=== PATIENT | male | born 1945 | race Caucasian/White ===

== ENCOUNTER 2020-04-22 21:26 | Emergency (ER) | payer MEDICARE, OTHER, SELFPAY ==
[2020-04-22 21:27] VITALS: BP 132/94; PULSE 102; RESP 16; TEMP 36.1; O2SAT 98; BMI 17.2
--- NOTE | 2020-04-22 21:50 | ED.DCSUM_ITS ---
History of Present Illness Chief Complaint: Complaint Detail of Chief Complaint: Difficulty urinating Informant: Patient Onset: Days Narrative: Patient presents with difficulty urinating. He states he has felt this coming on for quite some time with decreasing urine output. For the past couple of days he reports only being able to get a small trickle of urine out. He states he will go to the bathroom frequently because he feels like he has to go, but only able to get a small amount out. He states he has had some back pain and bilateral thigh pain when he wakes in the mornings. He does not have fever or chills. - Past Medical History (1) Benign essential HTN Status: Chronic (2) COLD (chronic obstructive lung disease) Status: Chronic Past Medical History - Allergies and Home Meds Allergies/Adverse Reactions: Allergies No Known Allergies Allergy (Verified 04/22/20 21:30) Primary Care Physician: Abilio Doctor,Out of [NON-STAFF] - Prior records reviewed: Yes Surgical History: appendectomy Smoking Status: Former smoker Review of Systems General: Denies: Chills, Fever Eyes: Denies: Visual changes - bilaterally ENT: Denies: Bilateral ear pain Cardiovascular: Denies: Chest pain Respiratory: Denies: Dyspnea, Cough Gastrointestinal: Denies: Abdominal pain, Vomiting Musculoskeletal: Reports: Back pain Skin: Denies: Rash Neurological: Denies: Headache Hematologic: Denies: Easy bruising, Easy bleeding Allergy: Denies: Uticaria Physical Exam Vital Signs/Narrative: Vital Signs Temp Pulse Resp BP Pulse Ox 04/22/20 21:27 96.9 F L 102 H 16 132/94 H 98 Inital Vital Signs reviewed: Yes General: Well nourished, Well developed Head: Normocephalic ENT: Moist mucous membranes Neck: Supple Cardiovascular: Regular rate, Regular rhythm Respiratory: No distress, Diminished Abdomen: Soft, Nontender Back: Negative for: CVA tenderness Extremities: Nontender Skin: Normal color Neurological: Alert, Oriented x3 Psychological: Normal affect Diagnostic/Tx/Re-eval Laboratory Results 04/22/20 22:05 Urine Color Yellow Urine Clarity Clear Urine pH 7.0 Ur Specific [place] 1.015 Urine Protein Negative Urine Glucose (UA) Normal Urine Ketones Negative Urine Occult Blood Negative Urine Nitrite Negative Urine Bilirubin Negative Urine Urobilinogen Normal Ur Leukocyte Esterase Negative Urine RBC 0 SEEN Urine WBC 0 SEEN Ur Squamous Epith Cells 0 SEEN Urine Bacteria 0 SEEN Urine Mucus 0 SEEN - Medical Decision Making Patient had a Jauregui catheter placed on arrival. He has had 1 L of urine drained. Urinalysis shows no infection. Patient be given a leg bag and he will wear his catheter at home. It is recommended that he follow-up with urology in approximately 3 days. [facility]. I will give him Dr. Musa's number for backup if he is unable to see one of the [facility] doctors. ED Disposition - Plan for ED Patient: Disposition: Home or Assisted Living Diagnosis: Urinary retention Instructions: ED Urinary Retention Male, ED Jauregui Catheter Care Referrals: Elio Musa MD [STAFF PHYSICIAN] - 3-5 Days
[2020-04-22 22:21] LABS: Bacteria 0 SEEN /hpf (None Seen); Mucous, Urine 0 SEEN /hpf (<or=2+); Red Blood Cells-Urine 0 SEEN /hpf (0-5); Squamous Epithelial Cells - UA 0 SEEN /hpf (0-5); White Blood Cells 0 SEEN /hpf (0-5)
[2020-04-22 22:42] LABS: Color, Urine Yellow (Yellow); Glucose, Dipstick Normal (Normal); Ketone-Dipstick Negative (Negative); Leukocyte Esterase-Dipstick Negative /ul (Negative); Nitrite-Dipstick Negative (Negative); Occult Blood-Urine Negative /ul (Negative); Protein-Dipstick Negative (Negative); Specific Gravity, Urine 1.015 (1.002-1.030); Urine Bilirubin Dipstick Negative (Negative); Urine Clarity Clear (Clear); Urine Urobilinogen Normal (Normal)
--- NOTE | 2020-04-22 23:21 | ED.RN ---
at 2317 updated on pt's discharge.
--- NOTE | 2020-04-23 13:40 | CASEMGMT ---
RN CM Note: contacted requesting that [facility] to [facility]. Clinical information for ER visit [facility] to [facility] transfer [facility] and call to notify that patient was in ER and discharged to home. -call to to update that [facility] was notified [facility] visit, and clinical was faxed to them. appreciated the notification and will f[facility]u with [facility] re: billing. Rylee TALBERT RN ACM
== END 2020-04-22 23:16 | disposition home or self-care (01) ==
PROVIDERS: Emergency Provider Emergency Medicine
DX: R33.9 Retention of urine, unspecified (principal); Z87.891 Personal history of nicotine dependence
CPT/HCPCS: 81001; 99282

== ENCOUNTER 2020-04-24 21:17 | Emergency (ER) | payer OTHER, MEDICARE, SELFPAY ==
[2020-04-24 21:20] VITALS: BP 148/90; PULSE 113; RESP 30; TEMP 37; O2SAT 88; BMI 16.8
[2020-04-24 21:39] VITALS: BP 150/100; PULSE 114; RESP 24; O2SAT 78
[2020-04-24 22:28] VITALS: BP 142/97; RESP 16; O2SAT 98
[2020-04-24 23:13] LABS: Mucous, Urine 0 SEEN /hpf (<or=2+); Squamous Epithelial Cells - UA 0 SEEN /hpf (0-5)
[2020-04-24 23:26] LABS: Color, Urine Yellow (Yellow); Glucose, Dipstick Normal (Normal); Ketone-Dipstick 50 mg/dl (Negative); Leukocyte Esterase-Dipstick 500 /ul (Negative); Nitrite-Dipstick Positive (Negative); Occult Blood-Urine 250 /ul (Negative); Protein-Dipstick 100 mg/dl (Negative); Urine Bilirubin Dipstick Negative (Negative); Urine Clarity Cloudy (Clear); Urine Urobilinogen Normal (Normal); Urine pH 6.5 (5.0 - 8.0)
[2020-04-24 23:33] LABS: Bacteria 3+ /hpf (None Seen); Red Blood Cells-Urine 5-10 SEEN /hpf (0-5); White Blood Cells 5-10 SEEN /hpf (0-5)
--- NOTE | 2020-04-24 23:41 | ED.DEP ---
ED Disposition - Plan for ED Patient: Instructions: ED CYSTITIS Male Adult Prescriptions: Cephalexin [Keflex] 500 mg PO Q12 #14 cap Prescription Printed [facility] [[facility] Provider] -
--- NOTE | 2020-04-24 23:46 | ED.VISSUMM ---
- ER Visit Summary Date of Service: 04/24/20 Chief Complaint: Jauregui catheter problems History of Present Illness: The patient is a 74 M presenting concerned that his Jauregui catheter may not be draining appropriately. He states that he had cloudy urine at home. Denies blood clots. Denies fever. He is scheduled to have this catheter removed next week at the [place]. Denies other complaints. Physical Examination: Vitals are stable. Patient is afebrile. Alert no acute distress. HEENT exam is unremarkable. Neck is supple. Lungs are clear and equal bilaterally. Heart is regular rate and rhythm. Abdomen is soft nontender nondistended. No guarding or rebound Extremities are unremarkable. Skin is warm and dry. Remainder of exam is unremarkable. Emergency Department Course and Treatment: Catheter appears to be draining appropriately. It was irrigated and continues to drain well. Urinalysis shows 5-10 white blood cells, 3+ bacteria. Urine culture was sent. He was given Keflex and a prescription for Keflex. Advised to follow-up with urology. Advised return to ED for worsening complaints. Disposition: Discharge home Impression: UTI This note was generated with [employer] dictation software. It may contain incorrect words, spelling, and punctuation that were not noted in review of the chart prior to signing ED Disposition - Plan for ED Patient: Instructions: ED CYSTITIS Male Adult Prescriptions: Cephalexin [Keflex] 500 mg PO Q12 #14 cap Prescription Printed Referrals: [facility] [Primary Care Provider] -
[2020-04-24] MEDS: Cephalexin 250 MG Capsule 500 MG PO (23:48)
== END 2020-04-24 23:51 | disposition home or self-care (01) ==
LOC: ED 22:49
PROVIDERS: Emergency Provider Emergency Medicine
DX: N39.0 Urinary tract infection, site not specified (principal)
CPT/HCPCS: 81001; 87077; 87086; 87088; 87186; 99282

== ENCOUNTER 2020-05-10 07:44 | Emergency (ER) | payer OTHER, MEDICARE, SELFPAY ==
[2020-05-10 07:45] VITALS: BP 138/88; PULSE 87; RESP 16; TEMP 36.3; O2SAT 99; BMI 16.7
--- NOTE | 2020-05-10 07:50 | ED.RN ---
pt confused at times. had difficulty communicating dc instructions and catheter care to family. created challenges at home. son with pt this visit.
--- NOTE | 2020-05-10 07:57 | CT_ITS ---
STUDY: CT ABDOMEN AND PELVIS WITH CONTRAST REASON FOR EXAM: Male, 74 years old. Constipation, rectal pain, elevated WBC, trouble urinating. Hx hypertension, COPD, appendectomy. RADIATION DOSAGE (If Supplied By Facility): CTDIvol = ( 5.28 ) mGy, DLP = ( 211.42 ) mGycm TECHNIQUE: Transaxial images were obtained from the dome of the diaphragm to the symphysis pubis without oral contrast. IV 75ML ISOVUE 300 was administered. Sagittal and coronal images were reconstructed. Individualized dose optimization techniques were used for this CT. COMPARISON: None. FINDINGS: Findings in keeping with emphysematous changes and mild scarring at the lung bases. Moderate-sized pericardial effusion. 8 mm cyst in the left lobe of the liver. 8 mm cyst seen in the midportion of the right lobe of the liver. Normal gallbladder and extrahepatic biliary system. Normal spleen. Normal pancreas. Normal bilateral adrenal glands. Normal right kidney. Normal left kidney. Normal visualized stomach. Normal small intestine. Gas and fecal material are seen within the colon. There is dilatation of the transverse colon. Gas and fecal material is also seen in the rectum. The patient is status post appendectomy. Normal abdominal aorta. Normal inferior vena cava. Normal retroperitoneum. A NORTON catheter is seen within the urinary bladder. Diffuse bladder wall thickening. There is enlargement of the prostate gland. This causes indentation on the bladder base. The prostate measures 4.5 cm x 6 sinus. Central calcifications are seen. There is evidence of a enlargement of the vas deferens bilaterally. Normal abdominal wall. There are diffuse degenerative changes of the visualized lumbar spine. Mild levoscoliosis. Gaseous distention of the colon down to the rectosigmoid colon. CT/Abdomen/Pelvis W IV Cont ONLY IMPRESSION: A NORTON catheter is seen within the urinary bladder. Diffuse bladder wall thickening with irregularity. There is enlargement of the prostate with indentation at the bladder base worse on the left side. Electronically Signed: Kian Guevara, at 9:50 EST , Service support ,
--- NOTE | 2020-05-10 08:00 | ED.DCSUM_ITS ---
History of Present Illness Chief Complaint: Abd Pain Informant: Patient Onset: Days Context: Gradual Onset Timing: Continuous Current Severity: Moderate Maximum Severity: Moderate Narrative: The patient is a 74-year-old male with multiple comorbidities who presents to the emergency department constipation. Patient states that he was seen here a week ago. At that point, he had inability to urinate. He had a Norton catheter placed. He ended up being admitted to the [facility] for about a week. He states that he has been having some difficulty moving his bowels since his hospitalization. He states that today, his whole rectal area felt very swollen. He was concerned that he may have had a rectal prolapse. He denies any fevers or chills. He does admit to some abdominal distention. He did try an enema at home with little improvement. He is also been taking laxatives. He denies any nausea or vomiting. He denies any fevers or chills. Prior similar symptoms: Yes Recent Illness/Hospitalization: No Past Medical History - Allergies and Home Meds Allergies/Adverse Reactions: Allergies Tetanus Vaccines and Toxoid Allergy (Verified 05/10/20 08:35) Swelling Primary Care Physician: [facility] [Primary Care Provider] - Prior records reviewed: Yes Past Medical History: - - COPD Surgical History: appendectomy Smoking Status: Former smoker Review of Systems General: Denies: Chills, Fever, Sweats Eyes: Denies: Visual changes - bilaterally, Diplopia ENT: Denies: Rhinorrhea, Sore throat Cardiovascular: Denies: Chest pain, Palpitations Respiratory: Denies: Dyspnea, Cough, Dyspnea on exertion Gastrointestinal: Reports: Constipation. Denies: Abdominal pain, Nausea, Vomiting, Diarrhea, Melena, Hematochezia Genitourinary: Denies: Dysuria, Hematuria, Frequency Musculoskeletal: Denies: Back pain, Extremity Pain Skin: Denies: Rash, Wounds Neurological: Denies: Headache, Weakness, Numbness Physical Exam Vital Signs/Narrative: Vital Signs Temp Pulse Resp BP Pulse Ox 05/10/20 07:45 97.4 F L 87 16 138/88 H 99 Inital Vital Signs reviewed: Yes General: Well nourished, Well developed, No Acute Distress Head: Normocephalic, Atraumatic Eyes: Perrl, EOMI ENT: Moist mucous membranes, No rhinorrhea Neck: Supple, Nontender Cardiovascular: Regular rate, Regular rhythm, No murmurs Respiratory: No distress, CTA bilaterally, Chest nontender Abdomen: Soft, Nontender, Nondistended, Normal bowel sounds Rectal: - - Patient does have a small hemorrhoid at the 12 o'clock position. There is no evidence of thrombosis. There is no rectal prolapse. Back: Nontender, Normal Inspection Extremities: Nontender, No edema Skin: Normal color, No rash Neurological: Alert, Oriented x3, Cranial nerves II-XII grossly intact, Normal Strength, Normal Sensation Psychological: Normal affect, Normal Mood Diagnostic/Tx/Re-eval Clinical Impression(s) from Imaging Studies Abdomen/Pelvis CT 05/10/20 07:57 IMPRESSION: A NORTON catheter is seen within the urinary bladder. Diffuse bladder wall thickening with irregularity. There is enlargement of the prostate with indentation at the bladder base worse on the left side. Electronically Signed: Kian Ismael, at 9:50 EST , Service support , Abnormal Lab Results 05/10/20 05/10/20 05/10/20 08:05 08:05 08:05 WBC 26.3 H RBC 5.10 Hgb 15.7 Hct 48.0 MCV 94.1 H MCH 30.8 MCHC 32.7 RDW Std Deviation 45.2 H RDW Coeff of Christy 13.1 Plt Count 272 MPV 9.0 Immature Gran % (Auto) 0.500 Neut % (Auto) 92.0 H Lymph % (Auto) 1.8 L [place] % (Auto) 5.3 Eos % (Auto) 0.2 Baso % (Auto) 0.2 Absolute Neuts (auto) 24.2 H Absolute Lymphs (auto) 0.47 L Nucleated RBC % 0 Differential Comment SCANNED Sodium 139 Potassium 3.0 L Chloride 95 L Carbon Dioxide 43.0 H Anion Gap 1 L BUN 10 Creatinine 0.89 Estim Creat Clear Calc 51.50 Est GFR (MDRD) Af Amer 108 Est GFR (MDRD) Non-Af 89 BUN/Creatinine Ratio 11.2 Glucose 149 H Calcium 9.0 Urine Color Yellow Urine Clarity Sl. Cloudy Urine pH 8.0 Ur Specific [place] 1.010 Urine Protein 15 H Urine Glucose (UA) Normal Urine Ketones Negative Urine Occult Blood 25 H Urine Nitrite Positive H Urine Bilirubin Negative Urine Urobilinogen Normal Ur Leukocyte Esterase 500 H - Medical Decision Making Patient presents with constipation and concerned that he has a rectal prolapse. Rectal exam was done. He does have a small hemorrhoid, but no evidence of prolapse. There is no stool within the vault and he has normal tone. Screening labs are obtained. The patient does have leukocytosis, but he is still on a prednisone burst and taper from his hospitalization. Rest of his labs are unremarkable. With his age and complaints, I did obtain CT. There was some air-fluid levels throughout the abdomen into the colon, but no evidence of acute obstruction. Patient does have a chronic indwelling Norton and is on oral antibiotics. His urine does show some nitrite positive, but otherwise was relatively unremarkable. Patient was given an enema. He did have significant results and is feeling improved. At this point, I do feel that he safe for outpatient therapy. He is comfortable with this plan of care. Impression 1. Constipation 2. History of urinary retention with indwelling Norton ED Disposition - Plan for ED Patient: Instructions: ED Constipation (Adult) Referrals: [place] [Primary Care Provider] -
[2020-05-10] MEDS: 0.9% Normal Saline 1,000 ML 150 ML IV (08:08)
[2020-05-10 08:14] LABS: Absolute Lymphocyte Count 0.47 X10^3/uL (0.83-4.51); Absolute Neutrophil Count 24.2 X10^3/uL (2.0-7.7); Basophil# 0.06 X10^3/uL; Basophil% 0.2 % (0-1); Eosinophil# 0.04 X10^3/uL; Eosinophils% 0.2 % (0-5); Hemoglobin 15.7 g/dL (13.0-16.5); Lymphocyte # 0.47 X10^3/ul (4.0); Lymphocyte % 1.8 % (19-41); Mean Corp Hgb Conc 32.7 g/dL (32-36); Mean Corpuscular Hgb 30.8 pg (27.0-32.0); Mean Corpuscular Volume 94.1 fL (80-94); Monocyte# 1.39 X10^3/uL; Monocyte% 5.3 % (0-10); NRBC Flagged by Analyzer 0 % (0-5); POSITIVE DIFFERENTIAL YES; Platelet Count 272 K/mm3 (150-450); RBC Distribution Width CV 13.1 % (11.6-14.6); RBC Distribution Width SD 45.2 fl (35.1-43.9); White Blood Count 26.3 K/mm3 (4.4-11.0)
[2020-05-10 08:17] LABS: Differential Indicated SCAN CRITERIA MET
[2020-05-10 08:26] LABS: Anion Gap 1 (5-15); BUN 10 mg/dL (7-18); BUN/Creat Ratio 11.2 RATIO (10-20); Chloride 95 mmol/L (98-107); Creatinine, Serum 0.89 mg/dL (0.70-1.30); EST Glomerular Filtration Rate 89 mL/min (>60); Est Glom Filt Rate - Afr Amer 108 mL/min (>60); Glucose 149 mg/dL (74-106); Sodium Level 139 mmol/L (136-145)
[2020-05-10 08:33] LABS: Differential Comment SCANNED
[2020-05-10 08:39] VITALS: BP 134/95; PULSE 103; RESP 18; O2SAT 98
[2020-05-10 12:14] LABS: Mucous, Urine 0 SEEN /hpf (<or=2+)
--- NOTE | 2020-05-10 12:23 | ED.RN ---
enema preformed, 550ml of soap suds enema was retained. pt held for approximately [address] minutes [address] then was place on bedside commode. brown liquid with only a small amount of stool came out. pt reports feeling better after the enema. dr cali made aware.
[2020-05-10 12:26] LABS: Color, Urine Yellow (Yellow); Glucose, Dipstick Normal (Normal); Ketone-Dipstick Negative (Negative); Leukocyte Esterase-Dipstick 500 /ul (Negative); Nitrite-Dipstick Positive (Negative); Occult Blood-Urine 25 /ul (Negative); Protein-Dipstick 15 mg/dl (Negative); Urine Bilirubin Dipstick Negative (Negative); Urine Clarity Sl. Cloudy (Clear); Urine Urobilinogen Normal (Normal)
[2020-05-10 12:32] LABS: Bacteria 2+ /hpf (None Seen); Red Blood Cells-Urine 0-5 SEEN /hpf (0-5); Squamous Epithelial Cells - UA 0-5 SEEN /hpf (0-5); White Blood Cells 25-50 SEEN /hpf (0-5)
[2020-05-10 12:37] VITALS: BP 120/77; PULSE 81; O2SAT 99
== END 2020-05-10 12:38 | disposition home or self-care (01) ==
LOC: ED 08:35
PROVIDERS: Emergency Provider Emergency Medicine
DX: K59.00 Constipation, unspecified (principal); J44.9 Chronic obstructive pulmonary disease, unspecified; Z96.0 Presence of urogenital implants; Z87.891 Personal history of nicotine dependence
CPT/HCPCS: 74177; 80048; 81001; 85025; 96360; 96361; 99285; J7030; Q9967; A4216

== ENCOUNTER 2020-05-15 12:38 | Inpatient (IN) | payer MEDICARE, OTHER, SELFPAY ==
[2020-05-15] VITALS (23 sets, daily range): BP systolic 77–113; BP diastolic 58–84; PULSE 70–120; RESP 12–22; TEMP 36.3–38.4; O2SAT 80–100; BMI 15.4; BMI 15.7
[2020-05-15 12:56] LABS: Base Excess 10 mmol/L (-2 to +2); Bicarbonate 37.2 mmol/L (22-26); Blood Gas Specimen Type ART; O2 Delivery Device NRB; PO2 169 mmHG (75-100); SITE R Radial; SO2 99 % (95-99); Total Carbon Dioxide 40 mmol/L; pCO2 82.3 mmHg (35-45); pH 7.26 (7.35-7.45)
--- NOTE | 2020-05-15 12:57 | EKG12_ITS ---
Test Reason : Blood Pressure : / mmHG Vent. Rate : 116 BPM Atrial Rate : 116 BPM P-R Int : 114 ms QRS Dur : 118 ms QT Int : 288 ms P-R-T Axes : 092 086 039 degrees QTc Int : 400 ms Sinus Tachycardia with PAC's Low voltage QRS ST & T wave abnormality, consider anterior ischemia Abnormal ECG Confirmed by KEHINDE GIBBS, MARCELLO ([id number]), editorial director ALYSSA CORTEZ ([id number]) on 05/22/2020 10:25:09 AM Referred By: PAULETTE Confirmed By:CAREN BUSBY MD
--- NOTE | 2020-05-15 13:09 | CPS ---
Critical values called to .
[2020-05-15] MEDS: 0.9% Normal Saline 1,000 ML 999 ML IV (13:11)
[2020-05-15] MEDS: MethylPREDNISolone 125 MG/2 ML Vial IV (13:12)
[2020-05-15] MEDS: Ipratropium/Albuterol Sulfate 3 ML AMPUL.NEB INHALATION (13:15)
[2020-05-15] MEDS: Albuterol 2.5 MG/3 ML VIAL.NEB. INHALATION (13:25)
[2020-05-15 13:26] LABS: Absolute Lymphocyte Count 0.49 X10^3/uL (0.83-4.51); Absolute Neutrophil Count 10.6 X10^3/uL (2.0-7.7); Basophil# 0.05 X10^3/uL; Basophil% 0.4 % (0-1); Eosinophil# 0.01 X10^3/uL; Eosinophils% 0.1 % (0-5); Hematocrit 46.4 % (40-54); Hemoglobin 14.6 g/dL (13.0-16.5); Lymphocyte # 0.49 X10^3/ul (4.0); Lymphocyte % 3.9 % (19-41); Mean Corp Hgb Conc 31.5 g/dL (32-36); Mean Corpuscular Volume 95.3 fL (80-94); Mean Platelet Vol. 9.8 fl (6.2-12.0); Monocyte# 1.22 X10^3/uL; Monocyte% 9.8 % (0-10); NRBC Flagged by Analyzer 0 % (0-5); Neutrophil # 10.62 X10^3/uL (2.7-7.7); Neutrophil % 85.4 % (47-70); POSITIVE DIFFERENTIAL YES; Platelet Count 229 K/mm3 (150-450); RBC Distribution Width SD 45.7 fl (35.1-43.9); Red Blood Count 4.87 M/mm3 (4.6-6.2); White Blood Count 12.4 K/mm3 (4.4-11.0)
[2020-05-15 13:28] LABS: Mucous, Urine 0 SEEN /hpf (<or=2+)
[2020-05-15 13:28] LABS: Differential Indicated SCAN CRITERIA MET
--- NOTE | 2020-05-15 13:36 | RAD_ITS ---
STUDY: X-RAY CHEST REASON FOR EXAM: Male, 74 years old. SOB, DIFFICULTY URINATING. UNRESPONSIVE FOR SQUAD INITALLY THEN PERKED UP UPON ARRIVAL TO ER. TECHNIQUE: Single AP portable view of the chest. COMPARISON: None. FINDINGS: EKG electrodes are seen. Hyperinflation. Decreased bronchovascular markings in the upper lobes suggestive of emphysematous change. Findings suggest lobar linear scarring at the lung bases. Normal size heart. Normal mediastinum and chip. Normal visualized pulmonary arteries. There is atherosclerotic calcification of the aortic arch with tortuosity. There is demineralization of the osseous structures. Normal visualized ribs, clavicles, and shoulders. There is no demonstrated abnormality of the visualized soft tissue structures of the upper abdomen. RAD/Chest 1 View (Portable) IMPRESSION: Hyperinflation. Decreased bronchovascular markings in the upper lobes suggestive of the emphysematous changes. Findings suggestive of linear scarring at the lung bases. Electronically Signed: Kian Guevara, at 13:57 EST , Service support ,
[2020-05-15 13:39] LABS: ALB/GLOB Ratio 0.8 RATIO (0.9-2.4); AST(SGOT) 15 U/L (15-37); Alanine Aminotransfer ALT/SGPT 19 U/L (16-61); Alkaline Phosphatase 75 U/L (45-117); Anion Gap 6 (5-15); BUN 18 mg/dL (7-18); BUN/Creat Ratio 13.5 RATIO (10-20); Calcium,Total 8.8 mg/dL (8.5-10.1); Chloride 94 mmol/L (98-107); Creatinine, Serum 1.33 mg/dL (0.70-1.30); EST Glomerular Filtration Rate 56 mL/min (>60); Est Glom Filt Rate - Afr Amer 68 mL/min (>60); Estimated Creatinine Clearance 31.74 ml/min; Glucose 134 mg/dL (74-106); Magnesium 2.3 mg/dL (1.6-2.6); Potassium 3.8 mmol/L (3.5-5.1); Sodium Level 138 mmol/L (136-145)
[2020-05-15 13:46] LABS: Lactic Acid 3.6 mmol/L (0.4-1.9)
[2020-05-15 13:47] LABS: Color, Urine Yellow (Yellow); Glucose, Dipstick Normal (Normal); Ketone-Dipstick 15 mg/dl (Negative); Leukocyte Esterase-Dipstick 500 /ul (Negative); Nitrite-Dipstick Positive (Negative); Occult Blood-Urine 250 /ul (Negative); Protein-Dipstick 100 mg/dl (Negative); Specific Gravity, Urine 1.025 (1.002-1.030); Urine Clarity Sl. Cloudy (Clear); Urine Urobilinogen 4 mg/dl (Normal)
[2020-05-15 13:48] LABS: Urine Bilirubin Dipstick 3 mg/dL (Negative)
[2020-05-15 13:49] LABS: International Normalized Ratio 1.2; Prothrombin Time (Protime)PT. 14.4 SECONDS (11.7-14.9)
[2020-05-15 13:49] LABS: Bacteria 2+ /hpf (None Seen); Red Blood Cells-Urine 25-50 SEEN /hpf (0-5); Squamous Epithelial Cells - UA 0-5 SEEN /hpf (0-5); White Blood Cells 50-100 SEEN /hpf (0-5)
[2020-05-15 13:50] LABS: Partial Thromboplast Time 22.1 Seconds (24.1-36.2)
--- NOTE | 2020-05-15 14:07 | ED.VIS.GEN ---
History of Present Illness Chief Complaint: Shortness of Breath Informant: Family, Senior Application Security Consultant Narrative: 74-year-old male with history of COPD on chronic home oxygen was found unresponsive on the toilet this morning. EMS was called. They found him to be significantly hypoxemic. They state that he did not regain any consciousness until taken out into the cold here at the hospital. states that they are recently at the hospital and they are on their way to urology and pulmonology appointments in [place] at the [place]. No reported fevers. states that he self caths but has not been getting any urine out. She also states that he has not been eating or drinking well. - Past Medical History (1) Benign essential HTN Status: Chronic (2) COLD (chronic obstructive lung disease) Status: Chronic Past Medical History - Allergies and Home Meds Allergies/Adverse Reactions: Allergies Tetanus Vaccines and Toxoid Allergy (Verified 05/15/20 13:00) Swelling Primary Care Physician: [place] [Primary [facility]] - Prior records reviewed: Yes Surgical History: appendectomy Lives: Spouse/ Significant Other Smoking Status: Former smoker Drugs: None Review of Systems ROS: Unable to Obtain Physical Exam Vital Signs/Narrative: Vital Signs Temp Pulse Resp BP Pulse Ox 05/15/20 13:55 101.2 F H 104 H 15 86/58 L 96 05/15/20 13:34 100.9 F H 05/15/20 13:00 98 05/15/20 12:47 97.8 F 114 H 20 H 113/81 H 80 05/15/20 12:39 100.8 F H 114 H 20 H 113/81 H 99 Inital Vital Signs reviewed: Yes General: Well developed, Cachectic Head: Normocephalic, Atraumatic Eyes: Perrl, EOMI ENT: Moist mucous membranes, No rhinorrhea Neck: Supple, Nontender Cardiovascular: Regular rate, No murmurs, Tachycardia Respiratory: Chest nontender, Wheezing, Diminished, - - Patient is tachypneic with accessory muscle use. Abdomen: Soft, Nontender, Nondistended, Normal bowel sounds Back: Nontender, Normal Inspection Extremities: Nontender, No edema Skin: Normal color, No rash Neurological: Cranial nerves II-XII grossly intact, Lethargic, - - Moves all extremities x4. Can hold his arms up against the bed. While lethargic he can follow some basic commands at times. Diagnostic/Tx/Re-eval Clinical Impression(s) from Imaging Studies Chest X-Ray 05/15/20 13:36 IMPRESSION: Hyperinflation. Decreased bronchovascular markings in the upper lobes suggestive of the emphysematous changes. Findings suggestive of linear scarring at the lung bases. Electronically Signed: Kian Guevara, at 13:57 EST , Service support , Laboratory Last Values WBC 12.4 K/mm3 (4.4-11.0) H 05/15/20 13:03 RBC 4.87 M/mm3 (4.6-6.2) 05/15/20 13:03 Hgb 14.6 g/dL (13.0-16.5) 05/15/20 13:03 Hct 46.4 % (40-54) 05/15/20 13:03 MCV 95.3 fL (80-94) H 05/15/20 13:03 MCH 30.0 pg (27.0-32.0) 05/15/20 13:03 MCHC 31.5 g/dL (32-36) L 05/15/20 13:03 RDW Std Deviation 45.7 fl (35.1-43.9) H 05/15/20 13:03 RDW Coeff of Christy 13.0 % (11.6-14.6) 05/15/20 13:03 Plt Count 229 K/mm3 (150-450) 05/15/20 13:03 MPV 9.8 fl (6.2-12.0) 05/15/20 13:03 Immature Gran % (Auto) 0.400 % (0.0-0.9) 05/15/20 13:03 Neut % (Auto) 85.4 % (47-70) H 05/15/20 13:03 Lymph % (Auto) 3.9 % (19-41) L 05/15/20 13:03 [place] % (Auto) 9.8 % (0-10) 05/15/20 13:03 Eos % (Auto) 0.1 % (0-5) 05/15/20 13:03 Baso % (Auto) 0.4 % (0-1) 05/15/20 13:03 Absolute Neuts (auto) 10.6 X10^3/uL (2.0-7.7) H 05/15/20 13:03 Absolute Lymphs (auto) 0.49 X10^3/uL (0.83-4.51) L 05/15/20 13:03 Nucleated RBC % 0 % (0-5) 05/15/20 13:03 Differential Comment 05/15/20 13:03 PT 14.4 SECONDS (11.7-14.9) 05/15/20 13:03 INR 1.2 05/15/20 13:03 APTT 22.1 Seconds (24.1-36.2) L 05/15/20 13:03 Specimen Type ART 05/15/20 15:04 Sample Site R Radial 05/15/20 15:04 pH 7.32 (7.35-7.45) L 05/15/20 15:04 Bicarbonate Actual 34.3 mmol/L (22-26) H 05/15/20 15:04 Total CO2 36 mmol/L 05/15/20 15:04 Base Excess 8 mmol/L (-2 to +2) H 05/15/20 15:04 O2 Saturation 86 % (95-99) L 05/15/20 15:04 O2 % 30 05/15/20 15:04 ABG pCO2 67.4 mmHg (35-45) H* 05/15/20 15:04 ABG pO2 58 mmHG (75-100) L 05/15/20 15:04 Marcel Test Positive 05/15/20 15:04 O2 Delivery Device BiPAP 05/15/20 15:04 Sodium 138 mmol/L (136-145) 05/15/20 13:03 Potassium 3.8 mmol/L (3.5-5.1) 05/15/20 13:03 Chloride 94 mmol/L (98-107) L 05/15/20 13:03 Carbon Dioxide 38.0 mmol/L (21.0-32.0) H 05/15/20 13:03 Anion Gap 6 (5-15) 05/15/20 13:03 BUN 18 mg/dL (7-18) 05/15/20 13:03 Creatinine 1.33 mg/dL (0.70-1.30) H 05/15/20 13:03 Estim Creat Clear Calc 31.74 ml/min 05/15/20 13:03 Est GFR (MDRD) Af Amer 68 mL/min (>60) 05/15/20 13:03 Est GFR (MDRD) Non-Af 56 mL/min (>60) L 05/15/20 13:03 BUN/Creatinine Ratio 13.5 RATIO (10-20) 05/15/20 13:03 Glucose 134 mg/dL (74-106) H 05/15/20 13:03 Lactic Acid 3.6 mmol/L (0.4-1.9) H* 05/15/20 13:03 Calcium 8.8 mg/dL (8.5-10.1) 05/15/20 13:03 Magnesium 2.3 mg/dL (1.6-2.6) 05/15/20 13:03 Total Bilirubin 0.70 mg/dL (0.20-1.00) 05/15/20 13:03 AST 15 U/L (15-37) 05/15/20 13:03 ALT 19 U/L (16-61) 05/15/20 13:03 Alkaline Phosphatase 75 U/L (45-117) 05/15/20 13:03 Troponin I 0.169 ng/mL (<0.045) H 05/15/20 13:03 B-Natriuretic Peptide 114.0 pg/mL (0-100) H 05/15/20 13:03 Total Protein 7.0 g/dL (6.4-8.2) 05/15/20 13:03 Albumin 3.0 g/dL (3.2-5.0) L 05/15/20 13:03 Globulin 4.0 g/dL (2.2-4.2) 05/15/20 13:03 Albumin/Globulin Ratio 0.8 RATIO (0.9-2.4) L 05/15/20 13:03 Urine Color Yellow (Yellow) 05/15/20 13:22 Urine Clarity Sl. Cloudy (Clear) 05/15/20 13:22 Urine pH 5.0 (5.0 - 8.0) 05/15/20 13:22 Ur Specific [place] 1.025 (1.002-1.030) 05/15/20 13:22 Urine Protein 100 mg/dl (Negative) H 05/15/20 13:22 Urine Glucose (UA) Normal mg/dl (Normal) 05/15/20 13:22 Urine Ketones 15 mg/dl (Negative) H 05/15/20 13:22 Urine Occult Blood 250 /ul (Negative) H 05/15/20 13:22 Urine Nitrite Positive (Negative) H 05/15/20 13:22 Urine Bilirubin 3 mg/dL (Negative) H 05/15/20 13:22 Urine Urobilinogen 4 mg/dl (Normal) H 05/15/20 13:22 Ur Leukocyte Esterase 500 /ul (Negative) H 05/15/20 13:22 Urine RBC 25-50 SEEN /hpf (0-5) 05/15/20 13:22 Urine WBC 50-100 SEEN /hpf (0-5) 05/15/20 13:22 Ur Squamous Epith Cells 0-5 SEEN /hpf (0-5) 05/15/20 13:22 Urine Bacteria 2+ /hpf (None Seen) 05/15/20 13:22 Urine Mucus 0 SEEN /hpf (<or=2+) 05/15/20 13:22 - EKG Initial EKG Interpretation: Sinus Tachycardia - EKG demonstrates a sinus tachycardia at a rate of 116. Intraventricular conduction delay noted. - Medical Decision Making Patient was started on BiPAP therapy. His ABG shows a acute respiratory acidosis. He received IV fluids. He developed a fever. White count is elevated as his lactic acid. Urinalysis which was obtained from a Jauregui which we placed demonstrates UTI. He received a dose of Rocephin after blood and urine cultures were obtained. Patient appears to be acutely septic from urinary tract infection. He appears to have acute respiratory failure due to COPD exacerbation and possibly from syncopal episode while on the toilet. Patient will require ICU care. His blood pressure has been 90 over 70s with mean pressures around 69-70. He is extremely cachectic which may correspond to the lower than normal blood pressure readings. His lactic acid is probably some combination of dehydration as well as profound hypoxemia. His elevated troponin is most likely type II. - Critical Care Time Critical care time (excluding procedures): 30-74 minutes - 35 min, Discussing w/Patient &/or Family/Studio Operations Manager, Discussing w/Consultants, Arranging Admission or Transfer, Performing Direct Patient Care at Bedside ED Disposition - Plan for ED Patient: Disposition: Acute Care Hospital [facility] Diagnosis: Acute respiratory failure, COPD exacerbation, UTI (urinary tract infection), Severe sepsis [facility] [Primary Care Provider] -
[2020-05-15] MEDS: 0.9% Normal Saline 1,000 ML 250 ML IV (14:29)
[2020-05-15] MEDS: Ceftriaxone 1 GM/50 ML BAG IV (14:29)
[2020-05-15] MEDS: Acetaminophen 650 MG Suppository RECTAL (14:31)
[2020-05-15 15:10] LABS: Allen Test Positive; Base Excess 8 mmol/L (-2 to +2); Bicarbonate 34.3 mmol/L (22-26); Blood Gas Specimen Type ART; FI02 30; O2 Delivery Device BiPAP; PO2 58 mmHG (75-100); SITE R Radial; SO2 86 % (95-99); Total Carbon Dioxide 36 mmol/L; pCO2 67.4 mmHg (35-45); pH 7.32 (7.35-7.45)
--- NOTE | 2020-05-15 15:19 | CPS ---
Critical ABG results given to Dr. Mishra at 1519.
--- NOTE | 2020-05-15 15:21 | CPS ---
FiO2 increased to 35% pr dr request. Sats on monitor at 94%, however, blood gas sat shows 85.8%.
--- NOTE | 2020-05-15 15:50 | NURSING ---
ICU RESP FAILURE, COPD EXAC, COOMPLICATED UTI, SEPSIS, INDET TROP WHITE
--- NOTE | 2020-05-15 16:01 | NURSING ---
ICU 5
--- NOTE | 2020-05-15 16:44 | ECHOD_ITS ---
Version 2 Reason For Study: ARRHYTHMIA Procedure This was a 2D Doppler, Color Flow transthoracic echocardiogram. The study was technically difficult. Exam performed portable in ICU/CCU. Left Ventricle Normal LV size. The estimated ejection fraction is 65 %. No evidence for diastolic dysfunction. No regional wall motion abnormalities noted. Right Ventricle Mildly dilated right ventricle. Normal systolic function. Atria Normal left atrium. Normal right atrium. No doppler evidence for ASD. Mitral Valve There is no mitral valve stenosis. No mitral valve insufficiency. Tricuspid Valve There is no tricuspid stenosis. Trivial tricuspid valve insufficiency. Unable to estimate RV systolic pressure due to insufficient tricuspid regurgitant envelope. Aortic Valve Trisinus/trileaflet aortic valve. There is no aortic stenosis. No aortic valve insufficiency. Pulmonic Valve There is no pulmonic valvular stenosis. No pulmonic valve insufficiency. Great Vessels Normal aortic root. Pericardium/Pleural No pericardial effusion. MMode/2D Measurements & Calculations LVIDd: 4.9 cm IVSd: 1.0 cm LAV(MOD-bp): 41.9 ml LVIDs: 2.6 cm LVPWd: 0.94 cm LAV(MOD-bp) Indexed: 27.8 ml/m2 RVDd: 3.3 cm FS: 47.5 % LAV(MOD-sp2): 46.2 ml LAV(MOD-sp4): 38.1 ml LA A4 area: 15.3 cm2 RA A4 area: 13.0 cm2 Time Measurements MV dec time: 0.18 sec Doppler Measurements & Calculations MV E max damion: 80.1 cm/sec Lat Peak E' Damion: 10.1 cm/sec Med Peak E' Damion: 9.0 cm/sec MV A max damion: 90.3 cm/sec E/E' lat: 7.9 E/E' med: 8.9 MV E/A: 0.89 Ao V2 max: 161.2 cm/sec LV V1 max: 124.7 cm/sec PA V2 max: 95.7 cm/sec Ao max P.4 mmHg LV V1 max P.2 mmHg Interpretation Summary The study was technically difficult. The estimated ejection fraction is 65 %. No evidence for diastolic dysfunction. Mildly dilated right ventricle. The study was technically difficult. Ordering Physician: Nubia Masters Referring Physician: [facility] Performed By: Aishwarya Isbell, THEODORE, RVT
--- NOTE | 2020-05-15 16:44 | PCM.HP.STD ---
Problem List (1) COPD exacerbation Status: Acute (2) Severe sepsis Status: Acute (3) UTI (urinary tract infection) Status: Acute Qualifiers: Urinary tract infection type: site unspecified (4) Acute respiratory failure Status: Acute Qualifiers: Respiratory failure complication: hypoxia and hypercapnia Qualified Code(s): J96.01 - Acute respiratory failure with hypoxia; J96.02 - Acute respiratory failure with hypercapnia (5) HLD (hyperlipidemia) Status: Chronic Qualifiers: Hyperlipidemia type: unspecified Qualified Code(s): E78.5 - Hyperlipidemia, unspecified (6) GERD (gastroesophageal reflux disease) Status: Chronic Qualifiers: Esophagitis bleeding: unspecified whether hemorrhage (7) Former tobacco use Status: Chronic (8) Anxiety and depression Status: Chronic (9) BPH (benign prostatic hyperplasia) Status: Chronic Qualifiers: Lower urinary tract symptom presence: unspecified whether lower urinary tract symptoms present Qualified Code(s): N40.0 - Benign prostatic hyperplasia without lower urinary tract symptoms (10) Severe protein-calorie malnutrition Status: Chronic (11) Chronic respiratory failure Status: Chronic Qualifiers: Respiratory failure complication: hypoxia and hypercapnia Qualified Code(s): J96.11 - Chronic respiratory failure with hypoxia; J96.12 - Chronic respiratory failure with hypercapnia (12) COLD (chronic obstructive lung disease) Status: Chronic Qualifiers: COPD type: unspecified COPD Qualified Code(s): J44.9 - Chronic obstructive pulmonary disease, unspecified (13) Benign essential HTN Status: Chronic History of Present Illness Date of Admission: 05/15/20 Chief Complaint: Dyspnea, lethargy, unresponsive episode The patient is a 74 y/o M w/ PMHx: Severe Protein Calorie Malnutrition, Chronic COPD/Emphysema with Chronic Hypoxic Respiratory Failure, HTN, HLD, Anxiety and Depression, GERD who presents to the [facility] ED on 05/15/20 with history of being found unresponsive at his home AM on day of ED presentation on the toilet, lethargic, decreased responsive with hypoxia on his normal oxygen level. Patient was supposed to follow-up with Urology and Pulmonary on his day of presentation. [facility] per report. Per spouse he had no recent fevers or significant complaints prior to this presentation/onset. He has however not been eating or drinking well. He has been self catheterizing but had minimal output per her report. Work-up in the ED included initially T 96.9, heart rate 102, BP 132/94, respiratory rate 30, 88% on 4 L nasal cannula initially requiring BiPAP placement with fever up to 101.2, CBC with WC 12.4, hemoglobin 14.6, platelet 229 with left shift and lymphopenia, coags with PT 14.4, INR 1.2, PTT 22.1, ABG initially with pH 7.26, PO2 169, PCO2 82.3-->repeat pH 7.32, O2 saturation 86, CO2 36, PCO2 67.4, PO2 58 on BiPAP, CMP with chloride 94, carbon oxide 38, BUN/creatinine 18/1.33, glucose 134, lactic acid 3.6, troponin 0 0.169, BNP 114, analysis significantly concerning for acute UTI and dehydration, blood culture x2 pending per ED, urine culture pending per ED, SARS Covid rapid negative, chest x-ray with hyperinflation with decreased bronchovascular markings in the upper lobes suggestive of emphysematous changes, linear scarring at the lung bases, EKG with sinus tachycardia with no acute evidence of ischemia. The ED patient was ministered normal saline, Tylenol, DuoNeb therapies, Solu-Medrol, Rocephin and as noted had been placed on BiPAP. Past Medical History Past Medical History (Chronic Problems): Chronic Problems HLD (hyperlipidemia) (Chronic) GERD (gastroesophageal reflux disease) (Chronic) Former tobacco use (Chronic) Anxiety and depression (Chronic) BPH (benign prostatic hyperplasia) (Chronic) Severe protein-calorie malnutrition (Chronic) Chronic respiratory failure (Chronic) COLD (chronic obstructive lung disease) (Chronic) Benign essential HTN (Chronic) Allergies Tetanus Vaccines and Toxoid Allergy (Verified 05/15/20 13:00) Swelling Home Medications: Ambulatory Orders Medication Instructions Recorded ALPRAZolam [Xanax] 0.5 mg PO TID PRN PRN 05/15/20 Albuterol Aerosols [Ventolin 2.5 mg INHALATION Q6H PRN PRN 05/15/20 Aerosols] Albuterol Inhaler [Ventolin Hfa 2 puff INHALATION Q6H PRN PRN 05/15/20 (SP)] Budesonide/Formoterol 160/4.5 2 puff INHALATION BID 05/15/20 [Symbicort 160/4.5 Mcg Inhaler (SP)] Ensure Clear 120 ml PO TID 05/15/20 Ergocalciferol (Vitamin D2) 50,000 unit PO Q30D 05/15/20 [Vitamin D2] Fluticasone Propionate [Flonase 2 spray NASAL DAILY 05/15/20 Allergy Relief] Guaifenesin 800 mg PO TID 05/15/20 Hydrocortisone/Pramoxine [Epifoam 1 applic TP BID 05/15/20 Foam] Lisinopril [Zestril] 30 mg PO DAILY 05/15/20 Loratadine 10 mg PO DAILY PRN PRN 05/15/20 Mirtazapine [Remeron] 15 mg PO QHS PRN PRN 05/15/20 Omeprazole 40 mg PO BID 05/15/20 Pravastatin [Pravachol] 20 mg PO QHS 05/15/20 Ropinirole HCl 1 mg PO QHS PRN PRN 05/15/20 Tamsulosin HCl [Flomax] 0.8 mg PO QHS 05/15/20 Theophylline [Mina-Dur] 300 mg PO BID 05/15/20 Tiotropium Virgil [Spiriva] 18 mcg IH DAILY 05/15/20 Trazodone HCl 150 mg PO QHS PRN PRN 05/15/20 Surgical History: appendectomy Psychiatric History: Anxiety, Depression Lives: Spouse/ Significant Other Smoking Status: Former smoker - Quit tobacco use cigarette 2008, 1-2 ppd 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 Tobacco Use: Non-smoker Alcohol: None Drugs: None - *Family History Maternal History Items: Heart Disease Paternal History Items: Heart Disease Review of Systems Constitutional: Reports: Anorexia, Malaise, Weakness, Fatigue. Denies: Chills, Fever, Weight Change HEENT: Denies: Head Aches, Sinus Congestion, Sinus Drainage Cardiovascular: Denies: Chest Pain, Palpitations Respiratory: Reports: Cough, Shortness of Breath, Shortness of breath at rest, Shortness of breath upon exertion, Wheezing. Denies: Sputum production Gastrointestinal: Reports: Constipation. Denies: Abdominal Pain, Nausea, Vomiting Genitourinary: Reports: Dysuria, Frequency, Retention, - - Noted testicular pain to recently. Musculoskeletal: Reports: Back Pain, Joint Pain. Denies: Joint Tenderness Skin: Denies: Rash, Wounds Neurological: Denies: Numbness, Tingling, Focal weakness Psychiatric: Reports: Anxiety, Depression. Denies: Homicidal Ideations, Suicidal Ideations Hematologic/ Lymphatic: Reports: Easy Bruising, Easy Bleeding Unable to obtain accurate/complete ROS d/t: ROS per . VTE Information - Inpt Only VTE Present on Admission: No VTE Mechan Device Prophylaxis: SCD's VTE Pharm Prophylaxis ordered?: Yes Patient Problems: Active and Suspected Problems Acute respiratory failure (Acute) COPD exacerbation (Acute) UTI (urinary tract infection) (Acute) Severe sepsis (Acute) Subjective: Patient seated upright in the ED bed, BiPAP in place, fatigued, lethargic, arousable but falls asleep quickly. Objective: Physical Examination: General: Patient awakens to some stimuli, not very alert, not able to answer orientation questions, ongoing encephalopathy, BiPAP in place, not able to follow commands, seated upright in ED bed, BiPAP in place. Skin: normal color, turgor, no icterus, cyanosis except noted occasional staged ecchymoses. HEENT: AT/NC, EOM unable to be assessed given lethargic status, PERRLA, dry MM, BiPAP in place, no carotid bruits or JVD noted. Lungs: Significantly diminished breath sounds, greater bases, poor effort, increased respiratory rate and accessory muscle usage, BiPAP in place, evident distress, wheezing noted. Heart: Tachycardic with regular rhythm; no gallop, rub audible. Abdomen: soft, cachectic habitus, NTTP, ND, normal BS, no HSM. Extremities: no cyanosis, clubbing, or edema. Neurological: Patient awakens to some stimuli, not very alert, not able to answer orientation questions, ongoing encephalopathy, BiPAP in place, not able to follow commands, seated upright in ED bed, BiPAP in place; cognitive function not baseline intact; pupils equally reactive to light and accomodation; cranial nerves skull discussed given encephalopathy, moving all 4 extremities to some stimuli, strength severely global decrease secondary to acute presentation and underlying comorbidities. Psychiatric: affect appears ill-appearing, lethargic, respiratory distress evident, no acute evidence of depressive or anxiety feelings. - Physical Exam Vitals/I&O's: Vital Signs Temp Pulse Resp BP Pulse Ox 100.4 F H 84 16 77/62 L 100 05/15/20 16:00 05/15/20 16:00 05/15/20 16:00 05/15/20 16:00 05/15/20 16:00 Oxygen Flow Rate (L/min) 15 Oxygen Delivery Method Bi-pap Weight: 98 lb 8.746 oz Body Mass Index (BMI) 15.4 Intake and Output for Last 24 Hours 05/13/20 05/14/20 05/15/20 23:59 23:59 23:59 Intake Total 1050 / 1050 Balance 1050 / 1050 Microbiology Past 72 Hours 05/15/20 13:39 Mucosa - Nose SARS-CoV-2 Antigen (Rapid) - Final Laboratory Results 05/15/20 12:48: Specimen Type ART, Sample Site R Radial, pH 7.26 L, Bicarbonate Actual 37.2 H, Total CO2 40, Base Excess 10 H, O2 Saturation 99, ABG pCO2 82.3 H*, ABG pO2 169 H, O2 Delivery Device NRB 05/15/20 13:03: WBC 12.4 H, RBC 4.87, Hgb 14.6, Hct 46.4, MCV 95.3 H, MCH 30.0, MCHC 31.5 L, RDW Std Deviation 45.7 H, RDW Coeff of Christy 13.0, Plt Count 229, MPV 9.8, Immature Gran % (Auto) 0.400, Neut % (Auto) 85.4 H, Lymph % (Auto) 3.9 L, [place] % (Auto) 9.8, Eos % (Auto) 0.1, Baso % (Auto) 0.4, Absolute Neuts (auto) 10.6 H, Absolute Lymphs (auto) 0.49 L, Nucleated RBC % 0, Differential Comment 05/15/20 13:03: PT 14.4, INR 1.2, APTT 22.1 L 05/15/20 13:03: Sodium 138, Potassium 3.8, Chloride 94 L, Carbon Dioxide 38.0 H, Anion Gap 6, BUN 18, Creatinine 1.33 H, Estim Creat Clear Calc 31.74, Est GFR (MDRD) Af Amer 68, Est GFR (MDRD) Non-Af 56 L, BUN/Creatinine Ratio 13.5, Glucose 134 H, Calcium 8.8, Magnesium 2.3, Total Bilirubin 0.70, AST 15, ALT 19, Alkaline Phosphatase 75, Troponin I 0.169 H, Total Protein 7.0, Albumin 3.0 L, Globulin 4.0, Albumin/Globulin Ratio 0.8 L 05/15/20 13:03: Lactic Acid 3.6 H* 05/15/20 13:03: B-Natriuretic Peptide 114.0 H 05/15/20 13:22: Urine Color Yellow, Urine Clarity Sl. Cloudy, Urine pH 5.0, Ur Specific [place] 1.025, Urine Protein 100 H, Urine Glucose (UA) Normal, Urine Ketones 15 H, Urine Occult Blood 250 H, Urine Nitrite Positive H, Urine Bilirubin 3 H, Urine Urobilinogen 4 H, Ur Leukocyte Esterase 500 H, Urine RBC 25-50 SEEN, Urine WBC 50-100 SEEN, Ur Squamous Epith Cells 0-5 SEEN, Urine Bacteria 2+, Urine Mucus 0 SEEN 05/15/20 15:04: Specimen Type ART, Sample Site R Radial, pH 7.32 L, Bicarbonate Actual 34.3 H, Total CO2 36, Base Excess 8 H, O2 Saturation 86 L, O2 % 30, ABG pCO2 67.4 H*, ABG pO2 58 L, Marcel Test Positive, O2 Delivery Device BiPAP Current Medications Sodium Chloride () 1,000 mls @ 250 mls/hr IV .Q4H PONCE Last Admin: 05/15/20 14:29 Dose: 250 mls/hr Documented by: Assessment/Plan All Active Problems Acute respiratory failure (Acute) COPD exacerbation (Acute) UTI (urinary tract infection) (Acute) Severe sepsis (Acute) The patient is a 74 y/o M w/ PMHx: Severe Protein Calorie Malnutrition, Chronic COPD/Emphysema with Chronic Hypoxic Respiratory Failure, HTN, HLD, Anxiety and Depression, GERD who presents to the [facility] ED on 05/15/20 with history of being found unresponsive at his home AM on day of ED presentation on the toilet, lethargic, decreased responsive with hypoxia on his normal oxygen level. Patient was supposed to follow-up with Urology and Pulmonary on his day of presentation. 1. Unresponsive Event secondary to Acute Severe Sepsis secondary to Acute Encephalopathy secondary to Acute on Chronic Hypoxic and Hypercarbic Respiratory Failure secondary to Acute on chronic COPD exacerbation and Acute Complicated Urinary Tract Infection #2 with Hypotensive: Will admit to the ICU, continue BIPAP with changes as needed, continued ABG trending as needed, continue ICU consultation, continue ATC duonebs, PRN albuterol, IV methylprednisolone, IV rocephin, continue greene, HOB, IS parameters, pending sputum cultures, respiratory viral panel, rapid covid testing negative in the ED. holding patient theophylline given encephalopathic presentation, unsafe oral intake, add back once appropriate with as noted pending ICU/pulmonary evaluation. 2. Acute Complicated Urinary Tract Infection: UA upon ED evaluation remarkable, greene placed in the ED, associated with #1 presentation as noted, pending UCx, continue IVFs, monitor I/Os, continue IV Rocephin with last noted UCx recently E. Coli pansensitive w/ transition as able pending sensitivities and speciation. Bld cx x 2 obtained in the ED. 3. CKD stage III with Renal Insufficiency secondary to #1, #2: Admission BUN/Cr 18/1.33, prior Cr noted 0.89 05/10/20, continue treatment as noted above, trend renal function. 4. Hypertension: We will hold all hypertensive medications as patient is hypertensive but map remains above 65, will attempt to defer any usage of pressor therapy if able but given presentation may necessitate further intervention. 5. Hyperlipidemia: We will hold patient statin therapy given encephalopathic status, add once appropriate. 6. Anxiety and depression: We will hold patient Xanax, Remeron, trazodone therapy until clinically improved and able to take oral agents. 7. Severe protein calorie malnutrition: Evidenced per habitus, significant reduced BMI, obvious muscle fat loss, nutrition consulted. 8. BPH: Likely contributing to #2, holding Flomax given unsafe oral intake status. 9. GERD: IV PPI while NPO encephalopathy status. 10. DVT Prophylaxis: SCDs, lovenox. 11. CODE status: Patient WAQAR is his and living will is not in place she notes. Discussed CODE status at length including difference between FULL code, DNR-CCA and DNR-CC status. Following discussions about the differences in these status, requested DNR-CCA, no intubation status given habitus, decline and likely poor outcome with aggressive interventions. She noted intention to talk to her children and would notify the ICU if she would like to alter this status. She also noted interest in [facility] Advanced Care Planning Face to Face Time: 16 minutes. Inpatient E&M: 35933 Init Hosp L3 Procedures: 95776 Advncd Care Plan 30 Min
[2020-05-15 17:15] LABS: Reflex Lactate? Y
[2020-05-15] MEDS: 0.9% Normal Saline 1,000 ML 150 ML IV (17:52)
[2020-05-15 18:46] LABS: Lactic Acid 0.7 mmol/L (0.4-1.9)
[2020-05-15 19:55] LABS: M R Staph aureus DNA By PCR Negative (Negative); Probe Check PASS; Specimen Processing Control PASS
--- NOTE | 2020-05-15 20:35 | CPS ---
Patient refused ABG
[2020-05-15] MEDS: Tamsulosin HCl 0.4 MG Capsule 0.8 MG PO (22:16)
[2020-05-15] MEDS: Pravastatin 20 MG Tablet PO (22:16)
[2020-05-15] MEDS: guaiFENesin 600 MG Tablet PO (22:16)
[2020-05-15] MEDS: Pantoprazole Sodium 40 MG Tablet PO (22:16)
[2020-05-16] VITALS (46 sets, daily range): BP systolic 70–136; BP diastolic 44–92; PULSE 67–147; RESP 10–25; TEMP 36.4–36.9; O2SAT 2–99; BMI 17.1
[2020-05-16] MEDS: 0.9% Normal Saline 1,000 ML 150 ML IV ×2 (00:57→09:56)
--- NOTE | 2020-05-16 01:56 | PCM.PN.BLA ---
Progress Note Nurse reports and serial blood pressure with systolic less than 90. Also nurse reports that wound culture came back gram-negative rods and blood culture also with gram-negative rods. Patient has received more than equivalent of 30 ML/ kilogram normal saline. Order to change Ceftriaxone to Zosyn. Levophed ordered to keep MAP above 65. Patient was then examined at bedside. Patient did not look toxic. He was asking for his routine breathing treatment. Blood pressure in patient room showed systolic of 97. Patient is a thin frame. And at baseline his blood pressure may not be that excessive. STROKE Vital Signs/Narrative: Vital Signs Temp Pulse Resp BP BP Pulse Ox 05/16/20 01:00 67 20 H 70/45 L 99 05/16/20 00:00 97.6 F L 69 19 H 93/74 74/49 L 96 05/15/20 22:09 70 18 95/70 100
[2020-05-16] MEDS: Ipratropium/Albuterol Sulfate 3 ML AMPUL.NEB INHALATION ×5 (02:10→19:07)
--- NOTE | 2020-05-16 03:53 | EKG12_ITS ---
Test Reason : Blood Pressure : / mmHG Vent. Rate : 082 BPM Atrial Rate : 082 BPM P-R Int : 130 ms QRS Dur : 126 ms QT Int : 356 ms P-R-T Axes : 083 080 068 degrees QTc Int : 415 ms Normal sinus rhythm Right bundle branch block Abnormal ECG Confirmed by DOT GIBBS, AMELIA ([id number]), metropolitan editor MACIEL RAMAN ([id number]) on 05/23/2020 8:47:37 AM Referred By: ZACHERY Confirmed By:AMELIA CHRIS MD
[2020-05-16] MEDS: 0.9% Normal Saline 1,000 ML 999 ML IV (04:10)
[2020-05-16 04:32] LABS: Absolute Lymphocyte Count 0.22 X10^3/uL (0.83-4.51); Absolute Neutrophil Count 8.3 X10^3/uL (2.0-7.7); Hematocrit 34.3 % (40-54); Hemoglobin 10.8 g/dL (13.0-16.5); Lymphocyte # 0.22 X10^3/ul (4.0); Lymphocyte % 2.5 % (19-41); Mean Corp Hgb Conc 31.5 g/dL (32-36); Mean Corpuscular Hgb 29.6 pg (27.0-32.0); Mean Platelet Vol. 9.7 fl (6.2-12.0); Monocyte# 0.24 X10^3/uL; Monocyte% 2.7 % (0-10); NRBC Flagged by Analyzer 0 % (0-5); Neutrophil % 94.5 % (47-70); POSITIVE DIFFERENTIAL YES; Platelet Count 170 K/mm3 (150-450); RBC Distribution Width CV 13.1 % (11.6-14.6); RBC Distribution Width SD 44.9 fl (35.1-43.9); Red Blood Count 3.65 M/mm3 (4.6-6.2); White Blood Count 8.8 K/mm3 (4.4-11.0)
[2020-05-16 04:39] LABS: Differential Indicated SCAN CRITERIA MET
[2020-05-16 05:06] LABS: ALB/GLOB Ratio 0.7 RATIO (0.9-2.4); AST(SGOT) 21 U/L (15-37); Alanine Aminotransfer ALT/SGPT 16 U/L (16-61); Alkaline Phosphatase 48 U/L (45-117); Anion Gap 3 (5-15); BUN 21 mg/dL (7-18); BUN/Creat Ratio 33.4 RATIO (10-20); Calcium,Total 7.4 mg/dL (8.5-10.1); Chloride 103 mmol/L (98-107); Cholesterol 116 mg/dL (200); Creatinine, Serum 0.63 mg/dL (0.70-1.30); EST Glomerular Filtration Rate 133 mL/min (>60); Est Glom Filt Rate - Afr Amer 161 mL/min (>60); Estimated Creatinine Clearance 42.97 ml/min; Globulin 2.8 g/dL (2.2-4.2); Glucose 191 mg/dL (74-106); High Density Lipoprotein 33 mg/dL; Potassium 3.3 mmol/L (3.5-5.1); Protein, Total 4.8 g/dL (6.4-8.2); Sodium Level 140 mmol/L (136-145); Triglycerides 81 mg/dL; Very Low Density Lipoprotein 16 mg/dL (5-40)
--- NOTE | 2020-05-16 05:55 | RAD_ITS ---
STUDY: X-RAY CHEST REASON FOR EXAM: Male, 74 years old. Dyspnea and cough TECHNIQUE: Single AP portable view of the chest. COMPARISON: Comparison is made with prior study dated 05/15/2020. FINDINGS: EKG electrodes are seen. Hyperinflation. Once again, there is decreased bronchovascular markings in the upper lobes suggestive of a emphysematous change. Stable mild increased markings at the lung bases suggestive of a basilar scarring. Blunting of both costophrenic angles. Normal size heart. Normal mediastinum and chip. Normal visualized pulmonary arteries. Normal visualized aortic arch and descending thoracic aorta. There is demineralization of the osseous structures. Normal visualized ribs, clavicles, and shoulders. There is no demonstrated abnormality of the visualized soft tissue structures of the upper abdomen. RAD/Chest 1 View (Portable) IMPRESSION: Stable examination. Findings suggestive of emphysematous changes of both lungs with mild bibasilar scarring. Electronically Signed: Kian Guevara, at 10:02 EST , Service support ,
[2020-05-16] MEDS: 0.9% Saline Lock 10 ML Syringe IV (06:13)
--- NOTE | 2020-05-16 06:53 | CON.PCM_ITS ---
Reason for Consult Date of Consultation: 05/16/20 Reason for Consultation: Septic shock History of Present Illness: The patient is a 74-year-old male, with a history as outlined below, who presented to the emergency department on May 15 after being found down unresponsive by family members. The patient does have an apparent history of COPD of unknown severity along with chronic hypoxemic respiratory failure with a baseline oxygen requirement somewhere around 2 L/min. The patient routinely follows with the [facility]. He does report that he recently developed urinary retention and was having to straight cath himself at home. On presentation to the emergency department, the patient was noted to have a low-grade fever and was tachycardic and tachypneic. Laboratory evaluation revealed a white blood cell count of 12,000. INR was noted to be 1.2. Chemistry profile was notable for a chloride of 94, bicarbonate of 38 and creatinine of 1.3. Lactate was elevated at 3.6. Troponin was increased to 0.169. UA was positive for nitrites, leukocyte esterase and 2+ urine bacteria. MRSA screen was negative. Chest x-ray revealed hyperinflated lung [place] with bilateral emphysematous changes. The patient received supplemental IV fluid hydration and was started on antimicrobials. Initial arterial blood gas obtained on a nonrebreather revealed a pH of 7.26 with a corresponding PCO2 of 82 and PO2 of 169. The patient was subsequently placed on BiPAP with improvement in his acid-base status. The patient was transferred to the medical intensive care unit for further management. The patient did eventually have to be placed on Levophed to maintain hemodynamic stability. Past Medical History Past Medical History (Chronic Problems): Chronic Problems HLD (hyperlipidemia) (Chronic) GERD (gastroesophageal reflux disease) (Chronic) Former tobacco use (Chronic) Anxiety and depression (Chronic) BPH (benign prostatic hyperplasia) (Chronic) Severe protein-calorie malnutrition (Chronic) Chronic respiratory failure (Chronic) COLD (chronic obstructive lung disease) (Chronic) Benign essential HTN (Chronic) Allergies Tetanus Vaccines and Toxoid Allergy (Verified 05/15/20 13:00) Swelling Home Medications: Ambulatory Orders Medication Instructions Recorded ALPRAZolam [Xanax] 0.5 mg PO TID PRN PRN 05/15/20 Albuterol Aerosols [Ventolin 2.5 mg INHALATION Q6H PRN PRN 05/15/20 Aerosols] Albuterol Inhaler [Ventolin Hfa 2 puff INHALATION Q6H PRN PRN 05/15/20 (SP)] Budesonide/Formoterol 160/4.5 2 puff INHALATION BID 05/15/20 [Symbicort 160/4.5 Mcg Inhaler (SP)] Ensure Clear 120 ml PO TID 05/15/20 Ergocalciferol (Vitamin D2) 50,000 unit PO Q30D 05/15/20 [Vitamin D2] Fluticasone Propionate [Flonase 2 spray NASAL DAILY 05/15/20 Allergy Relief] Guaifenesin 800 mg PO TID 05/15/20 Hydrocortisone/Pramoxine [Epifoam 1 applic TP BID 05/15/20 Foam] Lisinopril [Zestril] 30 mg PO DAILY 05/15/20 Loratadine 10 mg PO DAILY PRN PRN 05/15/20 Mirtazapine [Remeron] 15 mg PO QHS PRN PRN 05/15/20 Omeprazole 40 mg PO BID 05/15/20 Pravastatin [Pravachol] 20 mg PO QHS 05/15/20 Ropinirole HCl 1 mg PO QHS PRN PRN 05/15/20 Tamsulosin HCl [Flomax] 0.8 mg PO QHS 05/15/20 Theophylline [Mina-Dur] 300 mg PO BID 05/15/20 Tiotropium [place] [Spiriva] 18 mcg IH DAILY 05/15/20 Trazodone HCl 150 mg PO QHS PRN PRN 05/15/20 Surgical History: appendectomy Psychiatric History: Anxiety, Depression Lives: Spouse/ Significant Other Smoking Status: Former smoker - Quit tobacco use cigarette 2008, 1-2 ppd 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 Tobacco Use: Non-smoker Alcohol: None Drugs: None - *Family History Maternal History Items: Heart Disease Paternal History Items: Heart Disease Review of Systems Constitutional: Reports: Anorexia, Chills, Fever, Fatigue Eyes: Denies: Blurred vision, Double vision HEENT: Denies: Head Aches, Sinus Congestion, Sinus Drainage Cardiovascular: Denies: Chest Pain, Palpitations Respiratory: Reports: Cough, Shortness of Breath Gastrointestinal: Denies: Abdominal Pain, Nausea, Vomiting Genitourinary: Reports: Dysuria, Frequency, Retention Musculoskeletal: Reports: Back Pain Skin: Denies: Rash, Wounds Neurological: Denies: Numbness, Tingling, Focal weakness Psychiatric: Reports: Anxiety, Depression Hematologic/ Lymphatic: Denies: Easy Bruising, Easy Bleeding Patient Problems: Active and Suspected Problems Acute respiratory failure (Acute) COPD exacerbation (Acute) UTI (urinary tract infection) (Acute) Severe sepsis (Acute) Objective: The patient's most recent lab work, culture data and imaging studies have all been personally reviewed. Preliminary blood cultures dated May 15 were positive for gram-negative rods. Respiratory viral panel was negative. Strep and urine Legionella antigens were negative. Rapid coronavirus antigen testing was negative. Urine culture is pending. - Physical Exam Vitals/I&O's: Vital Signs Temp Pulse Resp BP Pulse Ox 97.6 F L 74 20 H 120/77 98 05/16/20 05:00 05/16/20 06:30 05/16/20 06:30 05/16/20 06:30 05/16/20 06:30 Oxygen Flow Rate (L/min) 2 Oxygen Delivery Method Nasal Cannula Weight: 109 lb 2.061 oz Body Mass Index (BMI) 15.7 Intake and Output for Last 24 Hours 05/14/20 05/15/20 05/16/20 23:59 23:59 23:59 Intake Total 1745.83 / 1745.83 2589.71 / 2589.71 Output Total 500 / 850 455 / 455 Balance 1245.83 / 895.83 2134.71 / 2134.71 General: Alert, Oriented x3, Cooperative, No apparent distress HEENT: Atraumatic, PERRLA, Normocephalic Oral: No Gingival or Mucosal Lesions/ Ulcerations Neck: Supple, No Nodes, Trachea Midline Lungs: No rhonchi, No wheeze, No rales, Diminished Cardiovascular: Regular rate, Regular Rhythm Abdomen: Bowel Sounds Present, Soft, Non Tender Extremities: No clubbing, No cyanosis, No edema Skin: No breakdown Musculoskeletal: No Tenderness to Palpation of Joints or Extremities Lymphatic: No Cervical, Supraclavicular, or Inguinal Adenopathy Neurological: Cranial nerves II-XII grossly intact, Neuro grossly intact Psych/Mental Status: Normal Affect, Appropriate Labs (Last 48 Hours) 05/15/20 05/15/20 05/15/20 12:48 13:03 13:03 WBC 12.4 H RBC 4.87 Hgb 14.6 Hct 46.4 MCV 95.3 H MCH 30.0 MCHC 31.5 L RDW Std Deviation 45.7 H RDW Coeff of Christy 13.0 Plt Count 229 MPV 9.8 Immature Gran % (Auto) 0.400 Neut % (Auto) 85.4 H Lymph % (Auto) 3.9 L [place] % (Auto) 9.8 Eos % (Auto) 0.1 Baso % (Auto) 0.4 Absolute Neuts (auto) 10.6 H Absolute Lymphs (auto) 0.49 L Nucleated RBC % 0 Differential Comment PT 14.4 INR 1.2 APTT 22.1 L Specimen Type ART Sample Site R Radial pH 7.26 L Bicarbonate Actual 37.2 H Total CO2 40 Base Excess 10 H O2 Saturation 99 O2 % ABG pCO2 82.3 H* ABG pO2 169 H Marcel Test O2 Delivery Device NRB Sodium Potassium Chloride Carbon Dioxide Anion Gap BUN Creatinine Estim Creat Clear Calc Est GFR (MDRD) Af Amer Est GFR (MDRD) Non-Af BUN/Creatinine Ratio Glucose Lactic Acid Calcium Magnesium Total Bilirubin AST ALT Alkaline Phosphatase Troponin I B-Natriuretic Peptide Total Protein Albumin Globulin Albumin/Globulin Ratio Triglycerides Cholesterol LDL Cholesterol VLDL Cholesterol HDL Cholesterol Urine Color Urine Clarity Urine pH Ur Specific [place] Urine Protein Urine Glucose (UA) Urine Ketones Urine Occult Blood Urine Nitrite Urine Bilirubin Urine Urobilinogen Ur Leukocyte Esterase Urine RBC Urine WBC Ur Squamous Epith Cells Urine Bacteria Urine Mucus MRSA (PCR) 05/15/20 05/15/20 05/15/20 13:03 13:03 13:03 WBC RBC Hgb Hct MCV MCH MCHC RDW Std Deviation RDW Coeff of Christy Plt Count MPV Immature Gran % (Auto) Neut % (Auto) Lymph % (Auto) [place] % (Auto) Eos % (Auto) Baso % (Auto) Absolute Neuts (auto) Absolute Lymphs (auto) Nucleated RBC % Differential Comment PT INR APTT Specimen Type Sample Site pH Bicarbonate Actual Total CO2 Base Excess O2 Saturation O2 % ABG pCO2 ABG pO2 Marcel Test O2 Delivery Device Sodium 138 Potassium 3.8 Chloride 94 L Carbon Dioxide 38.0 H Anion Gap 6 BUN 18 Creatinine 1.33 H Estim Creat Clear Calc 31.74 Est GFR (MDRD) Af Amer 68 Est GFR (MDRD) Non-Af 56 L BUN/Creatinine Ratio 13.5 Glucose 134 H Lactic Acid 3.6 H* Calcium 8.8 Magnesium 2.3 Total Bilirubin 0.70 AST 15 ALT 19 Alkaline Phosphatase 75 Troponin I 0.169 H B-Natriuretic Peptide 114.0 H Total Protein 7.0 Albumin 3.0 L Globulin 4.0 Albumin/Globulin Ratio 0.8 L Triglycerides Cholesterol LDL Cholesterol VLDL Cholesterol HDL Cholesterol Urine Color Urine Clarity Urine pH Ur Specific [place] Urine Protein Urine Glucose (UA) Urine Ketones Urine Occult Blood Urine Nitrite Urine Bilirubin Urine Urobilinogen Ur Leukocyte Esterase Urine RBC Urine WBC Ur Squamous Epith Cells Urine Bacteria Urine Mucus MRSA (PCR) 05/15/20 05/15/20 05/15/20 13:22 15:04 17:20 WBC RBC Hgb Hct MCV MCH MCHC RDW Std Deviation RDW Coeff of Christy Plt Count MPV Immature Gran % (Auto) Neut % (Auto) Lymph % (Auto) [place] % (Auto) Eos % (Auto) Baso % (Auto) Absolute Neuts (auto) Absolute Lymphs (auto) Nucleated RBC % Differential Comment PT INR APTT Specimen Type ART Sample Site R Radial pH 7.32 L Bicarbonate Actual 34.3 H Total CO2 36 Base Excess 8 H O2 Saturation 86 L O2 % 30 ABG pCO2 67.4 H* ABG pO2 58 L Marcel Test Positive O2 Delivery Device BiPAP Sodium Potassium Chloride Carbon Dioxide Anion Gap BUN Creatinine Estim Creat Clear Calc Est GFR (MDRD) Af Amer Est GFR (MDRD) Non-Af BUN/Creatinine Ratio Glucose Lactic Acid Calcium Magnesium Total Bilirubin AST ALT Alkaline Phosphatase Troponin I B-Natriuretic Peptide Total Protein Albumin Globulin Albumin/Globulin Ratio Triglycerides Cholesterol LDL Cholesterol VLDL Cholesterol HDL Cholesterol Urine Color Yellow Urine Clarity Sl. Cloudy Urine pH 5.0 Ur Specific [place] 1.025 Urine Protein 100 H Urine Glucose (UA) Normal Urine Ketones 15 H Urine Occult Blood 250 H Urine Nitrite Positive H Urine Bilirubin 3 H Urine Urobilinogen 4 H Ur Leukocyte Esterase 500 H Urine RBC 25-50 SEEN Urine WBC 50-100 SEEN Ur Squamous Epith Cells 0-5 SEEN Urine Bacteria 2+ Urine Mucus 0 SEEN MRSA (PCR) Negative 05/15/20 05/15/20 05/16/20 17:30 18:20 00:30 WBC RBC Hgb Hct MCV MCH MCHC RDW Std Deviation RDW Coeff of Christy Plt Count MPV Immature Gran % (Auto) Neut % (Auto) Lymph % (Auto) [place] % (Auto) Eos % (Auto) Baso % (Auto) Absolute Neuts (auto) Absolute Lymphs (auto) Nucleated RBC % Differential Comment PT INR APTT Specimen Type Sample Site pH Bicarbonate Actual Total CO2 Base Excess O2 Saturation O2 % ABG pCO2 ABG pO2 Marcel Test O2 Delivery Device Sodium Potassium Chloride Carbon Dioxide Anion Gap BUN Creatinine Estim Creat Clear Calc Est GFR (MDRD) Af Amer Est GFR (MDRD) Non-Af BUN/Creatinine Ratio Glucose Lactic Acid 0.7 Calcium Magnesium Total Bilirubin AST ALT Alkaline Phosphatase Troponin I 0.201 H 0.135 H B-Natriuretic Peptide Total Protein Albumin Globulin Albumin/Globulin Ratio Triglycerides Cholesterol LDL Cholesterol VLDL Cholesterol HDL Cholesterol Urine Color Urine Clarity Urine pH Ur Specific [place] Urine Protein Urine Glucose (UA) Urine Ketones Urine Occult Blood Urine Nitrite Urine Bilirubin Urine Urobilinogen Ur Leukocyte Esterase Urine RBC Urine WBC Ur Squamous Epith Cells Urine Bacteria Urine Mucus MRSA (PCR) 05/16/20 05/16/20 04:15 04:15 WBC 8.8 RBC 3.65 L Hgb 10.8 L Hct 34.3 L MCV 94.0 MCH 29.6 MCHC 31.5 L RDW Std Deviation 44.9 H RDW Coeff of Christy 13.1 Plt Count 170 MPV 9.7 Immature Gran % (Auto) 0.300 Neut % (Auto) 94.5 H Lymph % (Auto) 2.5 L [place] % (Auto) 2.7 Eos % (Auto) 0.0 Baso % (Auto) 0.0 Absolute Neuts (auto) 8.3 H Absolute Lymphs (auto) 0.22 L Nucleated RBC % 0 Differential Comment PT INR APTT Specimen Type Sample Site pH Bicarbonate Actual Total CO2 Base Excess O2 Saturation O2 % ABG pCO2 ABG pO2 Marcel Test O2 Delivery Device Sodium 140 Potassium 3.3 L Chloride 103 Carbon Dioxide 34.0 H Anion Gap 3 L BUN 21 H Creatinine 0.63 L Estim Creat Clear Calc 42.97 Est GFR (MDRD) Af Amer 161 Est GFR (MDRD) Non-Af 133 BUN/Creatinine Ratio 33.4 H Glucose 191 H Lactic Acid Calcium 7.4 L Magnesium Total Bilirubin 0.30 AST 21 ALT 16 Alkaline Phosphatase 48 Troponin I B-Natriuretic Peptide Total Protein 4.8 L Albumin 2.0 L Globulin 2.8 Albumin/Globulin Ratio 0.7 L Triglycerides 81 Cholesterol 116 LDL Cholesterol 67 VLDL Cholesterol 16 HDL Cholesterol 33 L Urine Color Urine Clarity Urine pH Ur Specific [place] Urine Protein Urine Glucose (UA) Urine Ketones Urine Occult Blood Urine Nitrite Urine Bilirubin Urine Urobilinogen Ur Leukocyte Esterase Urine RBC Urine WBC Ur Squamous Epith Cells Urine Bacteria Urine Mucus MRSA (PCR) Microbiology 05/15/20 13:30 Blood Culture (Wb) - Left Foot Blood Culture - Preliminary 05/15/20 13:03 Blood Culture (Wb) - Anticubital Left Blood Culture - Preliminary 05/15/20 19:48 Mucosa - Nasopharyngeal Respiratory Panel (PCR) - Final 05/15/20 17:20 Urine Catheter - Jauregui Legionella Antigen - Final 05/15/20 17:20 Urine Catheter - Ja[place]gui Streptococcus pneumoniae Antigen (M - Final 05/15/20 13:39 Mucosa - Nose SARS-CoV-2 Antigen (Rapid) - Final Clinical Impression(s) from Imaging Studies Chest X-Ray 05/15/20 13:36 IMPRESSION: Hyperinflation. Decreased bronchovascular markings in the upper lobes suggestive of the emphysematous changes. Findings suggestive of linear scarring at the lung bases. Electronically Signed: Kian Guevara, at 13:57 EST , Service support , Chest X-Ray 05/16/20 05:55 IMPRESSION: Stable examination. Findings suggestive of emphysematous changes of both lungs with mild bibasilar scarring. Electronically Signed: Kian Guevara, at 10:02 EST , Service support , Current Medications Acetaminophen (Acetaminophen 325 Mg Tablet) 650 mg PO Q6H PRN PRN PRN Reason: Pain Score 1-10/Temp > 100.7 F Al Hydroxide/Mg Hydroxide (Mag Hydrox/Al Hydrox/Simeth 30 Ml Udc) 30 ml PO Q6H PRN PRN PRN Reason: Gastric Burning Albuterol Sulfate (Albuterol 2.5 Mg/3 Ml Vial.Neb.) 2.5 mg INHALATION Q2H PRN PRN PRN Reason: Dyspnea, wheezing Albuterol/Ipratropium (Ipratropium/Albuterol Sulfate 3 Ml Ampul.Neb) 3 ml INHALATION Q4HWA.RT [facility] Last Admin: 05/16/20 02:10 Dose: 3 ml Documented by: Alprazolam (Alprazolam 0.5 Mg Tablet) 0.5 mg PO TID PRN PRN PRN Reason: ANXIETY Aspirin (Aspirin 81 Mg Tab.Chew) 81 mg PO DAILY@0800 [facility] Enoxaparin Sodium (Enoxaparin 40 Mg/0.4 Ml Syringe) 40 mg SC DAILY [facility] Fluticasone Propionate (Fluticasone 0.05% 1 [place] Nasal.Sry) 2 spray NASAL DAILY [facility] Guaifenesin (Guaifenesin 10 Ml Udc (200mg/10ml)) 10 ml PO Q4H PRN PRN PRN Reason: COUGH Guaifenesin (Guaifenesin 600 Mg Tablet) 600 mg PO BID [facility] Last Admin: 05/15/20 22:16 Dose: 600 mg Documented by: Sodium Chloride () 1,000 mls @ 150 mls/hr IV .[id number] [facility] Last Admin: 05/16/20 00:57 Dose: 150 mls/hr Documented by: Norepinephrine Bitartrate 8 mg (/ Sodium Chloride) 250 mls @ 9.375 mls/hr CONT INF .[id number] [facility]; Protocol Last Titration: 05/16/20 06:30 Dose: 5 mcg/min, 9.4 mls/hr Documented by: Piperacillin Sod/Tazobactam (Sod 3.375 gm/ Sodium Chloride) 50 mls @ 12.5 mls/hr IV Q8 [facility] Loratadine (Loratadine 10 Mg Tablet) 10 mg PO DAILY PRN PRN PRN Reason: ALLERGIES Magnesium Hydroxide (Magnesium Hydroxide 30 Ml Udc) 30 ml PO DAILY PRN PRN PRN Reason: Constipation Melatonin (Melatonin 3 Mg Tablet) 3 mg PO QHS PRN PRN PRN Reason: INSOMNIA Methylprednisolone (Methylprednisolone 40 Mg/Ml Vial) 40 mg IV Q8 [facility] Last Admin: 05/16/20 06:13 Dose: 40 mg Documented by: Mirtazapine (Mirtazapine 15 Mg Tablet) 15 mg PO QHS PRN PRN PRN Reason: SLEEP Morphine Sulfate (Morphine 2 Mg/Ml Syringe) 2 mg IV Q3H PRN PRN PRN Reason: Pain Score 6-10 Nitroglycerin (Nitroglycerin (Inpatient Use) 0.4 Mg Tab.Subl) 0.4 mg SUBLINGUAL Q5M PRN PRN Reason: CARDIAC/CHEST PAIN Nutritional Formula (Lactose Free) (Ensure Clear 120 Ml Liquid) 120 ml PO TID [facility] Last Admin: 05/16/20 05:54 Dose: Not Given Documented by: Ondansetron HCl (Ondansetron 4 Mg/2 Ml Vial) 4 mg IV Q8H PRN PRN PRN Reason: NAUSEA/VOMITING Oxycodone HCl (Oxycodone 5 Mg Tablet) 5 mg PO Q4H PRN PRN PRN Reason: Pain Score 4-5 Pantoprazole Sodium (Pantoprazole Sodium 40 Mg Tablet) 40 mg PO BID [facility] Last Admin: 05/15/20 22:16 Dose: 40 mg Documented by: Pramipexole Dihydrochloride (Pramipexole Di-Hcl 0.5 Mg Tablet) 0.5 mg PO QHS PRN PRN Reason: RESTLESS LEG SYNDROME Pravastatin Sodium (Pravastatin 20 Mg Tablet) 20 mg PO QHS [facility] Last Admin: 05/15/20 22:16 Dose: 20 mg Documented by: Prochlorperazine Edisylate (Prochlorperazine 10 Mg/2 Ml Vial) 5 mg IV Q4H PRN PRN PRN Reason: Breakthrough Nausea/Vomiting Psyllium Hydrophilic Mucilloid (Psyllium 1 Packet) 1 packet PO DAILY PRN PRN PRN Reason: Constipation Senna/Docusate Sodium (Senna/Docusate Sodium 1 Tablet) 2 tablet PO BID PRN PRN Reason: Constipation Sodium Chloride (0.9% Saline Lock 10 Ml Syringe) 10 - 40 ml IV UD PRN PRN Reason: SALINE FLUSH Last Admin: 05/16/20 06:13 Dose: 10 ml Documented by: Theophylline (Theophylline 300 Mg Tablet) 300 mg PO BID [facility] Last Admin: 05/15/20 22:16 Dose: 300 mg Documented by: Throat Lozenges (Benzocaine/Menthol 1 Lozenge) 1 lozenge MUCOUS MEM Q2H PRN PRN PRN Reason: SORE THROAT Assessment/Plan Active and Suspected Problems Acute respiratory failure (Acute) COPD exacerbation (Acute) UTI (urinary tract infection) (Acute) Severe sepsis (Acute) RECOMMENDATIONS: 1. Wean supplemental oxygen to maintain saturations 88-92%. 2. Continue scheduled bronchodilators and IV steroids. 3. Wean Levophed to maintain a mean arterial pressure at or above 65 mmHg. 4. Continue PPI therapy. 5. Continue empiric antimicrobials, pending finalized infectious work-up. 6. Consider urological evaluation if urinary retention persists following Jauregui catheter removal. IMPRESSIONS: 1. Gram-negative septic shock Appears to be secondary to urinary tract source of infection with secondary hematogenous spread. The patient has been adequately volume resuscitated and will be continued on Levophed to maintain a mean arterial pressure at or above 65 mmHg. Continue antimicrobials as ordered, pending further infectious work- up. The patient may require evaluation by urology following removal of Jauregui catheter if unable to void. 2. Acute on chronic combined respiratory failure Likely due to the patient's inability to keep up with the metabolic demands in the setting of gram-negative septic shock. The patient did respond to noninvasive positive pressure ventilatory support and is currently maintaining appropriate oxygen saturations on his baseline supplemental O2. Given his history of COPD, he will be continued on scheduled bronchodilators and IV steroids. 3. Acute kidney injury Likely prerenal in etiology with a component of ischemic ATN in the setting #1. Anticipate improvement with volume expansion and stabilization of hemodynamics. Continue to monitor urine output. No current indication for renal replacement therapy. 4. Hypokalemia Electrolyte repletion as ordered. Recheck levels in the morning. 5. Hypertension/hyperlipidemia/anxiety/depression/BPH/GERD Complicates care, management, recovery and prognosis. Continue to hold home antihypertensives, given tenuous hemodynamics. TIME: 35 minutes of critical care time, independent of procedures, was spent addressing the patient's gram-negative septic shock, acute on chronic combined respiratory failure, acute kidney injury, hypokalemia, review of all data and collaboration with the care team. [id number]) [id number] Critical care first hour
--- NOTE | 2020-05-16 07:34 | PN_ITS ---
Patient Problems: Active and Suspected Problems Acute respiratory failure (Acute) COPD exacerbation (Acute) UTI (urinary tract infection) (Acute) Severe sepsis (Acute) Reason for Visit: Septic shock Acute cystitis Subjective: Patient is a 74-year-old M with multiple comorbidities admitted with increasing lethargy mental septic shock secondary to acute cystitis made admitted to the intensive care unit for further management Objective: GENERAL: cooperative HEENT: Atraumatic; EYES; Anicteric, Normal Conjunctiva NECK; supple, normal thyroid, RESPIRATORY: Diminished to auscultation CARDIOVASCULAR: Regular S1 S2, GI: soft, normoactive bowel sounds, : No Renal angle tenderness; EXTREMITIES: No edema, no clubbing, MUSCULOSKELETAL: no muscle waisting NEURO: Awake; no lateralizing signs. SKIN: No Rash PSYCH; Flat affect Vitals/I&O's: Vital Signs Temp Pulse Resp BP Pulse Ox 97.6 F L 80 16 116/70 95 05/16/20 05:00 05/16/20 06:45 05/16/20 06:45 05/16/20 06:45 05/16/20 06:45 Oxygen Flow Rate (L/min) 2 Oxygen Delivery Method Nasal Cannula Weight: 49.5 kg Body Mass Index (BMI) 15.7 Intake and Output for Last 24 Hours 05/14/20 05/15/20 05/16/20 23:59 23:59 23:59 Intake Total 1745.83 / 1745.83 2592.06 / 2592.06 Output Total 500 / 850 455 / 455 Balance 1245.83 / 895.83 2137.06 / 2137.06 Microbiology Past 72 Hours 05/15/20 13:30 Blood Culture (Wb) - Left Foot Blood Culture - Preliminary 05/15/20 13:03 Blood Culture (Wb) - Anticubital Left Blood Culture - Preliminary 05/15/20 19:48 Mucosa - Nasopharyngeal Respiratory Panel (PCR) - Final 05/15/20 17:20 Urine Catheter - Ja[place] Legionella Antigen - Final 05/15/20 17:20 Urine Catheter - Jauregui Streptococcus pneumoniae Antigen (M - Final 05/15/20 13:39 Mucosa - Nose SARS-CoV-2 Antigen (Rapid) - Final Laboratory Results 05/15/20 12:48: Specimen Type ART, Sample Site R Radial, pH 7.26 L, Bicarbonate Actual 37.2 H, Total CO2 40, Base Excess 10 H, O2 Saturation 99, ABG pCO2 82.3 H*, ABG pO2 169 H, O2 Delivery Device NRB 05/15/20 13:03: WBC 12.4 H, RBC 4.87, Hgb 14.6, Hct 46.4, MCV 95.3 H, MCH 30.0, MCHC 31.5 L, RDW Std Deviation 45.7 H, RDW Coeff of Christy 13.0, Plt Count 229, MPV 9.8, Immature Gran % (Auto) 0.400, Neut % (Auto) 85.4 H, Lymph % (Auto) 3.9 L, Pitkin % (Auto) 9.8, Eos % (Auto) 0.1, Baso % (Auto) 0.4, Absolute Neuts (auto) 10.6 H, Absolute Lymphs (auto) 0.49 L, Nucleated RBC % 0, Differential Comment 05/15/20 13:03: PT 14.4, INR 1.2, APTT 22.1 L 05/15/20 13:03: Sodium 138, Potassium 3.8, Chloride 94 L, Carbon Dioxide 38.0 H, Anion Gap 6, BUN 18, Creatinine 1.33 H, Estim Creat Clear Calc 31.74, Est GFR (MDRD) Af Amer 68, Est GFR (MDRD) Non-Af 56 L, BUN/Creatinine Ratio 13.5, Glucose 134 H, Calcium 8.8, Magnesium 2.3, Total Bilirubin 0.70, AST 15, ALT 19, Alkaline Phosphatase 75, Troponin I 0.169 H, Total Protein 7.0, Albumin 3.0 L, Globulin 4.0, Albumin/Globulin Ratio 0.8 L 05/15/20 13:03: Lactic Acid 3.6 H* 05/15/20 13:03: B-Natriuretic Peptide 114.0 H 05/15/20 13:22: Urine Color Yellow, Urine Clarity Sl. Cloudy, Urine pH 5.0, Ur Specific [place] 1.025, Urine Protein 100 H, Urine Glucose (UA) Normal, Urine Ketones 15 H, Urine Occult Blood 250 H, Urine Nitrite Positive H, Urine Bilirubin 3 H, Urine Urobilinogen 4 H, Ur Leukocyte Esterase 500 H, Urine RBC 25-50 SEEN, Urine WBC 50-100 SEEN, Ur Squamous Epith Cells 0-5 SEEN, Urine Bacteria 2+, Urine Mucus 0 SEEN 05/15/20 15:04: Specimen Type ART, Sample Site R Radial, pH 7.32 L, Bicarbonate Actual 34.3 H, Total CO2 36, Base Excess 8 H, O2 Saturation 86 L, O2 % 30, ABG pCO2 67.4 H*, ABG pO2 58 L, Marcel Test Positive, O2 Delivery Device BiPAP 05/15/20 17:20: MRSA (PCR) Negative 05/15/20 17:30: Lactic Acid 0.7 05/15/20 18:20: Troponin I 0.201 H 05/16/20 00:30: Troponin I 0.135 H 05/16/20 04:15: WBC 8.8, RBC 3.65 L, Hgb 10.8 L, Hct 34.3 L, MCV 94.0, MCH 29.6, MCHC 31.5 L, RDW Std Deviation 44.9 H, RDW Coeff of Christy 13.1, Plt Count 170, MPV 9.7, Immature Gran % (Auto) 0.300, Neut % (Auto) 94.5 H, Lymph % (Auto) 2.5 L, Pitkin % (Auto) 2.7, Eos % (Auto) 0.0, Baso % (Auto) 0.0, Absolute Neuts (auto) 8.3 H, Absolute Lymphs (auto) 0.22 L, Nucleated RBC % 0 05/16/20 04:15: Sodium 140, Potassium 3.3 L, Chloride 103, Carbon Dioxide 34.0 H , Anion Gap 3 L, BUN 21 H, Creatinine 0.63 L, Estim Creat Clear Calc 42.97, Est GFR (MDRD) Af Amer 161, Est GFR (MDRD) Non-Af 133, BUN/Creatinine Ratio 33.4 H, Glucose 191 H, Calcium 7.4 L, Total Bilirubin 0.30, AST 21, ALT 16, Alkaline Phosphatase 48, Total Protein 4.8 L, Albumin 2.0 L, Globulin 2.8, Albumin/Globulin Ratio 0.7 L, Triglycerides 81, Cholesterol 116, LDL Cholesterol 67, VLDL Cholesterol 16, HDL Cholesterol 33 L Current Medications Acetaminophen (Acetaminophen 325 Mg Tablet) 650 mg PO Q6H PRN PRN PRN Reason: Pain Score 1-10/Temp > 100.7 F Al Hydroxide/Mg Hydroxide (Mag Hydrox/Al Hydrox/Simeth 30 Ml Udc) 30 ml PO Q6H PRN PRN PRN Reason: Gastric Burning Albuterol Sulfate (Albuterol 2.5 Mg/3 Ml Vial.Neb.) 2.5 mg INHALATION Q2H PRN PRN PRN Reason: Dyspnea, wheezing Albuterol/Ipratropium (Ipratropium/Albuterol Sulfate 3 Ml Ampul.Neb) 3 ml INHALATION Q4HWA.RT [facility] Last Admin: 05/16/20 07:00 Dose: 3 ml Documented by: Alprazolam (Alprazolam 0.5 Mg Tablet) 0.5 mg PO TID PRN PRN PRN Reason: ANXIETY Aspirin (Aspirin 81 Mg Tab.Chew) 81 mg PO DAILY@0800 [facility] Enoxaparin Sodium (Enoxaparin 40 Mg/0.4 Ml Syringe) 40 mg SC DAILY [facility] Fluticasone Propionate (Fluticasone 0.05% 1 [place] Nasal.Sry) 2 spray NASAL DAILY [facility] Guaifenesin (Guaifenesin 10 Ml Udc (200mg/10ml)) 10 ml PO Q4H PRN PRN PRN Reason: COUGH Guaifenesin (Guaifenesin 600 Mg Tablet) 600 mg PO BID [facility] Last Admin: 05/15/20 22:16 Dose: 600 mg Documented by: Sodium Chloride () 1,000 mls @ 150 mls/hr IV .Q6H40M [facility] Last Admin: 05/16/20 00:57 Dose: 150 mls/hr Documented by: Norepinephrine Bitartrate 8 mg (/ Sodium Chloride) 250 mls @ 9.375 mls/hr CONT INF .[id number] [facility]; Protocol Last Titration: 05/16/20 06:45 Dose: 5 mcg/min, 9.4 mls/hr Documented by: Piperacillin Sod/Tazobactam (Sod 3.375 gm/ Sodium Chloride) 50 mls @ 12.5 mls/hr IV Q8 [facility] Loratadine (Loratadine 10 Mg Tablet) 10 mg PO DAILY PRN PRN PRN Reason: ALLERGIES Magnesium Hydroxide (Magnesium Hydroxide 30 Ml Udc) 30 ml PO DAILY PRN PRN PRN Reason: Constipation Melatonin (Melatonin 3 Mg Tablet) 3 mg PO QHS PRN PRN PRN Reason: INSOMNIA Methylprednisolone (Methylprednisolone 40 Mg/Ml Vial) 40 mg IV Q8 [facility] Last Admin: 05/16/20 06:13 Dose: 40 mg Documented by: Mirtazapine (Mirtazapine 15 Mg Tablet) 15 mg PO QHS PRN PRN PRN Reason: SLEEP Morphine Sulfate (Morphine 2 Mg/Ml Syringe) 2 mg IV Q3H PRN PRN PRN Reason: Pain Score 6-10 Nitroglycerin (Nitroglycerin (Inpatient Use) 0.4 Mg Tab.Subl) 0.4 mg SUBLINGUAL Q5M PRN PRN Reason: CARDIAC/CHEST PAIN Nutritional Formula (Lactose Free) (Ensure Clear 120 Ml Liquid) 120 ml PO TID [facility] Last Admin: 05/16/20 05:54 Dose: Not Given Documented by: Ondansetron HCl (Ondansetron 4 Mg/2 Ml Vial) 4 mg IV Q8H PRN PRN PRN Reason: NAUSEA/VOMITING Oxycodone HCl (Oxycodone 5 Mg Tablet) 5 mg PO Q4H PRN PRN PRN Reason: Pain Score 4-5 Pantoprazole Sodium (Pantoprazole Sodium 40 Mg Tablet) 40 mg PO BID [facility] Last Admin: 05/15/20 22:16 Dose: 40 mg Documented by: Pramipexole Dihydrochloride (Pramipexole Di-Hcl 0.5 Mg Tablet) 0.5 mg PO QHS PRN PRN Reason: RESTLESS LEG SYNDROME Pravastatin Sodium (Pravastatin 20 Mg Tablet) 20 mg PO QHS [facility] Last Admin: 05/15/20 22:16 Dose: 20 mg Documented by: Prochlorperazine Edisylate (Prochlorperazine 10 Mg/2 Ml Vial) 5 mg IV Q4H PRN PRN PRN Reason: Breakthrough Nausea/Vomiting Psyllium Hydrophilic Mucilloid (Psyllium 1 Packet) 1 packet PO DAILY PRN PRN PRN Reason: Constipation Senna/Docusate Sodium (Senna/Docusate Sodium 1 Tablet) 2 tablet PO BID PRN PRN Reason: Constipation Sodium Chloride (0.9% Saline Lock 10 Ml Syringe) 10 - 40 ml IV UD PRN PRN Reason: SALINE FLUSH Last Admin: 05/16/20 06:13 Dose: 10 ml Documented by: Theophylline (Theophylline 300 Mg Tablet) 300 mg PO BID [facility] Last Admin: 05/15/20 22:16 Dose: 300 mg Documented by: Throat Lozenges (Benzocaine/Menthol 1 Lozenge) 1 lozenge MUCOUS MEM Q2H PRN PRN PRN Reason: SORE THROAT STROKE Vital Signs/Narrative: Vital Signs Temp Pulse Resp BP BP Pulse Ox 05/16/20 06:45 80 16 116/70 95 05/16/20 06:30 74 20 H 120/77 98 05/16/20 06:15 75 17 121/85 H 97 05/16/20 06:00 71 21 H 117/78 95 05/16/20 05:45 68 20 H 104/77 96 05/16/20 05:28 67 21 H 75/49 L 97 05/16/20 05:00 97.6 F L 70 22 H 84/49 L 98 05/16/20 04:50 73 05/16/20 04:00 82 22 H 80/55 L 94 05/16/20 03:45 77/44 L Medical Necessity - Tobacco Use Smoking Status: Former smoker - Quit tobacco use cigarette 2008, 1-2 ppd 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 Tobacco Use: Non-smoker Assessment/Plan All Active Problems Acute respiratory failure (Acute) COPD exacerbation (Acute) UTI (urinary tract infection) (Acute) Severe sepsis (Acute) Patient is a 74-year-old M with multiple comorbidities admitted with increasing lethargy mental septic shock secondary to acute cystitis made admitted to the intensive care unit for further management 1. Septic shock secondary to acute cystitis ?Blood cultures so far positive for gram-negative organisms. Patient is on IV fluid resuscitation, pressor support with Levophed as well as broad-spectrum antibiotic therapy with Zosyn 2. Emphysema ?Aerosol treatments as needed 3. Hypokalemia ?Corrected per protocol 4. Essential hypertension ?Patient antihypertensives on hold in view of patient low blood pressure 5. GERD ?Patient is on PPI 6. Dyslipidemia -Patient is on statin therapy, continued at home dose 7. BPH patient is on tamsulosin did continue 8. DVT prophylaxis ?Enoxaparin Inpatient E&M: [id number] L3
[2020-05-16] MEDS: Enoxaparin 40 MG/0.4 ML Syringe SC (10:41)
[2020-05-16] MEDS: Pantoprazole Sodium 40 MG Tablet PO ×2 (10:44→21:50)
[2020-05-16] MEDS: Aspirin 81 MG TAB.CHEW PO (10:44)
[2020-05-16] MEDS: Fluticasone 0.05% 1 SPRAY NASAL.SRY 2 SPRAY NASAL (10:45)
[2020-05-16] MEDS: guaiFENesin 600 MG Tablet PO (10:45)
--- NOTE | 2020-05-16 11:38 | PCM.NTREPORT ---
Nutrition Therapy Report - History Nutrition Services has been consulted to:: Manage nutrient details of diet order Current diet / nutrition support order:: regular-general, ensure clear 120mL TID - Anthropometric Measurements Height:: 5 ft 7 in Weight:: 49.5 kg Body Mass Index (BMI):: 17.1 - Relevant Labs Relevant Labs:: WBC 12.4 K/mm3 (4.4-11.0) H 05/15/20 13:03 RBC 3.65 M/mm3 (4.6-6.2) L 05/16/20 04:15 Hgb 10.8 g/dL (13.0-16.5) L 05/16/20 04:15 Hct 34.3 % (40-54) L 05/16/20 04:15 MCV 95.3 fL (80-94) H 05/15/20 13:03 MCHC 31.5 g/dL (32-36) L 05/16/20 04:15 RDW Std Deviation 44.9 fl (35.1-43.9) H 05/16/20 04:15 Neut % (Auto) 94.5 % (47-70) H 05/16/20 04:15 Lymph % (Auto) 2.5 % (19-41) L 05/16/20 04:15 Absolute Neuts (auto) 8.3 X10^3/uL (2.0-7.7) H 05/16/20 04:15 Absolute Lymphs (auto) 0.22 X10^3/uL (0.83-4.51) L 05/16/20 04:15 APTT 22.1 Seconds (24.1-36.2) L 05/15/20 13:03 Potassium 3.3 mmol/L (3.5-5.1) L 05/16/20 04:15 Chloride 94 mmol/L (98-107) L 05/15/20 13:03 Carbon Dioxide 34.0 mmol/L (21.0-32.0) H 05/16/20 04:15 Anion Gap 3 (5-15) L 05/16/20 04:15 BUN 21 mg/dL (7-18) H 05/16/20 04:15 Creatinine 0.63 mg/dL (0.70-1.30) L 05/16/20 04:15 Est GFR (MDRD) Non-Af 56 mL/min (>60) L 05/15/20 13:03 BUN/Creatinine Ratio 33.4 RATIO (10-20) H 05/16/20 04:15 Glucose 191 mg/dL (74-106) H 05/16/20 04:15 Lactic Acid 3.6 mmol/L (0.4-1.9) H* 05/15/20 13:03 Calcium 7.4 mg/dL (8.5-10.1) L 05/16/20 04:15 Troponin I 0.135 ng/mL (<0.045) H 05/16/20 00:30 B-Natriuretic Peptide 114.0 pg/mL (0-100) H 05/15/20 13:03 Total Protein 4.8 g/dL (6.4-8.2) L 05/16/20 04:15 Albumin 2.0 g/dL (3.2-5.0) L 05/16/20 04:15 Albumin/Globulin Ratio 0.7 RATIO (0.9-2.4) L 05/16/20 04:15 HDL Cholesterol 33 mg/dL (40-) L 05/16/20 04:15 - Assessment Food / Nutrition-Related History:: Pt describes good PO intake this AM, but states appetite/intake has been chronically poor over past 1 year d/t respiratory status and lack of appetite. Pt states food doesn't taste good. States he is supposed to drink Ensure/Boost at home but doesn't because he feels it makes his mucous thick. Believes wt 1 year ago was 119# and admission wt was 100.3#- 18.7#/15.7% unintentional wt loss. Nutrition focus physical exam suggests severe muscle wasting, fat loss in clavicles, acromion, and temporal regions. - Nutrition Diagnosis Problem / Etiology / Signs & Symptoms (PES):: Pt w/ severe, chronic malnutrition related to inadequate protein-calorie intake w/ severe resp. failure as evidenced by reported PO intake meeting less than 50% of pts estimated nutritional needs for 1 year and observed severe muscle wasting, fat loss in clavicles, acromion, and temporal regions. Evidence of Malnutrition Exists:: Yes Severe PCM:: Chronic Illness - Nutrition Intervention Nutrition Prescription:: [id number] calories, 60-75 g protein per day - Food / Nutrient Delivery Interventions Summary of nutrition intervention:: Discussed ONS w/ pt. Has been refusing Ensure Clear. Explained to pt Ensure Clear is juiced based. Pt verbalized understanding, agreeable to trying. Will increase to 4x/day. Assisted pt w/ lunch order. Encouraged small portions of nutrient dense foods and frequent meals to achieve adequate protein/calorie intake. Will try magic cup w/ lunch for additional calories/protein if consumed. Will fortify foods when possible. Nutrition support ordered as / adjusted to:: regular diet, fortified foods, magic cup w/ lunch, 120mL ensure clear 4x/day w/ medpass. May benefit from appetite stimulant. Nutrition education provided?: Yes - MNT Monitoring Further MNT monitoring and evaluation required?: Yes MNT Follow-up in:: 3-5 days
--- NOTE | 2020-05-16 11:50 | CASEMGMT ---
Addendum entered by Thang Motley 05/16/20 12:04: [facility] reviewed with patient via phone. Patient understands if he does not transfer, then [facility] will be billed for this stay. Patient is agreeable to this and this was conversation was witnessed. Form signed as telephone review and witnessed. Clinical and Declination for faxed to [facility]. Original Note: RN CM Assessment Note Introduced role of CM to patient via phone to room. Patient is awake, alert and able to participate in assessment. Demographics, PCP verified. Patient states he lives independently with his in home. States he completes own ADL's, but also stated he does not wish anyone to help him. Feels he is managing now. States he is using walker at home recently as he has been feeling increased weakness. Wishes to return home on discharge. Diagnosis: septic shock due to acute cystitis PCP: SUSHMA Ramírez Insurance: [facility]/ [facility] Preferred Pharmacy: [facility] Chandan KHAN Prescription Benefit: yes LNOK: , Sonia Saenz Living Arrangements: Lives with in one story home. 2 steps into home. States he is independent with ADL's currently but also mentioned he does not want help from his family with self care. Tranportation: drives DME: walker, wheelchair, oxygen [facility] with concentrator, portability. States he uses 1L [place]. HHC: none SNF: none Patient DC Goals: Home on discharge DC Plan: anticipate home on discharge. PT/OT evaluations are pending. CM available for discharge planning coordination. Contact CM for any concerns/needs that may arise. Rylee TALBERT RN ACM
[2020-05-16] MEDS: ALPRAZolam 0.5 MG Tablet PO ×3 (12:37→21:50)
[2020-05-16] MEDS: Albuterol 2.5 MG/3 ML VIAL.NEB. INHALATION (12:54)
--- NOTE | 2020-05-16 15:45 | EKG12_ITS ---
Test Reason : TACHYCARDIA Blood Pressure : / mmHG Vent. Rate : 149 BPM Atrial Rate : 120 BPM P-R Int : 000 ms QRS Dur : 116 ms QT Int : 356 ms P-R-T Axes : 000 097 269 degrees QTc Int : 560 ms Supraventricular tachycardia Right bundle branch block Abnormal ECG Confirmed by DOT GIBBS, AMELIA ([id number]), editor index MACIEL RAMAN ([id number]) on 05/23/2020 8:54:32 AM Referred By: ZACHERY Confirmed By:AMELIA CHRIS MD
[2020-05-16 16:52] LABS: Thyroid Stim Hormone (TSH) 0.34 uIU/mL (0.358-3.74)
[2020-05-16] MEDS: Tamsulosin HCl 0.4 MG Capsule PO (18:03)
[2020-05-16] MEDS: Pramipexole Di-HCl 0.5 MG Tablet PO (21:50)
[2020-05-16] MEDS: Mirtazapine 15 MG Tablet PO (21:50)
[2020-05-16] MEDS: guaiFENesin 1,200 MG Tablet 1200 MG PO (21:50)
[2020-05-16] MEDS: Pravastatin 20 MG Tablet PO (21:50)
[2020-05-17] VITALS (26 sets, daily range): BP systolic 99–147; BP diastolic 65–101; PULSE 68–151; RESP 16–29; TEMP 36.4–37.6; O2SAT 92–100
[2020-05-17 00:02] LABS: Magnesium 1.9 mg/dL (1.6-2.6)
[2020-05-17] MEDS: Adenosine 6 MG/2 ML Syringe IV (00:04)
--- NOTE | 2020-05-17 00:10 | PCM.PN.BLA ---
Progress Note Patient with SVT previously abated with vagal maneuvers. However patient went into SVT again which cannot be abated with vagal maneuvers. Given adenosine 6 mg with conversion to sinus rhythm. We will replace potassium. Check magnesium. Consider cardiology consult. Magnesium 1.9. Will give 2 g of magnesium. STROKE Vital Signs/Narrative: Vital Signs Temp Pulse Resp BP Pulse Ox 05/16/20 22:54 86 05/16/20 22:45 141 H 118/90 H 05/16/20 22:00 87 25 H 118/87 H 96 05/16/20 21:00 98 F 85 21 H 119/80 97
[2020-05-17] MEDS: Potassium Chloride 10mEq/100mL 10 MEQ/100 ML IV.SOLN. 100 MEQ IV BOLUS ×4 (00:28→04:34)
--- NOTE | 2020-05-17 00:43 | NURSING ---
2345 notified Agyepong of HR up to 150-170's SVT, not sustaining, asymptomatic, orders received. 2357 cortext Agyepong EKG result of SVT sustaining, attempted vagal maneuvers, SOB 0003 Agyepong at bedside, ordered adenosine 0006 Adenosine 6 mg IV given, converted to NSR, post EKG obtained and Agyepong reviewed. *time is off on EKG approximately 4-5 minutes compared to when adenosine was given and post EKG obtained
[2020-05-17] MEDS: 0.9% Saline Lock 10 ML Syringe IV ×5 (01:44→22:51)
--- NOTE | 2020-05-17 03:00 | EKG12_ITS ---
Test Reason : ARRYTHMIA Blood Pressure : / mmHG Vent. Rate : 147 BPM Atrial Rate : 083 BPM P-R Int : 000 ms QRS Dur : 120 ms QT Int : 380 ms P-R-T Axes : 000 081 266 degrees QTc Int : 594 ms Atrial fibrillation /flutter Low voltage QRS (Limb Leads) Right bundle branch block Abnormal ECG Confirmed by DOT GIBBS, AMELIA ([id number]), editor book MACIEL RAMAN ([id number]) on 05/23/2020 8:55:53 AM Referred By: ISELA Confirmed By:AMELIA CHRIS MD
[2020-05-17] MEDS: ALPRAZolam 0.5 MG Tablet PO ×3 (05:11→22:51)
[2020-05-17 06:57] LABS: Absolute Lymphocyte Count 0.23 X10^3/uL (0.83-4.51); Absolute Neutrophil Count 15.5 X10^3/uL (2.0-7.7); Basophil# 0.02 X10^3/uL; Basophil% 0.1 % (0-1); Differential Indicated SCAN CRITERIA MET; Hematocrit 34.8 % (40-54); Hemoglobin 11.1 g/dL (13.0-16.5); Lymphocyte # 0.23 X10^3/ul (4.0); Lymphocyte % 1.4 % (19-41); Mean Corp Hgb Conc 31.9 g/dL (32-36); Mean Corpuscular Hgb 29.9 pg (27.0-32.0); Mean Corpuscular Volume 93.8 fL (80-94); Mean Platelet Vol. 9.5 fl (6.2-12.0); Monocyte# 0.35 X10^3/uL; Monocyte% 2.2 % (0-10); NRBC Flagged by Analyzer 0 % (0-5); Neutrophil # 15.45 X10^3/uL (2.7-7.7); Neutrophil % 95.6 % (47-70); POSITIVE DIFFERENTIAL YES; Platelet Count 227 K/mm3 (150-450); RBC Distribution Width CV 13.1 % (11.6-14.6); RBC Distribution Width SD 44.4 fl (35.1-43.9); Red Blood Count 3.71 M/mm3 (4.6-6.2); White Blood Count 16.2 K/mm3 (4.4-11.0)
[2020-05-17 07:10] LABS: Anion Gap -1 (5-15); BUN 14 mg/dL (7-18); BUN/Creat Ratio 22.6 RATIO (10-20); Chloride 109 mmol/L (98-107); Creatinine, Serum 0.62 mg/dL (0.70-1.30); EST Glomerular Filtration Rate 135 mL/min (>60); Est Glom Filt Rate - Afr Amer 164 mL/min (>60); Estimated Creatinine Clearance 45.81 ml/min; Glucose 127 mg/dL (74-106); Potassium 4.5 mmol/L (3.5-5.1); Sodium Level 146 mmol/L (136-145)
--- NOTE | 2020-05-17 07:37 | PN_ITS ---
Subjective: The patient was seen and examined at the bedside this morning. Events from the last 24 hours have been reviewed. The patient is currently afebrile, hemodynamically stable and maintaining appropriate oxygen saturations on 4 L/min via nasal cannula. The patient apparently overnight developed a supraventricular tachycardia, for which he received adenosine x1. The patient's Levophed was able to be weaned off completely yesterday. The patient remains on bronchodilators, IV steroids and antimicrobials. He is currently documented to be overall net +2 L for the hospital admission. Objective: The patient's most recent lab work, culture data and imaging studies have all been personally reviewed. Surface echocardiogram revealed normal LV size with an ejection fraction of 65%. The right ventricle was noted to be mildly dilated with normal systolic function. RVSP was unable to be estimated. Urine culture was positive for E. coli. Blood cultures were also positive for gram-negative rods. Respiratory viral panel was negative. Strep and urine Legionella antigens were negative. Sputum culture is currently pending. General: Alert, Cooperative HEENT: Atraumatic, Normocephalic Oral: Moist Mucosa, No Gingival or Mucosal Lesions/ Ulcerations Neck: Supple, No Nodes, Trachea Midline Lungs: Diminished Cardiovascular: Regular rate, Regular Rhythm Abdomen: Bowel Sounds Present, Soft, Non Tender Extremities: No clubbing, No cyanosis, No edema Skin: No breakdown Musculoskeletal: No Tenderness to Palpation of Joints or Extremities Lymphatic: No Cervical, Supraclavicular, or Inguinal Adenopathy Neurological: Cranial nerves II-XII grossly intact, Neuro grossly intact Psych/Mental Status: Normal Affect, Appropriate Vital Signs Temp Pulse Resp BP Pulse Ox 97.8 F 68 21 H 138/86 H 98 05/17/20 04:00 05/17/20 07:00 05/17/20 07:00 05/17/20 07:00 05/17/20 07:00 Oxygen Flow Rate (L/min) 4 Oxygen Delivery Method Nasal Cannula Weight: 106 lb 14.787 oz Body Mass Index (BMI) 17.1 Intake and Output for Last 24 Hours 05/15/20 05/16/20 05/17/20 23:59 23:59 23:59 Intake Total 1745.83 / 1745.83 4807.00 / 4927.00 794 / 794 Output Total 500 / 850 2104 / 3504 2800 / 2800 Balance 1245.83 / 895.83 2703.00 / 1423.00 -2005 / Labs (Last 48 Hours) 05/15/20 05/15/20 05/15/20 12:48 13:03 13:03 WBC 12.4 H Corrected WBC RBC 4.87 Hgb 14.6 Hct 46.4 MCV 95.3 H MCH 30.0 MCHC 31.5 L RDW Std Deviation 45.7 H RDW Coeff of Christy 13.0 Plt Count 229 MPV 9.8 Immature Gran % (Auto) 0.400 Neut % (Auto) 85.4 H Lymph % (Auto) 3.9 L [place] % (Auto) 9.8 Eos % (Auto) 0.1 Baso % (Auto) 0.4 Absolute Neuts (auto) 10.6 H Absolute Lymphs (auto) 0.49 L Total Counted Neutrophils % (Manual) Band Neutrophils % Lymphocytes % (Manual) Monocytes % (Manual) Eosinophils % (Manual) Basophils % (Manual) Metamyelocytes % Myelocytes % Promyelocytes % Blast Cells % Plasma Cell % (Manual) Other Cells % Nucleated RBC % 0 Nucleated RBCs/100 WBC Differential Comment Diff Path Review Hypersegmented Neuts Atypical Lymphocytes Reactive Lymphocytes Smudge Cells Toxic Granulation Toxic Vacuolation Dohle Bodies Lexi Rods Platelet Estimate Plt Morphology Comment RBC Morphology Polychromasia Hypochromasia Poikilocytosis Basophilic Stippling Anisocytosis Microcytosis Macrocytosis Spherocytes Sickle Cells Target Cells Tear Drop Cells Ovalocytes Stomatocytes [place] Bodies Jaya Cells Bite Cells Crenated Cell Acanthocytes (Spur) Rouleaux Schistocytes PT 14.4 INR 1.2 APTT 22.1 L Specimen Type ART Sample Site R Radial pH 7.26 L Bicarbonate Actual 37.2 H Total CO2 40 Base Excess 10 H O2 Saturation 99 O2 % ABG pCO2 82.3 H* ABG pO2 169 H Marcel Test O2 Delivery Device NRB Sodium Potassium Chloride Carbon Dioxide Anion Gap BUN Creatinine Estim Creat Clear Calc Est GFR (MDRD) Af Amer Est GFR (MDRD) Non-Af BUN/Creatinine Ratio Glucose Lactic Acid Calcium Magnesium Total Bilirubin AST ALT Alkaline Phosphatase Troponin I B-Natriuretic Peptide Total Protein Albumin Globulin Albumin/Globulin Ratio Triglycerides Cholesterol LDL Cholesterol VLDL Cholesterol HDL Cholesterol TSH Urine Color Urine Clarity Urine pH Ur Specific [place] Urine Protein Urine Glucose (UA) Urine Ketones Urine Occult Blood Urine Nitrite Urine Bilirubin Urine Urobilinogen Ur Leukocyte Esterase Urine RBC Urine WBC Ur Squamous Epith Cells Urine Bacteria Urine Mucus MRSA (PCR) 05/15/20 05/15/20 05/15/20 13:03 13:03 13:03 WBC Corrected WBC RBC Hgb Hct MCV MCH MCHC RDW Std Deviation RDW Coeff of Christy Plt Count MPV Immature Gran % (Auto) Neut % (Auto) Lymph % (Auto) [place] % (Auto) Eos % (Auto) Baso % (Auto) Absolute Neuts (auto) Absolute Lymphs (auto) Total Counted Neutrophils % (Manual) Band Neutrophils % Lymphocytes % (Manual) Monocytes % (Manual) Eosinophils % (Manual) Basophils % (Manual) Metamyelocytes % Myelocytes % Promyelocytes % Blast Cells % Plasma Cell % (Manual) Other Cells % Nucleated RBC % Nucleated RBCs/100 WBC Differential Comment Diff Path Review Hypersegmented Neuts Atypical Lymphocytes Reactive Lymphocytes Smudge Cells Toxic Granulation Toxic Vacuolation Dohle Bodies Lexi Rods Platelet Estimate Plt Morphology Comment RBC Morphology Polychromasia Hypochromasia Poikilocytosis Basophilic Stippling Anisocytosis Microcytosis Macrocytosis Spherocytes Sickle Cells Target Cells Tear Drop Cells Ovalocytes Stomatocytes [place] Bodies Jaya Cells Bite Cells Crenated Cell Acanthocytes (Spur) Rouleaux Schistocytes PT INR APTT Specimen Type Sample Site pH Bicarbonate Actual Total CO2 Base Excess O2 Saturation O2 % ABG pCO2 ABG pO2 Marcel Test O2 Delivery Device Sodium 138 Potassium 3.8 Chloride 94 L Carbon Dioxide 38.0 H Anion Gap 6 BUN 18 Creatinine 1.33 H Estim Creat Clear Calc 31.74 Est GFR (MDRD) Af Amer 68 Est GFR (MDRD) Non-Af 56 L BUN/Creatinine Ratio 13.5 Glucose 134 H Lactic Acid 3.6 H* Calcium 8.8 Magnesium 2.3 Total Bilirubin 0.70 AST 15 ALT 19 Alkaline Phosphatase 75 Troponin I 0.169 H B-Natriuretic Peptide 114.0 H Total Protein 7.0 Albumin 3.0 L Globulin 4.0 Albumin/Globulin Ratio 0.8 L Triglycerides Cholesterol LDL Cholesterol VLDL Cholesterol HDL Cholesterol TSH Urine Color Urine Clarity Urine pH Ur Specific [place] Urine Protein Urine Glucose (UA) Urine Ketones Urine Occult Blood Urine Nitrite Urine Bilirubin Urine Urobilinogen Ur Leukocyte Esterase Urine RBC Urine WBC Ur Squamous Epith Cells Urine Bacteria Urine Mucus MRSA (PCR) 05/15/20 05/15/20 05/15/20 13:22 15:04 17:20 WBC Corrected WBC RBC Hgb Hct MCV MCH MCHC RDW Std Deviation RDW Coeff of Christy Plt Count MPV Immature Gran % (Auto) Neut % (Auto) Lymph % (Auto) [place] % (Auto) Eos % (Auto) Baso % (Auto) Absolute Neuts (auto) Absolute Lymphs (auto) Total Counted Neutrophils % (Manual) Band Neutrophils % Lymphocytes % (Manual) Monocytes % (Manual) Eosinophils % (Manual) Basophils % (Manual) Metamyelocytes % Myelocytes % Promyelocytes % Blast Cells % Plasma Cell % (Manual) Other Cells % Nucleated RBC % Nucleated RBCs/100 WBC Differential Comment Diff Path Review Hypersegmented Neuts Atypical Lymphocytes Reactive Lymphocytes Smudge Cells Toxic Granulation Toxic Vacuolation Dohle Bodies Lexi Rods Platelet Estimate Plt Morphology Comment RBC Morphology Polychromasia Hypochromasia Poikilocytosis Basophilic Stippling Anisocytosis Microcytosis Macrocytosis Spherocytes Sickle Cells Target Cells Tear Drop Cells Ovalocytes Stomatocytes [place] Bodies Jaya Cells Bite Cells Crenated Cell Acanthocytes (Spur) Rouleaux Schistocytes PT INR APTT Specimen Type ART Sample Site R Radial pH 7.32 L Bicarbonate Actual 34.3 H Total CO2 36 Base Excess 8 H O2 Saturation 86 L O2 % 30 ABG pCO2 67.4 H* ABG pO2 58 L Marcel Test Positive O2 Delivery Device BiPAP Sodium Potassium Chloride Carbon Dioxide Anion Gap BUN Creatinine Estim Creat Clear Calc Est GFR (MDRD) Af Amer Est GFR (MDRD) Non-Af BUN/Creatinine Ratio Glucose Lactic Acid Calcium Magnesium Total Bilirubin AST ALT Alkaline Phosphatase Troponin I B-Natriuretic Peptide Total Protein Albumin Globulin Albumin/Globulin Ratio Triglycerides Cholesterol LDL Cholesterol VLDL Cholesterol HDL Cholesterol TSH Urine Color Yellow Urine Clarity Sl. Cloudy Urine pH 5.0 Ur Specific [place] 1.025 Urine Protein 100 H Urine Glucose (UA) Normal Urine Ketones 15 H Urine Occult Blood 250 H Urine Nitrite Positive H Urine Bilirubin 3 H Urine Urobilinogen 4 H Ur Leukocyte Esterase 500 H Urine RBC 25-50 SEEN Urine WBC 50-100 SEEN Ur Squamous Epith Cells 0-5 SEEN Urine Bacteria 2+ Urine Mucus 0 SEEN MRSA (PCR) Negative 05/15/20 05/15/20 05/16/20 17:30 18:20 00:30 WBC Corrected WBC RBC Hgb Hct MCV MCH MCHC RDW Std Deviation RDW Coeff of Christy Plt Count MPV Immature Gran % (Auto) Neut % (Auto) Lymph % (Auto) [place] % (Auto) Eos % (Auto) Baso % (Auto) Absolute Neuts (auto) Absolute Lymphs (auto) Total Counted Neutrophils % (Manual) Band Neutrophils % Lymphocytes % (Manual) Monocytes % (Manual) Eosinophils % (Manual) Basophils % (Manual) Metamyelocytes % Myelocytes % Promyelocytes % Blast Cells % Plasma Cell % (Manual) Other Cells % Nucleated RBC % Nucleated RBCs/100 WBC Differential Comment Diff Path Review Hypersegmented Neuts Atypical Lymphocytes Reactive Lymphocytes Smudge Cells Toxic Granulation Toxic Vacuolation Dohle Bodies Lexi Rods Platelet Estimate Plt Morphology Comment RBC Morphology Polychromasia Hypochromasia Poikilocytosis Basophilic Stippling Anisocytosis Microcytosis Macrocytosis Spherocytes Sickle Cells Target Cells Tear Drop Cells Ovalocytes Stomatocytes [place] Bodies Jaya Cells Bite Cells Crenated Cell Acanthocytes (Spur) Rouleaux Schistocytes PT INR APTT Specimen Type Sample Site pH Bicarbonate Actual Total CO2 Base Excess O2 Saturation O2 % ABG pCO2 ABG pO2 Marcel Test O2 Delivery Device Sodium Potassium Chloride Carbon Dioxide Anion Gap BUN Creatinine Estim Creat Clear Calc Est GFR (MDRD) Af Amer Est GFR (MDRD) Non-Af BUN/Creatinine Ratio Glucose Lactic Acid 0.7 Calcium Magnesium Total Bilirubin AST ALT Alkaline Phosphatase Troponin I 0.201 H 0.135 H B-Natriuretic Peptide Total Protein Albumin Globulin Albumin/Globulin Ratio Triglycerides Cholesterol LDL Cholesterol VLDL Cholesterol HDL Cholesterol TSH Urine Color Urine Clarity Urine pH Ur Specific [place] Urine Protein Urine Glucose (UA) Urine Ketones Urine Occult Blood Urine Nitrite Urine Bilirubin Urine Urobilinogen Ur Leukocyte Esterase Urine RBC Urine WBC Ur Squamous Epith Cells Urine Bacteria Urine Mucus MRSA (PCR) 05/16/20 05/16/20 05/16/20 00:30 04:15 04:15 WBC 8.8 Corrected WBC RBC 3.65 L Hgb 10.8 L Hct 34.3 L MCV 94.0 MCH 29.6 MCHC 31.5 L RDW Std Deviation 44.9 H RDW Coeff of Christy 13.1 Plt Count 170 MPV 9.7 Immature Gran % (Auto) 0.300 Neut % (Auto) 94.5 H Lymph % (Auto) 2.5 L [place] % (Auto) 2.7 Eos % (Auto) 0.0 Baso % (Auto) 0.0 Absolute Neuts (auto) 8.3 H Absolute Lymphs (auto) 0.22 L Total Counted Neutrophils % (Manual) Band Neutrophils % Lymphocytes % (Manual) Monocytes % (Manual) Eosinophils % (Manual) Basophils % (Manual) Metamyelocytes % Myelocytes % Promyelocytes % Blast Cells % Plasma Cell % (Manual) Other Cells % Nucleated RBC % 0 Nucleated RBCs/100 WBC Differential Comment Diff Path Review Hypersegmented Neuts Atypical Lymphocytes Reactive Lymphocytes Smudge Cells Toxic Granulation Toxic Vacuolation Dohle Bodies Lexi Rods Platelet Estimate Plt Morphology Comment RBC Morphology Polychromasia Hypochromasia Poikilocytosis Basophilic Stippling Anisocytosis Microcytosis Macrocytosis Spherocytes Sickle Cells Target Cells Tear Drop Cells Ovalocytes Stomatocytes [place] Bodies [place] Cells Bite Cells Crenated Cell Acanthocytes (Spur) Rouleaux Schistocytes PT INR APTT Specimen Type Sample Site pH Bicarbonate Actual Total CO2 Base Excess O2 Saturation O2 % ABG pCO2 ABG pO2 Marcel Test O2 Delivery Device Sodium 140 Potassium 3.3 L Chloride 103 Carbon Dioxide 34.0 H Anion Gap 3 L BUN 21 H Creatinine 0.63 L Estim Creat Clear Calc 42.97 Est GFR (MDRD) Af Amer 161 Est GFR (MDRD) Non-Af 133 BUN/Creatinine Ratio 33.4 H Glucose 191 H Lactic Acid Calcium 7.4 L Magnesium Total Bilirubin 0.30 AST 21 ALT 16 Alkaline Phosphatase 48 Troponin I B-Natriuretic Peptide Total Protein 4.8 L Albumin 2.0 L Globulin 2.8 Albumin/Globulin Ratio 0.7 L Triglycerides 81 Cholesterol 116 LDL Cholesterol 67 VLDL Cholesterol 16 HDL Cholesterol 33 L TSH 0.34 L Urine Color Urine Clarity Urine pH Ur Specific [place] Urine Protein Urine Glucose (UA) Urine Ketones Urine Occult Blood Urine Nitrite Urine Bilirubin Urine Urobilinogen Ur Leukocyte Esterase Urine RBC Urine WBC Ur Squamous Epith Cells Urine Bacteria Urine Mucus MRSA (PCR) 05/16/20 05/17/20 05/17/20 23:45 04:00 04:00 WBC Cancelled Corrected WBC Cancelled RBC Cancelled Hgb Cancelled Hct Cancelled MCV Cancelled MCH Cancelled MCHC Cancelled RDW Std Deviation Cancelled RDW Coeff of Christy Cancelled Plt Count Cancelled MPV Cancelled Immature Gran % (Auto) Cancelled Neut % (Auto) Cancelled Lymph % (Auto) Cancelled [place] % (Auto) Cancelled Eos % (Auto) Cancelled Baso % (Auto) Cancelled Absolute Neuts (auto) Cancelled Absolute Lymphs (auto) Cancelled Total Counted Cancelled Neutrophils % (Manual) Cancelled Band Neutrophils % Cancelled Lymphocytes % (Manual) Cancelled Monocytes % (Manual) Cancelled Eosinophils % (Manual) Cancelled Basophils % (Manual) Cancelled Metamyelocytes % Cancelled Myelocytes % Cancelled Promyelocytes % Cancelled Blast Cells % Cancelled Plasma Cell % (Manual) Cancelled Other Cells % Cancelled Nucleated RBC % Cancelled Nucleated RBCs/100 WBC Cancelled Differential Comment Cancelled Diff Path Review Cancelled Hypersegmented Neuts Cancelled Atypical Lymphocytes Cancelled Reactive Lymphocytes Cancelled Smudge Cells Cancelled Toxic Granulation Cancelled Toxic Vacuolation Cancelled Dohle Bodies Cancelled Lexi Rods Cancelled Platelet Estimate Cancelled Plt Morphology Comment Cancelled RBC Morphology Cancelled Polychromasia Cancelled Hypochromasia Cancelled Poikilocytosis Cancelled Basophilic Stippling Cancelled Anisocytosis Cancelled Microcytosis Cancelled Macrocytosis Cancelled Spherocytes Cancelled Sickle Cells Cancelled Target Cells Cancelled Tear Drop Cells Cancelled Ovalocytes Cancelled Stomatocytes Cancelled [place] Bodies Cancelled [place] Cells Cancelled Bite Cells Cancelled Crenated Cell Cancelled Acanthocytes (Spur) Cancelled Rouleaux Cancelled Schistocytes Cancelled PT INR APTT Specimen Type Sample Site pH Bicarbonate Actual Total CO2 Base Excess O2 Saturation O2 % ABG pCO2 ABG pO2 Marcel Test O2 Delivery Device Sodium Cancelled Potassium Cancelled Chloride Cancelled Carbon Dioxide Cancelled Anion Gap Cancelled BUN Cancelled Creatinine Cancelled Estim Creat Clear Calc Cancelled Est GFR (MDRD) Af Amer Cancelled Est GFR (MDRD) Non-Af Cancelled BUN/Creatinine Ratio Cancelled Glucose Cancelled Lactic Acid Calcium Cancelled Magnesium 1.9 Total Bilirubin AST ALT Alkaline Phosphatase Troponin I B-Natriuretic Peptide Total Protein Albumin Globulin Albumin/Globulin Ratio Triglycerides Cholesterol LDL Cholesterol VLDL Cholesterol HDL Cholesterol TSH Urine Color Urine Clarity Urine pH Ur Specific [place] Urine Protein Urine Glucose (UA) Urine Ketones Urine Occult Blood Urine Nitrite Urine Bilirubin Urine Urobilinogen Ur Leukocyte Esterase Urine RBC Urine WBC Ur Squamous Epith Cells Urine Bacteria Urine Mucus MRSA (PCR) 05/17/20 05/17/20 06:50 06:50 WBC 16.2 H Corrected WBC RBC 3.71 L Hgb 11.1 L Hct 34.8 L MCV 93.8 MCH 29.9 MCHC 31.9 L RDW Std Deviation 44.4 H RDW Coeff of Christy 13.1 Plt Count 227 MPV 9.5 Immature Gran % (Auto) 0.700 Neut % (Auto) 95.6 H Lymph % (Auto) 1.4 L [place] % (Auto) 2.2 Eos % (Auto) 0.0 Baso % (Auto) 0.1 Absolute Neuts (auto) 15.5 H Absolute Lymphs (auto) 0.23 L Total Counted Neutrophils % (Manual) Band Neutrophils % Lymphocytes % (Manual) Monocytes % (Manual) Eosinophils % (Manual) Basophils % (Manual) Metamyelocytes % Myelocytes % Promyelocytes % Blast Cells % Plasma Cell % (Manual) Other Cells % Nucleated RBC % 0 Nucleated RBCs/100 WBC Differential Comment Diff Path Review Hypersegmented Neuts Atypical Lymphocytes Reactive Lymphocytes Smudge Cells Toxic Granulation Toxic Vacuolation Dohle Bodies Lexi Rods Platelet Estimate Plt Morphology Comment RBC Morphology Polychromasia Hypochromasia Poikilocytosis Basophilic Stippling Anisocytosis Microcytosis Macrocytosis Spherocytes Sickle Cells Target Cells Tear Drop Cells Ovalocytes Stomatocytes [place] Bodies Jaya Cells Bite Cells Crenated Cell Acanthocytes (Spur) Rouleaux Schistocytes PT INR APTT Specimen Type Sample Site pH Bicarbonate Actual Total CO2 Base Excess O2 Saturation O2 % ABG pCO2 ABG pO2 Marcel Test O2 Delivery Device Sodium 146 H Potassium 4.5 Chloride 109 H Carbon Dioxide 38.0 H Anion Gap -1 L BUN 14 Creatinine 0.62 L Estim Creat Clear Calc 45.81 Est GFR (MDRD) Af Amer 164 Est GFR (MDRD) Non-Af 135 BUN/Creatinine Ratio 22.6 H Glucose 127 H Lactic Acid Calcium 8.0 L Magnesium Total Bilirubin AST ALT Alkaline Phosphatase Troponin I B-Natriuretic Peptide Total Protein Albumin Globulin Albumin/Globulin Ratio Triglycerides Cholesterol LDL Cholesterol VLDL Cholesterol HDL Cholesterol TSH Urine Color Urine Clarity Urine pH Ur Specific [place] Urine Protein Urine Glucose (UA) Urine Ketones Urine Occult Blood Urine Nitrite Urine Bilirubin Urine Urobilinogen Ur Leukocyte Esterase Urine RBC Urine WBC Ur Squamous Epith Cells Urine Bacteria Urine Mucus MRSA (PCR) Microbiology 05/15/20 13:22 Urine, Catheterized Urine Culture - Final Presumptive E. coli 05/15/20 13:30 Blood Culture (Wb) - Left Foot Blood Culture - Preliminary 05/15/20 13:03 Blood Culture (Wb) - Anticubital Left Blood Culture - Preliminary 05/15/20 19:48 Mucosa - Nasopharyngeal Respiratory Panel (PCR) - Final 05/15/20 17:20 Urine Catheter - Jauregui Legionella Antigen - Final 05/15/20 17:20 Urine Catheter - Jauregui Streptococcus pneumoniae Antigen (M - Final 05/15/20 13:39 Mucosa - Nose SARS-CoV-2 Antigen (Rapid) - Final Clinical Impression(s) from Imaging Studies Chest X-Ray 05/15/20 13:36 IMPRESSION: Hyperinflation. Decreased bronchovascular markings in the upper lobes suggestive of the emphysematous changes. Findings suggestive of linear scarring at the lung bases. Electronically Signed: Kian Guevara, at 13:57 EST , Service support , Chest X-Ray 05/16/20 05:55 IMPRESSION: Stable examination. Findings suggestive of emphysematous changes of both lungs with mild bibasilar scarring. Electronically Signed: Kian Guevara, at 10:02 EST , Service support , Medical Necessity - Tobacco Use Smoking Status: Former smoker - Quit tobacco use cigarette 2008, 1-2 ppd 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 Tobacco Use: Non-smoker Assessment/Plan All Active Problems Acute respiratory failure (Acute) COPD exacerbation (Acute) UTI (urinary tract infection) (Acute) Severe sepsis (Acute) RECOMMENDATIONS: 1. Wean supplemental oxygen to maintain saturations 88-92%. 2. Continue scheduled bronchodilators and IV steroids. 3. Continue PPI therapy. 4. Continue empiric antimicrobials, pending finalized infectious work-up. 5. Consider urological evaluation if urinary retention persists following Jauregui catheter removal. 6. The patient is medically stable for transfer out of the intensive care unit. IMPRESSIONS: 1. Gram-negative septic shock Appears to be secondary to urinary tract source of infection with secondary hematogenous spread. The patient has been adequately volume resuscitated and will be continued on Levophed to maintain a mean arterial pressure at or above 65 mmHg. Continue antimicrobials as ordered, pending further infectious work- up. The patient may require evaluation by urology following removal of Jauregui catheter if unable to void. 2. Acute on chronic combined respiratory failure Likely due to the patient's inability to keep up with the metabolic demands in the setting of gram-negative septic shock. The patient did respond to noninvasive positive pressure ventilatory support and is currently maintaining appropriate oxygen saturations on his baseline supplemental O2. Given his history of COPD, he will be continued on scheduled bronchodilators and IV steroids. 3. Acute kidney injury Improved. Likely prerenal in etiology with a component of ischemic ATN in the setting #1. Anticipate improvement with volume expansion and stabilization of hemodynamics. Continue to monitor urine output. No current indication for renal replacement therapy. 4. Hypertension/hyperlipidemia/anxiety/depression/BPH/GERD Complicates care, management, recovery and prognosis. Continue to hold home antihypertensives, given tenuous hemodynamics. This note was generated with [employer] dictation software. It may contain incorrect words, spelling, and punctuation that were not noted in checking the note before signing. Inpatient E&M: [id number] [facility] L[facility]
--- NOTE | 2020-05-17 08:05 | PCM.PN.HOSP ---
Patient Problems: Active and Suspected Problems Acute respiratory failure (Acute) COPD exacerbation (Acute) UTI (urinary tract infection) (Acute) Severe sepsis (Acute) Reason for Visit: Septic shock Acute cystitis Subjective: Patient urine cultures positive for E. coli sensitivities reviewed. Patient had episodes of supraventricular tachycardia (PSVT versus MAT). Patient did receive adenosine patient was on Levophed discontinued. Objective: GENERAL: cooperative HEENT: Atraumatic; EYES; Anicteric, Normal Conjunctiva NECK; supple, normal thyroid, RESPIRATORY: Diminished to auscultation CARDIOVASCULAR: Regular S1 S2, GI: soft, normoactive bowel sounds, : No Renal angle tenderness; EXTREMITIES: No edema, no clubbing, MUSCULOSKELETAL: no muscle waisting NEURO: Awake; no lateralizing signs. SKIN: No Rash PSYCH; Flat affect Vitals/I&O's: Vital Signs Temp Pulse Resp BP Pulse Ox 97.8 F 68 21 H 138/86 H 98 05/17/20 04:00 05/17/20 07:00 05/17/20 07:00 05/17/20 07:00 05/17/20 07:00 Oxygen Flow Rate (L/min) 4 Oxygen Delivery Method Nasal Cannula Weight: 48.5 kg Body Mass Index (BMI) 17.1 Intake and Output for Last 24 Hours 05/15/20 05/16/20 05/17/20 23:59 23:59 23:59 Intake Total 1745.83 / 1745.83 4807.00 / 4927.00 794 / 794 Output Total 500 / 850 2104 / 3504 2800 / 2800 Balance 1245.83 / 895.83 2703.00 / 1423.00 -2005 / -2005 Microbiology Past 72 Hours 05/15/20 13:22 Urine, Catheterized Urine Culture - Final Presumptive E. coli 05/15/20 13:30 Blood Culture (Wb) - Left Foot Blood Culture - Preliminary 05/15/20 13:03 Blood Culture (Wb) - Anticubital Left Blood Culture - Preliminary 05/15/20 19:48 Mucosa - Nasopharyngeal Respiratory Panel (PCR) - Final 05/15/20 17:20 Urine Catheter - [place] Legionella Antigen - Final 05/15/20 17:20 Urine Catheter - Jaurgeui Streptococcus pneumoniae Antigen (M - Final 05/15/20 13:39 Mucosa - Nose SARS-CoV-2 Antigen (Rapid) - Final Laboratory Results 05/16/20 00:30: TSH 0.34 L 05/16/20 23:45: Magnesium 1.9 05/17/20 04:00: WBC Cancelled, Corrected WBC Cancelled, RBC Cancelled, Hgb Cancelled, Hct Cancelled, MCV Cancelled, MCH Cancelled, MCHC Cancelled, RDW Std Deviation Cancelled, RDW Coeff of Christy Cancelled, Plt Count Cancelled, MPV Cancelled, Immature Gran % (Auto) Cancelled, Neut % (Auto) Cancelled, Lymph % (Auto) Cancelled, [place] % (Auto) Cancelled, Eos % (Auto) Cancelled, Baso % (Auto) Cancelled, Absolute Neuts (auto) Cancelled, Absolute Lymphs (auto) Cancelled, Total Counted Cancelled, Neutrophils % (Manual) Cancelled, Band Neutrophils % Cancelled, Lymphocytes % (Manual) Cancelled, Monocytes % (Manual) Cancelled, Eosinophils % (Manual) Cancelled, Basophils % (Manual) Cancelled, Metamyelocytes % Cancelled, Myelocytes % Cancelled, Promyelocytes % Cancelled, Blast Cells % Cancelled, Plasma Cell % (Manual) Cancelled, Other Cells % Cancelled, Nucleated RBC % Cancelled, Nucleated RBCs/100 WBC Cancelled, Differential Comment Cancelled, Diff Path Review Cancelled, Hypersegmented Neuts Cancelled, Atypical Lymphocytes Cancelled, Reactive Lymphocytes Cancelled, Smudge Cells Cancelled, Toxic Granulation Cancelled, Toxic Vacuolation Cancelled, Dohle Bodies Cancelled, Lexi Rods Cancelled, Platelet Estimate Cancelled, Plt Morphology Comment Cancelled, RBC Morphology Cancelled, Polychromasia Cancelled, Hypochromasia Cancelled, Poikilocytosis Cancelled, Basophilic Stippling Cancelled, Anisocytosis Cancelled, Microcytosis Cancelled, Macrocytosis Cancelled, Spherocytes Cancelled, Sickle Cells Cancelled, Target Cells Cancelled, Tear Drop Cells Cancelled, Ovalocytes Cancelled, Stomatocytes Cancelled, [place] Bodies Cancelled, Jaya Cells Cancelled, Bite Cells Cancelled, Crenated Cell Cancelled, Acanthocytes (Spur) Cancelled, Rouleaux Cancelled, Schistocytes Cancelled 05/17/20 04:00: Sodium Cancelled, Potassium Cancelled, Chloride Cancelled, Carbon Dioxide Cancelled, Anion Gap Cancelled, BUN Cancelled, Creatinine Cancelled, Estim Creat Clear Calc Cancelled, Est GFR (MDRD) Af Amer Cancelled, Est GFR (MDRD) Non-Af Cancelled, BUN/Creatinine Ratio Cancelled, Glucose Cancelled, Calcium Cancelled 05/17/20 06:50: Sodium 146 H, Potassium 4.5, Chloride 109 H, Carbon Dioxide 38.0 H, Anion Gap -1 L, BUN 14, Creatinine 0.62 L, Estim Creat Clear Calc 45.81, Est GFR (MDRD) Af Amer 164, Est GFR (MDRD) Non-Af 135, BUN/Creatinine Ratio 22.6 H, Glucose 127 H, Calcium 8.0 L 05/17/20 06:50: WBC 16.2 H, RBC 3.71 L, Hgb 11.1 L, Hct 34.8 L, MCV 93.8, MCH 29.9, MCHC 31.9 L, RDW Std Deviation 44.4 H, RDW Coeff of Christy 13.1, Plt Count 227, MPV 9.5, Immature Gran % (Auto) 0.700, Neut % (Auto) 95.6 H, Lymph % (Auto) 1.4 L, [place] % (Auto) 2.2, Eos % (Auto) 0.0, Baso % (Auto) 0.1, Absolute Neuts (auto) 15.5 H, Absolute Lymphs (auto) 0.23 L, Nucleated RBC % 0 Current Medications Acetaminophen (Acetaminophen 325 Mg Tablet) 650 mg PO Q6H PRN PRN PRN Reason: Pain Score 1-10/Temp > 100.7 F Al Hydroxide/Mg Hydroxide (Mag Hydrox/Al Hydrox/Simeth 30 Ml Udc) 30 ml PO Q6H PRN PRN PRN Reason: Gastric Burning Albuterol Sulfate (Albuterol 2.5 Mg/3 Ml Vial.Neb.) 2.5 mg INHALATION Q2H PRN PRN PRN Reason: Dyspnea, wheezing Last Admin: 05/16/20 12:54 Dose: 2.5 mg Documented by: Albuterol/Ipratropium (Ipratropium/Albuterol Sulfate 3 Ml Ampul.Neb) 3 ml INHALATION Q4HWA.RT PONCE Last Admin: 05/16/20 19:07 Dose: 3 ml Documented by: Alprazolam (Alprazolam 0.5 Mg Tablet) 0.5 mg PO TID [facility] Last Admin: 05/17/20 05:11 Dose: 0.5 mg Documented by: Aspirin (Aspirin 81 Mg Tab.Chew) 81 mg PO DAILY@0800 [facility] Last Admin: 05/16/20 10:44 Dose: 81 mg Documented by: Enoxaparin Sodium (Enoxaparin 40 Mg/0.4 Ml Syringe) 40 mg SC DAILY [facility] Last Admin: 05/16/20 10:41 Dose: 40 mg Documented by: Fluticasone Propionate (Fluticasone 0.05% 1 [place] Nasal.Sry) 2 spray NASAL DAILY [facility] Last Admin: 05/16/20 10:45 Dose: 2 spray Documented by: Guaifenesin (Guaifenesin 1,200 Mg Tablet) 1,200 mg PO BID [facility] Last Admin: 05/16/20 21:50 Dose: 1,200 mg Documented by: Piperacillin Sod/Tazobactam (Sod 3.375 gm/ Sodium Chloride) 50 mls @ 12.5 mls/hr IV Q8 [facility] Last Admin: 05/17/20 05:04 Dose: 12.5 mls/hr Documented by: Loratadine (Loratadine 10 Mg Tablet) 10 mg PO DAILY PRN PRN PRN Reason: ALLERGIES Magnesium Hydroxide (Magnesium Hydroxide 30 Ml Udc) 30 ml PO DAILY PRN PRN PRN Reason: Constipation Methylprednisolone (Methylprednisolone 40 Mg/Ml Vial) 40 mg IV Q8 [facility] Last Admin: 05/17/20 05:04 Dose: 40 mg Documented by: Mirtazapine (Mirtazapine 15 Mg Tablet) 15 mg PO QHS PRN PRN PRN Reason: SLEEP Last Admin: 05/16/20 21:50 Dose: 15 mg Documented by: Nitroglycerin (Nitroglycerin (Inpatient Use) 0.4 Mg Tab.Subl) 0.4 mg SUBLINGUAL Q5M PRN PRN Reason: CARDIAC/CHEST PAIN Nutritional Formula (Lactose Free) (Ensure Enlive 120 Ml Liquid) 120 ml PO 4X/DAY [facility] Last Admin: 05/16/20 21:59 Dose: 120 ml Documented by: Ondansetron HCl (Ondansetron 4 Mg/2 Ml Vial) 4 mg IV Q8H PRN PRN PRN Reason: NAUSEA/VOMITING Pantoprazole Sodium (Pantoprazole Sodium 40 Mg Tablet) 40 mg PO BID [facility] Last Admin: 05/16/20 21:50 Dose: 40 mg Documented by: Pramipexole Dihydrochloride (Pramipexole Di-Hcl 0.5 Mg Tablet) 0.5 mg PO QHS PRN PRN Reason: RESTLESS LEG SYNDROME Last Admin: 05/16/20 21:50 Dose: 0.5 mg Documented by: Pravastatin Sodium (Pravastatin 20 Mg Tablet) 20 mg PO QHS [facility] Last Admin: 05/16/20 21:50 Dose: 20 mg Documented by: Prochlorperazine Edisylate (Prochlorperazine 10 Mg/2 Ml Vial) 5 mg IV Q4H PRN PRN PRN Reason: Breakthrough Nausea/Vomiting Psyllium Hydrophilic Mucilloid (Psyllium 1 Packet) 1 packet PO DAILY PRN PRN PRN Reason: Constipation Senna/Docusate Sodium (Senna/Docusate Sodium 1 Tablet) 2 tablet PO BID PRN PRN Reason: Constipation Sodium Chloride (0.9% Saline Lock 10 Ml Syringe) 10 - 40 ml IV UD PRN PRN Reason: SALINE FLUSH Last Admin: 05/17/20 05:05 Dose: 40 ml Documented by: Tamsulosin HCl (Tamsulosin Hcl 0.4 Mg Capsule) 0.4 mg PO DAILY@1730 [facility] Last Admin: 05/16/20 18:03 Dose: 0.4 mg Documented by: Throat Lozenges (Benzocaine/Menthol 1 Lozenge) 1 lozenge MUCOUS MEM Q2H PRN PRN PRN Reason: SORE THROAT STROKE Vital Signs/Narrative: Vital Signs Pulse Resp BP Pulse Ox 05/17/20 07:00 68 21 H 138/86 H 98 05/17/20 06:00 68 25 H 99/65 100 05/17/20 05:00 88 20 H 127/75 H 95 Medical Necessity - Tobacco Use Smoking Status: Former smoker - Quit tobacco use cigarette 2008, 1-2 ppd 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 Tobacco Use: Non-smoker Assessment/Plan All Active Problems Acute respiratory failure (Acute) COPD exacerbation (Acute) UTI (urinary tract infection) (Acute) Severe sepsis (Acute) Patient is a 74-year-old M with multiple comorbidities admitted with increasing lethargy mental septic shock secondary to acute cystitis made admitted to the intensive care unit for further management 1. Septic shock secondary to acute cystitis ?Blood cultures so far positive for gram-negative organisms. Patient is on IV fluid resuscitation, pressor support with Levophed as well as broad-spectrum antibiotic therapy with Zosyn -Urine cultures positive for E. coli sensitivities reviewed on appropriate antibiotic therapy 2. Supraventricular tachycardia ?MAT versus SVT patient did receive adenosine was on Levophed discontinued 2. Emphysema ?Aerosol treatments as needed 3. Hypokalemia ?Corrected per protocol 4. Essential hypertension ?Patient antihypertensives on hold in view of patient low blood pressure 5. GERD ?Patient is on PPI 6. Dyslipidemia -Patient is on statin therapy, continued at home dose 7. BPH -patient is on tamsulosin did continue 8. DVT prophylaxis ?Enoxaparin Inpatient E&M: 22[address] [facility] L3
[2020-05-17] MEDS: Ipratropium/Albuterol Sulfate 3 ML AMPUL.NEB INHALATION ×4 (08:36→20:47)
[2020-05-17] MEDS: Fluticasone 0.05% 1 SPRAY NASAL.SRY 2 SPRAY NASAL (09:18)
[2020-05-17] MEDS: Pantoprazole Sodium 40 MG Tablet PO ×2 (09:19→22:49)
[2020-05-17] MEDS: Aspirin 81 MG TAB.CHEW PO (09:19)
[2020-05-17] MEDS: Enoxaparin 40 MG/0.4 ML Syringe SC (09:19)
[2020-05-17] MEDS: Furosemide 40 MG/4 ML Vial IV (09:26)
[2020-05-17] MEDS: guaiFENesin 1,200 MG Tablet 1200 MG PO ×2 (12:06→22:49)
--- NOTE | 2020-05-17 12:08 | NURSING ---
Pt very argumentative with staff regarding medications. Stating that he is not getting medications and 'do you even know what you are doing or how medications work'. Education offered to pt regarding medication orders and scheduled times. Pt stated 'yeah yeah whatever you say' and interrupts this RN when trying to educate.
[2020-05-17] MEDS: Tamsulosin HCl 0.4 MG Capsule PO (18:38)
[2020-05-17] MEDS: Pravastatin 20 MG Tablet PO (22:49)
[2020-05-18] VITALS (8 sets, daily range): BP systolic 126–151; BP diastolic 73–98; PULSE 68–140; RESP 18–20; TEMP 36.7–36.9; O2SAT 93–97
--- NOTE | 2020-05-18 04:51 | CPS ---
pt called out for shortness of breath, RN called for a prn aerosol but pt refused albuterol nebulizer. He want the inhaler DR was called. med was changed. RN to give, pt already aware of proper use of MDI
[2020-05-18] MEDS: ALPRAZolam 0.5 MG Tablet PO ×2 (05:07→13:30)
--- NOTE | 2020-05-18 07:17 | CPS ---
Pt refused Duoneb, will only take Breo (he takes it at home). I suggested he have someone bring his med then pharmacy can verify it and he can take it. he said why, so someone can keep it from me or throw it away? I explained the process and he justs wants to argue so R.T. left because he continues to argue no matter what this R.T. said.
[2020-05-18] MEDS: Enoxaparin 40 MG/0.4 ML Syringe SC (07:59)
[2020-05-18] MEDS: Fluticasone 0.05% 1 SPRAY NASAL.SRY 2 SPRAY NASAL (07:59)
[2020-05-18] MEDS: Aspirin 81 MG TAB.CHEW PO (07:59)
[2020-05-18] MEDS: Pantoprazole Sodium 40 MG Tablet PO (07:59)
[2020-05-18] MEDS: guaiFENesin 1,200 MG Tablet 1200 MG PO (07:59)
--- NOTE | 2020-05-18 08:33 | NURSING ---
Patient very frustrated this AM, complaining that he is not receiving the appropriate medications that they are different than what he takes at home and arguing with nursing staff. This RN explained to patient that what we are giving him is either an interchange for what he takes at home if we do not carry what he takes and that the medications may look different but they are the same thing. Patient complaining about breathing treatments that he is receiving and stating that he cannot have the breathing treatments with ipratropium and takes serevent at home. Discussed with patient that this RN will discuss medications with MD and pharmacy. VS, assessment, and medications completed early per request of patient to allow patient to rest/de-stress.
--- NOTE | 2020-05-18 09:47 | PCM.DC ---
- Discharge Diagnoses Current Active Problems: Current Active and Chronic Problems Acute respiratory failure (Acute) COPD exacerbation (Acute) UTI (urinary tract infection) (Acute) Severe sepsis (Acute) HLD (hyperlipidemia) (Chronic) GERD (gastroesophageal reflux disease) (Chronic) Former tobacco use (Chronic) Anxiety and depression (Chronic) BPH (benign prostatic hyperplasia) (Chronic) Severe protein-calorie malnutrition (Chronic) Chronic respiratory failure (Chronic) COLD (chronic obstructive lung disease) (Chronic) Benign essential HTN (Chronic) You will use the following diet at home:: No restrictions Discharge Activity: Return to Normal Activity Allergies/Adverse Reactions: Allergies Tetanus Vaccines and Toxoid Allergy (Verified 05/15/20 13:00) Swelling Medications to take at Discharge ALPRAZolam [Xanax] 0.5 mg PO TID PRN PRN 05/15/20 Albuterol Aerosols [Ventolin Aerosols] 2.5 mg INHALATION Q6H PRN PRN 05/15/20 Albuterol Inhaler [Ventolin Hfa] 2 puff INHALATION Q6H PRN PRN 05/15/20 Budesonide/Formoterol 160/4.5 [Symbicort 160/4.5 Mcg Inhaler (SP)] 2 puff INHALATION BID 05/15/20 Ensure Clear 120 ml PO TID 05/15/20 Ergocalciferol (Vitamin D2) [Vitamin D2] 50,000 unit PO Q30D 05/15/20 Fluticasone Propionate [Flonase Allergy Relief] 2 spray NASAL DAILY 05/15/20 Guaifenesin 800 mg PO TID 05/15/20 Hydrocortisone/Pramoxine [Epifoam Foam] 1 applic TP BID 05/15/20 Loratadine 10 mg PO DAILY PRN PRN 05/15/20 Mirtazapine [Remeron] 15 mg PO QHS PRN PRN 05/15/20 Omeprazole 40 mg PO BID 05/15/20 Pravastatin [Pravachol] 20 mg PO QHS 05/15/20 Ropinirole HCl 1 mg PO QHS PRN PRN 05/15/20 Tamsulosin HCl [Flomax] 0.8 mg PO QHS 05/15/20 Theophylline [Mina-Dur] 300 mg PO BID 05/15/20 Tiotropium [place] [Spiriva] 18 mcg IH DAILY 05/15/20 Trazodone HCl 150 mg PO QHS PRN PRN 05/15/20 Levofloxacin [Levaquin] 500 mg PO DAILY #7 tab 05/18/20 Prednisone 20 mg PO BID #10 tab 05/18/20 The following prescriptions were given: Levofloxacin [Levaquin] 500 mg PO DAILY #7 tab Transmission Status: Pending to [id number] Prednisone 20 mg PO BID #10 tab Transmission Status: Pending to [id number] Primary Care Physician: [facility] [Primary Care Provider] - Please follow up with your Primary Care Physician in: in 1 week Test Results: Test results from this visit will be discussed in further detail at your follow-up appointment, if applicable. Proposed Discharge Date: 05/18/20
--- NOTE | 2020-05-18 09:55 | DS.PCM_ITS ---
Discharge Date and Diagnosis - Problem List Patient Problems: Active and Suspected Problems Acute respiratory failure (Acute) COPD exacerbation (Acute) UTI (urinary tract infection) (Acute) Severe sepsis (Acute) Date of Admission: 05/15/20 Date of Discharge: 05/18/20 - Primary Discharge Diagnosis Acute Problems: Active Problems Acute respiratory failure (Acute) COPD exacerbation (Acute) UTI (urinary tract infection) (Acute) Severe sepsis (Acute) - Secondary Discharge Diagnosis Chronic Problems: Chronic Problems HLD (hyperlipidemia) (Chronic) GERD (gastroesophageal reflux disease) (Chronic) Former tobacco use (Chronic) Anxiety and depression (Chronic) BPH (benign prostatic hyperplasia) (Chronic) Severe protein-calorie malnutrition (Chronic) Chronic respiratory failure (Chronic) COLD (chronic obstructive lung disease) (Chronic) Benign essential HTN (Chronic) Hospital Course and Treatment Imaging Results: Clinical Impression(s) from Imaging Studies Chest X-Ray 05/15/20 13:36 IMPRESSION: Hyperinflation. Decreased bronchovascular markings in the upper lobes suggestive of the emphysematous changes. Findings suggestive of linear scarring at the lung bases. Electronically Signed: Kian Guevara, at 13:57 EST , Service support , Chest X-Ray 05/16/20 05:55 IMPRESSION: Stable examination. Findings suggestive of emphysematous changes of both lungs with mild bibasilar scarring. Electronically Signed: Kian Guevara, at 10:02 EST , Service support , GENERAL: cooperative HEENT: Atraumatic; EYES; Anicteric, Normal Conjunctiva NECK; supple, normal thyroid, RESPIRATORY: Diminished to auscultation CARDIOVASCULAR: Regular S1 S2, GI: soft, normoactive bowel sounds, : No Renal angle tenderness; EXTREMITIES: No edema, no clubbing, MUSCULOSKELETAL: no muscle waisting NEURO: Awake; no lateralizing signs. SKIN: No Rash PSYCH; Flat affect Summary of Care Provided: Patient is a 74-year-old M with multiple comorbidities admitted with increasing lethargy mental septic shock secondary to acute cystitis made admitted to the intensive care unit for further management 1. Septic shock secondary to acute cystitis E. coli ?Blood cultures so far positive for gram-negative organisms. Patient is on IV fluid resuscitation, pressor support with Levophed as well as broad-spectrum antibiotic therapy with Zosyn -Urine cultures positive for E. coli sensitivities reviewed on appropriate antibiotic therapy -Patient was discharged home with Levaquin for 7 more days 2. Supraventricular tachycardia ?MAT versus SVT patient did receive adenosine was on Levophed discontinued 2. Emphysema ?Aerosol treatments as needed 3. Hypokalemia ?Corrected per protocol 4. Essential hypertension ?Patient antihypertensives on hold in view of patient low blood pressure 5. GERD ?Patient is on PPI 6. Dyslipidemia -Patient is on statin therapy, continued at home dose 7. BPH -patient is on tamsulosin did continue 8. DVT prophylaxis ?Enoxaparin Patient Problems: Active and Suspected Problems Acute respiratory failure (Acute) COPD exacerbation (Acute) UTI (urinary tract infection) (Acute) Severe sepsis (Acute) Objective: GENERAL: cooperative HEENT: Atraumatic; EYES; Anicteric, Normal Conjunctiva NECK; supple, normal thyroid, RESPIRATORY: Diminished to auscultation CARDIOVASCULAR: Regular S1 S2, GI: soft, normoactive bowel sounds, : No Renal angle tenderness; EXTREMITIES: No edema, no clubbing, MUSCULOSKELETAL: no muscle waisting NEURO: Awake; no lateralizing signs. SKIN: No Rash PSYCH; Flat affect - Physical Exam Vitals/I&O's: Vital Signs Temp Pulse Resp BP Pulse Ox 98.3 F 75 20 H 126/73 H 94 05/18/20 08:15 05/18/20 08:15 05/18/20 08:15 05/18/20 08:15 05/18/20 08:15 Oxygen Flow Rate (L/min) 3 Oxygen Delivery Method Nasal Cannula Weight: 46.2 kg Body Mass Index (BMI) 17.1 Intake and Output for Last 24 Hours 05/16/20 05/17/20 05/18/20 23:59 23:59 23:59 Intake Total 4807.00 / 4927.00 1594 / 1594 250 / 250 Output Total 2104 / 3504 5300 / 5300 300 / 300 Balance 2703.00 / 1423.00 -3706 / -3706 -50 / -50 Microbiology Past 72 Hours 05/15/20 13:30 Blood Culture (Wb) - Left Foot Blood Culture - Final GNR lactose modeling agent 05/15/20 13:03 Blood Culture (Wb) - Anticubital Left Blood Culture - Final Escherichia coli 05/17/20 05:20 Sputum, Expectorated/Coughed Gram Stain - Final 05/15/20 13:22 Urine, Catheterized Urine Culture - Final Presumptive E. coli 05/15/20 19:48 Mucosa - Nasopharyngeal Respiratory Panel (PCR) - Final 05/15/20 17:20 Urine Catheter - [place] Legionella Antigen - Final 05/15/20 17:20 Urine Catheter - [place]gui Streptococcus pneumoniae Antigen (M - Final 05/15/20 13:39 Mucosa - Nose SARS-CoV-2 Antigen (Rapid) - Final Current Medications Acetaminophen (Acetaminophen 325 Mg Tablet) 650 mg PO Q6H PRN PRN PRN Reason: Pain Score 1-10/Temp > 100.7 F Al Hydroxide/Mg Hydroxide (Mag Hydrox/Al Hydrox/Simeth 30 Ml Udc) 30 ml PO Q6H PRN PRN PRN Reason: Gastric Burning Albuterol Sulfate (Albuterol Ih 8.5 Gm (Proair) Inhaler (200 Puffs)) 2 puff INHALATION Q4H PRN PRN PRN Reason: SOB &/OR WHEEZING Last Admin: 05/18/20 05:01 Dose: 2 puff Documented by: Albuterol/Ipratropium (Ipratropium/Albuterol Sulfate 3 Ml Ampul.Neb) 3 ml INHALATION Q4HWA.RT [facility] Last Admin: 05/17/20 20:47 Dose: 3 ml Documented by: Alprazolam (Alprazolam 0.5 Mg Tablet) 0.5 mg PO TID [facility] Last Admin: 05/18/20 05:07 Dose: 0.5 mg Documented by: Aspirin (Aspirin 81 Mg Tab.Chew) 81 mg PO DAILY@0800 [facility] Last Admin: 05/18/20 07:59 Dose: 81 mg Documented by: Enoxaparin Sodium (Enoxaparin 40 Mg/0.4 Ml Syringe) 40 mg SC DAILY [facility] Last Admin: 05/18/20 07:59 Dose: 40 mg Documented by: Fluticasone Propionate (Fluticasone 0.05% 1 [place] Nasal.Sry) 2 spray NASAL DAILY [facility] Last Admin: 05/18/20 07:59 Dose: 2 spray Documented by: Guaifenesin (Guaifenesin 1,200 Mg Tablet) 1,200 mg PO BID [facility] Last Admin: 05/18/20 07:59 Dose: 1,200 mg Documented by: Piperacillin Sod/Tazobactam (Sod 3.375 gm/ Sodium Chloride) 50 mls @ 12.5 mls/hr IV Q8 [facility] Last Admin: 05/18/20 05:01 Dose: 12.5 mls/hr Documented by: Loratadine (Loratadine 10 Mg Tablet) 10 mg PO DAILY PRN PRN PRN Reason: ALLERGIES Magnesium Hydroxide (Magnesium Hydroxide 30 Ml Udc) 30 ml PO DAILY PRN PRN PRN Reason: Constipation Methylprednisolone (Methylprednisolone 40 Mg/Ml Vial) 40 mg IV Q8 [facility] Last Admin: 05/18/20 05:01 Dose: 40 mg Documented by: Mirtazapine (Mirtazapine 15 Mg Tablet) 15 mg PO QHS PRN PRN PRN Reason: SLEEP Last Admin: 05/16/20 21:50 Dose: 15 mg Documented by: Nitroglycerin (Nitroglycerin (Inpatient Use) 0.4 Mg Tab.Subl) 0.4 mg SUBLINGUAL Q5M PRN PRN Reason: CARDIAC/CHEST PAIN Nutritional Formula (Lactose Free) (Ensure Enlive 120 Ml Liquid) 120 ml PO 4X/DAY [facility] Last Admin: 05/18/20 08:07 Dose: 120 ml Documented by: Ondansetron HCl (Ondansetron 4 Mg/2 Ml Vial) 4 mg IV Q8H PRN PRN PRN Reason: NAUSEA/VOMITING Pantoprazole Sodium (Pantoprazole Sodium 40 Mg Tablet) 40 mg PO BID [facility] Last Admin: 05/18/20 07:59 Dose: 40 mg Documented by: Pramipexole Dihydrochloride (Pramipexole Di-Hcl 0.5 Mg Tablet) 0.5 mg PO QHS PRN PRN Reason: RESTLESS LEG SYNDROME Last Admin: 05/16/20 21:50 Dose: 0.5 mg Documented by: Pravastatin Sodium (Pravastatin 20 Mg Tablet) 20 mg PO QHS [facility] Last Admin: 05/17/20 22:49 Dose: 20 mg Documented by: Prochlorperazine Edisylate (Prochlorperazine 10 Mg/2 Ml Vial) 5 mg IV Q4H PRN PRN PRN Reason: Breakthrough Nausea/Vomiting Psyllium Hydrophilic Mucilloid (Psyllium 1 Packet) 1 packet PO DAILY PRN PRN PRN Reason: Constipation Senna/Docusate Sodium (Senna/Docusate Sodium 1 Tablet) 2 tablet PO BID PRN PRN Reason: Constipation Sodium Chloride (0.9% Saline Lock 10 Ml Syringe) 10 - 40 ml IV UD PRN PRN Reason: SALINE FLUSH Last Admin: 05/17/20 22:51 Dose: 10 ml Documented by: Tamsulosin HCl (Tamsulosin Hcl 0.4 Mg Capsule) 0.4 mg PO DAILY@1730 PONCE Last Admin: 05/17/20 18:38 Dose: 0.4 mg Documented by: Throat Lozenges (Benzocaine/Menthol 1 Lozenge) 1 lozenge MUCOUS MEM Q2H PRN PRN PRN Reason: SORE THROAT Discharge Diet: No Restrictions Discharge Activity: Return to Normal Activity Home Medications: Medications to take at Discharge ALPRAZolam [Xanax] 0.5 mg PO TID PRN PRN 05/15/20 Albuterol Aerosols [Ventolin Aerosols] 2.5 mg INHALATION Q6H PRN PRN 05/15/20 Albuterol Inhaler [Ventolin Hfa] 2 puff INHALATION Q6H PRN PRN 05/15/20 Budesonide/Formoterol 160/4.5 [Symbicort 160/4.5 Mcg Inhaler (SP)] 2 puff INHALATION BID 05/15/20 Ensure Clear 120 ml PO TID 05/15/20 Ergocalciferol (Vitamin D2) [Vitamin D2] 50,000 unit PO Q30D 05/15/20 Fluticasone Propionate [Flonase Allergy Relief] 2 spray NASAL DAILY 05/15/20 Guaifenesin 800 mg PO TID 05/15/20 Hydrocortisone/Pramoxine [Epifoam Foam] 1 applic TP BID 05/15/20 Loratadine 10 mg PO DAILY PRN PRN 05/15/20 Mirtazapine [Remeron] 15 mg PO QHS PRN PRN 05/15/20 Omeprazole 40 mg PO BID 05/15/20 Pravastatin [Pravachol] 20 mg PO QHS 05/15/20 Ropinirole HCl 1 mg PO QHS PRN PRN 05/15/20 Tamsulosin HCl [Flomax] 0.8 mg PO QHS 05/15/20 Theophylline [Mina-Dur] 300 mg PO BID 05/15/20 Tiotropium [place] [Spiriva] 18 mcg IH DAILY 05/15/20 Trazodone HCl 150 mg PO QHS PRN PRN 05/15/20 Levofloxacin [Levaquin] 500 mg PO DAILY #7 tab 05/18/20 Prednisone 20 mg PO BID #10 tab 05/18/20 Following Prescriptions Were Given to Patient: Levofloxacin [Levaquin] 500 mg PO DAILY #7 tab Transmission Status: Pending to [id number] Prednisone 20 mg PO BID #10 tab Transmission Status: Pending to [id number] Primary Care Physician: [facility] [Primary Care Provider] - Please follow up with your Primary Care Physician in: in 1 week Minutes spent on discharge:: 45 Patient Condition:: Stable Medical Necessity - Tobacco Use Smoking Status: Former smoker - Quit tobacco use cigarette 2008, 1-2 ppd 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 Tobacco Use: Non-smoker Meaningful Use Info Meaningful Use Diagnoses (Choose all that apply): None applicable Inpatient E&M: 06335 Disch Hosp
--- NOTE | 2020-05-20 14:59 | CASEMGMT ---
ALONSO CM Discharge Follow-up Phone Call: FAVIO: 14 Strata: 4 Call Date: 05/20/2020 Discharge Date: 05/18/2020 Time of Call: 1500 Duration: 1 min Admitting Diagnosis: COPD exac, complicated UTI RN DOUG attempted to complete follow-up phone call after recent hospitalization. No answer, voice message left with return contact information.
== END 2020-05-18 13:33 | disposition home or self-care (01) | DRG 871 ==
LOC: ED 15:21 → ICU 16:07 → PCU 05-17 17:36
PROVIDERS: Emergency Medicine; Hospitalist; Admitting Provider Family Medicine; Emergency Provider Emergency Medicine; Visit Provider Internal Medicine
DX: A41.50 Gram-negative sepsis, unspecified (principal); R65.21 Severe sepsis with septic shock; J96.21 Acute and chronic respiratory failure with hypoxia; E43 Unspecified severe protein-calorie malnutrition; J96.22 Acute and chronic respiratory failure with hypercapnia; N17.0 Acute kidney failure with tubular necrosis; N30.00 Acute cystitis without hematuria; I47.1 Supraventricular tachycardia; Z68.1 Body mass index [BMI] 19.9 or less, adult; G93.40 Encephalopathy, unspecified; B96.20 Unspecified Escherichia coli [E. coli] as the cause of diseases classified elsewhere; J43.9 Emphysema, unspecified; E87.6 Hypokalemia; I12.9 Hypertensive chronic kidney disease with stage 1 through stage 4 chronic kidney disease, or unspecified chronic kidney disease; N18.30 Chronic kidney disease, stage 3 unspecified; K21.9 Gastro-esophageal reflux disease without esophagitis; E78.5 Hyperlipidemia, unspecified; N40.0 Benign prostatic hyperplasia without lower urinary tract symptoms; Z99.81 Dependence on supplemental oxygen; Z87.891 Personal history of nicotine dependence; F32.9 Major depressive disorder, single episode, unspecified; F41.9 Anxiety disorder, unspecified; Z66 Do not resuscitate
CPT/HCPCS: 36600; 51702; 71045; 80048; 80053; 80061; 81001; 82803; 83605; 83735; 83880; 84443; 84484; 85025; 85610; 85730; 87040; 87070; 87077; 87086; 87088; 87186; 87205; 87426; 87449; 87633; 87641; 93005; 93306; 94002; 94640; 94668; 97162; 97166; 97802; 97803; 99251; 99285; J7030; J7050; A4216; G0463; J0153; J1940

== ENCOUNTER 2020-07-05 05:18 | Inpatient (IN) | payer OTHER, MEDICARE, SELFPAY ==
[2020-07-04 09:19] VITALS: BMI 15.6
[2020-07-05] VITALS (27 sets, daily range): BP systolic 83–113; BP diastolic 57–79; PULSE 81–116; RESP 12–28; TEMP 36.7–37.2; O2SAT 88–952; BMI 15.0; BMI 15.4
--- NOTE | 2020-07-05 05:27 | RAD_ITS ---
c/o sob, squad said blue around mouth. Wears home 02 at 2lHX OF COPD EXAMINATION/TECHNIQUE: XR Chest 1 View: COMPARISON: May 16, 2020 FINDINGS: LINES/DEVICES: None. LUNGS: There is hyperaeration with emphysematous changes seen bilaterally. Scarring of the costophrenic angles. There is probable basilar scarring greatest on the right lung base and slightly increased when compared to prior study that may represent superimposed pneumonitis. No pneumothorax. MEDIASTINUM AND CARDIOVASCULAR STRUCTURES: Cardiac silhouette not enlarged. Central airways and mediastinal contour are unremarkable. BONES AND SOFT TISSUES: Osteopenia RAD/Chest 1 View (Portable) IMPRESSION: Emphysema similar to prior study. Scarring at the costophrenic angles. Increased density in the right lung base may represent developing infiltrate at 0620 Reported and signed by: Isis Ngo DO Electronically Signed: Isis Ngo DO at 6:17 EST Tel , Service support ,
--- NOTE | 2020-07-05 05:27 | EKG12_ITS ---
Test Reason : CP Blood Pressure : / mmHG Vent. Rate : 109 BPM Atrial Rate : 109 BPM P-R Int : 150 ms QRS Dur : 118 ms QT Int : 330 ms P-R-T Axes : 075 085 106 degrees QTc Int : 444 ms Sinus tachycardia with Premature atrial complexes Low Voltage QRS (Limb Leads) Incomplete right bundle branch block ST & T wave abnormality, consider anterior ischemia Abnormal ECG Confirmed by DOT GIBBS, AMELIA ([id number]), video tape editor MACIEL RAMAN ([id number]) on 07/05/2020 11:27:44 AM Referred By: DONTA Confirmed By:AMELIA CHRIS MD
--- NOTE | 2020-07-05 05:29 | ED.VIS.GEN ---
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 Reportedly the patient had a hard day yesterday. He took an alprazolam and was found to have some cyanosis this morning and to be lethargic. EMS notes hypotension. No fevers. Patient has a history of COPD, hypertension, hyper lipidemia. [facility]. He wears 2 L home O2 at rest and at night 3 to 4 L with exertion. Patient's information that he can provide is very limited by his dyspnea as he is speaking in only 1 word sentences. He denies any pain. He denies any recent trauma. Past Medical History - Allergies and Home Meds Allergies/Adverse Reactions: Allergies Tetanus Vaccines and Toxoid Allergy (Verified 07/05/20 05:19) Swelling Primary Care Physician: [facility] [Primary Care Provider] - Surgical History: appendectomy Lives: Spouse/ Significant Other Smoking Status: Former smoker Drugs: None - Family History Maternal Family History: Reports: Heart Disease Paternal Family History: Reports: Heart Disease Review of Systems ROS: Unable to Obtain Physical Exam Vital Signs/Narrative: Vital Signs Temp Pulse Resp BP Pulse Ox 07/05/20 05:19 99 F 107 H 27 H 95/66 925 Inital Vital Signs reviewed: Yes General: Well nourished, Well developed, Acute Distress - Patient in moderate respiratory distress Head: Normocephalic, Atraumatic Eyes: Perrl, EOMI ENT: Moist mucous membranes, No rhinorrhea Neck: Supple, Nontender Cardiovascular: No murmurs, Irregular, Tachycardia Respiratory: No distress, Chest nontender, Diminished, Decreased Air Movement Abdomen: Soft, Nontender, Nondistended, Normal bowel sounds Back: Nontender, Normal Inspection Extremities: Nontender, No edema Skin: Normal color, No rash, - - Delayed capillary refill Neurological: Alert, Cranial nerves II-XII grossly intact, Normal Strength, Normal Sensation, Lethargic Diagnostic/Tx/Re-eval Clinical Impression(s) from Imaging Studies Chest X-Ray 07/05/20 05:27 IMPRESSION: Emphysema similar to prior study. Scarring at the costophrenic angles. Increased density in the right lung base may represent developing infiltrate at 0620 Reported and signed by: Isis Ngo DO Electronically Signed: Isis Ngo DO at 6:17 EST Tel , Service support , Laboratory Last Values WBC 10.3 K/mm3 (4.4-11.0) 07/05/20 05:30 RBC 4.89 M/mm3 (4.6-6.2) 07/05/20 05:30 Hgb 14.0 g/dL (13.0-16.5) 07/05/20 05:30 Hct 47.0 % (40-54) 07/05/20 05:30 MCV 96.1 fL (80-94) H 07/05/20 05:30 MCH 28.6 pg (27.0-32.0) 07/05/20 05:30 MCHC 29.8 g/dL (32-36) L 07/05/20 05:30 RDW Std Deviation 49.2 fl (35.1-43.9) H 07/05/20 05:30 RDW Coeff of Christy 13.8 % (11.6-14.6) 07/05/20 05:30 Plt Count 219 K/mm3 (150-450) 07/05/20 05:30 MPV 9.4 fl (6.2-12.0) 07/05/20 05:30 Immature Gran % (Auto) 0.200 % (0.0-0.9) 07/05/20 05:30 Neut % (Auto) 86.0 % (47-70) H 07/05/20 05:30 Lymph % (Auto) 5.8 % (19-41) L 07/05/20 05:30 [place] % (Auto) 6.9 % (0-10) 07/05/20 05:30 Eos % (Auto) 0.5 % (0-5) 07/05/20 05:30 Baso % (Auto) 0.6 % (0-1) 07/05/20 05:30 Absolute Neuts (auto) 8.9 X10^3/uL (2.0-7.7) H 07/05/20 05:30 Absolute Lymphs (auto) 0.60 X10^3/uL (0.83-4.51) L 07/05/20 05:30 Nucleated RBC % 0 % (0-5) 07/05/20 05:30 Differential Comment SCANNED 07/05/20 05:30 PT 12.9 SECONDS (11.7-14.9) 07/05/20 05:30 INR 1.0 07/05/20 05:30 APTT 23.9 Seconds (24.1-36.2) L 07/05/20 05:30 Specimen Type ART 07/05/20 05:35 Sample Site R Radial 07/05/20 05:35 pH 7.25 (7.35-7.45) L 07/05/20 05:35 Bicarbonate Actual 46.5 mmol/L (22-26) H 07/05/20 05:35 Total CO2 50 mmol/L 07/05/20 05:35 Base Excess 19 mmol/L (-2 to +2) H 07/05/20 05:35 O2 Saturation 86 % (95-99) L 07/05/20 05:35 ABG pCO2 106.7 mmHg (35-45) H* 07/05/20 05:35 ABG pO2 66 mmHG (75-100) L 07/05/20 05:35 O2 Delivery Device Cannula 07/05/20 05:35 Liter Flow 2.0 /min 07/05/20 05:35 Sodium 143 mmol/L (136-145) 07/05/20 05:30 Potassium 2.7 mmol/L (3.5-5.1) L* 07/05/20 05:30 Chloride 97 mmol/L (98-107) L 07/05/20 05:30 Carbon Dioxide > 45.0 mmol/L (21.0-32.0) H* 07/05/20 05:30 Anion Gap TNP 07/05/20 05:30 BUN 9 mg/dL (7-18) 07/05/20 05:30 Creatinine 0.80 mg/dL (0.70-1.30) 07/05/20 05:30 Estim Creat Clear Calc 54.42 ml/min 07/05/20 05:30 Est GFR (MDRD) Af Amer 123 mL/min (>60) 07/05/20 05:30 Est GFR (MDRD) Non-Af 101 mL/min (>60) 07/05/20 05:30 BUN/Creatinine Ratio 11.3 RATIO (10-20) 07/05/20 05:30 Glucose 152 mg/dL (74-106) H 07/05/20 05:30 Lactic Acid 1.4 mmol/L (0.4-1.9) 07/05/20 05:30 Calcium 8.6 mg/dL (8.5-10.1) 07/05/20 05:30 Total Bilirubin 0.50 mg/dL (0.20-1.00) 07/05/20 05:30 AST 20 U/L (15-37) 07/05/20 05:30 ALT 19 U/L (16-61) 07/05/20 05:30 Alkaline Phosphatase 80 U/L (45-117) 07/05/20 05:30 Troponin I 0.079 ng/mL (<0.045) H 07/05/20 05:30 Total Protein 6.0 g/dL (6.4-8.2) L 07/05/20 05:30 Albumin 3.0 g/dL (3.2-5.0) L 07/05/20 05:30 Globulin 3.0 g/dL (2.2-4.2) 07/05/20 05:30 Albumin/Globulin Ratio 1.0 RATIO (0.9-2.4) 07/05/20 05:30 Urine Color Yellow (Yellow) 07/05/20 05:30 Urine Clarity Clear (Clear) 07/05/20 05:30 Urine pH 6.0 (5.0 - 8.0) 07/05/20 05:30 Ur Specific [place] 1.020 (1.002-1.030) 07/05/20 05:30 Urine Protein 30 mg/dl (Negative) H 07/05/20 05:30 Urine Glucose (UA) Normal mg/dl (Normal) 07/05/20 05:30 Urine Ketones Negative mg/dl (Negative) 07/05/20 05:30 Urine Occult Blood Negative /ul (Negative) 07/05/20 05:30 Urine Nitrite Negative (Negative) 07/05/20 05:30 Urine Bilirubin Negative mg/dL (Negative) 07/05/20 05:30 Urine Urobilinogen Normal mg/dl (Normal) 07/05/20 05:30 Ur Leukocyte Esterase 25 /ul (Negative) H 07/05/20 05:30 Urine RBC 0 SEEN /hpf (0-5) 07/05/20 05:30 Urine WBC 5-10 SEEN /hpf (0-5) 07/05/20 05:30 Ur Squamous Epith Cells 0-5 SEEN /hpf (0-5) 07/05/20 05:30 Urine Bacteria 0 SEEN /hpf (None Seen) 07/05/20 05:30 Hyaline Casts 5-10 SEEN /lpf (0-5) 07/05/20 05:30 Urine Mucus 0 SEEN /hpf (<or=2+) 07/05/20 05:30 Urine Opiates Screen NEGATIVE (< 300 ng/mL) 07/05/20 05:30 Urine Methadone Screen NEGATIVE (< 300 ng/mL) 07/05/20 05:30 Ur Barbiturates Screen NEGATIVE (< 200 ng/mL) 07/05/20 05:30 Ur Phencyclidine Scrn NEGATIVE (< 25 ng/mL) 07/05/20 05:30 Ur Amphetamines Screen NEGATIVE (<1000 ng/mL) 07/05/20 05:30 U Methamphetamin-MDMA NEGATIVE (< 500 ng/mL) 07/05/20 05:30 U Benzodiazepines Scrn POSITIVE (< 200 ng/mL) H 07/05/20 05:30 Urine Cocaine Screen NEGATIVE (< 300 ng/mL) 07/05/20 05:30 U Cannabinoids Screen NEGATIVE (< 50 ng/mL) 07/05/20 05:30 Ur Drug Screen Comment 07/05/20 05:30 Ethyl Alcohol < 3.0 mg/dL 07/05/20 05:30 - EKG Initial EKG Interpretation: Sinus Tachycardia - EKG demonstrates a sinus tachycardia with PACs at a rate of 109 with right bundle branch block - Medical Decision Making Arterial blood gas shows a pH of 7.247 with PCO2 of 106.7 PO2 65.6 bicarb 46.5. Patient was placed on BiPAP. Chest x-ray is concerning for a possible infiltrate on the right. This would probably be related to aspiration given his sedation with hypoxemia. Therefore he was given Zosyn after blood cultures. He also received a DuoNeb and some Solu-Medrol. Plan is admission - Critical Care Time Critical care time (excluding procedures): 30-74 minutes - 35 min, Discussing w/Patient &/or Family/Weaving Teacher, Discussing w/Consultants, Arranging Admission or Transfer, Performing Direct Patient Care at Bedside ED Disposition - Plan for ED Patient: Disposition: Acute Care Hospital [facility] Diagnosis: Acute respiratory acidosis, Acute hypoxemic respiratory failure, Aspiration pneumonia, Accidental drug overdose [facility] -
[2020-07-05] MEDS: 0.9% Normal Saline 1,000 ML 999 ML IV (05:32)
[2020-07-05] MEDS: 0.9% Normal Saline 1,000 ML 200 ML IV (05:37)
[2020-07-05 05:41] LABS: Base Excess 19 mmol/L (-2 to +2); Bicarbonate 46.5 mmol/L (22-26); Blood Gas Specimen Type ART; O2 Delivery Device Cannula; PO2 66 mmHG (75-100); SITE R Radial; SO2 86 % (95-99); Total Carbon Dioxide 50 mmol/L; pCO2 106.7 mmHg (35-45); pH 7.25 (7.35-7.45)
[2020-07-05 05:41] LABS: Absolute Neutrophil Count 8.9 X10^3/uL (2.0-7.7); Basophil# 0.06 X10^3/uL; Basophil% 0.6 % (0-1); Eosinophil# 0.05 X10^3/uL; Eosinophils% 0.5 % (0-5); Lymphocyte % 5.8 % (19-41); Mean Corp Hgb Conc 29.8 g/dL (32-36); Mean Corpuscular Hgb 28.6 pg (27.0-32.0); Mean Corpuscular Volume 96.1 fL (80-94); Mean Platelet Vol. 9.4 fl (6.2-12.0); Monocyte# 0.71 X10^3/uL; Monocyte% 6.9 % (0-10); NRBC Flagged by Analyzer 0 % (0-5); POSITIVE DIFFERENTIAL YES; Platelet Count 219 K/mm3 (150-450); RBC Distribution Width CV 13.8 % (11.6-14.6); RBC Distribution Width SD 49.2 fl (35.1-43.9); Red Blood Count 4.89 M/mm3 (4.6-6.2); White Blood Count 10.3 K/mm3 (4.4-11.0)
--- NOTE | 2020-07-05 05:41 | ED.RN ---
po 84% on 02 at 2lnc increased to 3 lnc 02 sats still remained 84-65%. 02 increased to 5lnc
[2020-07-05 05:43] LABS: Differential Indicated SCAN CRITERIA MET
[2020-07-05 05:52] LABS: Partial Thromboplast Time 23.9 Seconds (24.1-36.2); Prothrombin Time (Protime)PT. 12.9 SECONDS (11.7-14.9)
[2020-07-05 05:56] LABS: Bacteria 0 SEEN /hpf (None Seen); Color, Urine Yellow (Yellow); Glucose, Dipstick Normal (Normal); Ketone-Dipstick Negative (Negative); Leukocyte Esterase-Dipstick 25 /ul (Negative); Mucous, Urine 0 SEEN /hpf (<or=2+); Nitrite-Dipstick Negative (Negative); Occult Blood-Urine Negative /ul (Negative); Protein-Dipstick 30 mg/dl (Negative); Red Blood Cells-Urine 0 SEEN /hpf (0-5); Urine Bilirubin Dipstick Negative (Negative); Urine Clarity Clear (Clear); Urine Urobilinogen Normal (Normal)
--- NOTE | 2020-07-05 05:59 | ED.RN ---
called and updated on condition and status at this time
[2020-07-05 06:03] LABS: Alcohol, Blood (Medical)-Serum < 3.0 mg/dL
[2020-07-05] MEDS: Ipratropium/Albuterol Sulfate 3 ML AMPUL.NEB INHALATION (06:03)
--- NOTE | 2020-07-05 06:06 | ED.RN ---
[facility]ED [facility], REQUESTED BED CONTROL, AND/OR OIC. NO ANSWER AT EITHER LINE
--- NOTE | 2020-07-05 06:07 | CPS ---
critical abg value handed to dr urbano- pt placed on bipap
[2020-07-05 06:13] LABS: Hyaline Cast 5-10 SEEN /lpf (0-5); Squamous Epithelial Cells - UA 0-5 SEEN /hpf (0-5); White Blood Cells 5-10 SEEN /hpf (0-5)
[2020-07-05 06:14] LABS: Lactic Acid 1.4 mmol/L (0.4-1.9)
[2020-07-05 06:17] LABS: Amphetamine Urine VISTA NEGATIVE (<1000 ng/mL); Barbiturate Urine VISTA NEGATIVE (< 200 ng/mL); Benzodiazepine Urine VISTA POSITIVE (< 200 ng/mL); Cocaine Urine VISTA NEGATIVE (< 300 ng/mL); Ecstacy Urine VISTA NEGATIVE (< 500 ng/mL); Methadone Urine VISTA NEGATIVE (< 300 ng/mL); PCP Urine VISTA NEGATIVE (< 25 ng/mL); THC Urine VISTA NEGATIVE (< 50 ng/mL); Vista UDS pH Range 6
[2020-07-05 06:19] LABS: AST(SGOT) 20 U/L (15-37); Alanine Aminotransfer ALT/SGPT 19 U/L (16-61); Alkaline Phosphatase 80 U/L (45-117); BUN 9 mg/dL (7-18); BUN/Creat Ratio 11.3 RATIO (10-20); Calcium,Total 8.6 mg/dL (8.5-10.1); Carbon Dioxide > 45.0 mmol/L (21.0-32.0); Chloride 97 mmol/L (98-107); EST Glomerular Filtration Rate 101 mL/min (>60); Est Glom Filt Rate - Afr Amer 123 mL/min (>60); Estimated Creatinine Clearance 54.42 ml/min; Glucose 152 mg/dL (74-106); Potassium 2.7 mmol/L (3.5-5.1); Sodium Level 143 mmol/L (136-145)
[2020-07-05 06:24] LABS: Differential Comment SCANNED
--- NOTE | 2020-07-05 06:26 | ED.RN ---
Pt very poor historian. most information had to be recalled
[2020-07-05] MEDS: MethylPREDNISolone 125 MG/2 ML Vial IV (06:45)
[2020-07-05] MEDS: Potassium Chloride 10mEq/100mL 10 MEQ/100 ML IV.SOLN. 100 MEQ IV BOLUS ×2 (06:45→09:06)
--- NOTE | 2020-07-05 07:21 | ED.RN ---
made aware of patient admission status
--- NOTE | 2020-07-05 07:31 | HP.PCM_ITS ---
Problem List (1) Acute respiratory failure with hypoxia and hypercapnia Status: Acute (2) Acute respiratory failure Status: Acute Qualifiers: Respiratory failure complication: hypoxia and hypercapnia Qualified Code(s): J96.01 - Acute respiratory failure with hypoxia; J96.02 - Acute respiratory failure with hypercapnia (3) COPD exacerbation Status: Acute (4) UTI (urinary tract infection) Status: Acute Qualifiers: Urinary tract infection type: site unspecified (5) Severe sepsis Status: Acute (6) HLD (hyperlipidemia) Status: Chronic Qualifiers: Hyperlipidemia type: unspecified Qualified Code(s): E78.5 - Hyperlipidemia, unspecified (7) GERD (gastroesophageal reflux disease) Status: Chronic Qualifiers: Esophagitis bleeding: unspecified whether hemorrhage (8) Former tobacco use Status: Chronic (9) Anxiety and depression Status: Chronic (10) BPH (benign prostatic hyperplasia) Status: Chronic Qualifiers: Lower urinary tract symptom presence: unspecified whether lower urinary tract symptoms present Qualified Code(s): N40.0 - Benign prostatic hyperplasia without lower urinary tract symptoms (11) Severe protein-calorie malnutrition Status: Chronic (12) Decubitus ulcer of left buttock, stage 3 Status: Chronic (13) Malnutrition Status: Chronic Qualifiers: Malnutrition type: protein-calorie malnutrition (14) Acute respiratory acidosis Status: Acute (15) Acute hypoxemic respiratory failure Status: Acute (16) Aspiration pneumonia Status: Acute (17) Accidental drug overdose Status: Acute (18) Chronic respiratory failure Status: Chronic Qualifiers: (19) COLD (chronic obstructive lung disease) Status: Chronic Qualifiers: (20) Benign essential HTN Status: Chronic History of Present Illness Date of Admission: 07/05/20 Chief Complaint: unresponsive The patient is a 74 year old M who took 1/2 tablets of the alprazolam last night. This morning was noted to be blue. EMS was called and patient was brought to the emergency room. Patient had ABG that showed respiratory acidosis with pH of 7.25, PCO2 of 106.7 and a PO2 of 66. BMP showed potassium 3.7 carbon dioxide greater than 45. Patient was placed on BiPAP. Patient was noted to be speaking 1 word sentences initially but that has steadily improved. Patient is now very conversant but very difficult to understand given his BiPAP. Patient has been put on alprazolam for palliative care. Patient stated he took 1 1/2 tablets last night which was slightly more than what he has been normally taking. Patient being admitted to stepdown unit given his rapid improvement and DNR comfort care no intubation status. In the emergency room, patient received Pipracil/tazobactam, methylprednisolone, bronchodilators, IV fluids and potassium. [] Past Medical History Past Medical History (Chronic Problems): Chronic Problems HLD (hyperlipidemia) (Chronic) GERD (gastroesophageal reflux disease) (Chronic) Former tobacco use (Chronic) Anxiety and depression (Chronic) BPH (benign prostatic hyperplasia) (Chronic) Severe protein-calorie malnutrition (Chronic) Decubitus ulcer of left buttock, stage 3 (Chronic) Malnutrition (Chronic) Chronic respiratory failure (Chronic) COLD (chronic obstructive lung disease) (Chronic) Benign essential HTN (Chronic) Allergies Tetanus Vaccines and Toxoid Allergy (Verified 07/05/20 05:19) Swelling Home Medications: Ambulatory Orders Medication Instructions Recorded ALPRAZolam [Xanax] 0.5 mg PO TID PRN PRN 05/15/20 Albuterol Aerosols [Ventolin 2.5 mg INHALATION Q6H PRN PRN 05/15/20 Aerosols] Albuterol Inhaler [Ventolin Hfa] 2 puff INHALATION Q6H PRN PRN 05/15/20 Budesonide/Formoterol 160/4.5 2 puff INHALATION BID 05/15/20 [Symbicort 160/4.5 Mcg Inhaler (SP)] Ensure Clear 120 ml PO TID 05/15/20 Ergocalciferol (Vitamin D2) 50,000 unit PO Q30D 05/15/20 [Vitamin D2] Guaifenesin 800 mg PO TID 05/15/20 Hydrocortisone/Pramoxine [Epifoam 1 applic TP BID PRN 05/15/20 Foam] Omeprazole 40 mg PO BID 05/15/20 Pravastatin [Pravachol] 20 mg PO QHS 05/15/20 Ropinirole HCl 1 mg PO QHS PRN PRN 05/15/20 Tamsulosin HCl [Flomax] 0.8 mg PO QHS 05/15/20 Theophylline [Mina-Dur] 300 mg PO BID 05/15/20 Tiotropium [place] [Spiriva] 18 mcg IH DAILY 05/15/20 Trazodone HCl 150 mg PO QHS PRN PRN 05/15/20 Azithromycin [Zithromax] 500 mg PO DAILY 07/05/20 Bisacodyl 10 mg RC DAILY 07/05/20 Docusate Sodium [Colace Clear] 50 mg PO DAILY PRN 07/05/20 Lactulose 20 gm PO DAILY 07/05/20 Linaclotide [Linzess] 290 mcg PO DAILY 07/05/20 Lisinopril 30 mg PO DAILY 07/05/20 Methocarbamol 750 mg PO TID PRN 07/05/20 Prednisone 50 mg PO DAILY 07/05/20 Surgical History: appendectomy Psychiatric History: Anxiety, Depression Lives: Spouse/ Significant Other Smoking Status: Former smoker Tobacco Use: Cigarettes Drugs: None - *Family History Maternal History Items: Heart Disease Paternal History Items: Heart Disease Review of Systems Unable to obtain accurate/complete ROS d/t: Due to BiPAP and difficult to understand him over it. VTE Information - Inpt Only VTE Present on Admission: No VTE Mechan Device Prophylaxis: None VTE Pharm Prophylaxis ordered?: Yes Patient Problems: Active and Suspected Problems Acute respiratory acidosis (Acute) Acute hypoxemic respiratory failure (Acute) Aspiration pneumonia (Acute) Accidental drug overdose (Acute) - Physical Exam Vitals/I&O's: Vital Signs Temp Pulse Resp BP Pulse Ox 37.0 C 112 H 23 H 94/65 100 07/05/20 07:25 07/05/20 07:25 07/05/20 07:25 07/05/20 07:25 07/05/20 07:25 Oxygen Flow Rate (L/min) 2 Oxygen Delivery Method Bi-pap Weight: 46.1 kg Body Mass Index (BMI) 15.0 General: Alert, Cooperative, No apparent distress HEENT: Atraumatic, Normocephalic Oral: Moist Mucosa, No Gingival or Mucosal Lesions/ Ulcerations Neck: No Nodes, Thyroid Normal Size and Texture Lungs: Diminished, - - Coarse breath sounds bilaterally Cardiovascular: Regular rate, Regular Rhythm, Normal S1, Normal S2, No murmurs Abdomen: Bowel Sounds Present, Soft, Non Tender, Non-Distended, No Hepato- splenomegaly Extremities: - - Patient has infiltration IV in the right and acute. Skin: No rashes, No breakdown Musculoskeletal: Cachexia, Muscle Wasting Neurological: Muscle tone normal, Coordination normal Psych/Mental Status: Normal Affect, Appropriate Microbiology Past 72 Hours 07/05/20 05:30 Mucosa - Nose SARS-CoV-2 Antigen (Rapid) - Final Laboratory Results 07/05/20 05:30: WBC 10.3, RBC 4.89, Hgb 14.0, Hct 47.0, MCV 96.1 H, MCH 28.6, MCHC 29.8 L, RDW Std Deviation 49.2 H, RDW Coeff of Christy 13.8, Plt Count 219, MPV 9.4, Immature Gran % (Auto) 0.200, Neut % (Auto) 86.0 H, Lymph % (Auto) 5.8 L, [place] % (Auto) 6.9, Eos % (Auto) 0.5, Baso % (Auto) 0.6, Absolute Neuts (auto) 8.9 H, Absolute Lymphs (auto) 0.60 L, Nucleated RBC % 0, Differential Comment SCANNED 07/05/20 05:30: PT 12.9, INR 1.0, APTT 23.9 L 07/05/20 05:30: Sodium 143, Potassium 2.7 L*, Chloride 97 L, Carbon Dioxide > 45.0 H*, Anion Gap TNP, BUN 9, Creatinine 0.80, Estim Creat Clear Calc 54.42, Est GFR (MDRD) Af Amer 123, Est GFR (MDRD) Non-Af 101, BUN/Creatinine Ratio 11.3, Glucose 152 H, Calcium 8.6, Total Bilirubin 0.50, AST 20, ALT 19, Alkaline Phosphatase 80, Troponin I 0.079 H, Total Protein 6.0 L, Albumin 3.0 L, Globulin 3.0, Albumin/Globulin Ratio 1.0 07/05/20 05:30: Lactic Acid 1.4 07/05/20 05:30: Ethyl Alcohol < 3.0 07/05/20 05:30: Urine Opiates Screen NEGATIVE, Urine Methadone Screen NEGATIVE, Ur Barbiturates Screen NEGATIVE, Ur Phencyclidine Scrn NEGATIVE, Ur Amphetamines Screen NEGATIVE, U Methamphetamin-MDMA NEGATIVE, U Benzodiazepines Scrn POSITIVE H, Urine Cocaine Screen NEGATIVE, U Cannabinoids Screen NEGATIVE, Ur Drug Screen Comment 07/05/20 05:30: Urine Color Yellow, Urine Clarity Clear, Urine pH 6.0, Ur Specific [place] 1.020, Urine Protein 30 H, Urine Glucose (UA) Normal, Urine Ketones Negative, Urine Occult Blood Negative, Urine Nitrite Negative, Urine Bilirubin Negative, Urine Urobilinogen Normal, Ur Leukocyte Esterase 25 H, Urine RBC 0 SEEN, Urine WBC 5-10 SEEN, Ur Squamous Epith Cells 0-5 SEEN, Urine Bacteria 0 SEEN, Hyaline Casts 5-10 SEEN, Urine Mucus 0 SEEN 07/05/20 05:35: Specimen Type ART, Sample Site R Radial, pH 7.25 L, Bicarbonate Actual 46.5 H, Total CO2 50, Base Excess 19 H, O2 Saturation 86 L, ABG pCO2 106.7 H*, ABG pO2 66 L, O2 Delivery Device Cannula, Liter Flow 2.0 EKG reviewed and shows sinus tachycardia with a a liter of bundle-branch block. Unchanged from previous. Chest x-ray personally reviewed and showed hyperinflated airways with chronic changes. No change from April Current Medications Sodium Chloride () 1,000 mls @ 200 mls/hr IV .Q5H PONCE Last Admin: 07/05/20 05:37 Dose: 200 mls/hr Documented by: Assessment/Plan All Active Problems Acute respiratory failure (Acute) COPD exacerbation (Acute) UTI (urinary tract infection) (Acute) Severe sepsis (Acute) Acute respiratory acidosis (Acute) Acute hypoxemic respiratory failure (Acute) Aspiration pneumonia (Acute) Accidental drug overdose (Acute) Acute respiratory failure with hypoxia and hypercapnia (Acute) 1. Acute hypoxic and hypercapnic respiratory failure: * Multifactorial but also may relate with the patient's advanced COPD blasts unintentional drug overdose with alprazolam. * Patient stated that he took 1/2 tablets of alprazolam and reviewing the patient's OARRS report shows that he has been getting alprazolam through physicians least until 2019. Patient takes 0.5 mg 3 times a day so according the patient he took 0.75 mg last night. Drug screen is only positive for benzodiazepines so no additional substances were identified. But likely this was enough to cause his respiratory failure. * There is concern for aspiration pneumonia but feel the patient has more chronic changes in the neck treat for aspiration at this time. In the absence of fever and leukocytosis. * Currently on a BiPAP and wean as tolerated patient is already improving so anticipate the patient be able to get off the BiPAP later today. * Continue with bronchodilators, methylprednisolone for today and then transition over to prednisone burst 40 mg daily starting 6. * Patient be monitored in the hospital overnight to ensure stability prior to discharge. 2. COPD * Spirometry results in our system. But clinically without I suspect patient is either a gold class III or IV * Treatment as above 3. Severe malnutrition: * Patient is very cachectic with temporal wasting and surprisingly not terrible at 3. Supplements. 4. Elevated troponin: * Troponin was 0.079 * Likely due to the underlying event and demand ischemia from the severe respiratory failure * Continue to monitor but I do not anticipate any additional work-up at this time. 5. VTE prophylaxis with low molecular weight heparin 6. Advanced care planning: Was able to gather from patient that he is DNR Comfort Care arrest no intubation. Inpatient E&M: [id number] Init Hosp L3
--- NOTE | 2020-07-05 08:35 | CPS ---
Transported pt on BIPAP with RN from [facility]D. to [facility]. Pt comfortable. will get ABG per protocol to see if CO2 has decreased.
[2020-07-05 09:36] LABS: Allen Test Positive; Base Excess 20 mmol/L (-2 to +2); Bicarbonate 46.5 mmol/L (22-26); FI02 35; O2 Delivery Device BiPAP; PEEP 8; PO2 34 mmHG (75-100); PS 16; RR 14; SITE L Radial; SO2 54 % (95-99); Total Carbon Dioxide 50 mmol/L; pCO2 98.3 mmHg (35-45); pH 7.28 (7.35-7.45)
[2020-07-05 09:40] LABS: Anion Gap 2 (5-15); BUN 9 mg/dL (7-18); BUN/Creat Ratio 13.9 RATIO (10-20); Calcium,Total 8.1 mg/dL (8.5-10.1); Chloride 103 mmol/L (98-107); Creatinine, Serum 0.65 mg/dL (0.70-1.30); EST Glomerular Filtration Rate 128 mL/min (>60); Est Glom Filt Rate - Afr Amer 155 mL/min (>60); Estimated Creatinine Clearance 42.12 ml/min; Glucose 108 mg/dL (74-106); Magnesium 2.2 mg/dL (1.6-2.6); Potassium 3.2 mmol/L (3.5-5.1); Sodium Level 144 mmol/L (136-145)
[2020-07-05 09:47] LABS: Blood Gas Specimen Type VEN
[2020-07-05] MEDS: Albuterol 2.5 MG/3 ML VIAL.NEB. INHALATION ×3 (11:15→19:55)
--- NOTE | 2020-07-05 11:36 | CPS ---
ABG showed critical values. ALONSO Richard was notified about the values.
[2020-07-05] MEDS: Umeclidinium Bromide Inhaler 1 PUFF IH (11:41)
[2020-07-05] MEDS: Lactulose 20 GM/30 ML UDC PO (11:42)
[2020-07-05] MEDS: guaiFENesin 600 MG Tablet PO ×2 (11:43→21:27)
[2020-07-05] MEDS: Azithromycin 250 MG Tablet 500 MG PO (11:44)
[2020-07-05] MEDS: Pantoprazole Sodium 40 MG Tablet PO ×2 (11:44→21:26)
[2020-07-05] MEDS: Enoxaparin 40 MG/0.4 ML Syringe SC (11:44)
[2020-07-05] MEDS: ALPRAZolam 0.25 MG Tablet PO ×2 (13:47→21:25)
[2020-07-05] MEDS: Ensure Clear 120 ML Liquid PO (13:47)
--- NOTE | 2020-07-05 15:28 | CASEMGMT ---
Assessment- SW completed assessment with patient and his . Living situation- Patient lives with his in a 1 story home with 2 entry steps PCP: [facility] Darrell Specialists: None Pharmacy: [facility] DME: walker, grab bars, [facility] continuous, and wheelchair ADL's/IADL's: Patient gets help with everything per his . He does manage his own medications. Per patient and his patient just sits in the chair. This is due to his poor breathing and being weak. Past SNF/rehab: None Past HH: None LW: No. Planning on talking with [facility] SW POA: No. Planning on talking with [facility] SW Plan: Patient and his plan on patient going home at discharge. Patient does not want home health nor does he want to go to a SNF. The [facility] is sending out PT/OT to work with patient. The [employer] is also coming out next Wednesday. Krupa ANDINO MSW
--- NOTE | 2020-07-05 16:21 | PCM.NTREPORT ---
Nutrition Therapy Report - History Current diet / nutrition support order:: regular, ensure clear 120mL TID - Relevant Labs Relevant Labs:: MCV 96.1 fL (80-94) H 07/05/20 05:30 MCHC 29.8 g/dL (32-36) L 07/05/20 05:30 RDW Std Deviation 49.2 fl (35.1-43.9) H 07/05/20 05:30 Neut % (Auto) 86.0 % (47-70) H 07/05/20 05:30 Lymph % (Auto) 5.8 % (19-41) L 07/05/20 05:30 Absolute Neuts (auto) 8.9 X10^3/uL (2.0-7.7) H 07/05/20 05:30 Absolute Lymphs (auto) 0.60 X10^3/uL (0.83-4.51) L 07/05/20 05:30 APTT 23.9 Seconds (24.1-36.2) L 07/05/20 05:30 Potassium 3.2 mmol/L (3.5-5.1) L 07/05/20 09:04 Chloride 97 mmol/L (98-107) L 07/05/20 05:30 Carbon Dioxide 39.0 mmol/L (21.0-32.0) H 07/05/20 09:04 Anion Gap 2 (5-15) L 07/05/20 09:04 Creatinine 0.65 mg/dL (0.70-1.30) L 07/05/20 09:04 Glucose 108 mg/dL (74-106) H 07/05/20 09:04 Calcium 8.1 mg/dL (8.5-10.1) L 07/05/20 09:04 Troponin I 0.228 ng/mL (<0.045) H 07/05/20 09:04 Total Protein 6.0 g/dL (6.4-8.2) L 07/05/20 05:30 Albumin 3.0 g/dL (3.2-5.0) L 07/05/20 05:30 - Assessment Food / Nutrition-Related History:: Fair intake at breakfast this AM- 1 1/2 slices albanian toast, bites of sausage; states that was about his usual at home. Wt 1 year ago was 120#- 21.7#/18% wt loss. Family at bedside states pt does not eat as much as he says he does. Tries smoothies, milkshakes, and drinks ensure at home but unable to increase wt. - Nutrition Diagnosis Problem / Etiology / Signs & Symptoms (PES):: chronic, severe malnutrition related to increased energy needs w/ COPD/chronic resp. failure as evidenced by significant severe muscle wasting/fat loss to upper extremities, clavicle, orbital region; estimated PO intake meeting less than 75% of estimated nutritional needs >3 months Evidence of Malnutrition Exists:: Yes Severe PCM:: Chronic Illness - Nutrition Intervention Nutrition Prescription:: [id number] calories/day (35-40 calories/kg for wt gain). 56-66 g protein/day (1.5 g/kg). 1700mL fluid/day (1mL/calorie) - Food / Nutrient Delivery Interventions Summary of nutrition intervention:: Discussed ONS w/ pt- has previously refused ONS d/t mucous but now realizes he has mucous no matter what. Agreeable to both Ensure Clear and Ensure Enlive. Likes magic cup. Encouraged small, frequent meals/snacks. Reviewed ways to add calories/protein to foods. Nutrition Therapy for Underweight patients given to at bedside. Nutrition support ordered as / adjusted to:: regular diet, will add fortified foods. Magic cup w/ lunch and dinner. Ensure Clear 120mL w/ meals, 120mL Ensure Enlive w/medpass. Nutrition education provided?: Yes - MNT Monitoring Further MNT monitoring and evaluation required?: Yes MNT Follow-up in:: 3-5 days
--- NOTE | 2020-07-05 20:48 | PCS.PANDOC ---
PANDEMIC DOCUMENTATION INITIATED: Date: 07/05/2020 Time: 190
[2020-07-05] MEDS: Pravastatin 20 MG Tablet PO (21:26)
[2020-07-05] MEDS: Tamsulosin HCl 0.4 MG Capsule 0.8 MG PO (21:27)
[2020-07-06] VITALS (15 sets, daily range): BP systolic 87–146; BP diastolic 37–90; PULSE 71–95; RESP 17–21; TEMP 36.6–36.8; O2SAT 88–97
[2020-07-06] MEDS: Albuterol 2.5 MG/3 ML VIAL.NEB. INHALATION ×2 (07:15→13:42)
[2020-07-06 07:55] LABS: Absolute Lymphocyte Count 0.56 X10^3/uL (0.83-4.51); Absolute Neutrophil Count 9.2 X10^3/uL (2.0-7.7); Basophil# 0.02 X10^3/uL; Basophil% 0.2 % (0-1); Hematocrit 38.9 % (40-54); Hemoglobin 11.7 g/dL (13.0-16.5); Lymphocyte # 0.56 X10^3/ul (4.0); Lymphocyte % 5.2 % (19-41); Mean Corp Hgb Conc 30.1 g/dL (32-36); Mean Corpuscular Hgb 28.9 pg (27.0-32.0); Mean Platelet Vol. 9.7 fl (6.2-12.0); Monocyte# 0.88 X10^3/uL; Monocyte% 8.2 % (0-10); NRBC Flagged by Analyzer 0 % (0-5); Neutrophil # 9.19 X10^3/uL (2.7-7.7); Neutrophil % 85.7 % (47-70); POSITIVE DIFFERENTIAL YES; Platelet Count 197 K/mm3 (150-450); RBC Distribution Width CV 13.7 % (11.6-14.6); RBC Distribution Width SD 48.6 fl (35.1-43.9); Red Blood Count 4.05 M/mm3 (4.6-6.2); White Blood Count 10.7 K/mm3 (4.4-11.0)
[2020-07-06 08:03] LABS: Differential Indicated SCAN CRITERIA MET
[2020-07-06 08:23] LABS: Anion Gap 0 (5-15); BUN 9 mg/dL (7-18); BUN/Creat Ratio 17.9 RATIO (10-20); Calcium,Total 8.6 mg/dL (8.5-10.1); Chloride 102 mmol/L (98-107); EST Glomerular Filtration Rate 172 mL/min (>60); Est Glom Filt Rate - Afr Amer 208 mL/min (>60); Estimated Creatinine Clearance 42.12 ml/min; Glucose 91 mg/dL (74-106); Magnesium 2.3 mg/dL (1.6-2.6); Potassium 3.8 mmol/L (3.5-5.1); Sodium Level 144 mmol/L (136-145)
[2020-07-06] MEDS: Pantoprazole Sodium 40 MG Tablet PO (09:43)
[2020-07-06] MEDS: Lisinopril 10 MG Tablet 30 MG PO (09:43)
[2020-07-06] MEDS: Lactulose 20 GM/30 ML UDC PO (09:44)
[2020-07-06] MEDS: guaiFENesin 600 MG Tablet PO (09:45)
[2020-07-06] MEDS: Enoxaparin 40 MG/0.4 ML Syringe SC (09:45)
[2020-07-06] MEDS: Umeclidinium Bromide Inhaler 1 PUFF IH (09:46)
[2020-07-06] MEDS: predniSONE 20 MG Tablet 40 MG PO (09:48)
--- NOTE | 2020-07-06 12:00 | DCINST_ITS ---
- Discharge Diagnoses Current Active Problems: Current Active and Chronic Problems Acute respiratory failure (Acute) COPD exacerbation (Acute) UTI (urinary tract infection) (Acute) Severe sepsis (Acute) HLD (hyperlipidemia) (Chronic) GERD (gastroesophageal reflux disease) (Chronic) Former tobacco use (Chronic) Anxiety and depression (Chronic) BPH (benign prostatic hyperplasia) (Chronic) Severe protein-calorie malnutrition (Chronic) Decubitus ulcer of left buttock, stage 3 (Chronic) Malnutrition (Chronic) Acute respiratory acidosis (Acute) Acute hypoxemic respiratory failure (Acute) Aspiration pneumonia (Acute) Accidental drug overdose (Acute) Acute respiratory failure with hypoxia and hypercapnia (Acute) Chronic respiratory failure (Chronic) COLD (chronic obstructive lung disease) (Chronic) Benign essential HTN (Chronic) You will use the following diet at home:: No restrictions Your food should be the consistency of: Regular Your liquids should be the consistency of: Regular/Thin Discharge Activity: May not drive while taking narcotic pain medications. Allergies/Adverse Reactions: Allergies Tetanus Vaccines and Toxoid Allergy (Verified 07/05/20 05:19) Swelling Medications to take at Discharge Albuterol Aerosols [Ventolin Aerosols] 2.5 mg INHALATION Q6H PRN PRN 05/15/20 Albuterol Inhaler [Ventolin Hfa] 2 puff INHALATION Q6H PRN PRN 05/15/20 Budesonide/Formoterol 160/4.5 [Symbicort 160/4.5 Mcg Inhaler (SP)] 2 puff INHALATION BID 05/15/20 Ensure Clear 120 ml PO TID 05/15/20 Ergocalciferol (Vitamin D2) [Vitamin D2] 50,000 unit PO Q30D 05/15/20 Guaifenesin 800 mg PO TID 05/15/20 Hydrocortisone/Pramoxine [Epifoam Foam] 1 applic TP BID PRN 05/15/20 Omeprazole 40 mg PO BID 05/15/20 Pravastatin [Pravachol] 20 mg PO QHS 05/15/20 Ropinirole HCl 1 mg PO QHS PRN PRN 05/15/20 Tamsulosin HCl [Flomax] 0.8 mg PO QHS 05/15/20 Theophylline [Mina-Dur] 300 mg PO BID 05/15/20 Tiotropium [place] [Spiriva] 18 mcg IH DAILY 05/15/20 Trazodone HCl 150 mg PO QHS PRN PRN 05/15/20 Bisacodyl 10 mg RC DAILY 07/05/20 Docusate Sodium [Colace Clear] 50 mg PO DAILY PRN 07/05/20 Lactulose 20 gm PO DAILY 07/05/20 Lisinopril 30 mg PO DAILY 07/05/20 Methocarbamol 750 mg PO TID PRN 07/05/20 ALPRAZolam [Xanax] 0.25 mg PO TID PRN PRN tablet 07/06/20 morphine solution (IR) [Roxanol (IR oral solution)] 10 mg SL/PO Q2H PRN PRN 2 Days #10 po.syringe 07/06/20 predniSONE tablet 40 mg PO DAILY@0800 #8 tab 07/06/20 The following prescriptions were given: predniSONE tablet 40 mg PO DAILY@0800 #8 tab Transmission Status: Pending to [id number] morphine solution (IR) [Roxanol (IR oral solution)] 10 mg SL/PO Q2H PRN PRN 2 Days #10 po.syringe PRN Reason: Pain Score 6-10, SOB Transmission Status: Received by [id number] [[facility]] - Please follow up with your Primary Care Physician in: 1 week Test Results: Test results from this visit will be discussed in further detail at your follow- up appointment, if applicable. Please Follow Up With: Palliative Care When: 1-2 weeks Proposed Discharge Date: 07/06/20
--- NOTE | 2020-07-06 13:32 | DS.PCM_ITS ---
<Shawn Vaughn - Last Filed: 07/06/20 13:32> Discharge Date and Diagnosis - Problem List Patient Problems: Active and Suspected Problems Acute respiratory failure (Acute) COPD exacerbation (Acute) UTI (urinary tract infection) (Acute) Severe sepsis (Acute) Acute respiratory acidosis (Acute) Acute hypoxemic respiratory failure (Acute) Aspiration pneumonia (Acute) Accidental drug overdose (Acute) Acute respiratory failure with hypoxia and hypercapnia (Acute) Date of Admission: 07/05/20 Date of Discharge: 07/06/20 - Primary Discharge Diagnosis Acute Problems: Active Problems Acute COPD exacerbation Acute on chronic hypoxic hypercapnic respiratory failure Accidental overdose on benzodiazepine Indeterminate troponin secondary to above Hypokalemia-resolved Chronic hypoxic respiratory failure Severe protein calorie malnutrition - Secondary Discharge Diagnosis Chronic Problems: Chronic Problems HLD (hyperlipidemia) (Chronic) GERD (gastroesophageal reflux disease) (Chronic) Former tobacco use (Chronic) Anxiety and depression (Chronic) BPH (benign prostatic hyperplasia) (Chronic) Severe protein-calorie malnutrition (Chronic) Decubitus ulcer of left buttock, stage 3 (Chronic) Malnutrition (Chronic) Chronic respiratory failure (Chronic) COLD (chronic obstructive lung disease) (Chronic) Benign essential HTN (Chronic) Hospital Course and Treatment Imaging Results: RAD/Chest 1 View (Portable) IMPRESSION: Emphysema similar to prior study. Scarring at the costophrenic angles. Increased density in the right lung base may represent developing infiltrate Operations: None Procedures: None Summary of Care Provided: Hospital course: The patient is a 74 year old M with past medical history of severe COPD, chronic hypoxic and hypercapnic respiratory failure on 2 to 3 L of oxygen at home a lthough noncompliant with his prescribed oxygen regimen at home, who presented to the emergency room unresponsive and blue. He had taken alprazolam the night prior which she is prescribed. He was found to have ABG showing pH of 7.25 PCO2 of 106, PO2 of 66, with elevated carbon dioxide on BMP and hypokalemia as well. Patient was placed on BiPAP and had good improvement. He was felt to have had acute hypoxic respiratory failure secondary to too much alprazolam which she is on for palliative care and a COPD exacerbation. Patient was admitted to the PCU and treated with steroids, aerosols. BiPAP was recommended however the patient was resistant to continue use of this. His Xanax was decreased in half. By the following morning he had significant improvement. He was stable on his home o xygen level. He was discharged home in stable condition and advised to cut his Xanax in half as he was taking it here, to continue oxygen therapy at home, and to complete a prednisone burst therapy for COPD. He was advised [facility]. He was also placed on a trial of Roxanol to help with his air hunger and follow-up with palliative care was recommended in 1 to 2 weeks. This patient was seen by Shawn Vaughn PA-C under the supervision of Doctor Yury. [] Patient Problems: Active and Suspected Problems Acute respiratory failure (Acute) COPD exacerbation (Acute) UTI (urinary tract infection) (Acute) Severe sepsis (Acute) Acute respiratory acidosis (Acute) Acute hypoxemic respiratory failure (Acute) Aspiration pneumonia (Acute) Accidental drug overdose (Acute) Acute respiratory failure with hypoxia and hypercapnia (Acute) - Physical Exam Vitals/I&O's: Vital Signs Temp Pulse Resp BP Pulse Ox 98.3 F 88 20 H 146/90 H 92 07/06/20 13:23 07/06/20 13:23 07/06/20 13:23 07/06/20 13:23 07/06/20 13:23 Oxygen Flow Rate (L/min) 2 Oxygen Delivery Method Nasal Cannula Weight: 98 lb 5.219 oz Body Mass Index (BMI) 15.4 Intake and Output for Last 24 Hours 07/04/20 07/05/20 07/06/20 23:59 23:59 23:59 Intake Total 3335 / 3335 290 / 290 Output Total 875 / 875 650 / 650 Balance 2460 / 2460 -360 / -360 General: Alert, Oriented x3, Cooperative, - - Cachectic HEENT: Atraumatic, PERRLA, EOMI, Normocephalic Neck: Supple, No JVD, Negative Carotid Bruits Lungs: Clear to auscultation, Diminished - Severely diminished throughout all [place], Short of Breath, - - Conversational dyspnea Cardiovascular: Regular rate, No murmurs Abdomen: Bowel Sounds Present, Soft, Non Tender Extremities: No edema, Capillary Refill Less than 3 Seconds Skin: No rashes, No breakdown Musculoskeletal: No Tenderness to Palpation of Joints or Extremities Neurological: Cranial nerves II-XII grossly intact Psych/Mental Status: Normal Affect, Appropriate, Alert and oriented to time, place, person, mood and affect Microbiology Past 72 Hours 07/05/20 05:30 Urine Catheter - Catheter Urine Culture - Preliminary Culture exhibits no growth. 07/05/20 05:30 Mucosa - Nose SARS-CoV-2 Antigen (Rapid) - Final Laboratory Results 07/06/20 07:25: Sodium 144, Potassium 3.8, Chloride 102, Carbon Dioxide 42.0 H, Anion Gap 0 L, BUN 9, Creatinine 0.50 L, Estim Creat Clear Calc 42.12, Est GFR (MDRD) Af Amer 208, Est GFR (MDRD) Non-Af 172, BUN/Creatinine Ratio 17.9, Glucose 91, Calcium 8.6, Magnesium 2.3 07/06/20 07:25: WBC 10.7, RBC 4.05 L, Hgb 11.7 L, Hct 38.9 L, MCV 96.0 H, MCH 28.9, MCHC 30.1 L, RDW Std Deviation 48.6 H, RDW Coeff of Christy 13.7, Plt Count 197, MPV 9.7, Immature Gran % (Auto) 0.700, Neut % (Auto) 85.7 H, Lymph % (Auto) 5.2 L, Gove % (Auto) 8.2, Eos % (Auto) 0.0, Baso % (Auto) 0.2, Absolute Neuts (auto) 9.2 H, Absolute Lymphs (auto) 0.56 L, Nucleated RBC % 0 Current Medications Acetaminophen (Acetaminophen 325 Mg Tablet) 650 mg PO Q6H PRN PRN PRN Reason: Pain Score 1-10/Temp > 100.7 F Albuterol Sulfate (Albuterol 2.5 Mg/3 Ml Vial.Neb.) 2.5 mg INHALATION Q6H PRN PRN PRN Reason: SOB &/OR WHEEZING Last Admin: 07/05/20 13:06 Dose: 2.5 mg Documented by: Albuterol Sulfate (Albuterol 2.5 Mg/3 Ml Vial.Neb.) 2.5 mg INHALATION Q6HWA.RT PONCE Last Admin: 07/06/20 07:15 Dose: 2.5 mg Documented by: Alprazolam (Alprazolam 0.25 Mg Tablet) 0.25 mg PO TID PRN PRN PRN Reason: ANXIETY Last Admin: 07/05/20 21:25 Dose: 0.25 mg Documented by: Bisacodyl (Bisacodyl 10 Mg Suppository) 10 mg RECTAL DAILY [facility] Last Admin: 07/06/20 09:45 Dose: Not Given Documented by: Docusate Sodium (Docusate Sodium 100 Mg/10 Ml Udc) 50 mg PO DAILY PRN PRN Reason: Constipation Enoxaparin Sodium (Enoxaparin 40 Mg/0.4 Ml Syringe) 40 mg SC DAILY [facility] Last Admin: 07/06/20 09:45 Dose: 40 mg Documented by: Ergocalciferol (Ergocalciferol 50,000 Unit Capsule) 50,000 unit PO Q30D [facility] Guaifenesin (Guaifenesin 600 Mg Tablet) 600 mg PO BID [facility] Last Admin: 07/06/20 09:45 Dose: 600 mg Documented by: Hydrocortisone (Hydrocortisone 2.5% Crm) 1 applic RECTAL BID PRN PRN Reason: HEMORRHOIDS Lactulose (Lactulose 20 Gm/30 Ml Udc) 20 gm PO DAILY [facility] Last Admin: 07/06/20 09:44 Dose: 20 gm Documented by: Lisinopril (Lisinopril 10 Mg Tablet) 30 mg PO DAILY [facility] Last Admin: 07/06/20 09:43 Dose: 30 mg Documented by: Methocarbamol (Methocarbamol 750 Mg Tablet) 750 mg PO TID PRN PRN Reason: ABDOMINAL SPASMS Morphine Sulfate (Morphine (Oral Solution) 10mg/0.5ml Syringe) 10 mg SL/PO Q2H PRN PRN PRN Reason: Pain Score 6-10, SOB Nutritional Formula (Lactose Free) (Ensure Enlive 120 Ml Liquid) 120 ml PO 4X/DAY [facility] Last Admin: 07/06/20 13:26 Dose: Not Given Documented by: Ondansetron HCl (Ondansetron 4 Mg/2 Ml Vial) 4 mg IV Q8H PRN PRN PRN Reason: NAUSEA/VOMITING Pantoprazole Sodium (Pantoprazole Sodium 40 Mg Tablet) 40 mg PO BID [facility] Last Admin: 07/06/20 09:43 Dose: 40 mg Documented by: Pramipexole Dihydrochloride (Pramipexole Di-Hcl 0.5 Mg Tablet) 0.5 mg PO HS PRN PRN Reason: RLS Pravastatin Sodium (Pravastatin 20 Mg Tablet) 20 mg PO QHS [facility] Last Admin: 07/05/20 21:26 Dose: 20 mg Documented by: Prednisone (Prednisone 20 Mg Tablet) 40 mg PO DAILY@0800 [facility] Last Admin: 07/06/20 09:48 Dose: 40 mg Documented by: Sodium Chloride (0.9% Saline Lock 10 Ml Syringe) 10 - 40 ml IV UD PRN PRN Reason: SALINE FLUSH Tamsulosin HCl (Tamsulosin Hcl 0.4 Mg Capsule) 0.8 mg PO QHS [facility] Last Admin: 07/05/20 21:27 Dose: 0.8 mg Documented by: Theophylline (Theophylline 300 Mg Tablet) 300 mg PO BID [facility] Last Admin: 07/06/20 09:43 Dose: 300 mg Documented by: Trazodone HCl (Trazodone 50 Mg Tablet) 150 mg PO QHS PRN PRN PRN Reason: SLEEP Umeclidinium [place] (Umeclidinium [place] Inhaler) 1 puff IH DAILY [facility] Last Admin: 07/06/20 09:46 Dose: 1 puff Documented by: Discharge Diet: No Restrictions Discharge Activity: May not drive while taking narcotic pain medications. Home Medications: Medications to take at Discharge Albuterol Aerosols [Ventolin Aerosols] 2.5 mg INHALATION Q6H PRN PRN 05/15/20 Albuterol Inhaler [Ventolin Hfa] 2 puff INHALATION Q6H PRN PRN 05/15/20 Budesonide/Formoterol 160/4.5 [Symbicort 160/4.5 Mcg Inhaler (SP)] 2 puff INHALATION BID 05/15/20 Ensure Clear 120 ml PO TID 05/15/20 Ergocalciferol (Vitamin D2) [Vitamin D2] 50,000 unit PO Q30D 05/15/20 Guaifenesin 800 mg PO TID 05/15/20 Hydrocortisone/Pramoxine [Epifoam Foam] 1 applic TP BID PRN 05/15/20 Omeprazole 40 mg PO BID 05/15/20 Pravastatin [Pravachol] 20 mg PO QHS 05/15/20 Ropinirole HCl 1 mg PO QHS PRN PRN 05/15/20 Tamsulosin HCl [Flomax] 0.8 mg PO QHS 05/15/20 Theophylline [Mina-Dur] 300 mg PO BID 05/15/20 Tiotropium [place] [Spiriva] 18 mcg IH DAILY 05/15/20 Trazodone HCl 150 mg PO QHS PRN PRN 05/15/20 Bisacodyl 10 mg RC DAILY 07/05/20 Docusate Sodium [Colace Clear] 50 mg PO DAILY PRN 07/05/20 Lactulose 20 gm PO DAILY 07/05/20 Lisinopril 30 mg PO DAILY 07/05/20 Methocarbamol 750 mg PO TID PRN 07/05/20 ALPRAZolam [Xanax] 0.25 mg PO TID PRN PRN tab 07/06/20 morphine solution (IR) [Roxanol (IR oral solution)] 10 mg SL/PO Q2H PRN PRN 2 Days #10 po.syringe 07/06/20 predniSONE tablet 40 mg PO DAILY@0800 #8 tab 07/06/20 Following Prescriptions Were Given to Patient: predniSONE tablet 40 mg PO DAILY@0800 #8 tab Transmission Status: Received by [id number] morphine solution (IR) [Roxanol (IR oral solution)] 10 mg SL/PO Q2H PRN PRN 2 Days #10 po.syringe PRN Reason: Pain Score 6-10, SOB Transmission Status: Received by [id number] Primary Care Physician: [facility] [Primary Care Provider] - Please follow up with your Primary Care Physician in: 1 week Please Follow Up With: Palliative Care When: 1-2 weeks Disposition: Home Minutes spent on discharge:: 35 Patient Condition:: Stable Medical Necessity - Tobacco Use Smoking Status: Former smoker Tobacco Use: Cigarettes Meaningful Use Info Meaningful Use Diagnoses (Choose all that apply): None applicable <Gregory Cotton - Last Filed: 07/06/20 15:36> Discharge Date and Diagnosis - Primary Discharge Diagnosis Acute Problems: Active Problems Acute respiratory failure (Acute) COPD exacerbation (Acute) UTI (urinary tract infection) (Acute) Severe sepsis (Acute) Acute respiratory acidosis (Acute) Acute hypoxemic respiratory failure (Acute) Aspiration pneumonia (Acute) Accidental drug overdose (Acute) Acute respiratory failure with hypoxia and hypercapnia (Acute) - Secondary Discharge Diagnosis Chronic Problems: Chronic Problems HLD (hyperlipidemia) (Chronic) GERD (gastroesophageal reflux disease) (Chronic) Former tobacco use (Chronic) Anxiety and depression (Chronic) BPH (benign prostatic hyperplasia) (Chronic) Severe protein-calorie malnutrition (Chronic) Decubitus ulcer of left buttock, stage 3 (Chronic) Malnutrition (Chronic) Chronic respiratory failure (Chronic) COLD (chronic obstructive lung disease) (Chronic) Benign essential HTN (Chronic) Hospital Course and Treatment Operations: None Procedures: None Summary of Care Provided: Patient seen and examined independently. Data reviewed. I agree with the above note by the physician retail administrative assistant. The patient is a 74 year old M found unresponsive and blue. Patient was taken to the emergency room put on BiPAP. Patient was very tachypneic at first and steadily improved. Patient was admitted to the floor and eventually was able to go off of BiPAP and do okay. Patient has very advanced COPD and is involved in palliative care. Patient's event that led to his hospitalization was likely an unintentional overdose of alprazolam. At baseline, patient is short of breath and tachypneic. Patient stated that his is insisting that he take or alprazolam to help with his anxiety. I explained to the patient and he expressed understanding. Patient has remained stable on 2 L of oxygen here though he is tachypneic and cachectic. I had very lengthy conversations with the patient in regards to hospice as I told him that he, given his advanced COPD, is hospice appropriate. And that I strongly feel that quality of life, at this point, should take precedent over medical management given the likely futility of aggressive medical care for this patient. He expressed understanding but he is reticent to enroll in hospice but says that he will look into it further. I told the patient that these decisions are not easy and require processing but reiterated that the recommendation I make is to give him quality of life because he is clearly uncomfortable with his respiratory status. He again states that he will think about it. Patient will be discharged home in stable but guarded condition. [] - Physical Exam Vitals/I&O's: Vital Signs Temp Pulse Resp BP Pulse Ox 36.8 C 95 18 146/90 H 91 07/06/20 13:23 07/06/20 13:42 07/06/20 13:42 07/06/20 13:23 07/06/20 13:42 Oxygen Flow Rate (L/min) 2 Oxygen Delivery Method Nasal Cannula Weight: 44.6 kg Body Mass Index (BMI) 15.4 Intake and Output for Last 24 Hours 07/04/20 07/05/20 07/06/20 23:59 23:59 23:59 Intake Total 3335 / 3335 290 / 290 Output Total 875 / 875 650 / 650 Balance 2460 / 2460 -360 / -360 General: Alert, Cooperative, - HEENT: Atraumatic, Normocephalic Microbiology Past 72 Hours 07/05/20 05:30 Urine Catheter - Catheter Urine Culture - Preliminary Culture exhibits no growth. 07/05/20 05:30 Mucosa - Nose SARS-CoV-2 Antigen (Rapid) - Final Laboratory Results 07/06/20 07:25: Sodium 144, Potassium 3.8, Chloride 102, Carbon Dioxide 42.0 H, Anion Gap 0 L, BUN 9, Creatinine 0.50 L, Estim Creat Clear Calc 42.12, Est GFR (MDRD) Af Amer 208, Est GFR (MDRD) Non-Af 172, BUN/Creatinine Ratio 17.9, Glucose 91, Calcium 8.6, Magnesium 2.3 07/06/20 07:25: WBC 10.7, RBC 4.05 L, Hgb 11.7 L, Hct 38.9 L, MCV 96.0 H, MCH 28.9, MCHC 30.1 L, RDW Std Deviation 48.6 H, RDW Coeff of Christy 13.7, Plt Count 197, MPV 9.7, Immature Gran % (Auto) 0.700, Neut % (Auto) 85.7 H, Lymph % (Auto) 5.2 L, Gove % (Auto) 8.2, Eos % (Auto) 0.0, Baso % (Auto) 0.2, Absolute Neuts (auto) 9.2 H, Absolute Lymphs (auto) 0.56 L, Nucleated RBC % 0 Discharge Diet: No Restrictions Discharge Activity: May not drive while taking narcotic pain medications. Disposition: Home Minutes spent on discharge:: 35 Patient Condition:: Stable Medical Necessity - Tobacco Use Smoking Status: Former smoker Tobacco Use: Cigarettes Meaningful Use Info Meaningful Use Diagnoses (Choose all that apply): None applicable Inpatient E&M: 55940 Disch Hosp
[2020-07-06] MEDS: ALPRAZolam 0.25 MG Tablet PO (14:47)
--- NOTE | 2020-07-09 11:12 | CASEMGMT ---
RN CM Discharge F/U Phone Call LACE: 13 Strata: 3 Discharge date: 07/06/20 Call date: 07/09/20 Call time: [phone] Attempted to reach pt without success at this time, message left for pt to call this RN CM back if/when able. [place] RN CM Admission dx: Resp failure
== END 2020-07-06 15:26 | disposition home or self-care (01) | DRG 189 ==
LOC: ED 07:22 → PCU 07:55
PROVIDERS: Emergency Provider Emergency Medicine
DX: J96.21 Acute and chronic respiratory failure with hypoxia (principal); E43 Unspecified severe protein-calorie malnutrition; E87.2 Acidosis; J44.1 Chronic obstructive pulmonary disease with (acute) exacerbation; Z68.1 Body mass index [BMI] 19.9 or less, adult; J96.22 Acute and chronic respiratory failure with hypercapnia; Z99.81 Dependence on supplemental oxygen; Z66 Do not resuscitate; Z79.51 Long term (current) use of inhaled steroids; Z87.891 Personal history of nicotine dependence; T42.4X1A Poisoning by benzodiazepines, accidental (unintentional), initial encounter; E87.6 Hypokalemia; Z91.19 Patient's noncompliance with other medical treatment and regimen
CPT/HCPCS: 36415; 36600; 71045; 80048; 80053; 80307; 81001; 82077; 82803; 83605; 83735; 84484; 85025; 85610; 85730; 87040; 87086; 87426; 93005; 94002; 94640; 97162; 97166; 99285; J7030; J7050; P9612; A4216

== ENCOUNTER 2020-07-10 08:41 | Emergency (ER) | payer OTHER, MEDICARE, SELFPAY ==
[2020-07-05 09:10] VITALS: BMI 15.4
[2020-07-10 08:42] VITALS: BP 105/82; PULSE 98; RESP 20; TEMP 35.6; O2SAT 91; BMI 15.1
--- NOTE | 2020-07-10 09:07 | ED.DCSUM_ITS ---
History of Present Illness Chief Complaint: Mental Status Change Informant: Patient, Significant Other, Account Underwriter Narrative: 74-year-old male presents with agitation. According to the patient he does not want anything done for him and he would like to leave. He gave me permission to talk to his . I spoke with the and she tells me that she was sleeping and he went to the bathroom. While in the bathroom she heard him call for help. She states that it looked like he was going to pass out and was stating that he could not breathe. He was very agitated. states that she cannot keep caring for him at home and since the ambulance is left has called the [place] primary care physician that he sees to see if there is some type of living situation that he can go to that might be able to help her out. Patient is on palliative care due to his severe COPD. Hospice was recommended to him which he stated that he would think about that was during his last admission a couple days ago. He is chronically on home oxygen which he titrates and does not want it greater than 1 stating that if he gets too much oxygen it will cause his CO2 to rise and he will stop breathing. Capacity - Capacity Assessment Tool Can the patient make a choice & communicate that choice?: Yes Can the patient understand benefits, risks and alternatives?: Yes Can the patient make a logical, rational choice?: Yes Is the choice the patient makes consistent w/ their values?: Yes Is there an impending, emergent risk to the patient?: Unable to Determine Does the patient have an Advance Directive?: Comment - enrolled in [facility] care. no paperwork per patient Is there a Surrogate Available?: Yes i.e. close relative (spouse, child, parent, sibling)?: Yes - Past Medical History (1) Anxiety and depression Status: Chronic (2) BPH (benign prostatic hyperplasia) Status: Chronic (3) Benign essential HTN Status: Chronic (4) COLD (chronic obstructive lung disease) Status: Chronic (5) Chronic respiratory failure Status: Chronic (6) Decubitus ulcer of left buttock, stage 3 Status: Chronic (7) GERD (gastroesophageal reflux disease) Status: Chronic (8) HLD (hyperlipidemia) Status: Chronic (9) Malnutrition Status: Chronic (10) Severe protein-calorie malnutrition Status: Chronic Past Medical History - Allergies and Home Meds Allergies/Adverse Reactions: Allergies clonazepam Allergy (Verified 07/10/20 08:47) Shortness of breath Tetanus Vaccines and Toxoid Allergy (Verified 07/10/20 08:47) Swelling [facility] As soon as possible Surgical History: appendectomy Lives: Spouse/ Significant Other Smoking Status: Former smoker Drugs: None - Family History Maternal Family History: Reports: Heart Disease Paternal Family History: Reports: Heart Disease Review of Systems General: Denies: Chills, Fever, Sweats Eyes: Denies: Visual changes - bilaterally, Diplopia ENT: Denies: Rhinorrhea, Sore throat Cardiovascular: Denies: Chest pain, Palpitations Respiratory: Reports: Dyspnea, Dyspnea on exertion. Denies: Cough Gastrointestinal: Denies: Abdominal pain, Nausea, Vomiting, Diarrhea, Melena, Hematochezia Genitourinary: Denies: Dysuria, Hematuria, Frequency Musculoskeletal: Denies: Back pain, Extremity Pain Skin: Denies: Rash, Wounds Neurological: Denies: Headache, Weakness, Numbness Physical Exam Vital Signs/Narrative: Vital Signs Temp Pulse Resp BP Pulse Ox 07/10/20 08:42 96.1 F L 98 20 H 105/82 H 91 Inital Vital Signs reviewed: Yes General: Well nourished, Well developed, No Acute Distress Head: Normocephalic, Atraumatic Eyes: Perrl, EOMI ENT: Moist mucous membranes, No rhinorrhea Neck: Supple, Nontender Cardiovascular: No murmurs, Irregular, Tachycardia Respiratory: No distress, Chest nontender, Wheezing - Light expiratory wheeze Abdomen: Soft, Nontender, Nondistended, Normal bowel sounds Back: Nontender, Normal Inspection Extremities: Nontender, No edema Skin: Normal color, No rash Neurological: Alert, Oriented x3, Cranial nerves II-XII grossly intact, Normal Strength, Normal Sensation Psychological: Agitated - Patient is agitated and angry that he is here. He is adamant that nobody do anything to him. Diagnostic/Tx/Re-eval - Medical Decision Making Patient is alert and orientated x3. He does not appear under the influence of any substance. He does not appear to be experiencing CO2 narcosis. Based upon his exam I feel that the patient at this time has the capacity to make the decision of his own health care. He has end-stage lung disease and is already on palliative care and is recommended that he go on hospice. I spoke with the informed her that he does not want anything done to him here in the emergency department. She is going to have her son come to the hospital. Spoke with the son the patient together in the room. Patient does not want any further care here. He states that he feels fine. I told him that his is uncomfortable with how things are going at home. I will have the high school social science teacher give him local options but that is not go to be through the [facility]. He wants to look into further [facility] options they can contact their [facility] primary care office. While waiting for social work has informed that the patient would like to leave and they are going to utilize VA services. ED Disposition - Plan for ED Patient: Disposition: Home or Assisted Living Diagnosis: COLD (chronic obstructive lung disease), Dyspnea Instructions: Hospice: [facility] Dysp[facility] - As soon as possible
[2020-07-10 09:57] VITALS: BP 109/89; PULSE 98; RESP 19; TEMP 36.3; O2SAT 97
[2020-07-10 09:58] VITALS: BP 109/89; PULSE 98; RESP 18; O2SAT 97
== END 2020-07-10 10:10 | disposition home or self-care (01) ==
PROVIDERS: Emergency Provider Emergency Medicine
DX: J44.9 Chronic obstructive pulmonary disease, unspecified (principal); I10 Essential (primary) hypertension; K21.9 Gastro-esophageal reflux disease without esophagitis; E78.5 Hyperlipidemia, unspecified; Z99.81 Dependence on supplemental oxygen; Z87.891 Personal history of nicotine dependence
CPT/HCPCS: 99284; J7030

== ENCOUNTER 2020-07-18 15:00 | Outpatient (RCR) | payer OTHER, MEDICARE, SELFPAY ==
[2020-05-16 11:56] VITALS: BMI 17.1
[2020-07-04 09:19] VITALS: BP 116/72; PULSE 96; RESP 18; TEMP 36.4; BMI 15.6
--- NOTE | 2020-07-04 11:19 | HP.PCM_ITS ---
(1) Decubitus ulcer of left buttock, stage 3 Status: Chronic Code(s): L89.323 - Pressure ulcer of left buttock, stage 3 (2) Malnutrition Status: Chronic Qualifiers: Malnutrition type: protein-calorie malnutrition Code(s): E46 - Unspecified protein-calorie malnutrition (3) COLD (chronic obstructive lung disease) Status: Chronic Qualifiers: Code(s): J44.9 - Chronic obstructive pulmonary disease, unspecified (4) Chronic respiratory failure Status: Chronic Qualifiers: Code(s): J96.10 - Chronic respiratory failure, unspecified whether with hypoxia or hypercapnia History of Present Illness Date of Service: 07/05/20 Chief Complaint: Nonhealing left buttock ulcer History of Wound: Mr Saenz is a 74yo old who presents to the wound center due to non healing left buttock ulcer. Said to have started following prolonged hospital stay for sepsis. Following discharge, he states that he has been largely sedentary sitting in his wheel chair for extended period. Also history of severe COPD, oxygen dependent. His appetite is said to be poor but takes Ensure twice daily. No significant wound dressing done to the area. They deny drainage, chills, fever or other caute concerns. Past Medical History Past Medical History: Chronic Problems HLD (hyperlipidemia) (Chronic) GERD (gastroesophageal reflux disease) (Chronic) Former tobacco use (Chronic) Anxiety and depression (Chronic) BPH (benign prostatic hyperplasia) (Chronic) Severe protein-calorie malnutrition (Chronic) Decubitus ulcer of left buttock, stage 3 (Chronic) Malnutrition (Chronic) Chronic respiratory failure (Chronic) COLD (chronic obstructive lung disease) (Chronic) Benign essential HTN (Chronic) Surgical History: appendectomy Allergies/Adverse Reactions: Allergies Tetanus Vaccines and Toxoid Allergy (Verified 07/05/20 05:19) Swelling Home Medications: Ambulatory Orders Medication Instructions Recorded ALPRAZolam [Xanax] 0.5 mg PO TID PRN PRN 05/15/20 Albuterol Aerosols [Ventolin 2.5 mg INHALATION Q6H PRN PRN 05/15/20 Aerosols] Albuterol Inhaler [Ventolin Hfa] 2 puff INHALATION Q6H PRN PRN 05/15/20 Budesonide/Formoterol 160/4.5 2 puff INHALATION BID 05/15/20 [Symbicort 160/4.5 Mcg Inhaler (SP)] Ensure Clear 120 ml PO TID 05/15/20 Ergocalciferol (Vitamin D2) 50,000 unit PO Q30D 05/15/20 [Vitamin D2] Guaifenesin 800 mg PO TID 05/15/20 Hydrocortisone/Pramoxine [Epifoam 1 applic TP BID PRN 05/15/20 Foam] Omeprazole 40 mg PO BID 05/15/20 Pravastatin [Pravachol] 20 mg PO QHS 05/15/20 Ropinirole HCl 1 mg PO QHS PRN PRN 05/15/20 Tamsulosin HCl [Flomax] 0.8 mg PO QHS 05/15/20 Theophylline [Mina-Dur] 300 mg PO BID 05/15/20 Tiotropium [place] [Spiriva] 18 mcg IH DAILY 05/15/20 Trazodone HCl 150 mg PO QHS PRN PRN 05/15/20 Azithromycin [Zithromax] 500 mg PO DAILY 07/05/20 Bisacodyl 10 mg RC DAILY 07/05/20 Docusate Sodium [Colace Clear] 50 mg PO DAILY PRN 07/05/20 Lactulose 20 gm PO DAILY 07/05/20 Linaclotide [Linzess] 290 mcg PO DAILY 07/05/20 Lisinopril 30 mg PO DAILY 07/05/20 Methocarbamol 750 mg PO TID PRN 07/05/20 Prednisone 50 mg PO DAILY 07/05/20 - Family History Maternal Heart Disease Paternal Heart Disease Smoking Status: Former smoker Review of Systems Constitutional: Reports: Anorexia, Malaise. Denies: Chills, Fever Eyes: Denies: Blurred vision, Pain, Redness HEENT: Denies: Difficulty Hearing, Difficulty Swallowing, Head Aches Cardiovascular: Denies: Chest Pain, Claudication, Chest Pressure Respiratory: Reports: Cough, Shortness of Breath, Shortness of breath upon exertion. Denies: Hemoptysis Gastrointestinal: Reports: Abdominal Pain, Hematemesis, Vomiting Genitourinary: Denies: Hematuria - Physical Exam Vital Signs Temp Pulse Resp BP 97.6 F L 96 18 116/72 07/04/20 09:19 07/04/20 09:19 07/04/20 09:19 07/04/20 09:19 General: Alert, Oriented x3, Cooperative, No apparent distress HEENT: Atraumatic, Normocephalic Oral: Moist Mucosa Neck: Supple Lungs: Diminished Cardiovascular: Regular rate, Regular Rhythm, Normal S1, Normal S2 Abdomen: Non Tender Extremities: No cyanosis Skin: Ulcer/ Wound Wound Measurements and Assessment - Nurse 1 - General Ulcer Measurement Start: 07/04/20 09:16 Freq: Status: Active Protocol: Activity Type Activity Date Activity User E-Sign Co-Sign Detail Recorded Client Recorded Date Recorded By Document 07/04/20 09:27 PL [id number] 07/04/20 09:33 PL 07/04/20 09:27 Wound Center Nurse 1 [Ulcer Assessment] Left Buttock -Combined with other wound No -Current Size (cm) - Length 1.0 -Current Size (cm) - Width 1.0 -Current Size (cm) - Depth 0.1 -Total Square Cm 1.00 -Date of Last Picture (Recall this 07/04/20 field) -Photo Taken Yes -Epithelialization None Present -Tunneling No -Undermining/Tunneling No -Circular Undermining No -Classification - Pressure Ulcer Stage 2 -Exudate Amt Small -Exudate Type Serosanguineous -Granulation Amt Small (1-33%) -Granulation Quality [address] -Slough/Fibrin Yes -Necrosis Amt Medium (34-66%) -Necrotic Tissue Type Adherent Slough -Texture (Ethel-wound Skin Appearance) No Abnormality -Moisture (Ethel-wound Skin Appearance No Abnormality ) -Color (Ethel-wound Skin Appearance) No Abnormality -Temperature (Ethel-wound Skin No Abnormality Appearance) (Pt Warm) -Ulcer Cleansing Rinsed/ Irrigated with Saline -Foul Odor after Cleansing No -Anesthetic Used 5% Lidocaine Gel - Nurse 2 - General Ulcer CM Notes Start: 07/04/20 09:16 Freq: Status: Active Protocol: Activity Type Activity Date Activity User E-Sign Co-Sign Detail Recorded Client Recorded Date Recorded By Document 07/04/20 10:03 MW [id number] 07/04/20 10:13 MW 07/04/20 10:03 Wound Center Nurse 2 [Procedure/Treatment] -Time 10:03 -Correct Patient Yes -Correct Side, Site, Position Yes -Correct Procedure Yes -Procedure Performed Yes -Type of Procedure Debridement -Clinical Debridement Subcutaneous -Tissue Removed Subcutaneous -Post Debridement (cm) - Length 1.0 -Post Debridement (cm) - Width 0.9 -Post Debridement (cm) - Depth 0.1 -Total Square (Post) (cm) 0.90 -Area of Debridement (cm) - Length 1.0 -Area of Debridement (cm) - Width 0.9 -Total Square (Area) (cm) 0.90 -Tunneling No -Undermining/Tunneling No -Circular Undermining No -Wound/Ulcer Outcome Not Healed -Ulcer Cleansing Rinsed/ Irrigated with Saline -Foul Odor after Cleansing No -Bioengineered Tissue No -Bleeding Controlled with Pressure -Offloading No -Debridement - Subq, 1st 20sq cm Yes [See Physician Procedure note for Specifics] Pain Scale: 0-10 Numeric [Pain] -Is Patient Pain Free? Yes Musculoskeletal: No Muscle Wasting Neurological: Cranial nerves II-XII grossly intact Debridement Note Post-Debridement Measurements/Treatment WC - Nurse 2 - General Ulcer CM Notes Start: 07/04/20 09:16 Freq: Status: Active Protocol: Activity Type Activity Date Activity User E-Sign Co-Sign Detail Recorded Client Recorded Date Recorded By Document 07/04/20 10:03 MW [id number] 07/04/20 10:13 MW 07/04/20 10:03 Wound Center Nurse 2 Left Buttock -Time 10:03 -Correct Patient Yes -Correct Side, Site, Position Yes -Correct Procedure Yes -Procedure Performed Yes -Type of Procedure Debridement -Clinical Debridement Subcutaneous -Tissue Removed Subcutaneous -Post Debridement (cm) - Length 1.0 -Post Debridement (cm) - Width 0.9 -Post Debridement (cm) - Depth 0.1 -Total Square (Post) (cm) 0.90 -Area of Debridement (cm) - Length 1.0 -Area of Debridement (cm) - Width 0.9 -Total Square (Area) (cm) 0.90 -Tunneling No -Undermining/Tunneling No -Circular Undermining No -Wound/Ulcer Outcome Not Healed -Ulcer Cleansing Rinsed/ Irrigated with Saline -Foul Odor after Cleansing No -Bioengineered Tissue No -Bleeding Controlled with Pressure -Offloading No -Debridement - Subq, 1st 20sq cm Yes Pain Scale: 0-10 Numeric Is Patient Pain Free? Yes Wound debrided: Left Buttock Wound Grade/Stage: Stage III Type of Debridement: Excisional debridement Anesthesia Used: 4% Lidocaine Solution Depth: Down to and including healthy tissue, in the subcutaneous layer Percentage of wound debrided: 100 Instrument Used: 3mm curette Tissue Removed: Slough and devitalized tissue Severity: Fat Layer Exposed Amount of bleeding with debridement: Mild Bleeding Controlled with: Pressure Patient tolerated procedure well Assessment/Plan Active Problems Decubitus ulcer of left buttock, stage 3 (Chronic) Malnutrition (Chronic) Chronic respiratory failure (Chronic) COLD (chronic obstructive lung disease) (Chronic) Assessment: Non healing left buttock ulcer stage III. Malnutrition. Severe COPD Plan: Debridement done as documented above, procedure was well tolerated. Cultures taken. Labs also ordered. Promogran daily with Optifoam over top. Off loading/ repositioning also recommended. They are not open to a hospital bed due to space but prescription for a chair cushion given. Increase protein intake. Their questions were answered and they were advised to call with any further questions or concerns. Follow up in 2 weeks per patient preference. This note was generated with [employer] dictation software. It may contain incorrect words, spelling, and punctuation that were not noted in checking the note before signing. Multi Select Codes - Visit Charges Office Visit/Consults: 45898 OV L4 New - Integumentary Integumentary CPT Codes: 15733 Britt subq tissue 20 sq cm/<
[2020-07-18 14:57] VITALS: BP 153/86; PULSE 105; TEMP 35.8; BMI 15.6
--- NOTE | 2020-07-18 15:58 | PCM.WC.PN ---
(1) Decubitus ulcer of left buttock, stage 3 Status: Chronic Code(s): L89.323 - Pressure ulcer of left buttock, stage 3 (2) COLD (chronic obstructive lung disease) Status: Chronic Qualifiers: Code(s): J44.9 - Chronic obstructive pulmonary disease, unspecified (3) Chronic respiratory failure Status: Chronic Qualifiers: Code(s): J96.10 - Chronic respiratory failure, unspecified whether with hypoxia or hypercapnia (4) Malnutrition Status: Chronic Qualifiers: Malnutrition type: protein-calorie malnutrition Code(s): E46 - Unspecified protein-calorie malnutrition (5) Former tobacco use Status: Chronic Code(s): Z87.891 - Personal history of nicotine dependence (6) GERD (gastroesophageal reflux disease) Status: Chronic Qualifiers: Esophagitis bleeding: unspecified whether hemorrhage Code(s): K21.9 - Gastro-esophageal reflux disease without esophagitis (7) Severe protein-calorie malnutrition Status: Chronic Code(s): E43 - Unspecified severe protein-calorie malnutrition Type of Wound Date of Service: 07/18/20 Chief Complaint: Nonhealing left buttock ulcer History of Wound: Mr Saenz is a 74yo old who presents to the wound center due to non healing left buttock ulcer. Said to have started following prolonged hospital stay for sepsis. Following discharge, he states that he has been largely sedentary sitting in his wheel chair for extended period. Also history of severe COPD, oxygen dependent. His appetite is said to be poor but takes Ensure twice daily. No significant wound dressing done to the area. They deny drainage, chills, fever or other caute concerns. Progress of Wound: Wound is stable, courtesy visit for Dr. Rodriguez, patient doing well with wound care. He is in the process of getting a new gel mattress for better offloading. Denies any signs of infection at this time. Past medical, family, and social history reviewed and not pertinent to the current visit and all other systems reviewed and negative with exception of those listed above. - Physical Exam Vital Signs Temp Pulse Resp BP 96.5 F L 105 H 18 153/86 H 07/18/20 14:57 07/18/20 14:57 07/04/20 09:19 07/18/20 14:57 General: Alert, Oriented x3, Cooperative, No apparent distress, - - Chronically ill HEENT: Atraumatic Oral: Moist Mucosa Lungs: Clear to auscultation, Normal air movement Cardiovascular: Regular rate, Regular Rhythm Abdomen: Soft, Non Tender Extremities: No clubbing, No cyanosis, No edema Skin: Ulcer/ Wound - See nursing documentation, slough and devitalized tissue present, no signs of infection at this time Wound Measurements and Assessment - Nurse 1 - General Ulcer Measurement Start: 07/04/20 09:16 Freq: Status: Active Protocol: Activity Type Activity Date Activity User E-Sign Co-Sign Detail Recorded Client Recorded Date Recorded By Document 07/18/20 14:57 KR [id number] 07/18/20 15:03 KR 07/18/20 14:57 Wound Center Nurse 1 [Ulcer Assessment] Left Buttock -Current Size (cm) - Length 0.9 -Current Size (cm) - Width 0.5 -Current Size (cm) - Depth 0.1 -Total Square Cm 0.45 -Exudate Amt None Present -Wound Margin Distinct, Outline Attached -Granulation Amt Medium (34-66%) -Granulation Quality Red -Necrosis Amt Medium (34-66%) -Necrotic Tissue Type Adherent Slough -Texture (Ethel-wound Skin Appearance) Assessed, Scarring -Moisture (Ethel-wound Skin Appearance No Abnormality, ) Assessed -Color (Ethel-wound Skin Appearance) No Abnormality, Assessed -Temperature (Ethel-wound Skin No Abnormality Appearance) (Pt Warm) -Tenderness on Palpation (Ethel-wound No Skin Appearance) -Ulcer Cleansing Rinsed/ Irrigated with Saline -Foul Odor after Cleansing No -Anesthetic Used 4% Lidocaine Solution - Nurse 2 - General Ulcer CM Notes Start: 07/04/20 09:16 Freq: Status: Active Protocol: Activity Type Activity Date Activity User E-Sign Co-Sign Detail Recorded Client Recorded Date Recorded By Document 07/18/20 15:09 MW [id number] 07/18/20 15:14 MW 07/18/20 15:09 Wound Center Nurse 2 [Procedure/Treatment] -Time 15:10 -Correct Patient Yes -Correct Side, Site, Position Yes -Correct Procedure Yes -Procedure Performed Yes -Type of Procedure Debridement -Clinical Debridement Subcutaneous -Tissue Removed Subcutaneous -Post Debridement (cm) - Length 1.0 -Post Debridement (cm) - Width 0.8 -Post Debridement (cm) - Depth 0.1 -Total Square (Post) (cm) 0.80 -Area of Debridement (cm) - Length 1.0 -Area of Debridement (cm) - Width 0.8 -Total Square (Area) (cm) 0.80 -Tunneling No -Undermining/Tunneling No -Circular Undermining No -Wound/Ulcer Outcome Not Healed -Ulcer Cleansing Rinsed/ Irrigated with Saline -Foul Odor after Cleansing No -Bioengineered Tissue No -Bleeding Controlled with Pressure -Offloading No -Treatment Response Procedure Tolerated Well -Debridement - Subq, 1st 20sq cm Yes [See Physician Procedure note for Specifics] Pain Scale: 0-10 Numeric [Pain] -Is Patient Pain Free? Yes - Nurse 3 - General Ulcer D/C NN Start: 07/04/20 09:16 Freq: Status: Active Protocol: Activity Type Activity Date Activity User E-Sign Co-Sign Detail Recorded Client Recorded Date Recorded By Document 07/18/20 15:26 KR [id number] 07/18/20 15:26 KR 07/18/20 15:26 Wound Care Nurse 3 [Wound Dressing] Left Buttock -Ulcer Cleansing Rinsed/ Irrigated with Saline -Foul Odor after Cleansing No -Primary Dressing Applied Promogran -Other Dressing ABD -Primary Dressing Covered/Secured Secured with with Tape -Promogran 1 Pain Scale: 0-10 Numeric [Pain] -Is Patient Pain Free? Yes - Visit Discharge [Visit Discharge Information] -Discharge Condition Stable -Ambulatory Status Walker -Transportation Private Auto -Accompanied by daughter Neurological: Neuro grossly intact Psych/Mental Status: Normal Affect, Appropriate, Alert and oriented to time, place, person, mood and affect Debridement Note Post-Debridement Measurements/Treatment - Nurse 2 - General Ulcer CM Notes Start: 07/04/20 09:16 Freq: Status: Active Protocol: Activity Type Activity Date Activity User E-Sign Co-Sign Detail Recorded Client Recorded Date Recorded By Document 07/04/20 10:03 MW [id number] 07/04/20 10:13 MW Document 07/18/20 15:09 MW [id number] 07/18/20 15:14 MW 07/04/20 07/18/20 10:03 15:09 Wound Center Nurse 2 Left Buttock -Time 10:03 15:10 -Correct Patient Yes Yes -Correct Side, Site, Position Yes Yes -Correct Procedure Yes Yes -Procedure Performed Yes Yes -Type of Procedure Debridement Debridement -Clinical Debridement Subcutaneous Subcutaneous -Tissue Removed Subcutaneous Subcutaneous -Post Debridement (cm) - Length 1.0 1.0 -Post Debridement (cm) - Width 0.9 0.8 -Post Debridement (cm) - Depth 0.1 0.1 -Total Square (Post) (cm) 0.90 0.80 -Area of Debridement (cm) - Length 1.0 1.0 -Area of Debridement (cm) - Width 0.9 0.8 -Total Square (Area) (cm) 0.90 0.80 -Tunneling No No -Undermining/Tunneling No No -Circular Undermining No No -Wound/Ulcer Outcome Not Healed Not Healed -Ulcer Cleansing Rinsed/ Rinsed/ Irrigated with Irrigated with Saline Saline -Foul Odor after Cleansing No No -Bioengineered Tissue No No -Bleeding Controlled with Pressure Pressure -Offloading No No -Treatment Response Procedure Tolerated Well -Debridement - Subq, 1st 20sq cm Yes Yes Pain Scale: 0-10 Numeric Is Patient Pain Free? Yes Yes - Nurse 3 - General Ulcer D/C NN Start: 07/04/20 09:16 Freq: Status: Active Protocol: Activity Type Activity Date Activity User E-Sign Co-Sign Detail Recorded Client Recorded Date Recorded By Document 07/04/20 12:00 SYDNEY [id number] 07/04/20 12:03 Document 07/18/20 15:26 KR [id number] 07/18/20 15:26 KR 07/04/20 07/18/20 12:00 15:26 Wound Care Nurse 3 Left Buttock -Ulcer Cleansing Rinsed/ Rinsed/ Irrigated with Irrigated with Saline Saline -Foul Odor after Cleansing No No -Primary Dressing Applied Mepilex Border, Promogran Promogran -Other Dressing ABD -Primary Dressing Covered/Secured with Secured with Tape -Mepilex Border 2 -Promogran 1 1 Pain Scale: 0-10 Numeric Is Patient Pain Free? Yes Yes - Visit Discharge Discharge Condition Stable Stable Ambulatory Status Walker Walker Transportation Private Auto Private Auto Accompanied by daughter Clinical Summary of Care Provided Yes Wound debrided: Stage III pressure injury left buttock Laterality: Left Type of Debridement: Excisional debridement Anesthesia Used: 5% Lidocaine Gel Depth: in the subcutaneous layer Percentage of wound debrided: 100 Instrument Used: 5mm curette Tissue Removed: Slough and devitalized tissue Severity: Fat Layer Exposed Amount of bleeding with debridement: Mild Bleeding Controlled with: Pressure Patient tolerated procedure well Assessment/Plan Active Problems Decubitus ulcer of left buttock, stage 3 (Chronic) Malnutrition (Chronic) Chronic respiratory failure (Chronic) COLD (chronic obstructive lung disease) (Chronic) Assessment: Non healing left buttock ulcer stage III. Malnutrition. Severe COPD Plan: Debridement done as documented above, procedure was well tolerated. Cultures taken prior and showed skin contaminants. Labs also ordered prior and showed chronic anemia. Promogran daily with Optifoam over top. Off loading/ repositioning also recommended. They are not open to a hospital bed due to space but prescription for a chair cushion given. Increase protein intake. Their questions were answered and they were advised to call with any further questions or concerns. Follow up in 2 weeks per patient preference. Given the delayed wound healing, will apply for an advanced skin substitute. This note was generated with [employer] dictation software. It may contain incorrect words, spelling, and punctuation that were not noted in checking the note before signing. [id number]: [id number] Britt subq tissue 20 sq cm/<
== END 2020-07-28 23:59 ==
LOC: WC 15:00
PROVIDERS: Visit Provider Internal Medicine
DX: L89.323 Pressure ulcer of left buttock, stage 3 (principal); E43 Unspecified severe protein-calorie malnutrition; J44.9 Chronic obstructive pulmonary disease, unspecified; D64.9 Anemia, unspecified
CPT/HCPCS: 11042; 87070; 87075; 87077; 87186; 87205; 99213; G0463

== ENCOUNTER 2020-08-15 13:00 | Outpatient (RCR) | payer OTHER, MEDICARE, SELFPAY ==
[2020-07-18 16:03] VITALS: BMI 15.1
[2020-07-29 00:07] VITALS: BP 153/86; PULSE 105; RESP 18; TEMP 35.8
[2020-08-15 13:05] VITALS: BP 100/62; PULSE 105; RESP 18; TEMP 36.7; BMI 15.1
--- NOTE | 2020-08-15 15:22 | PN.PCM_ITS ---
(1) Decubitus ulcer of left buttock, stage 3 Status: Chronic Code(s): L89.323 - Pressure ulcer of left buttock, stage 3 (2) Anxiety and depression Status: Chronic Code(s): F41.9 - Anxiety disorder, unspecified; F32.9 - Major depressive disorder, single episode, unspecified (3) Chronic respiratory failure Status: Chronic Qualifiers: Code(s): J96.10 - Chronic respiratory failure, unspecified whether with hypoxia or hypercapnia (4) GERD (gastroesophageal reflux disease) Status: Chronic Code(s): K21.9 - Gastro-esophageal reflux disease without esophagitis (5) Malnutrition Status: Chronic Code(s): E46 - Unspecified protein-calorie malnutrition (6) Severe protein-calorie malnutrition Status: Chronic Code(s): E43 - Unspecified severe protein-calorie malnutrition Type of Wound Date of Service: 08/15/20 Chief Complaint: Nonhealing left buttock ulcer History of Wound: Mr Saenz is a 74yo old who presents to the wound center due to non healing left buttock ulcer. Said to have started following prolonged hospital stay for sepsis. Following discharge, he states that he has been largely sedentary sitting in his wheel chair for extended period. Also history of severe COPD, oxygen dependent. His appetite is said to be poor but takes Ensure twice daily. No significant wound dressing done to the area. They deny drainage, chills, fever or other caute concerns. Progress of Wound: Wound is stable patient doing well with wound care. He is in the process of getting a new gel mattress for better offloading. Denies any signs of infection at this time. Past medical, family, and social history reviewed and not pertinent to the current visit and all other systems reviewed and negative with exception of those listed above. - Physical Exam Vital Signs Temp Pulse Resp BP 98.0 F 105 H 18 100/62 08/15/20 13:05 08/15/20 13:05 08/15/20 13:05 08/15/20 13:05 General: Alert, Oriented x3, Cooperative, No apparent distress, - - chronically ill Lungs: Diminished Cardiovascular: Regular rate Abdomen: Soft Extremities: No cyanosis, No edema Skin: Ulcer/ Wound - See nursing documentation, slough and devitalized tissue present, no signs of obvious infection at this time. Wound Measurements and Assessment WC - Nurse 1 - General Ulcer Measurement Start: 08/15/20 13:05 Freq: Status: Active Protocol: Activity Type Activity Date Activity User E-Sign Co-Sign Detail Recorded Client Recorded Date Recorded By Document 08/15/20 13:05 MS [id number] 08/15/20 13:14 MS 08/15/20 13:05 Wound Center Nurse 1 [Ulcer Assessment] Left Buttock -Current Size (cm) - Length 1.0 -Current Size (cm) - Width 0.8 -Current Size (cm) - Depth 0.1 -Total Square Cm 0.80 -Exudate Amt None Present -Wound Margin Distinct, Outline Attached -Granulation Amt Large (67-100%) -Slough/Fibrin No -Necrosis Amt None Present (0 %) -Texture (Ethel-wound Skin Appearance) No Abnormality -Moisture (Ethel-wound Skin Appearance No Abnormality ) -Color (Ethel-wound Skin Appearance) No Abnormality -Temperature (Ethel-wound Skin No Abnormality Appearance) (Pt Warm) -Ulcer Cleansing Rinsed/ Irrigated with Saline -Foul Odor after Cleansing No -Anesthetic Used 4% Lidocaine Solution - Nurse 2 - General Ulcer CM Notes Start: 08/15/20 13:05 Freq: Status: Active Protocol: Activity Type Activity Date Activity User E-Sign Co-Sign Detail Recorded Client Recorded Date Recorded By Document 08/15/20 13:20 MW [id number] 08/15/20 13:26 MW 08/15/20 13:20 Wound Center Nurse 2 [Procedure/Treatment] -Time 13:21 -Correct Patient Yes -Correct Side, Site, Position Yes -Correct Procedure Yes -Procedure Performed Yes -Type of Procedure Debridement -Clinical Debridement Subcutaneous -Tissue Removed Subcutaneous -Post Debridement (cm) - Length 1.0 -Post Debridement (cm) - Width 0.5 -Post Debridement (cm) - Depth 0.1 -Total Square (Post) (cm) 0.50 -Area of Debridement (cm) - Length 1.0 -Area of Debridement (cm) - Width 0.5 -Total Square (Area) (cm) 0.50 -Tunneling No -Undermining/Tunneling No -Circular Undermining No -Wound/Ulcer Outcome Not Healed -Ulcer Cleansing Rinsed/ Irrigated with Saline -Foul Odor after Cleansing No -Bioengineered Tissue No -Bleeding Controlled with Pressure -Offloading No -Treatment Response Procedure Tolerated Well -Debridement - Subq, 1st 20sq cm Yes [See Physician Procedure note for Specifics] Pain Scale: 0-10 Numeric [Pain] -Is Patient Pain Free? Yes Musculoskeletal: Muscle Wasting Neurological: Neuro grossly intact Psych/Mental Status: Normal Affect, Appropriate, Alert and oriented to time, place, person, mood and affect Debridement Note Post-Debridement Measurements/Treatment WC - Nurse 2 - General Ulcer CM Notes Start: 08/15/20 13:05 Freq: Status: Active Protocol: Activity Type Activity Date Activity User E-Sign Co-Sign Detail Recorded Client Recorded Date Recorded By Document 08/15/20 13:20 MW [id number] 08/15/20 13:26 MW 08/15/20 13:20 Wound Center Nurse 2 Left Buttock -Time 13:21 -Correct Patient Yes -Correct Side, Site, Position Yes -Correct Procedure Yes -Procedure Performed Yes -Type of Procedure Debridement -Clinical Debridement Subcutaneous -Tissue Removed Subcutaneous -Post Debridement (cm) - Length 1.0 -Post Debridement (cm) - Width 0.5 -Post Debridement (cm) - Depth 0.1 -Total Square (Post) (cm) 0.50 -Area of Debridement (cm) - Length 1.0 -Area of Debridement (cm) - Width 0.5 -Total Square (Area) (cm) 0.50 -Tunneling No -Undermining/Tunneling No -Circular Undermining No -Wound/Ulcer Outcome Not Healed -Ulcer Cleansing Rinsed/ Irrigated with Saline -Foul Odor after Cleansing No -Bioengineered Tissue No -Bleeding Controlled with Pressure -Offloading No -Treatment Response Procedure Tolerated Well -Debridement - Subq, 1st 20sq cm Yes Pain Scale: 0-10 Numeric Is Patient Pain Free? Yes Wound debrided: Stage III pressure injury of left buttock Laterality: Left Type of Debridement: Excisional debridement Anesthesia Used: 5% Lidocaine Gel Depth: in the subcutaneous layer Percentage of wound debrided: 100 Instrument Used: 3mm curette Tissue Removed: slough and devitalized tissue Severity: Fat Layer Exposed Amount of bleeding with debridement: Mild Bleeding Controlled with: Pressure Patient tolerated procedure well Assessment/Plan Assessment: Non healing left buttock ulcer stage III. Malnutrition. Severe COPD Plan: Debridement done as documented above, procedure was well tolerated. Cultures taken prior and showed skin contaminants. Labs also ordered prior and showed chronic anemia. Promogran daily with Optifoam or ABD over top. Patient is having difficulty with tape staining on, therefore wound prep to be applied to the surrounding skin for better adherence. Off loading/ repositioning also recommended. They are not open to a hospital bed due to space but prescription for a chair cushion given. Increase protein intake. Their questions were answered and they were advised to call with any further questions or concerns. Follow up in 2 weeks per patient preference. Given the delayed wound healing, will apply for an advanced skin substitute. This note was generated with [employer] dictation software. It may contain incorrect words, spelling, and punctuation that were not noted in checking the note before signing. [id number]: [id number] Britt subq tissue 20 sq cm/<
== END 2020-08-28 23:59 ==
LOC: WC 13:00
PROVIDERS: Visit Provider Internal Medicine
DX: L89.323 Pressure ulcer of left buttock, stage 3 (principal); F41.9 Anxiety disorder, unspecified; F32.9 Major depressive disorder, single episode, unspecified; J96.10 Chronic respiratory failure, unspecified whether with hypoxia or hypercapnia; E43 Unspecified severe protein-calorie malnutrition; J44.9 Chronic obstructive pulmonary disease, unspecified; Z99.81 Dependence on supplemental oxygen
CPT/HCPCS: 11042

== ENCOUNTER 2020-08-16 14:39 | Emergency (ER) | payer OTHER, MEDICARE, SELFPAY ==
[2020-08-15 13:05] VITALS: BMI 15.1
[2020-08-16 14:40] VITALS: BP 80/49; PULSE 98; RESP 18; TEMP 35.8; O2SAT 100; BMI 15.0
[2020-08-16 14:42] VITALS: BP 96/82; PULSE 83; RESP 22; TEMP 37; O2SAT 100
--- NOTE | 2020-08-16 14:53 | EKG12_ITS ---
Test Reason : COMPLAINT Blood Pressure : / mmHG Vent. Rate : 092 BPM Atrial Rate : 092 BPM P-R Int : 176 ms QRS Dur : 130 ms QT Int : 362 ms P-R-T Axes : 000 083 074 degrees QTc Int : 447 ms Sinus rhythm with Premature atrial complexes Right bundle branch block Non-specific ST & T wave changes Abnormal ECG Confirmed by KEHINDE GIBBS, MARCELLO ([id number]), commissioning editor ALYSSA CORTEZ ([id number]) on 08/19/2020 10:35:07 A M Referred By: MADDY Confirmed By:CAREN BUSBY MD
--- NOTE | 2020-08-16 14:59 | ED.VIS.GEN ---
History of Present Illness Chief Complaint: Complaint Informant: Patient, Family Onset: Days Context: Gradual Onset Timing: Continuous Current Severity: Moderate Maximum Severity: Moderate Narrative: The patient is a 74-year-old male with medical history significant for rather severe COPD on chronic oxygen therapy who presents to the emergency department difficulty urinating. Patient states that he had some hesitancy and urgency about 2 weeks ago. He states that they took a urine sample to the [place]. They were told he might have a mild infection, but he was not started on antibiotics. Over the past 2 or 3 days, he has had significant difficulty urinating. He states that he just feels like he cannot go. Is been nauseated without vomiting. He denies any fevers or chills but does admit to some generalized weakness. He does have a history of sepsis from UTI in the past. Prior similar symptoms: Yes Recent Illness/Hospitalization: No Past Medical History - Allergies and Home Meds Allergies/Adverse Reactions: Allergies clonazepam Allergy (Verified 08/16/20 14:42) Shortness of breath Tetanus Vaccines and Toxoid Allergy (Verified 08/16/20 14:42) Swelling Primary Care Physician: [facility] [Primary Care Provider] - Prior records reviewed: Yes Past Medical History: - - COPD, aspiration pneumonia, Surgical History: appendectomy Smoking Status: Former smoker - Family History Maternal Family History: Reports: Heart Disease Paternal Family History: Reports: Heart Disease Review of Systems General: Denies: Chills, Fever, Sweats Eyes: Denies: Visual changes - bilaterally, Diplopia ENT: Denies: Rhinorrhea, Sore throat Cardiovascular: Denies: Chest pain, Palpitations Respiratory: Denies: Dyspnea, Cough, Dyspnea on exertion Gastrointestinal: Reports: Nausea. Denies: Abdominal pain, Vomiting, Diarrhea, Melena, Hematochezia Genitourinary: Reports: Dysuria, Frequency. Denies: Hematuria Musculoskeletal: Denies: Back pain, Extremity Pain Skin: Denies: Rash, Wounds Neurological: Denies: Headache, Weakness, Numbness Physical Exam Vital Signs/Narrative: Vital Signs Temp Pulse Resp BP Pulse Ox 08/16/20 14:40 96.4 F L 98 18 80/49 L 100 Inital Vital Signs reviewed: Yes General: Well nourished, Well developed, No Acute Distress Head: Normocephalic, Atraumatic Eyes: Perrl, EOMI ENT: Moist mucous membranes, No rhinorrhea Neck: Supple, Nontender Cardiovascular: Regular rate, Regular rhythm, No murmurs Respiratory: No distress, CTA bilaterally, Chest nontender Abdomen: Soft, Nontender, Nondistended, Normal bowel sounds Back: Nontender, Normal Inspection Extremities: Nontender, No edema Skin: Normal color, No rash Neurological: Alert, Oriented x3, Cranial nerves II-XII grossly intact, Normal Strength, Normal Sensation Psychological: Normal affect, Normal Mood Diagnostic/Tx/Re-eval Chest X-Ray - ED: 1 View, Unchanged, Normal, Heart, Mediastinum, Bony Structures, No Acute Disease, Chronic Changes Abnormal Lab Results 08/16/20 08/16/20 08/16/20 15:20 15:30 15:30 WBC 10.4 RBC 4.38 L Hgb 13.1 Hct 42.3 MCV 96.6 H MCH 29.9 MCHC 31.0 L RDW Std Deviation 49.4 H RDW Coeff of Christy 13.9 Plt Count 205 MPV 9.5 Immature Gran % (Auto) 0.200 Neut % (Auto) 83.0 H Lymph % (Auto) 6.2 L [place] % (Auto) 9.6 Eos % (Auto) 0.6 Baso % (Auto) 0.4 Absolute Neuts (auto) 8.6 H Absolute Lymphs (auto) 0.64 L Nucleated RBC % 0 Sodium 142 Potassium 3.5 Chloride 98 Carbon Dioxide > 45.0 H* Anion Gap TNP BUN 11 Creatinine 0.62 L Estim Creat Clear Calc 41.13 Est GFR (MDRD) Af Amer 165 Est GFR (MDRD) Non-Af 137 BUN/Creatinine Ratio 17.9 Glucose 108 H Lactic Acid Calcium 8.8 Total Bilirubin 0.40 AST 12 L ALT 20 Alkaline Phosphatase 71 Total Protein 6.1 L Albumin 3.2 Globulin 2.9 Albumin/Globulin Ratio 1.1 Urine Color Yellow Urine Clarity Sl. Cloudy Urine pH 6.0 Ur Specific [place] 1.025 Urine Protein 30 H Urine Glucose (UA) Normal Urine Ketones 5 H Urine Occult Blood 250 H Urine Nitrite Negative Urine Bilirubin 1 H Urine Urobilinogen Normal Ur Leukocyte Esterase 500 H Urine RBC 10-25 SEEN Urine WBC 25-50 SEEN Ur Squamous Epith Cells 5-10 SEEN Amorphous Sediment 1+ URATE Urine Bacteria RARE Urine Mucus 0 SEEN 08/16/20 15:30 WBC RBC Hgb Hct MCV MCH MCHC RDW Std Deviation RDW Coeff of Christy Plt Count MPV Immature Gran % (Auto) Neut % (Auto) Lymph % (Auto) [place] % (Auto) Eos % (Auto) Baso % (Auto) Absolute Neuts (auto) Absolute Lymphs (auto) Nucleated RBC % Sodium Potassium Chloride Carbon Dioxide Anion Gap BUN Creatinine Estim Creat Clear Calc Est GFR (MDRD) Af Amer Est GFR (MDRD) Non-Af BUN/Creatinine Ratio Glucose Lactic Acid 0.7 Calcium Total Bilirubin AST ALT Alkaline Phosphatase Total Protein Albumin Globulin Albumin/Globulin Ratio Urine Color Urine Clarity Urine pH Ur Specific [place] Urine Protein Urine Glucose (UA) Urine Ketones Urine Occult Blood Urine Nitrite Urine Bilirubin Urine Urobilinogen Ur Leukocyte Esterase Urine RBC Urine WBC Ur Squamous Epith Cells Amorphous Sediment Urine Bacteria Urine Mucus - Rhythm Strip Rhythm Strip: Sinus Rhythm Rate: 80 Ectopy: None - Medical Decision Making Patient presents with dysuria and nausea. He states he was unable to void on his own. Because of this, catheter was placed. His urine was sent for evaluation. It does appear to have infection. Culture was added. The patient's metabolic work-up was unremarkable. His lactic acid is normal. His blood pressures been on the low side of normal. He is totally asymptomatic. He has no leukocytosis. He had no fever. I did discuss options with the patient. He wants to attempt outpatient therapy. Given his urinary retention, we will leave the catheter in. He is given a dose of Rocephin will be kept on Bactrim pending culture results. He will be discharged home. Impression 1. Acute cystitis with urinary retention ED Disposition - Plan for ED Patient: Instructions: ED Bladder Infection, Male (Adult) Prescriptions: Smz/Tmp Ds [Bactrim Ds] 1 tablet PO BID #14 tab Prescription Printed [facility] [[facility] -
[2020-08-16 15:26] LABS: Mucous, Urine 0 SEEN /hpf (<or=2+)
[2020-08-16 15:27] VITALS: PULSE 88; RESP 22; O2SAT 100
[2020-08-16] MEDS: Ondansetron 4 MG/2 ML Vial IV (15:35)
[2020-08-16] MEDS: 0.9% Normal Saline 1,000 ML 1000 ML IV (15:35)
--- NOTE | 2020-08-16 15:35 | RAD_ITS ---
STUDY: X-RAY CHEST REASON FOR EXAM: Male, 74 years old. Sob TECHNIQUE: Single AP portable view of the chest. COMPARISON: Comparison is made with prior study dated 07/05/2020. FINDINGS: EKG electrodes are seen. There is hyperinflation of the lungs consistent with chronic obstructive lung disease (COPD). Decreased bronchovascular markings in both lungs worse in the upper lobes suggestive of emphysematous changes and bullous formation. Blunting of both costophrenic angles. Mild scarring at the lung bases. Normal size heart. Normal mediastinum and chip. Normal visualized pulmonary arteries. There is atherosclerotic calcification of the aortic arch with tortuosity. Normal visualized thoracic spine. Normal visualized ribs, clavicles, and shoulders. There is no demonstrated abnormality of the visualized soft tissue structures of the upper abdomen. RAD/Chest 1 View (Portable) IMPRESSION: Hyperinflation and emphysematous changes with bullous formation bilaterally. Stable scarring at the lung bases. Electronically Signed: Kian Guevara MD at 15:56 EDT , Service support ,
[2020-08-16 15:37] LABS: Color, Urine Yellow (Yellow); Glucose, Dipstick Normal (Normal); Ketone-Dipstick 5 mg/dl (Negative); Leukocyte Esterase-Dipstick 500 /ul (Negative); Nitrite-Dipstick Negative (Negative); Occult Blood-Urine 250 /ul (Negative); Protein-Dipstick 30 mg/dl (Negative); Specific Gravity, Urine 1.025 (1.002-1.030); Urine Clarity Sl. Cloudy (Clear); Urine Urobilinogen Normal (Normal)
[2020-08-16 15:40] LABS: Urine Bilirubin Dipstick 1 mg/dL (Negative)
[2020-08-16 15:42] VITALS: BP 105/66; PULSE 83; RESP 23; TEMP 36.9; O2SAT 95
[2020-08-16 15:49] LABS: Amorphous Sediment 1+ URATE; Bacteria RARE /hpf (None Seen); Red Blood Cells-Urine 10-25 SEEN /hpf (0-5); Squamous Epithelial Cells - UA 5-10 SEEN /hpf (0-5); White Blood Cells 25-50 SEEN /hpf (0-5)
[2020-08-16 15:50] LABS: Absolute Lymphocyte Count 0.64 X10^3/uL (0.83-4.51); Absolute Neutrophil Count 8.6 X10^3/uL (2.0-7.7); Basophil# 0.04 X10^3/uL; Basophil% 0.4 % (0-1); Eosinophil# 0.06 X10^3/uL; Eosinophils% 0.6 % (0-5); Hematocrit 42.3 % (40-54); Hemoglobin 13.1 g/dL (13.0-16.5); Lymphocyte # 0.64 X10^3/ul (4.0); Lymphocyte % 6.2 % (19-41); Mean Corpuscular Hgb 29.9 pg (27.0-32.0); Mean Corpuscular Volume 96.6 fL (80-94); Mean Platelet Vol. 9.5 fl (6.2-12.0); Monocyte% 9.6 % (0-10); NRBC Flagged by Analyzer 0 % (0-5); Neutrophil # 8.64 X10^3/uL (2.7-7.7); Platelet Count 205 K/mm3 (150-450); RBC Distribution Width CV 13.9 % (11.6-14.6); RBC Distribution Width SD 49.4 fl (35.1-43.9); Red Blood Count 4.38 M/mm3 (4.6-6.2); White Blood Count 10.4 K/mm3 (4.4-11.0)
[2020-08-16 16:14] LABS: ALB/GLOB Ratio 1.1 RATIO (0.9-2.4); AST(SGOT) 12 U/L (15-37); Alanine Aminotransfer ALT/SGPT 20 U/L (16-61); Albumin, Serum 3.2 g/dL (3.2-5.0); Alkaline Phosphatase 71 U/L (45-117); BUN 11 mg/dL (7-18); BUN/Creat Ratio 17.9 RATIO (10-20); Calcium,Total 8.8 mg/dL (8.5-10.1); Chloride 98 mmol/L (98-107); Creatinine, Serum 0.62 mg/dL (0.70-1.30); EST Glomerular Filtration Rate 137 mL/min (>60); Est Glom Filt Rate - Afr Amer 165 mL/min (>60); Estimated Creatinine Clearance 41.13 ml/min; Globulin 2.9 g/dL (2.2-4.2); Glucose 108 mg/dL (74-106); Lactic Acid 0.7 mmol/L (0.4-1.9); Potassium 3.5 mmol/L (3.5-5.1); Protein, Total 6.1 g/dL (6.4-8.2); Sodium Level 142 mmol/L (136-145)
[2020-08-16] MEDS: Ceftriaxone 1 GM/50 ML BAG IV (16:14)
[2020-08-16 16:17] VITALS: BP 92/62; PULSE 81; RESP 23; TEMP 36.6; O2SAT 91
[2020-08-16 16:42] LABS: Carbon Dioxide > 45.0 mmol/L (21.0-32.0)
[2020-08-16 17:23] VITALS: BP 106/87; PULSE 72; RESP 22; TEMP 36.9; O2SAT 99
== END 2020-08-16 17:38 | disposition home or self-care (01) ==
LOC: ED 15:06
PROVIDERS: Emergency Provider Emergency Medicine
DX: N30.00 Acute cystitis without hematuria (principal); R33.9 Retention of urine, unspecified; J44.9 Chronic obstructive pulmonary disease, unspecified; Z99.81 Dependence on supplemental oxygen; Z87.891 Personal history of nicotine dependence
CPT/HCPCS: 51702; 71045; 80053; 81001; 83605; 85025; 87086; 93005; 96361; 96365; 96375; 99285; J7030; J7050; A4216; J2405

== ENCOUNTER 2020-08-17 01:29 | Emergency (ER) | payer OTHER, MEDICARE, SELFPAY ==
[2020-08-16 14:40] VITALS: BMI 15.0
[2020-08-17 01:30] VITALS: BP 130/83; PULSE 73; RESP 22; TEMP 36; O2SAT 93; BMI 16.0
--- NOTE | 2020-08-17 01:44 | ED.DCSUM_ITS ---
- ER Visit Summary Date of Service: 08/17/20 Chief Complaint: Catheter draining and underwear. History of Present Illness: The patient is a 74 M who goes to the [facility]. He was seen in emergency department earlier today had urinary retention and a UTI. He had a Jauregui catheter placed. It was draining well until approximately 1 AM. He complains that he developed a severe suprapubic pressure that he reports was 10 out of 10 severity and urine drained around the catheter into his underwear. He reports his pain is 0 out of 10 currently. He denies any blood in his urine. Physical Examination: Vitals: Stable. Afebrile. General: Well-developed, but cachectic Head: Normocephalic atraumatic. Neck: Supple, no lymphadenopathy. No JVD. Nontender. Cardiovascular: Regular rate and rhythm. No murmurs. Respiratory: No respiratory distress. Clear to auscultation bilaterally. Poor air movement. Abdominal: Soft, nontender, nondistended, normal bowel sounds. No guarding, rebound, or peritoneal signs. Back: Nontender. Extremities: Nontender, no edema. Skin: Normal color, no rash. Neurologic: Alert and oriented ?3. Cranial nerves II through XII are intact. Normal strength and sensation. Psych: Normal affect. Test Results: Labs from less than 12 hours ago were reviewed. These were not repeated. Emergency Department Course and Treatment: Patient had his catheter irrigated without any difficulty. There is no blood or clot present. I suspect that the patient actually had a bladder spasm that forced the urine to drain around his catheter. He had a B&O suppository placed. Treatment Plan: Patient will be discharged with B and O suppositories. Instructed to follow-up with his primary care physician in 3 to 5 days for another exam. He will be called with the results of his urine culture in 2 days if the Bactrim will not cover his urinary tract infection. Return to the emergency department for any worsening symptoms. Disposition: To home in improved and stable condition. Impression: 1. Urethral Jauregui catheter. 2. Bladder spasm. This note was generated with [employer] software. It may contain incorrect words, spelling, and punctuation that were not noted in review of the chart prior to signing ED Disposition - Plan for ED Patient: Instructions: ED Bladder Infection, Male (Adult) Prescriptions: Opium/Belladonna Alkaloids [B & O] 60 mg RECTAL BID 5 Days #10 suppos. [facility] [[facility] - 3-5 Days
== END 2020-08-17 02:19 | disposition home or self-care (01) ==
PROVIDERS: Emergency Provider Emergency Medicine
DX: N32.89 Other specified disorders of bladder (principal); J44.9 Chronic obstructive pulmonary disease, unspecified; I10 Essential (primary) hypertension; E78.00 Pure hypercholesterolemia, unspecified; Z79.51 Long term (current) use of inhaled steroids; Z79.899 Other long term (current) drug therapy
CPT/HCPCS: 99282

== ENCOUNTER 2020-08-22 13:34 | Emergency (ER) | payer OTHER, MEDICARE, SELFPAY ==
[2020-08-22 13:36] VITALS: BP 108/66; PULSE 100; RESP 16; TEMP 36.4; O2SAT 99; BMI 16.0
[2020-08-22 14:04] VITALS: BP 113/76; PULSE 94; RESP 19; O2SAT 100
--- NOTE | 2020-08-22 14:14 | ED.VIS.GEN ---
History of Present Illness Chief Complaint: Abd Pain Informant: Patient Onset: Weeks Context: Sudden Onset Timing: Continuous Quality: Read HPI Location: Read HPI Current Severity: - - Read HPI Maximum Severity: - - Read HPI Worsened by: Patient believes his urine has blood because he is not had a bowel movement Relieved by: Nothing Associated Symptoms: Nausea, constipation Narrative: Patient is an elderly male who is a poor informant. Even with redirection he did not answer questions because he felt other things were more important. I did allow him to speak. His major concern is no bowel movement for over a week. He believes this is the cause of the blood in his urine. Patient presents because of no bowel movement for greater than a week. Last bowel movement was greater than week ago and was a combination of watery loose stool with hard balls of stool and mucus. He denies history of Crohn's disease or ulcerative colitis. He did not note blood in his stool. He has had nothing to eat today. He had a hamburger yesterday. He is losing weight. 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 He states he has no appetite. He reports subjective fevers and chills. He denies headache, visual, ocular auditory symptoms. He denies trouble with speech or swallowing. He denies chest discomfort. He did not denies increased cough. He does report increased shortness of breath. He denies leg pain, swelling discoloration. He has no history of VTE. Prior similar symptoms: Yes - Urinary retention to bowel problems Recent Illness/Hospitalization: Yes - Retention - Past Medical History (1) COPD exacerbation Status: Acute (2) Anxiety and depression Status: Chronic (3) BPH (benign prostatic hyperplasia) Status: Chronic (4) Benign essential HTN Status: Chronic (5) COLD (chronic obstructive lung disease) Status: Chronic (6) Chronic respiratory failure Status: Chronic (7) GERD (gastroesophageal reflux disease) Status: Chronic (8) HLD (hyperlipidemia) Status: Chronic (9) Malnutrition Status: Chronic (10) Severe protein-calorie malnutrition Status: Chronic Past Medical History - Allergies and Home Meds Allergies/Adverse Reactions: Allergies clonazepam Allergy (Verified 08/22/20 13:38) Shortness of breath Tetanus Vaccines and Toxoid Allergy (Verified 08/22/20 13:38) Swelling Primary Care Physician: [facility],[place] [Primary Care Provider] - Prior records reviewed: Yes Surgical History: appendectomy Lives: Spouse/ Significant Other Smoking Status: Former smoker Alcohol: None Drugs: None - Family History Maternal Family History: Reports: Heart Disease Paternal Family History: Reports: Heart Disease Review of Systems General: Reports: Chills, Fever, Malaise, Subjective, Weight loss. Denies: Sweats Eyes: Denies: Visual changes - bilaterally, Blurred Vision - bilaterally ENT: Denies: Rhinorrhea, Sore throat Cardiovascular: Denies: Chest pain, Palpitations Respiratory: Reports: Cough - Chronic, Dyspnea on exertion. Denies: Dyspnea, Sputum, Orthopnea, Paroxysmal nocturnal dyspnea Gastrointestinal: Reports: Abdominal pain, Nausea, Diarrhea - 1 week ago, Constipation - Greater than 1 week. Denies: Vomiting, Melena, Hematochezia Genitourinary: Reports: - - Indwelling Jauregui for urinary retention Musculoskeletal: Denies: Myalgias, Arthralgias, Neck pain, Back pain, Swelling, Extremity Pain Skin: Denies: Rash, Wounds Neurological: Denies: Parasthesia, Numbness Psych: Reports: Depression Endocrine: Denies: Polyuria, Polydipsia Hematologic: Denies: Easy bruising, Easy bleeding Allergy: Denies: Uticaria Physical Exam Vital Signs/Narrative: Vital Signs Temp Pulse Resp BP Pulse Ox 08/22/20 13:36 97.6 F L 100 16 108/66 99 Inital Vital Signs reviewed: Yes General: Cachectic, Acute Distress Head: Normocephalic, Atraumatic Eyes: Perrl, EOMI. Negative for: Scleral icterus ENT: Negative for: Moist mucous membranes, No rhinorrhea Neck: Supple, Nontender, No lymphadenopathy, No JVD Cardiovascular: Regular rate, Regular rhythm, No murmurs, Normal S1, Normal S2 Respiratory: Chest nontender, Rales - And inspiratory rales Abdomen: Soft, Nontender, Nondistended, Normal bowel sounds, - - Abdomen is scaphoid. Abdomen is tympanic to percussion. Rectal: Deferred : - - Indwelling Jauregui with blood-tinged urine Back: Nontender, Normal Inspection Extremities: Nontender, No edema, - - There is no asymmetry, swelling, discoloration, leg vein distention, palpable cords or tenderness along the distribution of the deep venous system. Skin: Normal color, No rash Neurological: Alert, Oriented x3, Cranial nerves II-XII grossly intact, Normal Strength, Normal Sensation Psychological: Depressed Diagnostic/Tx/Re-eval Chest X-Ray - ED: Read by ED Physician - View x-ray of the abdomen was obtained which reveals significant emphysematous changes. Cardiac size silhouette normal. Mediastinum normal. Patient has significant amount of feces throughout the colon. There is nonsevere gas pattern noted. Interpreted by me at 1552. - Medical Decision Making Patient is scheduled to have Jauregui removed on Wednesday. Will remove at this time and assess for urinary tract infection. Suspect irritation from Jauregui causing bleeding versus UTI. Because patient is not had a bowel movement and also has respiratory complaints and findings abdominal series was obtained to assess for COPD exacerbation versus pneumonia. Appropriate blood work was obtained to assess H&H, white count, renal function etc. Patient has hematuria due to Jauregui. There is no evidence infection. Patient's abdominal discomfort is due to obstipation. His respiratory distress is due to end-stage COPD. He is malnourished/consumptive COPD. ED Disposition - Plan for ED Patient: Disposition: Home or Assisted Living Diagnosis: Hematuria, Obstipation, Emphysematous COPD, Malnourished Instructions: ED Hematuria, ED Constipation (Adult), ED COPD Flare [facility] [Primary [facility] [place]] - Additional Instructions: 1. Tomorrow morning drink 10 ounces of mag citrate. 2. 4 hours after you drink the mag citrate drink a glass of MiraLAX. Drink a glass of MiraLAX every 1-2 hours until you have results.
[2020-08-22 14:57] LABS: Bacteria 0 SEEN /hpf (None Seen); Mucous, Urine 0 SEEN /hpf (<or=2+); Squamous Epithelial Cells - UA 0 SEEN /hpf (0-5)
[2020-08-22 15:01] LABS: Color, Urine Yellow (Yellow); Glucose, Dipstick Normal (Normal); Ketone-Dipstick Negative (Negative); Leukocyte Esterase-Dipstick 100 /ul (Negative); Nitrite-Dipstick Negative (Negative); Occult Blood-Urine 250 /ul (Negative); Protein-Dipstick 30 mg/dl (Negative); Specific Gravity, Urine 1.015 (1.002-1.030); Urine Bilirubin Dipstick Negative (Negative); Urine Clarity Sl. Cloudy (Clear); Urine Urobilinogen Normal (Normal)
[2020-08-22 15:03] LABS: Absolute Lymphocyte Count 0.79 X10^3/uL (0.83-4.51); Absolute Neutrophil Count 4.9 X10^3/uL (2.0-7.7); Basophil# 0.06 X10^3/uL; Basophil% 0.9 % (0-1); Eosinophils% 1.5 % (0-5); Hematocrit 44.9 % (40-54); Lymphocyte # 0.79 X10^3/ul (4.0); Lymphocyte % 12.2 % (19-41); Mean Corp Hgb Conc 31.2 g/dL (32-36); Mean Corpuscular Hgb 29.2 pg (27.0-32.0); Mean Corpuscular Volume 93.7 fL (80-94); Mean Platelet Vol. 9.3 fl (6.2-12.0); Monocyte# 0.61 X10^3/uL; Monocyte% 9.4 % (0-10); NRBC Flagged by Analyzer 0 % (0-5); Neutrophil # 4.89 X10^3/uL (2.7-7.7); Neutrophil % 75.8 % (47-70); Platelet Count 219 K/mm3 (150-450); RBC Distribution Width CV 14.1 % (11.6-14.6); RBC Distribution Width SD 48.5 fl (35.1-43.9); Red Blood Count 4.79 M/mm3 (4.6-6.2); White Blood Count 6.5 K/mm3 (4.4-11.0)
[2020-08-22 15:14] LABS: ALB/GLOB Ratio 1.1 RATIO (0.9-2.4); AST(SGOT) 16 U/L (15-37); Alanine Aminotransfer ALT/SGPT 23 U/L (16-61); Albumin, Serum 3.7 g/dL (3.2-5.0); Alkaline Phosphatase 78 U/L (45-117); Anion Gap 3 (5-15); BUN 14 mg/dL (7-18); BUN/Creat Ratio 17.8 RATIO (10-20); Calcium,Total 9.7 mg/dL (8.5-10.1); Chloride 93 mmol/L (98-107); Creatinine, Serum 0.79 mg/dL (0.70-1.30); EST Glomerular Filtration Rate 103 mL/min (>60); Est Glom Filt Rate - Afr Amer 124 mL/min (>60); Globulin 3.3 g/dL (2.2-4.2); Glucose 99 mg/dL (74-106); Potassium 3.9 mmol/L (3.5-5.1); Sodium Level 139 mmol/L (136-145)
[2020-08-22 15:18] LABS: Red Blood Cells-Urine > 100 SEEN /hpf (0-5); White Blood Cells 0-5 SEEN /hpf (0-5)
--- NOTE | 2020-08-22 15:35 | RAD_ITS ---
STUDY: X-RAY - ACUTE ABDOMINAL SERIES REASON FOR EXAM: Male, 74 years old. No bowel movement x1 week TECHNIQUE: Single view of the chest. Supine, and erect view(s) of the abdomen were obtained. COMPARISON: Comparison is made with prior chest radiograph dated 08/16/2020. FINDINGS: EKG electrodes are seen. There is hyperinflation of the lungs consistent with chronic obstructive lung disease (COPD). Diffuse emphysematous changes. Stable scarring at the lung bases. Normal size heart. Normal mediastinum and chip. Normal visualized pulmonary arteries. Normal visualized aortic arch and descending thoracic aorta. There is an abundance of fecal material throughout the colon. The soft tissue structures of the abdomen and pelvis are unremarkable. Mild levoscoliosis. RAD/Acute Abdomen Inc Chest IMPRESSION: Large amount of fecal material is seen in the colon. Stable hyperinflation and emphysematous changes of both lungs with scarring at the lung bases. Electronically Signed: Kian Guevara MD at 16:01 EDT , Service support ,
[2020-08-22 17:12] VITALS: BP 121/78; PULSE 93; RESP 20; O2SAT 100
== END 2020-08-22 17:53 | disposition home or self-care (01) ==
PROVIDERS: Emergency Provider Emergency Medicine
DX: K59.00 Constipation, unspecified (principal); J44.9 Chronic obstructive pulmonary disease, unspecified; E43 Unspecified severe protein-calorie malnutrition; R31.9 Hematuria, unspecified; I10 Essential (primary) hypertension; J96.10 Chronic respiratory failure, unspecified whether with hypoxia or hypercapnia; K21.9 Gastro-esophageal reflux disease without esophagitis; E78.5 Hyperlipidemia, unspecified; Z99.81 Dependence on supplemental oxygen; Z87.891 Personal history of nicotine dependence
CPT/HCPCS: 74022; 80053; 81001; 85025; 99284; A4216

== ENCOUNTER 2020-08-29 13:15 | Outpatient (RCR) | payer OTHER, MEDICARE, SELFPAY ==
[2020-08-29 00:21] VITALS: BP 100/62; PULSE 105; RESP 18; TEMP 36.7
[2020-08-29 13:15] VITALS: BP 117/60; PULSE 86; RESP 18; TEMP 36.4; BMI 16.0
--- NOTE | 2020-08-29 16:20 | PCM.WC.PN ---
(1) Decubitus ulcer of left buttock, stage 3 Status: Chronic Code(s): L89.323 - Pressure ulcer of left buttock, stage 3 (2) Malnutrition Status: Chronic Code(s): E46 - Unspecified protein-calorie malnutrition (3) COLD (chronic obstructive lung disease) Status: Chronic Qualifiers: Code(s): J44.9 - Chronic obstructive pulmonary disease, unspecified Type of Wound Date of Service: 08/29/20 Chief Complaint: Nonhealing left buttock ulcer History of Wound: Mr Saenz is a 74yo old who presents to the wound center due to non healing left buttock ulcer. Said to have started following prolonged hospital stay for sepsis. Following discharge, he states that he has been largely sedentary sitting in his wheel chair for extended period. Also history of severe COPD, oxygen dependent. His appetite is said to be poor but takes Ensure twice daily. No significant wound dressing done to the area. They deny drainage, chills, fever or other caute concerns. Progress of Wound: Stage III pressure injury of left buttock is healed. Denies any signs of infection at this time. Past medical, family, and social history reviewed and not pertinent to the current visit and all other systems reviewed and negative with exception of those listed above. - Physical Exam Vital Signs Temp Pulse Resp BP 97.6 F L 86 18 117/60 08/29/20 13:15 08/29/20 13:15 08/29/20 13:15 08/29/20 13:15 General: Alert, Oriented x3, Cooperative, No apparent distress HEENT: Atraumatic Lungs: Clear to auscultation, Diminished Cardiovascular: Regular rate Abdomen: Soft, Non Tender Extremities: No clubbing, No cyanosis, No edema Skin: Ulcer/ Wound - Stage III pressure injury of buttock is healed without any signs of localized infection at this time Wound Measurements and Assessment WC - Nurse 1 - General Ulcer Measurement Start: 08/29/20 13:15 Freq: Status: Active Protocol: Activity Type Activity Date Activity User E-Sign Co-Sign Detail Recorded Client Recorded Date Recorded By Document 08/29/20 13:15 PL [id number] 08/29/20 13:20 PL 08/29/20 13:15 Wound Center Nurse 1 [Ulcer Assessment] Left Buttock -Combined with other wound No -Current Size (cm) - Length 0.1 -Current Size (cm) - Width 0.1 -Current Size (cm) - Depth 0.1 -Total Square Cm 0.01 -Photo Taken No -Epithelialization None Present -Tunneling No -Undermining/Tunneling No -Circular Undermining No -Exudate Amt None Present -Granulation Amt None Present (0 %) -Slough/Fibrin Yes -Necrotic Tissue Type Eschar -Ulcer Cleansing Rinsed/ Irrigated with Saline -Foul Odor after Cleansing No -Anesthetic Used 5% Lidocaine Gel WC - Nurse 2 - General Ulcer CM Notes Start: 08/29/20 13:15 Freq: Status: Active Protocol: Activity Type Activity Date Activity User E-Sign Co-Sign Detail Recorded Client Recorded Date Recorded By Document 08/29/20 13:27 MW [id number] 08/29/20 13:30 MW 08/29/20 13:27 Wound Center Nurse 2 [Procedure/Treatment] -Time 13:27 -Correct Patient Yes -Correct Side, Site, Position Yes -Correct Procedure Yes -Procedure Performed No -Post Debridement (cm) - Length 0 -Post Debridement (cm) - Width 0 -Post Debridement (cm) - Depth 0 -Total Square (Post) (cm) 0 -Tunneling No -Undermining/Tunneling No -Circular Undermining No -Wound/Ulcer Outcome Healed- Epithelialized [See Physician Procedure note for Specifics] Pain Scale: 0-10 Numeric [Pain] -Is Patient Pain Free? Yes Neurological: Neuro grossly intact Psych/Mental Status: Normal Affect, Appropriate, Alert and oriented to time, place, person, mood and affect Debridement Note Post-Debridement Measurements/Treatment - Nurse 2 - General Ulcer CM Notes Start: 08/29/20 13:15 Freq: Status: Active Protocol: Activity Type Activity Date Activity User E-Sign Co-Sign Detail Recorded Client Recorded Date Recorded By Document 08/29/20 13:27 MW [id number] 08/29/20 13:30 MW 08/29/20 13:27 Wound Center Nurse 2 Left Buttock -Time 13:27 -Correct Patient Yes -Correct Side, Site, Position Yes -Correct Procedure Yes -Procedure Performed No -Post Debridement (cm) - Length 0 -Post Debridement (cm) - Width 0 -Post Debridement (cm) - Depth 0 -Total Square (Post) (cm) 0 -Tunneling No -Undermining/Tunneling No -Circular Undermining No -Wound/Ulcer Outcome Healed- Epithelialized Pain Scale: 0-10 Numeric Is Patient Pain Free? Yes No debridement was completed today Assessment/Plan Assessment: Non healing left buttock ulcer stage III. Malnutrition. Severe COPD Plan: The patient was seen at the wound healing center today and educated on the plan of care. Given the fact that his ulcer is healed, he may utilize Adaptic and ABD for the next week for protection. Off loading/ repositioning also recommended. Increase protein intake. Their questions were answered and they were advised to call with any further questions or concerns. Patient to be discharged from the wound healing center and follow-up in the future if needed. 25 minutes today was spent physically examining patient and educating on the plan of care. This note was generated with [employer] dictation software. It may contain incorrect words, spelling, and punctuation that were not noted in checking the note before signing. Office Visits / Consults: [id number] L3 Est
== END 2020-09-27 23:59 ==
LOC: WC 13:15
PROVIDERS: Visit Provider Internal Medicine
DX: L89.323 Pressure ulcer of left buttock, stage 3 (principal); E46 Unspecified protein-calorie malnutrition; J44.9 Chronic obstructive pulmonary disease, unspecified; Z99.81 Dependence on supplemental oxygen
CPT/HCPCS: 99213; G0463

== ENCOUNTER 2020-10-06 11:35 | Inpatient (IN) | payer OTHER, MEDICARE, SELFPAY ==
[2020-10-06] VITALS (16 sets, daily range): BP systolic 108–154; BP diastolic 83–112; PULSE 102–126; RESP 12–30; TEMP 36.5–37.1; O2SAT 94–100; BMI 15.3; BMI 12.9
--- NOTE | 2020-10-06 11:47 | RAD_ITS ---
STUDY: X-RAY CHEST REASON FOR EXAM: Male, 74 years old. sob TECHNIQUE: Frontal view of the chest COMPARISON: 16 August 2020 FINDINGS: Lungs are severely hyperinflated with increased interstitial markings in the bases, likely compressive atelectasis. There is no pneumothorax, pulmonary edema, pleural effusions or cardiomegaly. Osseous structures are intact. Appearance is stable since prior. RAD/Chest 1 View (Portable) IMPRESSION: No acute findings, no change since prior. Severe emphysema. Electronically Signed: Sathish Everett MD at 13:05 EDT Tel , Service support ,
--- NOTE | 2020-10-06 11:47 | EKG12_ITS ---
Test Reason : Blood Pressure : / mmHG Vent. Rate : 102 BPM Atrial Rate : 102 BPM P-R Int : 122 ms QRS Dur : 116 ms QT Int : 322 ms P-R-T Axes : 093 087 082 degrees QTc Int : 419 ms Atrial Flutter Incomplete right bundle branch block Right ventricular hypertrophy with repolarization abnormality Nonspecific ST and T wave abnormality Abnormal ECG Confirmed by MARIS GIBBS, WESLEY ([id number]), newspaper photo editor ALYSSA CORTEZ ([id number]) on 10/07/2020 1:03:22 PM Referred By: PATRICIA Confirmed By:WESLEY POLLOCK MD
--- NOTE | 2020-10-06 11:49 | EX.ED.DYSGE1 ---
HPI History of Present Illness Chief Complaint: Shortness of Breath Informant: patient Narrative Narrative: 74-year-old male presenting with shortness of breath. Patient states this has been ongoing but much worse today. EMS was called. He was satting 88% on 3 L. 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 He tried his inhalers at home. He complains of shortness of breath and nausea. He denies fever. Denies cough. Denies chest pain. Denies history of Covid. Prior similar symptoms: [facility] Medical History (Updated 10/06/20 @ 13:[address] Morenita Emmanuel MD) COPD (chronic obstructive pulmonary disease) Hypertension On home oxygen therapy Home Medications albuterol sulfate 2 puff INHALATION Q6H PRN PRN 05/15/20 [History Last Taken 05/15/20] albuterol sulfate 2.5 mg INHALATION Q6H PRN PRN 05/15/20 [History Last Taken 05/14/20] budesonide-formoterol 2 puff INHALATION BID 05/15/20 [History Last Taken 05/15/20] ergocalciferol (vitamin D2) 50,000 unit PO QMONTH 05/15/20 [History Last Taken Unknown] food supplemt, lactose-reduced 120 ml PO 4X/DAY 05/15/20 [History Last Taken Unknown] guaifenesin 800 mg PO TID 05/15/20 [History Last Taken 05/15/20] hydrocortisone-pramoxine 1 applic TP BID PRN 05/15/20 [History Last Taken 05/15/20] omeprazole 40 mg PO BID 05/15/20 [History Last Taken 05/15/20] pravastatin 20 mg PO QHS 05/15/20 [History Last Taken 05/14/20] ropinirole 1 mg PO QHS PRN PRN 05/15/20 [History Last Taken Unknown] tamsulosin 0.8 mg PO QHS 05/15/20 [History Last Taken 05/14/20] theophylline 300 mg PO BID 05/15/20 [History Last Taken 05/15/20] tiotropium bromide 18 mcg IH DAILY 05/15/20 [History Last Taken 05/15/20] lisinopril 30 mg PO DAILY 07/05/20 [History Last Taken Unknown] Ammonium Lactate 1 applic TOPICAL DAILY 08/16/20 [History Last Taken Unknown] alprazolam 0.5 mg PO TID PRN PRN 08/16/20 [History Last Taken Unknown] aspirin 81 mg PO DAILY@0800 08/16/20 [History Last Taken Unknown] fluoxetine 10 mg PO DAILY 08/16/20 [History Last Taken Unknown] fluticasone propionate 2 spray NASAL DAILY 08/16/20 [History Last Taken Unknown] loratadine 10 mg PO DAILY PRN 08/16/20 [History Last Taken Unknown] sennosides-docusate sodium 1 each PO BID 08/16/20 [History Last Taken Unknown] sodium chloride 2 spray NASAL PRN PRN 08/16/20 [History Last Taken Unknown] sulfamethoxazole-trimethoprim 1 tablet PO BID #14 tab 08/16/20 [Rx Last Taken Unknown] Allergy/AdvReac Type Severity Reaction Status Date / Time clonazepam Allergy Shortness Verified 10/06/20 11:43 of breath Tetanus Vaccines and Toxoid Allergy Swelling Verified 10/06/20 11:43 Surgical History (Updated 10/06/20 @ 11:48 by Arlet Cox RN) History of appendectomy Social History Smoking Status: Former smoker ROS ROS ED Constitutional Constitutional ED: Denies fever(s) Eyes Eyes: Denies change in vision ENT ENT ED: Denies rhinorrhea or sore throat Cardiovascular Cardiovascular: Denies chest pain or palpitations Respiratory/Chest Respiratory/Chest: Reports dyspnea; Denies cough Gastrointestinal Gastrointestinal: Reports nausea; Denies abdominal pain, diarrhea or vomiting Genitourinary Genitourinary ED: Denies dysuria Musculoskeletal Musculoskeletal: Denies myalgias Integumentary Denies rash Neurologic Neurologic: Denies headache(s) Psychiatric Psychiatric: Denies suicidal thoughts EXAM Physical Exam Const Vital Signs: 10/06/20 11:36 10/06/20 11:44 10/06/20 12:01 Temperature 98.3 F Temperature Source Oral Pulse Rate 112 H 102 H Respiratory Rate 24 H 24 H Respiratory Effort Short of Breath Respiratory Pattern Tachypnea Tachypnea Blood Pressure 154/112 H Blood Pressure Mean 126 Pulse Ox 94 Oxygen Delivery Method Nasal Cannula Oxygen Flow Rate (L/min) 4 Fraction of Inspired Oxygen (FIO2) 10/06/20 12:36 10/06/20 12:39 10/06/20 12:59 Temperature 98.3 F Temperature Source Temporal Pulse Rate 109 H 120 H 112 H Respiratory Rate 24 H 23 H 20 H Respiratory Effort Respiratory Pattern Tachypnea Blood Pressure 126/95 H 111/101 H Blood Pressure Mean 105 104 Pulse Ox 95 96 97 Oxygen Delivery Method Bi-pap Bi-pap Oxygen Flow Rate (L/min) Fraction of Inspired Oxygen (FIO2) 40 Positive well nourished and well developed General Appearance ED: well developed HEENT Reports normocephalic and head/scalp atraumatic Eyes PERRL and EOMs intact bilaterally Neck supple General: Negative for tenderness Chest Wall inspection of chest normal Resp Effort and Inspection: retractions Auscultation: wheezes and diminished lung sounds Cardio regular rhythm Rate: tachycardic GI non-tender and non-distended Palpation: soft; Negative for guarding or rebound tenderness present no CVA tenderness Extremity normal to inspection General Extremety ED: Negative for edema or tenderness General Extremity: Negative for edema Neuro oriented x3 Sensorium / Orientation: alert Psych mental status grossly normal MDM MDM MDM Narrative Medical decision making narrative: Patient was given albuterol, Atrovent aerosols. Patient was started on BiPAP in the emergency department with improvement. Discussed with hospitalist for admission. Lab Data Attestation: I reviewed the patient's lab results. Labs: Laboratory Results - last 24 hr 10/06/20 10/06/20 10/06/20 12:05 12:05 12:05 WBC 10.1 RBC 4.93 Hgb 14.8 Hct 46.4 MCV 94.1 H MCH 30.0 MCHC 31.9 L RDW Std Deviation 47.0 H RDW Coeff of Christy 13.4 Plt Count 258 MPV 8.8 Immature Gran % (Auto) 0.200 Neut % (Auto) 85.1 H Lymph % (Auto) 6.3 L [place] % (Auto) 7.6 Eos % (Auto) 0.2 Baso % (Auto) 0.6 Absolute Neuts (auto) 8.6 H Absolute Lymphs (auto) 0.64 L Nucleated RBC % 0 D-Dimer Quant (PE/DVT) 0.47 Sodium 137 Potassium 4.3 Chloride 88 L Carbon Dioxide > 45.0 H* Anion Gap TNP BUN 15 Creatinine 0.74 Estim Creat Clear Calc 37.12 Est GFR (MDRD) Af Amer 133 Est GFR (MDRD) Non-Af 110 BUN/Creatinine Ratio 20.2 H Glucose 117 H Calcium 9.7 Total Bilirubin 0.60 AST 19 ALT 22 Alkaline Phosphatase 69 Troponin I 0.042 Total Protein 7.2 Albumin 3.7 Globulin 3.5 Albumin/Globulin Ratio 1.1 ABG Data ABG results: ABG 10/06/20 12:15 Specimen Type ART Sample Site R Radial pH 7.37 Bicarbonate Actual 43.8 H Total CO2 46 Base Excess 19 H O2 Saturation 87 L ABG pCO2 75.2 H* ABG pO2 58 L Marcel Test Positive O2 Delivery Device Cannula Liter Flow 4.0 Crit Call To/Read Back Yes Blood Gas Notified Whom dr emmanuel Clinical Comments Radiography Chest X-Ray - ED: 1 View, Read by ED Physician and Read by Radiologist Diagnostic Testing: Radiology Impression Chest X-Ray 10/06/20 11:47 IMPRESSION: No acute findings, no change since prior. Severe emphysema. Electronically Signed: Sathish Everett MD at 13:05 EDT Tel , Service support , EKG Initial EKG: Attestation: I personally reviewed and interpreted this EKG as follows: Interpretation: Sinus Tachycardia Comments: Incomplete right bundle branch block Discharge Plan Triage Chief Complaint: Shortness of Breath ED Provider: Morenita Emmanuel Dx/Rx/DC Orders Clinical Impression: Respiratory failure, COPD exacerbation Prescriptions: No Action tamsulosin 0.4 MG capsule 0.8 mg PO QHS RF: 0 ropinirole 1 MG tablet 1 mg PO QHS PRN PRN (Reason: RLS) RF: 0 albuterol sulfate 2.5 MG/3 ML solution for nebulization 2.5 mg INHALATION Q6H PRN PRN (Reason: Sob &/Or Wheezing) RF: 0 theophylline 300 MG tablet 300 mg PO BID RF: 0 pravastatin 20 MG tablet 20 mg PO QHS RF: 0 ergocalciferol (vitamin D2) 50,000 UNIT capsule 50,000 unit PO QMONTH RF: 0 albuterol sulfate 1 INHALER inhaler 2 puff INHALATION Q6H PRN PRN (Reason: Sob &/Or Wheezing) RF: 0 tiotropium bromide 18 MCG capsule, w/inhalation device 18 mcg IH DAILY RF: 0 budesonide-formoterol 1 INHALER inhaler 2 puff INHALATION BID RF: 0 hydrocortisone-pramoxine 10 GM foam 1 applic TP BID PRN (Reason: Pain 1-10 Or Fever) RF: 0 omeprazole 20 MG capsule,delayed release(DR/EC) 40 mg PO BID RF: 0 food supplemt, lactose-reduced 120 ML liquid 120 ml PO 4X/DAY RF: 0 guaifenesin 400 MG tablet 800 mg PO TID RF: 0 lisinopril 30 MG tablet 30 mg PO DAILY RF: 0 Ammonium Lactate 1 applic TOPICAL DAILY RF: 0 sennosides-docusate sodium 1 EACH tablet 1 each PO BID RF: 0 fluoxetine 10 MG capsule 10 mg PO DAILY RF: 0 aspirin 81 MG tablet,chewable 81 mg PO DAILY@0800 RF: 0 fluticasone propionate 1 SPRAY spray,suspension 2 spray NASAL DAILY RF: 0 loratadine 10 MG tablet 10 mg PO DAILY PRN (Reason: Allergies) RF: 0 sodium chloride 1 SPRAY aerosol,spray 2 spray NASAL PRN PRN (Reason: nasal) RF: 0 sulfamethoxazole-trimethoprim 1 TABLET tablet 1 tablet PO BID Qty: 14 RF: 0 alprazolam 0.25 MG tablet 0.5 mg PO TID PRN PRN (Reason: Anxiety) RF: 0 [facility] [Primary [facility] Provider[facility] - Disposition Disposition: [facility]
[2020-10-06] MEDS: Ipratropium/Albuterol Sulfate 3 ML AMPUL.NEB INHALATION (12:01)
[2020-10-06] MEDS: Albuterol 2.5 MG/3 ML VIAL.NEB. INHALATION ×3 (12:02)
[2020-10-06 12:15] LABS: Absolute Lymphocyte Count 0.64 X10^3/uL (0.83-4.51); Absolute Neutrophil Count 8.6 X10^3/uL (2.0-7.7); Basophil# 0.06 X10^3/uL; Basophil% 0.6 % (0-1); Eosinophil# 0.02 X10^3/uL; Eosinophils% 0.2 % (0-5); Hematocrit 46.4 % (40-54); Hemoglobin 14.8 g/dL (13.0-16.5); Lymphocyte # 0.64 X10^3/ul (0.83-4.51); Lymphocyte % 6.3 % (19-41); Mean Corp Hgb Conc 31.9 g/dL (32-36); Mean Corpuscular Volume 94.1 fL (80-94); Mean Platelet Vol. 8.8 fl (6.2-12.0); Monocyte# 0.77 X10^3/uL; Monocyte% 7.6 % (0-10); NRBC Flagged by Analyzer 0 % (0-5); Neutrophil # 8.59 X10^3/uL (2.7-7.7); Neutrophil % 85.1 % (47-70); Platelet Count 258 K/mm3 (150-450); RBC Distribution Width CV 13.4 % (11.6-14.6); Red Blood Count 4.93 M/mm3 (4.6-6.2); White Blood Count 10.1 K/mm3 (4.4-11.0)
[2020-10-06 12:25] LABS: Allen Test Positive; Base Excess 19 mmol/L (-2 to +2); Bicarbonate 43.8 mmol/L (22-26); Blood Gas Specimen Type ART; O2 Delivery Device Cannula; PO2 58 mmHG (75-100); SITE R Radial; SO2 87 % (95-99); Total Carbon Dioxide 46 mmol/L; pCO2 75.2 mmHg (35-45); pH 7.37 (7.35-7.45)
[2020-10-06 12:31] LABS: D-Dimer Quantitative (DVT/PE) 0.47 FEU/ug/m (0.27-0.49)
[2020-10-06 12:45] LABS: ALB/GLOB Ratio 1.1 RATIO (0.9-2.4); AST(SGOT) 19 U/L (15-37); Alanine Aminotransfer ALT/SGPT 22 U/L (16-61); Albumin, Serum 3.7 g/dL (3.2-5.0); Alkaline Phosphatase 69 U/L (45-117); BUN 15 mg/dL (7-18); BUN/Creat Ratio 20.2 RATIO (10-20); Calcium,Total 9.7 mg/dL (8.5-10.1); Carbon Dioxide > 45.0 mmol/L (21.0-32.0); Chloride 88 mmol/L (98-107); Creatinine, Serum 0.74 mg/dL (0.70-1.30); EST Glomerular Filtration Rate 110 mL/min (>60); Est Glom Filt Rate - Afr Amer 133 mL/min (>60); Estimated Creatinine Clearance 37.12 ml/min; Globulin 3.5 g/dL (2.2-4.2); Glucose 117 mg/dL (74-106); Potassium 4.3 mmol/L (3.5-5.1); Protein, Total 7.2 g/dL (6.4-8.2); Sodium Level 137 mmol/L (136-145)
--- NOTE | 2020-10-06 13:28 | HP.PCM.HOS_ITS ---
HPI - General General Date of Admission: 10/06/20 HPI Narrative RAFAEL ARGUELLO, is a 74 M with an extensive PMH as outlined who presents with a complaint of shortness of breath. Shortness of breath has been ongoing but worsened over the last couple of days. He wears 3L of oxygen at home, and was found to be at 88% on his 3L of oxygen, and lethargic, so he was brought in to the ED. He denied any fever, chills, productive cough, chest pain or palpitations. He however said his felt his chest was very tight and he could not expectorate as he wanted. Review of systems was otherwise negative. He was placed on BIPAP on admission. CBC showed wbc of 10/7, wih Hb of 11.7 and platelets of 197. ABG showed pH of 7.37, with pO2 of 58, pCO2 of 75.2 and BMP was unremarkable. CXR showed severely hyperinflated lungs with increased interstitial markings in the bases, likely compressive atelectasis and severe emphysema. COVID test done was negative. He is being admitted to be managed for acute on chronic hypoxic respiratory failure due to COPD exacerbation. [facility] Medical History (Updated 10/06/20 @ 15:11 by Shira Feliciano) Anxiety COPD (chronic obstructive pulmonary disease) Depression Former smoker GERD (gastroesophageal reflux disease) Hypertension On home oxygen therapy Home Medications budesonide-formoterol 2 puff INHALATION BID 05/15/20 [History Last Taken 05/15/20] ergocalciferol (vitamin D2) 50,000 unit PO QMONTH 05/15/20 [History Last Taken Unknown] food supplemt, lactose-reduced 120 ml PO 4X/DAY 05/15/20 [History Last Taken 10/06/20] guaifenesin 800 mg PO TID 05/15/20 [History Last Taken 10/06/20] hydrocortisone-pramoxine 1 applic TP DAILY 05/15/20 [History Last Taken 10/06/20] omeprazole 40 mg PO BID 05/15/20 [History Last Taken 10/06/20] pravastatin 20 mg PO QHS 05/15/20 [History Last Taken 10/05/20] ropinirole 1 mg PO QHS PRN PRN 05/15/20 [History Last Taken Unknown] tamsulosin 0.8 mg PO DAILY 05/15/20 [History Last Taken 10/06/20] theophylline 300 mg PO BID 05/15/20 [History Last Taken 10/06/20] tiotropium bromide 18 mcg IH DAILY 05/15/20 [History Last Taken 10/06/20] Ammonium Lactate 1 applic TOPICAL DAILY 08/16/20 [History Last Taken Unknown] alprazolam 0.5 mg PO TID PRN PRN 08/16/20 [History Last Taken 10/05/20] aspirin 81 mg PO DAILY@0800 08/16/20 [History Last Taken 10/05/20] fluticasone propionate 2 spray NASAL DAILY 08/16/20 [History Last Taken 10/06/20] loratadine 10 mg PO DAILY 08/16/20 [History Last Taken 10/06/20] albuterol sulfate 2 puff INHALATION Q6H PRN 10/06/20 [History Last Taken Unknown] sennosides-docusate sodium [Senna with Docusate Sodium] 2 tab PO BID 10/06/20 [History Last Taken 10/06/20] Allergy/AdvReac Type Severity Reaction Status Date / Time clonazepam Allergy Shortness Verified 10/06/20 11:43 of breath Tetanus Vaccines and Toxoid Allergy Swelling Verified 10/06/20 11:43 Surgical History (Updated 10/06/20 @ 11:48 by Arlet Cox RN) History of appendectomy Social History Smoking Status: Former smoker ROS Constitutional Constitutional: Reports fatigue and malaise; Denies anorexia, chills, fever(s) or weakness Cardiovascular Cardiovascular: Reports dyspnea on exertion, lightheadedness and palpitations; Denies chest pain, orthopnea, paroxysmal nocturnal dyspnea, rapid heart rate or syncope Respiratory/Chest Respiratory/Chest: Reports cough, dyspnea, productive cough, shortness of breath at rest and shortness of breath with exertion; Denies hemoptysis or wheezing Gastrointestinal Gastrointestinal: Denies abdominal pain, diarrhea, dyspepsia, nausea or vomiting Genitourinary Genitourinary: Denies burning urination Neurologic Neurologic: Denies abnormal speech, confusion, focal weakness or numbness Psychiatric Psychiatric: Denies anxiety or depression Endocrine Endocrinology: Denies change in body appearance Hematologic/Lymphatic Hematologic/Lymphatic: Denies anemia Vital Signs Vital Signs Vital Signs: 10/06/20 11:36 10/06/20 11:44 10/06/20 12:01 Temperature 98.3 F Temperature Source Oral Pulse Rate 112 H 102 H Respiratory Rate 24 H 24 H Respiratory Effort Short of Breath Respiratory Pattern Tachypnea Tachypnea Blood Pressure 154/112 H Blood Pressure Mean 126 Pulse Ox 94 Oxygen Delivery Method Nasal Cannula Oxygen Flow Rate (L/min) 4 Fraction of Inspired Oxygen (FIO2) 10/06/20 12:36 10/06/20 12:39 10/06/20 12:59 Temperature 98.3 F Temperature Source Temporal Pulse Rate 109 H 120 H 112 H Respiratory Rate 24 H 23 H 20 H Respiratory Effort Respiratory Pattern Tachypnea Blood Pressure 126/95 H 111/101 H Blood Pressure Mean 105 104 Pulse Ox 95 96 97 Oxygen Delivery Method Bi-pap Bi-pap Oxygen Flow Rate (L/min) Fraction of Inspired Oxygen (FIO2) 40 Physical Exam Const alert and oriented x3 Constitutional Narrative: cachectic General Appearance: cooperative HEENT normocephalic and head/scalp atraumatic Eyes PERRL, EOMs intact bilaterally and conjunctivae normal Neck no lymphadenopathy Resp Resp Narrative: tachypneic, wheezing in all lung robertson, no crackles. On BIPAP. Cardio regular rhythm, S1 normal heart sound, S2 normal heart sound and no murmurs Cardio Narrative: tachycardic GI normal to inspection, nondistended, normoactive bowel sounds, soft to palpation and non-tender Extremity normal to inspection and no clubbing, cyanosis or edema Skin no rashes or lesions noted Neuro oriented x3 Sensorium / Orientation: awake and alert Psych affect normal Lab / Micro Data Result Diagrams: 10/06/20 12:05 10/06/20 12:05 Labs: Laboratory Results - last 24 hr 10/06/20 10/06/20 10/06/20 12:05 12:05 12:05 WBC 10.1 RBC 4.93 Hgb 14.8 Hct 46.4 MCV 94.1 H MCH 30.0 MCHC 31.9 L RDW Std Deviation 47.0 H RDW Coeff of Christy 13.4 Plt Count 258 MPV 8.8 Immature Gran % (Auto) 0.200 Neut % (Auto) 85.1 H Lymph % (Auto) 6.3 L [place] % (Auto) 7.6 Eos % (Auto) 0.2 Baso % (Auto) 0.6 Absolute Neuts (auto) 8.6 H Absolute Lymphs (auto) 0.64 L Nucleated RBC % 0 D-Dimer Quant (PE/DVT) 0.47 Sodium 137 Potassium 4.3 Chloride 88 L Carbon Dioxide > 45.0 H* Anion Gap TNP BUN 15 Creatinine 0.74 Estim Creat Clear Calc 37.12 Est GFR (MDRD) Af Amer 133 Est GFR (MDRD) Non-Af 110 BUN/Creatinine Ratio 20.2 H Glucose 117 H Calcium 9.7 Total Bilirubin 0.60 AST 19 ALT 22 Alkaline Phosphatase 69 Troponin I 0.042 Total Protein 7.2 Albumin 3.7 Globulin 3.5 Albumin/Globulin Ratio 1.1 Micro: Microbiology 10/06/20 11:50 SARS-CoV-2 Antigen (Rapid) - Final Interface Orders ABG Data ABG results: ABG 10/06/20 12:15 Specimen Type ART Sample Site R Radial pH 7.37 Bicarbonate Actual 43.8 H Total CO2 46 Base Excess 19 H O2 Saturation 87 L ABG pCO2 75.2 H* ABG pO2 58 L Marcel Test Positive O2 Delivery Device Cannula Liter Flow 4.0 Crit Call To/Read Back Yes Blood Gas Notified Whom dr emmanuel Clinical Comments Radiology Impression Chest X-Ray 10/06/20 11:47 IMPRESSION: No acute findings, no change since prior. Severe emphysema. Electronically Signed: Sathish Everett MD at 13:05 EDT Tel , Service support , Assessment & Plan Assessment/Plan (1) Acute respiratory failure: QUALIFIERS: Respiratory failure complication: hypoxia and hy percapnia Qualified Code(s): J96.01 - Acute respiratory failure with hypoxia; J96.02 - Acute respiratory failure with hypercapnia (2) Benign essential HTN: (3) COPD exacerbation: (4) HLD (hyperlipidemia): QUALIFIERS: Hyperlipidemia type: unspecified Qualified Code(s): E78.5 - Hyperlipidemia, unspecified PLAN: #Acute on chronic hypoxic respiratory failure due to COPD exacerbation * admit to PCU with telemetry * titrate oxygen to maintain sats >90% * breathing treatment with bronchodilators * IV solumedrol; IV levofloxacin o/a of severe COPD exacerbation * #COPD exacerbation: as above #SIRS criteria: tachypnea and tachycardia due to COPD exacerbation: Not sepsis. Will monitor. #Hypertension: on lisinopril #Hyperlipidemia: on statin #GERD: on PPI #SEvere protein calorie malnutrition: BMI is 12.9. Also likely due to end stage COPD. 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 consult wound care. COde status: DNRCCA no intubation * Patient and counseled extensively about differences between full code, DNR CCA and DNR CCA. Patient elects to be DNR CCA. Total [id number] time 17 minutes. Procedures Hospitalists Procedures: 77150 Advncd Care Plan 30 Min Multi Select Codes Visit Charges Visit Charges: 04754 Init Hosp L3
[2020-10-06] MEDS: MethylPREDNISolone 125 MG/2 ML Vial IV (14:07)
--- NOTE | 2020-10-06 16:04 | CPS ---
discontinued duoneb order d/t pt's tachycardia per Dr Zuleta
--- NOTE | 2020-10-06 16:20 | NURSING ---
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 states that patient previously seeing wound center but now refuses to go. Educated patient and offered to apply either a mepilex or duoderm and patient refused both. Patient made q2T.
[2020-10-06] MEDS: levoFLOXacin IV 750 MG/150 ML BAG 100 MG IV (17:37)
[2020-10-06] MEDS: 0.9% Normal Saline 1,000 ML 75 ML IV (17:37)
[2020-10-06] MEDS: ALPRAZolam 0.5 MG Tablet PO (18:38)
[2020-10-06] MEDS: Ipratropium 0.5 MG/2.5 ML SOLUTION INHALATION (18:55)
[2020-10-06] MEDS: Senna/Docusate Sodium 1 Tablet 2 TABLET PO (21:26)
[2020-10-06] MEDS: Pravastatin 20 MG Tablet PO (21:26)
[2020-10-06] MEDS: Tamsulosin HCl 0.4 MG Capsule 0.8 MG PO (21:26)
[2020-10-06] MEDS: Pantoprazole Sodium 40 MG Tablet PO (21:26)
[2020-10-07] VITALS (20 sets, daily range): BP systolic 110–149; BP diastolic 80–97; PULSE 89–118; RESP 12–32; TEMP 36.4–36.9; O2SAT 92–98; BMI 12.9
[2020-10-07] MEDS: Ipratropium 0.5 MG/2.5 ML SOLUTION INHALATION ×4 (01:23→18:41)
[2020-10-07] MEDS: ALPRAZolam 0.5 MG Tablet PO ×3 (01:51→22:48)
[2020-10-07 05:58] LABS: Absolute Lymphocyte Count 0.35 X10^3/uL (0.83-4.51); Absolute Neutrophil Count 5.4 X10^3/uL (2.0-7.7); Basophil# 0.01 X10^3/uL; Basophil% 0.2 % (0-1); Hematocrit 38.1 % (40-54); Hemoglobin 12.3 g/dL (13.0-16.5); Lymphocyte # 0.35 X10^3/ul (0.83-4.51); Lymphocyte % 5.5 % (19-41); Mean Corp Hgb Conc 32.3 g/dL (32-36); Mean Corpuscular Hgb 29.7 pg (27.0-32.0); Mean Platelet Vol. 9.1 fl (6.2-12.0); Monocyte# 0.58 X10^3/uL; Monocyte% 9.1 % (0-10); NRBC Flagged by Analyzer 0 % (0-5); Neutrophil # 5.42 X10^3/uL (2.7-7.7); Neutrophil % 84.9 % (47-70); POSITIVE DIFFERENTIAL YES; Platelet Count 238 K/mm3 (150-450); RBC Distribution Width CV 13.3 % (11.6-14.6); RBC Distribution Width SD 45.1 fl (35.1-43.9); Red Blood Count 4.14 M/mm3 (4.6-6.2); White Blood Count 6.4 K/mm3 (4.4-11.0)
[2020-10-07 06:09] LABS: Differential Indicated SCAN CRITERIA MET
[2020-10-07 06:19] LABS: Anion Gap 5 (5-15); BUN 23 mg/dL (7-18); BUN/Creat Ratio 36.1 RATIO (10-20); Calcium,Total 8.9 mg/dL (8.5-10.1); Chloride 90 mmol/L (98-107); Creatinine, Serum 0.64 mg/dL (0.70-1.30); EST Glomerular Filtration Rate 131 mL/min (>60); Est Glom Filt Rate - Afr Amer 158 mL/min (>60); Estimated Creatinine Clearance 35.32 ml/min; Glucose 94 mg/dL (74-106); Potassium 3.6 mmol/L (3.5-5.1); Sodium Level 136 mmol/L (136-145)
[2020-10-07] MEDS: Loratadine 10 MG Tablet PO (08:24)
[2020-10-07] MEDS: Fluticasone 0.05% 1 SPRAY NASAL.SRY 2 SPRAY NASAL (08:24)
[2020-10-07] MEDS: Senna/Docusate Sodium 1 Tablet 2 TABLET PO ×2 (08:24→21:39)
[2020-10-07] MEDS: Aspirin 81 MG TAB.CHEW PO (08:24)
[2020-10-07] MEDS: Pantoprazole Sodium 40 MG Tablet PO ×2 (08:24→21:39)
[2020-10-07] MEDS: Ensure Clear 120 ML Liquid PO ×3 (08:36→21:38)
[2020-10-07] MEDS: Enoxaparin 40 MG/0.4 ML Syringe SC (08:36)
[2020-10-07] MEDS: Ammonium Lactate 225 gm Bottle 1 APPLIC TOPICAL (08:36)
--- NOTE | 2020-10-07 09:33 | EX.PCM.CONCC ---
Assessment & Plan Assessment/Plan (1) Acute respiratory failure with hypoxia and hypercapnia: (2) COPD exacerbation: (3) Malnutrition: (4) Anxiety and depression: (5) GERD (gastroesophageal reflux disease): (6) HLD (hyperlipidemia): QUALIFIERS: Hyperlipidemia type: unspecified Qualified Code(s): E78.5 - Hyperlipidemia, unspecified PLAN: RECOMMENDATIONS: 1. Continue antibiotics, steroids and bronchodilators 2. Consider palliative care consultation 3. BiPAP breaks as tolerated 4. Wean oxygen as tolerated 5. Okay to continue baseline medications as long as respiratory status allows p.o. intake 6. Monitor for refeeding with daily electrolytes IMPRESSIONS: 1. Acute on chronic combined respiratory failure secondary to COPD exacerbation/end-stage COPD Patient with multiple admissions for respiratory failure. Patient typically follows at the [facility]. Given advanced nature, infiltrates on imaging will be difficult to discern. Agree with antibiotics, steroids and bronchodilators. Anticipate at least a 5-day course of antibiotics given patient's tenuous prognosis. Ideally, patient would have a complete pulmonary function test as an outpatient and would likely qualify for AVAPS at home. 2. 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 Patient does have significant cachexia and malnutrition noted. It is unclear if this is strictly secondary to pulmonary status or if patient has a concurrent malignancy. Clinical suspicion is patient is approaching end-stage and may benefit from a palliative care consultation for evaluation of goals of therapy and potential hospice. 3. Hypertension/hyperlipidemia/anxiety/depression/BPH/GERD/malnutrition Complicates care, management, recovery and prognosis. Okay to continue with baseline medications from my perspective. We will have to watch for refeeding syndrome with daily electrolytes. Supplement as necessary. In my opinion, patient would benefit from community care network and availability of local specialists given severity of underlying issues. [facility] to [facility]. This process is reportedly underway. HPI Consult Data Date of Consult: 10/07/20 HPI Narrative HPI Narrative: RAFAEL ARGUELLO is a 74-year-old male, with past medical history listed below, who presented to [facility] on 10/06/2020 secondary to progressive shortness of breath. Patient states he has had shortness of breath for quite some time, but it progressed on the day of presentation. Patient was satting 88% on his baseline 3 L nasal cannula, so presented to the ER when his inhalers failed to improve his condition. Patient did also reported some nausea that was exacerbated with any p.o. intake. Patient had denied any fever, cough, chest pain or exposure to Covid. On arrival to the ER, patient was noted to be 94% on 4 L, hypertensive at 154/112 and tachycardic at 112 bpm. No fever was noted. Patient did have to be placed on BiPAP therapy secondary to respiratory muscle fatigue. ABG showed compensated hypercarbic respiratory failure with hypoxia. An EKG showed sinus tachycardia with an incomplete right bundle. Patient reportedly was noted to have significant improvement on albuterol, Atrovent and BiPAP therapy, but the [facility] had no room, so patient was admitted to the floor for further evaluations. Patient had a similar type of presentation in April 2020, July and July 2020. Since being admitted to the hospital, patient reports subjective improvement on BiPAP therapy. Patient does admit that he has not been able to take much by mouth secondary to nausea associated with p.o. intake. Patient denied any fever, chills, lower extremity edema or chest pain. Patient states he follows at the [facility] for pulmonary, but has attempted to become part of the community care network to allow for closer monitoring. Patient denies any significant weight loss recently, but has had significant weight loss over the past 1 to 2 years. Patient has very poor insight into his overall respiratory status. Review of systems otherwise negative from a constitutional, HEENT, respiratory, cardiovascular, GI, genitourinary, musculoskeletal, skin, neurologic, psychiatric and hematologic system unless stated above. [facility] Medical History (Updated 10/06/20 @ 15:11 by Shira Feliciano) Anxiety COPD (chronic obstructive pulmonary disease) Depression Former smoker GERD (gastroesophageal reflux disease) Hypertension On home oxygen therapy Home Medications budesonide-formoterol 2 puff INHALATION BID 05/15/20 [History Last Taken 05/15/20] ergocalciferol (vitamin D2) 50,000 unit PO QMONTH 05/15/20 [History Last Taken Unknown] food supplemt, lactose-reduced 120 ml PO 4X/DAY 05/15/20 [History Last Taken 10/06/20] guaifenesin 800 mg PO TID 05/15/20 [History Last Taken 10/06/20] hydrocortisone-pramoxine 1 applic TP DAILY 05/15/20 [History Last Taken 10/06/20] omeprazole 40 mg PO BID 05/15/20 [History Last Taken 10/06/20] pravastatin 20 mg PO QHS 05/15/20 [History Last Taken 10/05/20] ropinirole 1 mg PO QHS PRN PRN 05/15/20 [History Last Taken Unknown] tamsulosin 0.8 mg PO DAILY 05/15/20 [History Last Taken 10/06/20] theophylline 300 mg PO BID 05/15/20 [History Last Taken 10/06/20] tiotropium bromide 18 mcg IH DAILY 05/15/20 [History Last Taken 10/06/20] Ammonium Lactate 1 applic TOPICAL DAILY 08/16/20 [History Last Taken Unknown] alprazolam 0.5 mg PO TID PRN PRN 08/16/20 [History Last Taken 10/05/20] aspirin 81 mg PO DAILY@0800 08/16/20 [History Last Taken 10/05/20] fluticasone propionate 2 spray NASAL DAILY 08/16/20 [History Last Taken 10/06/20] loratadine 10 mg PO DAILY 08/16/20 [History Last Taken 10/06/20] albuterol sulfate 2 puff INHALATION Q6H PRN 10/06/20 [History Last Taken Unknown] sennosides-docusate sodium [Senna with Docusate Sodium] 2 tab PO BID 10/06/20 [History Last Taken 10/06/20] Allergy/AdvReac Type Severity Reaction Status Date / Time clonazepam Allergy Shortness Verified 10/06/20 11:43 of breath Tetanus Vaccines and Toxoid Allergy Swelling Verified 10/06/20 11:43 Surgical History History of appendectomy Social History Smoking Status: Former smoker ROS ROS Narrative See HPI Physical Exam Const alert and oriented x3 General Appearance: cooperative, anxious, appears older than stated age and on BiPAP; Negative for combative Orientation / Consciousness: awake Nutritional Appearance: cachectic HEENT normocephalic HEENT Narrative: Temporal wasting noted Head and Scalp: atraumatic Nose: external nose normal Eyes PERRL and EOMs intact bilaterally Neck no lymphadenopathy, supple, no JVD and no carotid bruits General: normal visual inspection Chest Chest: abnormal inspection of the chest barrel chest Resp Effort and Inspection: symmetric chest movement and prolonged expiratory phase Auscultation: diminished lung sounds; Negative for rales, rhonchi or wheezes Percussion: hyperresonance Cardio regular rhythm, no murmurs, no rub and no gallops Palpation: abnormal PMI displaced PMI Rate: tachycardic GI normal to inspection, nondistended, normoactive bowel sounds and soft to palpation Extremity normal capillary refill General Extremity: atrophy and clubbing; Negative for edema Peripheral Pulses: Yes pulses 2+ throughout Skin no rashes or lesions noted Neuro CN's II-XII intact bilaterally Psych cooperative Activity / Motor Behavior: appropriate eye contact Speech: normal speech Mood & Affect: anxious Thought Process: normal thought process Attention / Concentration: attention grossly intact Insight: fair Lab / Micro Data Result Diagrams: 10/07/20 05:24 10/07/20 05:24 Labs: Laboratory Results - last 24 hr 10/06/20 10/06/20 10/06/20 12:05 12:05 12:05 WBC 10.1 RBC 4.93 Hgb 14.8 Hct 46.4 MCV 94.1 H MCH 30.0 MCHC 31.9 L RDW Std Deviation 47.0 H RDW Coeff of Christy 13.4 Plt Count 258 MPV 8.8 Immature Gran % (Auto) 0.200 Neut % (Auto) 85.1 H Lymph % (Auto) 6.3 L [place] % (Auto) 7.6 Eos % (Auto) 0.2 Baso % (Auto) 0.6 Absolute Neuts (auto) 8.6 H Absolute Lymphs (auto) 0.64 L Nucleated RBC % 0 D-Dimer Quant (PE/DVT) 0.47 Sodium 137 Potassium 4.3 Chloride 88 L Carbon Dioxide > 45.0 H* Anion Gap TNP BUN 15 Creatinine 0.74 Estim Creat Clear Calc 37.12 Est GFR (MDRD) Af Amer 133 Est GFR (MDRD) Non-Af 110 BUN/Creatinine Ratio 20.2 H Glucose 117 H Calcium 9.7 Total Bilirubin 0.60 AST 19 ALT 22 Alkaline Phosphatase 69 Troponin I 0.042 Total Protein 7.2 Albumin 3.7 Globulin 3.5 Albumin/Globulin Ratio 1.1 10/07/20 10/07/20 05:24 05:24 WBC 6.4 RBC 4.14 L Hgb 12.3 L Hct 38.1 L MCV 92.0 MCH 29.7 MCHC 32.3 RDW Std Deviation 45.1 H RDW Coeff of Christy 13.3 Plt Count 238 MPV 9.1 Immature Gran % (Auto) 0.300 Neut % (Auto) 84.9 H Lymph % (Auto) 5.5 L [place] % (Auto) 9.1 Eos % (Auto) 0.0 Baso % (Auto) 0.2 Absolute Neuts (auto) 5.4 Absolute Lymphs (auto) 0.35 L Nucleated RBC % 0 D-Dimer Quant (PE/DVT) Sodium 136 Potassium 3.6 Chloride 90 L Carbon Dioxide 41.0 H Anion Gap 5 BUN 23 H Creatinine 0.64 L Estim Creat Clear Calc 35.32 Est GFR (MDRD) Af Amer 158 Est GFR (MDRD) Non-Af 131 BUN/Creatinine Ratio 36.1 H Glucose 94 Calcium 8.9 Total Bilirubin AST ALT Alkaline Phosphatase Troponin I Total Protein Albumin Globulin Albumin/Globulin Ratio Micro: Microbiology 10/06/20 11:50 SARS-CoV-2 Antigen (Rapid) - Final Interface Orders ABG Data ABG results: ABG 10/06/20 12:15 Specimen Type ART Sample Site R Radial pH 7.37 Bicarbonate Actual 43.8 H Total CO2 46 Base Excess 19 H O2 Saturation 87 L ABG pCO2 75.2 H* ABG pO2 58 L Marcel Test Positive O2 Delivery Device Cannula Liter Flow 4.0 Crit Call To/Read Back Yes Blood Gas Notified Whom dr emmanuel Clinical Comments Radiology Impression Chest X-Ray 10/06/20 11:47 IMPRESSION: No acute findings, no change since prior. Severe emphysema. Electronically Signed: Sathish Everett MD at 13:05 EDT Tel , Service support , Charges/Coding Visit Charges Inpatient E&M: 85167 Init Hosp L3
--- NOTE | 2020-10-07 11:58 | CASEMGMT ---
ALONSO CAMACHO Assessment: Face to Face with pt for initial transition planning/care coordination assessment. ALONSO CAMACHO introduced self and role at [facility], pt voices understanding and consents to assessment. Pt is A/O x4 and answers all questions appropriately at this time. Pt sitting up in bed with O2 on, very sob with talking. Care providers, pharmacy, and demographics verified/updated. 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 Preferred Pharmacy: [facility] Insurance: [facility] Benefits, [facility] Prescription Benefit: Yes, receives meds through [place] LW/HPOA: Pt has LW and DPOA on file at [facility]. DPOA is Sonia Saenz LNOK: Sonia Saenz, ; Wagner Saenz, son Living Arrangements: Pt lives with in a single story condo with no steps to enter. Pt states he tries to perform own ADL's and assists. Pt states he does minimal as he is so sob with activity. Denies concerns at home. Transportation: Pt transports pt. Denies any concerns with transportation. DME/HHC/SNF: Pt has O2, walker, w/c and grab bars at home. Pt states he is on 3L NC cont at home. Pt denies having any previous HHC or SNF stays. Pt states he has not been in a SNF and will not go to one. Discussed HHC with him. Pt states he cannot have services due to the [facility]. States if he has HHC, the [facility] will not provide meds. Attempted to explain to pt that he could have HHC with the [facility], pt states he does not want. Pt states others have tried to get him to go with hospice and he does not want that either. Pt states no concerns with going home at time of dc. Pt states no further concerns/needs. CM to follow for increased O2 needs. . Advised pt to ask CM if any further question/concerns/needs arise, voices understanding. Pt Goal: Home Plan: Home with family support
[2020-10-07] MEDS: Acetaminophen 325 MG Tablet 650 MG PO (13:54)
[2020-10-07] MEDS: 0.9% Saline Lock 10 ML Syringe IV ×2 (13:55→21:44)
--- NOTE | 2020-10-07 14:47 | PCM.NTREPORT ---
Nutrition Therapy Report - History Nutrition Services has been consulted to:: Manage nutrient details of diet order Current diet / nutrition support order:: regular; ensure clear 120mL 4x/day - Anthropometric Measurements Height:: 5 ft 7 in Weight:: 37.4 kg Body Mass Index (BMI):: 12.9 - Relevant Labs Relevant Labs:: RBC 4.14 M/mm3 (4.6-6.2) L 10/07/20 05:24 Hgb 12.3 g/dL (13.0-16.5) L 10/07/20 05:24 Hct 38.1 % (40-54) L 10/07/20 05:24 MCV 94.1 fL (80-94) H 10/06/20 12:05 MCHC 31.9 g/dL (32-36) L 10/06/20 12:05 RDW Std Deviation 45.1 fl (35.1-43.9) H 10/07/20 05:24 Neut % (Auto) 84.9 % (47-70) H 10/07/20 05:24 Lymph % (Auto) 5.5 % (19-41) L 10/07/20 05:24 Absolute Neuts (auto) 8.6 X10^3/uL (2.0-7.7) H 10/06/20 12:05 Absolute Lymphs (auto) 0.35 X10^3/uL (0.83-4.51) L 10/07/20 05:24 Chloride 90 mmol/L (98-107) L 10/07/20 05:24 Carbon Dioxide 41.0 mmol/L (21.0-32.0) H 10/07/20 05:24 BUN 23 mg/dL (7-18) H 10/07/20 05:24 Creatinine 0.64 mg/dL (0.70-1.30) L 10/07/20 05:24 BUN/Creatinine Ratio 36.1 RATIO (10-20) H 10/07/20 05:24 Glucose 117 mg/dL (74-106) H 10/06/20 12:05 - Assessment Food / Nutrition-Related History:: Describes poor PO intake for awhile. Complains of nausea when eating. Has had significant wt loss over past 3 months. Per EMR, was 98.3# on 2/5/21 and CBW 82.5#-15.8#/16% wt loss x3 months is significant for severe malnutrition. Nutrition focused physical assessment suggests severe muscle wasting/fat loss. No special diet at home- has Ensure at home and tries to drink daily. - Nutrition Diagnosis Problem / Etiology / Signs & Symptoms (PES):: severe, chronic malnutrition r/t inadequate energy intake w/ increased energy needs d/t COPD as evidenced by unintentional wt loss of 15.8#/16% x 3 months, estimated PO intake meeting <75% of nutritional needs >3 months, severe muscle wasting/fat loss Evidence of Malnutrition Exists:: Yes Severe PCM:: Chronic Illness - Nutrition Intervention Nutrition Prescription:: [id number] calories/day (1.3xRMR). 37-57 g protein/day (1-1.5g/kg). 1122mL fluid/day (30mL/kg). Pt at very high risk for refeeding syndrome given BMI of 12.9-recommend gradual increase of calories/protein and close monitoring of electrolytes. - Food / Nutrient Delivery Interventions Summary of nutrition intervention:: Pt w/ limited interest in eating this date. Lunch order taken for pt- broth, 1/2 egg salad sandwich. Pt states he is agreeable to Ensure Clear w/ medpass. Willing to try milkshake made w/ magic cup and ensure enlive at lunch. No further questions for RDN at this time. Nutrition support ordered as / adjusted to:: continue regular diet as tolerated, consistency per WEATHERIZATION COORDINATOR. Continue Ensure Clear w/ medpass- pt aware he can request Ensure Enlive when ready. Will provide fortified foods when possible and ensure/magic cup milkshake BID. Will monitor electrolytes for signs of refeeding. Nutrition education provided?: Yes - MNT Monitoring Further MNT monitoring and evaluation required?: Yes MNT Follow-up in:: 3-5 days
--- NOTE | 2020-10-07 14:47 | CASEMGMT ---
Pt qualifies for palliative consult per [facility] palliative screening tool and Dr. Nettles is agreeable. Referral faxed and called to palliative at this time. [place] GUPTA CM
[2020-10-07 16:00] LABS: Phosphorus 3.2 mg/dL (2.5-4.9)
--- NOTE | 2020-10-07 16:05 | PN.HOSP_ITS ---
Subjective Subjective: Patient was seen and examined. He was on Bipap the whole time. He denied any new complains. He is not interested in palliative care or Hospice. He confirmed his code status as DNR-CCA, no intubation. His was at the bedside Objective Data Objective Data Vital Signs: Vital Signs Temp Pulse Resp BP Pulse Ox 97.6 F L 108 H 22 H 139/92 H 97 10/07/20 14:00 10/07/20 14:00 10/07/20 14:00 10/07/20 14:00 10/07/20 14:00 Oxygen Flow Rate (L/min) 3 Oxygen Delivery Method Nasal Cannula Weight: 37.4 kg Body Mass Index (BMI) 12.9 Intake & Output: Intake and Output for Last 24 Hours 10/05/20 10/06/20 10/07/20 23:59 23:59 23:59 Intake Total 153.75 / 213.75 1176.25 / 1176.25 Output Total 555 / 555 Balance 153.75 / -11.25 621.25 / 621.25 Lab / Micro Data Result Diagrams: 10/07/20 05:24 10/07/20 05:24 Labs: Laboratory Results - last 24 hr 10/07/20 10/07/20 10/07/20 05:24 05:24 05:24 WBC 6.4 RBC 4.14 L Hgb 12.3 L Hct 38.1 L MCV 92.0 MCH 29.7 MCHC 32.3 RDW Std Deviation 45.1 H RDW Coeff of Christy 13.3 Plt Count 238 MPV 9.1 Immature Gran % (Auto) 0.300 Neut % (Auto) 84.9 H Lymph % (Auto) 5.5 L [place] % (Auto) 9.1 Eos % (Auto) 0.0 Baso % (Auto) 0.2 Absolute Neuts (auto) 5.4 Absolute Lymphs (auto) 0.35 L Nucleated RBC % 0 Sodium 136 Potassium 3.6 Chloride 90 L Carbon Dioxide 41.0 H Anion Gap 5 BUN 23 H Creatinine 0.64 L Estim Creat Clear Calc 35.32 Est GFR (MDRD) Af Amer 158 Est GFR (MDRD) Non-Af 131 BUN/Creatinine Ratio 36.1 H Glucose 94 Calcium 8.9 Phosphorus 3.2 Magnesium 2.0 Micro: Microbiology 10/06/20 11:50 Interface Orders SARS-CoV-2 Antigen (Rapid) - Final Assessment & Plan Assessment/Plan (1) Acute respiratory failure: QUALIFIERS: Respiratory failure complication: hypoxia and hypercapnia Qualified Code(s): J96.01 - Acute respiratory failure with hypoxia; J96.02 - Acute respiratory failure with hypercapnia (2) Benign essential HTN: (3) COPD exacerbation: (4) HLD (hyperlipidemia): QUALIFIERS: Hyperlipidemia type: unspecified Qualified Code(s): E78.5 - Hyperlipidemia, unspecified PLAN: 1. Acute on chronic hypoxic respiratory failure due to COPD exacerbation Continue on Bipap alternating with nasal canula oxygen Continue on IV solumedrol, IV levofloxacin 2. Severe protein calorie malnutrition: BMI is 12.9. Also likely due to end stage COPD. Consult dietici 3. 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 Rest of chronic medical problems - Hypertension, BPH, Anxiety/depression all remains stable Continue home medications Visit Charges Inpatient E&M: 58964 Subs Hosp L2
[2020-10-07] MEDS: Magnesium Hydroxide 30 ML UDC PO (21:38)
[2020-10-07] MEDS: Pravastatin 20 MG Tablet PO (21:39)
[2020-10-07] MEDS: Tamsulosin HCl 0.4 MG Capsule 0.8 MG PO (21:39)
[2020-10-08] VITALS (11 sets, daily range): BP systolic 115–138; BP diastolic 78–99; PULSE 66–109; RESP 16–20; TEMP 36.5–36.8; O2SAT 92–96
--- NOTE | 2020-10-08 02:58 | CPS ---
pt refusing bipap at this time
[2020-10-08] MEDS: 0.9% Saline Lock 10 ML Syringe IV ×2 (05:26→14:09)
[2020-10-08 05:57] LABS: Absolute Lymphocyte Count 0.32 X10^3/uL (0.83-4.51); Absolute Neutrophil Count 11.3 X10^3/uL (2.0-7.7); Basophil# 0.01 X10^3/uL; Basophil% 0.1 % (0-1); Hematocrit 40.9 % (40-54); Hemoglobin 12.9 g/dL (13.0-16.5); Lymphocyte # 0.32 X10^3/ul (0.83-4.51); Lymphocyte % 2.6 % (19-41); Mean Corp Hgb Conc 31.5 g/dL (32-36); Mean Corpuscular Hgb 29.3 pg (27.0-32.0); Mean Corpuscular Volume 92.7 fL (80-94); Mean Platelet Vol. 9.3 fl (6.2-12.0); Monocyte# 0.76 X10^3/uL; Monocyte% 6.1 % (0-10); NRBC Flagged by Analyzer 0 % (0-5); Neutrophil # 11.31 X10^3/uL (2.7-7.7); Neutrophil % 90.7 % (47-70); POSITIVE DIFFERENTIAL YES; Platelet Count 226 K/mm3 (150-450); RBC Distribution Width CV 13.6 % (11.6-14.6); RBC Distribution Width SD 46.7 fl (35.1-43.9); Red Blood Count 4.41 M/mm3 (4.6-6.2); White Blood Count 12.5 K/mm3 (4.4-11.0)
[2020-10-08 06:07] LABS: Differential Indicated SCAN CRITERIA MET
[2020-10-08 06:28] LABS: ALB/GLOB Ratio 1.2 RATIO (0.9-2.4); AST(SGOT) 13 U/L (15-37); Alanine Aminotransfer ALT/SGPT 22 U/L (16-61); Albumin, Serum 3.1 g/dL (3.2-5.0); Alkaline Phosphatase 52 U/L (45-117); Anion Gap 0 (5-15); BUN 25 mg/dL (7-18); BUN/Creat Ratio 43.3 RATIO (10-20); Calcium,Total 8.8 mg/dL (8.5-10.1); Chloride 93 mmol/L (98-107); Creatinine, Serum 0.58 mg/dL (0.70-1.30); EST Glomerular Filtration Rate 147 mL/min (>60); Est Glom Filt Rate - Afr Amer 178 mL/min (>60); Estimated Creatinine Clearance 35.32 ml/min; Globulin 2.6 g/dL (2.2-4.2); Glucose 112 mg/dL (74-106); Magnesium 2.3 mg/dL (1.6-2.6); Phosphorus 3.2 mg/dL (2.5-4.9); Potassium 3.9 mmol/L (3.5-5.1); Protein, Total 5.7 g/dL (6.4-8.2); Sodium Level 138 mmol/L (136-145)
--- NOTE | 2020-10-08 07:29 | PCM.PN.INT ---
Subjective Subjective: Patient did well overnight from a hemodynamic standpoint. Patient still has marginal p.o. intake. Patient is not reporting any significant dyspnea this morning, but does feel cold. Patient states this is typical for him. Objective Data Objective Data Vital Signs: Vital Signs Temp Pulse Resp BP Pulse Ox 36.5 C L 66 20 H 115/78 95 10/08/20 04:00 10/08/20 07:00 10/08/20 04:00 10/08/20 04:00 10/08/20 04:00 Oxygen Flow Rate (L/min) 3 Oxygen Delivery Method Nasal Cannula Weight: 39.7 kg Body Mass Index (BMI) 12.9 Intake & Output: Intake and Output for Last 24 Hours 10/06/20 10/07/20 10/08/20 23:59 23:59 23:59 Intake Total 153.75 / 213.75 1516.25 / 1516.25 50 / 50 Output Total 1330 / 1330 325 / 325 Balance 153.75 / -11.25 186.25 / 186.25 -275 / -275 Lab / Micro Data Result Diagrams: 10/08/20 05:22 10/08/20 05:22 Labs: Laboratory Results - last 24 hr 10/07/20 10/08/20 10/08/20 05:24 05:22 05:22 WBC 12.5 H RBC 4.41 L Hgb 12.9 L Hct 40.9 MCV 92.7 MCH 29.3 MCHC 31.5 L RDW Std Deviation 46.7 H RDW Coeff of Christy 13.6 Plt Count 226 MPV 9.3 Immature Gran % (Auto) 0.500 Neut % (Auto) 90.7 H Lymph % (Auto) 2.6 L [facility] % (Auto) 6.1 Eos % (Auto) 0.0 Baso % (Auto) 0.1 Absolute Neuts (auto) 11.3 H Absolute Lymphs (auto) 0.32 L Nucleated RBC % 0 Sodium 138 Potassium 3.9 Chloride 93 L Carbon Dioxide 45.0 H Anion Gap 0 L BUN 25 H Creatinine 0.58 L Estim Creat Clear Calc 35.32 Est GFR (MDRD) Af Amer 178 Est GFR (MDRD) Non-Af 147 BUN/Creatinine Ratio 43.3 H Glucose 112 H Calcium 8.8 Phosphorus 3.2 3.2 Magnesium 2.0 2.3 Total Bilirubin 0.50 AST 13 L ALT 22 Alkaline Phosphatase 52 Total Protein 5.7 L Albumin 3.1 L Globulin 2.6 Albumin/Globulin Ratio 1.2 Micro: Microbiology 10/06/20 11:50 Interface Orders SARS-CoV-2 Antigen (Rapid) - Final Physical Exam Const alert and oriented x3 General Appearance: cooperative, anxious and appears older than stated age; Negative for combative or on BiPAP Orientation / Consciousness: awake Nutritional Appearance: cachectic HEENT normocephalic Eyes PERRL and EOMs intact bilaterally Neck no lymphadenopathy, supple, no JVD and no carotid bruits General: normal visual inspection Chest Chest: abnormal inspection of the chest barrel chest Resp Resp Narrative: Slightly improved air exchange compared to yesterday. Effort and Inspection: symmetric chest movement and prolonged expiratory phase Auscultation: diminished lung sounds; Negative for rales, rhonchi or wheezes Percussion: hyperresonance Cardio regular rhythm, no murmurs, no rub and no gallops Palpation: abnormal PMI displaced PMI Rate: tachycardic GI normal to inspection, nondistended, normoactive bowel sounds and soft to palpation Extremity normal capillary refill General Extremity: atrophy and clubbing; Negative for edema Skin no rashes or lesions noted Neuro CN's II-XII intact bilaterally Psych cooperative Activity / Motor Behavior: appropriate eye contact Speech: normal speech Mood & Affect: anxious Thought Process: normal thought process Attention / Concentration: attention grossly intact Insight: fair Assessment & Plan Assessment/Plan (1) Acute respiratory failure with hypoxia and hypercapnia: (2) COPD exacerbation: (3) Malnutrition: (4) Anxiety and depression: (5) GERD (gastroesophageal reflux disease): (6) HLD (hyperlipidemia): QUALIFIERS: Hyperlipidemia type: unspecified Qualified Code(s): E78.5 - Hyperlipidemia, unspecified PLAN: RECOMMENDATIONS: 1. Continue antibiotics, steroids and bronchodilators 2. Consider palliative care consultation 3. BiPAP breaks as tolerated. Consider AVAPS as an outpatient 4. Wean oxygen as tolerated. Keep saturations between 88 and 92% 5. Okay to continue baseline medications as long as respiratory status allows p.o. intake 6. Monitor for refeeding with daily electrolytes IMPRESSIONS: 1. Acute on chronic combined respiratory failure secondary to COPD exacerbation/end-stage COPD Patient with multiple admissions for respiratory failure. Patient [facility] at [facility]. Given advanced nature, infiltrates on imaging will be difficult to discern. Agree with antibiotics, steroids and bronchodilators. Anticipate at least a 5-day course of antibiotics given patient's tenuous prognosis. Ideally, patient would have a complete pulmonary function test as an outpatient and would likely qualify for AVAPS at home given recurrent admissions and CO2 retention. 2. 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 Patient does have significant cachexia and malnutrition noted. It is unclear if this is strictly secondary to pulmonary status or if patient has a concurrent malignancy. Clinical suspicion is patient is approaching end-stage and may benefit from a palliative care consultation for evaluation of goals of therapy and potential hospice. Outpatient low-dose CT scan would be considered. Doubt inpatient CT scan would change inpatient plan of care. 3. Hypertension/hyperlipidemia/anxiety/depression/BPH/GERD/malnutrition Complicates care, management, recovery and prognosis. Okay to continue with baseline medications from my perspective. We will have to watch for refeeding syndrome with daily electrolytes. Supplement as necessary. In my opinion, patient would benefit from community care network and availability of local specialists given severity of underlying issues. Defer to social work [facility]. This process is reportedly underway. Visit Charges Inpatient E&M: 31764 Subs Hosp L2
[2020-10-08] MEDS: Polyethylene Glycol 3350 17 GM PACKET PO (08:35)
[2020-10-08] MEDS: Loratadine 10 MG Tablet PO (08:36)
[2020-10-08] MEDS: Senna/Docusate Sodium 1 Tablet 2 TABLET PO (08:36)
[2020-10-08] MEDS: Pantoprazole Sodium 40 MG Tablet PO (08:36)
[2020-10-08] MEDS: Aspirin 81 MG TAB.CHEW PO (08:37)
[2020-10-08] MEDS: Ensure Clear 120 ML Liquid PO (08:37)
[2020-10-08] MEDS: Fluticasone 0.05% 1 SPRAY NASAL.SRY 2 SPRAY NASAL (08:37)
[2020-10-08] MEDS: Ammonium Lactate 225 gm Bottle 1 APPLIC TOPICAL (08:38)
[2020-10-08] MEDS: Enoxaparin 40 MG/0.4 ML Syringe SC (08:39)
[2020-10-08] MEDS: levoFLOXacin IV 750 MG/150 ML BAG 100 MG IV (08:43)
--- NOTE | 2020-10-08 09:29 | CASEMGMT ---
SW received a call from Berenice with [facility]. She said she will be in to see patient today to discuss Palliative Care. Krupa ANDINO
[2020-10-08] MEDS: ALPRAZolam 0.5 MG Tablet PO (10:17)
--- NOTE | 2020-10-08 10:37 | CON.PCM_ITS ---
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 ?Patient would benefit from palliative care, would qualify for hospice but will start with palliative since he objects to hospice and see if we can assist with symptom management and provide assist in the home to help prevent readmissions t o the hospital. ?Patient would benefit from roxanol prior to nebulizers and for any tachypnea, but caution if not wearing BiPAP since CO2 retention. ?Would recommend close follow-up when discharged home. ?Patient states he will not use any form of PAP therapy at home, I did explain to him the consequences. He either wants everything figured out or he just wants to give up. He has declined hospice services, does not even want to discuss. States he does not trust them. Patient does not have realistic outlook on his prognosis. Thank you for the opportunity to participate in this patient's care, please do not hesitate to contact [facility] with any further questions or concer ns. Palliative direct line is [phone]. We will have RN follow up approximately 3 days after discharge to home and will discuss palliative services further at that time. He is reluctant to give OK a f/u in the home, he is avoiding the question. However, he wants help but is not willing to listen to recommendations. This patient would be a priority follow up as he has a very high risk of readmission, even within 24 hours. I did discuss that with him as well. Greater than 50% of F2F visit dedicated to education and counseling of palliative care services, medications, comorbid conditions and potential assistance with management, and plan of care moving forward. Discussed his end-stage lung disease, treatments, expected course. Start time: 1023 End time: 1120 HPI Consult Data Date of Consult: 10/08/20 HPI Narrative HPI Narrative: RAFAEL ARGUELLO, is a 74 M who presented 10/06/2020 with complaints of progressive shortness of breath over the course of a few days and increased lethargy. He was 88% on 3 L in the ED. 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 [facility] x-ray showed likely compressive atelectasis, severe emphysema. Patient was placed on BiPAP and admitted for further evaluation and management. He has been treated with IV steroids, bronchodilators, antibiotics, BiPAP with breaks on supplemental oxygen. Pulmonary was consulted and recommended palliative care consult versus potential hospice for clinical suspicion of approaching end-stage pulmonary disease and possible malignancy. Patient has had weight loss and is cachectic with malnutrition and nausea. Also suggested outpatient low-dose CT scan. Reports patient would likely qualify for AVAPS at home given recurrent admissions and CO2 retention. Patient is a DNR CCA with no intubation. He lives at home with his in a single-story condo with no steps to enter. Needs assist with all ADLs due to his dyspnea. His drives him for appointments. DME already in the home include supplemental O2 at 3 L/NC, walker, wheelchair, and grab bars. Typically follows at [facility]. He has had multiple admissions for respiratory failure. States others have tried to enroll him in hospice and he will always decline. 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 He refuses any treatment such as DuoDERM or Mepilex here in [facility]. Only allergies listed are to clonazepam and tetanus. We discussed hospice and palliative services at length, patient is very resistant to hear anything this provider has to say. He keeps circling back to how he is constipated and something needs done immediately. He has chronic constipation and states it makes his breathing worse. Discussed his home regimen for constipation and what typically works for him, however it is difficult to get a straight answer from the patient. We did discuss goals of care, and from what he is telling me, he would be more appropriate for hospice. He wants his chronic conditions fixed, and if they cannot be fixed, he says he just wants to go (). Denies any suicidal ideations. States he just cannot go on like this. Gently approached goals of care that aligned with hospice, he is adamantly refusing. He seems hesitant to even consider enrolling in palliative care, keeps saying I want to be fixed or left alone. Discussed patient with attending/hospitalist, Dr. Nettles and with the patient's nurse. [facility] Medical History Anxiety COPD (chronic obstructive pulmonary disease) Depression Former smoker GERD (gastroesophageal reflux disease) Hypertension On home oxygen therapy Home Medications budesonide-formoterol 2 puff INHALATION BID 05/15/20 [History Last Taken 05/15/20] ergocalciferol (vitamin D2) 50,000 unit PO QMONTH 05/15/20 [History Last Taken Unknown] food supplemt, lactose-reduced 120 ml PO 4X/DAY 05/15/20 [History Last Taken 10/06/20] guaifenesin 800 mg PO TID 05/15/20 [History Last Taken 10/06/20] hydrocortisone-pramoxine 1 applic TP DAILY 05/15/20 [History Last Taken 10/06/20] omeprazole 40 mg PO BID 05/15/20 [History Last Taken 10/06/20] pravastatin 20 mg PO QHS 05/15/20 [History Last Taken 10/05/20] ropinirole 1 mg PO QHS PRN PRN 05/15/20 [History Last Taken Unknown] tamsulosin 0.8 mg PO DAILY 05/15/20 [History Last Taken 10/06/20] theophylline 300 mg PO BID 05/15/20 [History Last Taken 10/06/20] tiotropium bromide 18 mcg IH DAILY 05/15/20 [History Last Taken 10/06/20] Ammonium Lactate 1 applic TOPICAL DAILY 08/16/20 [History Last Taken Unknown] alprazolam 0.5 mg PO TID PRN PRN 08/16/20 [History Last Taken 10/05/20] aspirin 81 mg PO DAILY@0800 08/16/20 [History Last Taken 10/05/20] fluticasone propionate 2 spray NASAL DAILY 08/16/20 [History Last Taken 10/06/20] loratadine 10 mg PO DAILY 08/16/20 [History Last Taken 10/06/20] albuterol sulfate 2 puff INHALATION Q6H PRN 10/06/20 [History Last Taken Unknown] sennosides-docusate sodium [Senna with Docusate Sodium] 2 tab PO BID 10/06/20 [History Last Taken 10/06/20] prednisone 10 mg PO DAILY #30 tablet 10/08/20 [Rx Last Taken Unknown] Allergy/AdvReac Type Severity Reaction Status Date / Time clonazepam Allergy Shortness Verified 10/06/20 11:43 of breath Tetanus Vaccines and Toxoid Allergy Swelling Verified 10/06/20 11:43 Surgical History History of appendectomy Social History Smoking Status: Former smoker ROS Constitutional Constitutional: Reports anorexia, fatigue, weakness and weight loss; Denies chills or fever(s) Eyes Eyes: Denies change in vision ENT HEENT: Denies sore throat Cardiovascular Cardiovascular: Reports orthopnea; Denies chest pain, edema or palpitations Respiratory/Chest Respiratory/Chest: Reports shortness of breath at rest, shortness of breath with exertion and wheezing Gastrointestinal Gastrointestinal: Reports constipation and nausea; Denies abdominal pain, diarrhea or vomiting Genitourinary Genitourinary: Denies dysuria Musculoskeletal Musculoskeletal: Reports muscle weakness; Denies back pain Neurologic Neurologic: Denies focal weakness, numbness, seizures, tingling or tremor(s) Psychiatric Psychiatric: Reports anxiety and depression Endocrine Endocrinology: Reports change in body appearance Hematologic/Lymphatic Hematologic/Lymphatic: Denies anemia Physical Exam Const alert Constitutional Narrative: resistant to conversation, care. Moderate conversational dyspnea. Refusing to answer some questions with straight answer, deflects HEENT normocephalic and head/scalp atraumatic Resp Effort and Inspection: tachypneic, labored and uses accessory muscles Auscultation: diminished lung sounds diffuse Cardio regular rhythm, S1 normal heart sound and S2 normal heart sound Rate: tachycardic GI normal to inspection, nondistended, normoactive bowel sounds Extremity General Extremity: Negative for edema Neuro Neuro Narrative: no neuro deficits noted. Psych Attitude: agitated Mood & Affect: flat affect Thought Content: No suicidality and No hallucination(s) Lab / Micro Data Result Diagrams: 10/08/20 05:22 05/11/21 05:22 Labs: Laboratory Results - last 24 hr 10/07/20 10/08/20 10/08/20 05:24 05:22 05:22 WBC 12.5 H RBC 4.41 L Hgb 12.9 L Hct 40.9 MCV 92.7 MCH 29.3 MCHC 31.5 L RDW Std Deviation 46.7 H RDW Coeff of Christy 13.6 Plt Count 226 MPV 9.3 Immature Gran % (Auto) 0.500 Neut % (Auto) 90.7 H Lymph % (Auto) 2.6 L [place] % (Auto) 6.1 Eos % (Auto) 0.0 Baso % (Auto) 0.1 Absolute Neuts (auto) 11.3 H Absolute Lymphs (auto) 0.32 L Nucleated RBC % 0 Sodium 138 Potassium 3.9 Chloride 93 L Carbon Dioxide 45.0 H Anion Gap 0 L BUN 25 H Creatinine 0.58 L Estim Creat Clear Calc 35.32 Est GFR (MDRD) Af Amer 178 Est GFR (MDRD) Non-Af 147 BUN/Creatinine Ratio 43.3 H Glucose 112 H Calcium 8.8 Phosphorus 3.2 3.2 Magnesium 2.0 2.3 Total Bilirubin 0.50 AST 13 L ALT 22 Alkaline Phosphatase 52 Total Protein 5.7 L Albumin 3.1 L Globulin 2.6 Albumin/Globulin Ratio 1.2
--- NOTE | 2020-10-08 11:57 | PCM.DC ---
Discharge Instructions Diet Discharge Diet: No restrictions Activity Discharge Activity: Return to Normal Activity Follow Up Care Test Results: Test results from this visit will be discussed in further detail at your follow-up appointment, if applicable. Discharge Plan Admission Admit Date/Time: 10/06/20 16:13 Primary Reason for Your Visit: Respiratory failure/Acute COPD exacerbation Attending Provider: Jalyn Nettles Primary Care Provider: [facility],[place] Consulting Providers: Kerwin Lazar ; Jamil Gross ; Haily Freeman [employer] Instructions Additional Instructions / Restrictions: Complete your antibiotics as prescribed. Continue to keep yourself hydrated. Follow-up with your primary care doctor within 1 to 2 weeks. Continue to follow-up with the DC. Discharge Orders/Prescriptions Prescriptions: New prednisone 10 mg tablet 10 mg PO DAILY Qty: 30 RF: 0 levofloxacin 500 mg tablet 500 mg PO DAILY Qty: 3 RF: 0 Continued tamsulosin 0.4 MG capsule 0.8 mg PO DAILY RF: 0 ropinirole 1 MG tablet 1 mg PO QHS PRN PRN (Reason: Restless Leg(S)) RF: 0 theophylline 300 MG tablet 300 mg PO BID RF: 0 pravastatin 20 MG tablet 20 mg PO QHS RF: 0 ergocalciferol (vitamin D2) 50,000 UNIT capsule 50,000 unit PO QMONTH RF: 0 tiotropium bromide 18 MCG capsule, w/inhalation device 18 mcg IH DAILY RF: 0 budesonide-formoterol 1 INHALER inhaler 2 puff INHALATION BID RF: 0 hydrocortisone-pramoxine 10 GM foam 1 applic TP DAILY RF: 0 omeprazole 20 MG capsule,delayed release(DR/EC) 40 mg PO BID RF: 0 food supplemt, lactose-reduced 120 ML liquid 120 ml PO 4X/DAY RF: 0 guaifenesin 400 MG tablet 800 mg PO TID RF: 0 Ammonium Lactate 1 applic TOPICAL DAILY RF: 0 aspirin 81 MG tablet,chewable 81 mg PO DAILY@0800 RF: 0 fluticasone propionate 1 SPRAY spray,suspension 2 spray NASAL DAILY RF: 0 loratadine 10 MG tablet 10 mg PO DAILY RF: 0 alprazolam 0.25 MG tablet 0.5 mg PO TID PRN PRN (Reason: Anxiety) RF: 0 sennosides-docusate sodium [Senna with Docusate Sodium] 8.6-50 mg Tablet 2 tab PO BID RF: 0 albuterol sulfate 90 mcg/actuation Hfa Aerosol Inhaler 2 puff INHALATION Q6H PRN (Reason: Shortness Of Breath Or Wheezing) RF: 0 Referrals / Follow Up: Haily Freeman NP, [employer] [Nurse Practitioner] - Within 2 Weeks [facility] - In 1 Week Disposition Disposition (needs filled in before D/C Order can be placed): Home, self care
--- NOTE | 2020-10-08 12:06 | CASEMGMT ---
RN CM in to pt room, at bedside. Pt and denies need for HHC, states the [facility] comes [facility] the [facility]. States it is not often, but she does come. wants services such as hospice or palliative, but pt does not. Denies further needs from CM.
--- NOTE | 2020-10-08 12:25 | PCM.DC.SUM ---
Providers Date of Admission: 10/06/20 Primary Care Physician: [facility] Consultations 10/06/20 16:19 Consult: Architectural Intern / Pulmonary Medicine Routine Consulting Provider: Pulmonary Medicine josh Hawley Reason for Consult: COPD exacerbation, acute on chronic respiratory failure EMERGENT Consult: No MD Notified: Yes Date Notified:: 10/06/20 Time Notified: 16:19 Method of Notification: Text Reason For Visit: ACUTE HYPOXIC RESPIRATORY FAILURE, Diagnosis Discharge Diagnosis (1) Shortness of breath: Status: Acute Code(s): R06.02 - Shortness of breath (2) Acute respiratory failure with hypoxia and hypercapnia: Status: Acute Code(s): J96.01 - Acute respiratory failure with hypoxia; J96.02 - Acute respiratory failure with hypercapnia (3) Severe protein-calorie malnutrition: Status: Chronic Code(s): E43 - Unspecified severe protein-calorie malnutrition (4) Anxiety and depression: Status: Chronic Code(s): F41.9 - Anxiety disorder, unspecified; F32.9 - Major depressive disorder, single episode, unspecified (5) COPD exacerbation: Status: Acute Code(s): J44.1 - Chronic obstructive pulmonary disease with (acute) exacerbation (6) Chronic respiratory failure: Status: Chronic Code(s): J96.10 - Chronic respiratory failure, unspecified whether with hypoxia or hypercapnia Qualifiers: Respiratory failure complication: hypoxia and hypercapnia Qualified Code(s): J96.11 - Chronic respiratory failure with hypoxia; J96.12 - Chronic respiratory failure with hypercapnia (7) Benign essential HTN: Status: Chronic Code(s): I10 - Essential (primary) hypertension Medications at Discharge Home Medications budesonide-formoterol 2 puff INHALATION BID 05/15/20 ergocalciferol (vitamin D2) 50,000 unit PO QMONTH 05/15/20 food supplemt, lactose-reduced 120 ml PO 4X/DAY 05/15/20 guaifenesin 800 mg PO TID 05/15/20 hydrocortisone-pramoxine 1 applic TP DAILY 05/15/20 omeprazole 40 mg PO BID 05/15/20 pravastatin 20 mg PO QHS 05/15/20 ropinirole 1 mg PO QHS PRN PRN 05/15/20 tamsulosin 0.8 mg PO DAILY 05/15/20 theophylline 300 mg PO BID 05/15/20 tiotropium bromide 18 mcg IH DAILY 05/15/20 Ammonium Lactate 1 applic TOPICAL DAILY 08/16/20 alprazolam 0.5 mg PO TID PRN PRN 08/16/20 aspirin 81 mg PO DAILY@0800 08/16/20 fluticasone propionate 2 spray NASAL DAILY 08/16/20 loratadine 10 mg PO DAILY 08/16/20 albuterol sulfate 2 puff INHALATION Q6H PRN 10/06/20 sennosides-docusate sodium [Senna with Docusate Sodium] 2 tab PO BID 10/06/20 levofloxacin 500 mg PO DAILY #3 tab 10/08/20 prednisone 10 mg PO DAILY #30 tablet 10/08/20 Hospital Course Operations None Procedures None Summary of Care Provided Minutes Spent on Discharge: 45 Hospital Course: 74-year-old male with extensive past medical history including chronic respiratory failure secondary to COPD who comes in with progressive shortness of breath. He wears 2 L of oxygen at baseline. He was found to be saturating 88% on 3 L of oxygen. Patient's work-up in the ED was significant for severely inflated lungs with increased interstitial markings in the bases likely compressive atelectasis and severe emphysema on chest x-ray. He was managed as acute COPD exacerbation. He was managed alternately with BiPAP and nasal cannula oxygen. Patient was seen by pulmonology. He was referred to palliative care. He refuses to talk about hospice. He apparently has [facility] a [facility] with the [facility] about [facility] in the past. He remained stable on 3 L of oxygen. He was discharged home. He stated clearly on the day of discharge that he does not want to be admitted again and does not ever want to be on BiPAP. He stated that he just wants to be comfortable. I discussed in depth that it translates to care as hospice. His admitted that they were told that he told by the [facility] that he has less than 6 months to live. Patient however does not want to hear the word hospice or have any discussion related to hospice. He was seen by the palliative care team on the day of discharge but refused their services. I encouraged him and the to reach out to the team if they change mind about palliative care or hospice. Physical Exam Narrative General: Alert, Oriented x3, Cooperative, cachectic, severely malnourished, on 3 L of oxygen, in mild respiratory distress HEENT: Atraumatic Oral: Moist Mucosa Neck: Supple Lungs: Diminished, scattered wheezes Cardiovascular: HS I+II, regular, no murmurs Abdomen: Bowel Sounds Present, Soft, Non Tender Extremities: No edema Skin: No rashes, No breakdown Neurological: Grossly intact Psych/Mental Status: Appropriate ABG / Lab / Microbiology Data Result Diagrams: 10/08/20 05:22 10/08/20 05:22 Laboratory: Laboratory Results - last 24 hr 10/07/20 10/08/20 10/08/20 05:24 05:22 05:22 WBC 12.5 H RBC 4.41 L Hgb 12.9 L Hct 40.9 MCV 92.7 MCH 29.3 MCHC 31.5 L RDW Std Deviation 46.7 H RDW Coeff of Christy 13.6 Plt Count 226 MPV 9.3 Immature Gran % (Auto) 0.500 Neut % (Auto) 90.7 H Lymph % (Auto) 2.6 L [place] % (Auto) 6.1 Eos % (Auto) 0.0 Baso % (Auto) 0.1 Absolute Neuts (auto) 11.3 H Absolute Lymphs (auto) 0.32 L Nucleated RBC % 0 Sodium 138 Potassium 3.9 Chloride 93 L Carbon Dioxide 45.0 H Anion Gap 0 L BUN 25 H Creatinine 0.58 L Estim Creat Clear Calc 35.32 Est GFR (MDRD) Af Amer 178 Est GFR (MDRD) Non-Af 147 BUN/Creatinine Ratio 43.3 H Glucose 112 H Calcium 8.8 Phosphorus 3.2 3.2 Magnesium 2.0 2.3 Total Bilirubin 0.50 AST 13 L ALT 22 Alkaline Phosphatase 52 Total Protein 5.7 L Albumin 3.1 L Globulin 2.6 Albumin/Globulin Ratio 1.2 Microbiology: Microbiology 10/06/20 11:50 Interface Orders SARS-CoV-2 Antigen (Rapid) - Final D/C Instructions Discharge Diet: No restrictions Discharge Activity: Return to Normal Activity Meaningful Use Info Meaningful Use Diagnoses (Choose all that apply): None applicable Discharge Plan Admission Admit Date/Time: 10/06/20 16:13 Primary Reason for Your Visit: Respiratory failure/Acute COPD exacerbation Attending Provider: Jalyn Nettles Primary Care Provider: [facility],[place] Consulting Providers: Kerwin Lazar ; Jamil Gross ; Haily Freeman [employer] [facility] Instructions Additional Instructions / Restrictions: Complete your antibiotics as prescribed. Continue to keep yourself hydrated. Follow-up with your primary care doctor within 1 to 2 weeks. [facility] with [facility]. Discharge Orders/Prescriptions Prescriptions: New prednisone 10 mg tablet 10 mg PO DAILY Qty: 30 RF: 0 levofloxacin 500 mg tablet 500 mg PO DAILY Qty: 3 RF: 0 Continued tamsulosin 0.4 MG capsule 0.8 mg PO DAILY RF: 0 ropinirole 1 MG tablet 1 mg PO QHS PRN PRN (Reason: Restless Leg(S)) RF: 0 theophylline 300 MG tablet 300 mg PO BID RF: 0 pravastatin 20 MG tablet 20 mg PO QHS RF: 0 ergocalciferol (vitamin D2) 50,000 UNIT capsule 50,000 unit PO QMONTH RF: 0 tiotropium bromide 18 MCG capsule, w/inhalation device 18 mcg IH DAILY RF: 0 budesonide-formoterol 1 INHALER inhaler 2 puff INHALATION BID RF: 0 hydrocortisone-pramoxine 10 GM foam 1 applic TP DAILY RF: 0 omeprazole 20 MG capsule,delayed release(DR/EC) 40 mg PO BID RF: 0 food supplemt, lactose-reduced 120 ML liquid 120 ml PO 4X/DAY RF: 0 guaifenesin 400 MG tablet 800 mg PO TID RF: 0 Ammonium Lactate 1 applic TOPICAL DAILY RF: 0 aspirin 81 MG tablet,chewable 81 mg PO DAILY@0800 RF: 0 fluticasone propionate 1 SPRAY spray,suspension 2 spray NASAL DAILY RF: 0 loratadine 10 MG tablet 10 mg PO DAILY RF: 0 alprazolam 0.25 MG tablet 0.5 mg PO TID PRN PRN (Reason: Anxiety) RF: 0 sennosides-docusate sodium [Senna with Docusate Sodium] 8.6-50 mg Tablet 2 tab PO BID RF: 0 albuterol sulfate 90 mcg/actuation Hfa Aerosol Inhaler 2 puff INHALATION Q6H PRN (Reason: Shortness Of Breath Or Wheezing) RF: 0 Referrals / Follow Up: Haily Freeman NP, [employer] [facility] [Nurse Practitioner] - 11/01/20 8:15 am (on cancellation list as well for sooner availability. ) [facility] - In 1 Week Disposition Disposition (needs filled in before D/C Order can be placed): Home, self care Visit Charges Inpatient E&M: [id number] Disch Hosp
--- NOTE | 2020-10-08 13:50 | PHA.DC.MC ---
Pharmacy Service has performed discharge medication reconciliation and counseling for this patient. 1. LEVOFLOXACIN 500MG PO Q48H (STARTING 10/10) X 3 DOSES 2. PREDNISONE 40MG PO DAILY X 3 DAYS, 30MG X 3 DAYS, 20MG X 3 DAYS, 10MG X 3 DAYS The patient's discharge medication list was reviewed for discrepancies and discrepancies were resolved. This [facility] was asked by Dr. Nettles to call [facility] and have frequency changed from daily to Q48H for Levaquin. RN updated that discharge list will be incorrect and to reiterate to patient that rx will be for Q48H. Home Medications budesonide-formoterol 2 puff INHALATION BID 05/15/20 ergocalciferol (vitamin D2) 50,000 unit PO QMONTH 05/15/20 food supplemt, lactose-reduced 120 ml PO 4X/DAY 05/15/20 guaifenesin 800 mg PO TID 05/15/20 hydrocortisone-pramoxine 1 applic TP DAILY 05/15/20 omeprazole 40 mg PO BID 05/15/20 pravastatin 20 mg PO QHS 05/15/20 ropinirole 1 mg PO QHS PRN PRN 05/15/20 tamsulosin 0.8 mg PO DAILY 05/15/20 theophylline 300 mg PO BID 05/15/20 tiotropium bromide 18 mcg IH DAILY 05/15/20 Ammonium Lactate 1 applic TOPICAL DAILY 08/16/20 alprazolam 0.5 mg PO TID PRN PRN 08/16/20 aspirin 81 mg PO DAILY@0800 08/16/20 fluticasone propionate 2 spray NASAL DAILY 08/16/20 loratadine 10 mg PO DAILY 08/16/20 albuterol sulfate 2 puff INHALATION Q6H PRN 10/06/20 sennosides-docusate sodium [Senna with Docusate Sodium] 2 tab PO BID 10/06/20 levofloxacin 500 mg PO DAILY #3 tab 10/08/20 prednisone 10 mg PO DAILY #30 tablet 10/08/20 The patient was counseled on the following discharge medications and changes in medications for homegoing were reviewed. The Reason for Use, instructions for use, and potential side effects were reviewed for all new medications. The patient's questions regarding all of their medications were answered. The patient was able to verbally demonstrate an understanding of their discharge medications.
--- NOTE | 2020-10-08 17:03 | NURSING ---
felt son having breathing tx was noted to refuse am and lunch time breathing tx
[2020-10-08] MEDS: Ipratropium 0.5 MG/2.5 ML SOLUTION INHALATION (17:04)
[2020-10-08] MEDS: Albuterol 2.5 MG/3 ML VIAL.NEB. INHALATION (17:05)
--- NOTE | 2020-10-09 10:36 | CASEMGMT ---
ALONSO CAMACHO Discharge Follow Up Phone Call: FAVIO: Denise Strata: 4 Call Date: 10/09/20 Discharge Date: 10/08/20 Time of Call: 1035 Duration: 3 min Admitting Dx:acute hypoxic respiratory failure ALONSO CAMACHO completed follow up phone call after recent hospitalization. Pt states he has been doing well since home. Pt is going to product picker his prescriptions today. He has not made any follow up appts. Made aware per dc instructions, when and who to make appts with. He states he will have his call today. Pt denies any suggestions/recommendations to improve care for [facility]. Pt has no further questions or concerns at this time.
== END 2020-10-08 17:30 | disposition home or self-care (01) | DRG 190 ==
LOC: ED 13:38 → PCU 16:23
PROVIDERS: Admitting Provider Student in an Organized Health Care Education/Training Program; Emergency Provider Emergency Medicine; Visit Provider Internal Medicine
DX: J44.1 Chronic obstructive pulmonary disease with (acute) exacerbation (principal); L89.323 Pressure ulcer of left buttock, stage 3; J96.21 Acute and chronic respiratory failure with hypoxia; J96.22 Acute and chronic respiratory failure with hypercapnia; E43 Unspecified severe protein-calorie malnutrition; Z68.1 Body mass index [BMI] 19.9 or less, adult; F41.9 Anxiety disorder, unspecified; F32.9 Major depressive disorder, single episode, unspecified; I10 Essential (primary) hypertension; Z99.81 Dependence on supplemental oxygen; Z87.891 Personal history of nicotine dependence; Z79.51 Long term (current) use of inhaled steroids; Z79.899 Other long term (current) drug therapy; E78.5 Hyperlipidemia, unspecified; K21.9 Gastro-esophageal reflux disease without esophagitis; Z66 Do not resuscitate
CPT/HCPCS: 36415; 36600; 71045; 80048; 80053; 82803; 83735; 84100; 84484; 85025; 85379; 87426; 92610; 93005; 94002; 94003; 94640; 97162; 97166; 97530; 97535; 97802; 99285; J7030; A4216

== ENCOUNTER 2020-12-05 13:56 | Outpatient (RCR) | payer OTHER, MEDICARE, SELFPAY ==
[2020-09-28 00:22] VITALS: BP 117/60; PULSE 86; RESP 18; TEMP 36.4
[2020-10-07 15:11] VITALS: BMI 12.9
[2020-12-05 14:18] VITALS: PULSE 103; RESP 22; TEMP 36.4; BMI 13.3
--- NOTE | 2020-12-05 19:48 | PCM.WC.HP ---
History of Present Illness Date of Service: 12/05/20 Chief Complaint: Nonhealing left buttock ulcer History of Wound: Mr Saenz is a 75 yo old who presents to the wound center due to non healing left buttock ulcer. He has a past medical history as listed above. Patient does not have a open wound at this time but states that he has had more pain over top of where his pressure injury on his left buttock was in the past. He has used ABDs covering with gauze and also different foam dressings and these have said to slipped off due to shear. He denies any systemic or localized signs of infection at this time. He resides most of his time in bed and he has been largely sedentary sitting in his wheel chair for extended period. Also history of severe COPD, oxygen dependent. His appetite is said to be poor but takes Ensure twice daily. Patient and deny drainage, chills, fever or other acute concerns. [facility] Medical History (Updated 12/06/20 @ 20:02 by Suresh Mi NP, [employer]) Anxiety COPD (chronic obstructive pulmonary disease) Depression Former smoker GERD (gastroesophageal reflux disease) Hypertension On home oxygen therapy Pressure injury of left buttock, stage 1 Home Medications budesonide-formoterol 2 puff INHALATION BID 05/15/20 [History Last Taken 05/15/20] ergocalciferol (vitamin D2) 50,000 unit PO QMONTH 05/15/20 [History Last Taken Unknown] food supplemt, lactose-reduced 120 ml PO 4X/DAY 05/15/20 [History Last Taken 10/06/20] guaifenesin 800 mg PO TID 05/15/20 [History Last Taken 10/06/20] hydrocortisone-pramoxine 1 applic TP DAILY 05/15/20 [History Last Taken 10/06/20] omeprazole 40 mg PO BID 05/15/20 [History Last Taken 10/06/20] pravastatin 20 mg PO QHS 05/15/20 [History Last Taken 10/05/20] ropinirole 1 mg PO QHS PRN PRN 05/15/20 [History Last Taken Unknown] tamsulosin 0.8 mg PO DAILY 05/15/20 [History Last Taken 10/06/20] theophylline 300 mg PO BID 05/15/20 [History Last Taken 10/06/20] tiotropium bromide 18 mcg IH DAILY 05/15/20 [History Last Taken 10/06/20] Ammonium Lactate 1 applic TOPICAL DAILY 08/16/20 [History Last Taken Unknown] alprazolam 0.5 mg PO TID PRN PRN 08/16/20 [History Last Taken 10/05/20] aspirin 81 mg PO DAILY@0800 08/16/20 [History Last Taken 10/05/20] fluticasone propionate 2 spray NASAL DAILY 08/16/20 [History Last Taken 10/06/20] loratadine 10 mg PO DAILY 08/16/20 [History Last Taken 10/06/20] albuterol sulfate 2 puff INHALATION Q6H PRN 10/06/20 [History Last Taken Unknown] sennosides-docusate sodium [Senna with Docusate Sodium] 2 tab PO BID 10/06/20 [History Last Taken 10/06/20] levofloxacin 500 mg PO DAILY #3 tab 10/08/20 [Rx Last Taken Unknown] prednisone 10 mg PO DAILY #30 tablet 10/08/20 [Rx Last Taken Unknown] Allergy/AdvReac Type Severity Reaction Status Date / Time clonazepam Allergy Shortness Verified 10/06/20 11:43 of breath Tetanus Vaccines and Toxoid Allergy Swelling Verified 10/06/20 11:43 Surgical History History of appendectomy Social History Smoking Status: Former smoker ROS ROS Narrative negative x 10 systems with the exception of those listed above Constitutional Constitutional: Reports systems reviewed and no addt'l complaints, except as documented Eyes Eyes: Reports systems reviewed and no addt'l complaints, except as documented ENT HEENT: Reports systems reviewed and no addt'l complaints, except as documented Cardiovascular Cardiovascular: Reports systems reviewed and no addt'l complaints, except as documented Respiratory/Chest Respiratory/Chest: Reports systems reviewed and no addt'l complaints, except as documented Gastrointestinal Gastrointestinal: Reports systems reviewed and no addt'l complaints, except as documented Genitourinary Genitourinary: Reports systems reviewed and no addt'l complaints, except as documented Musculoskeletal Musculoskeletal: Reports systems reviewed and no addt'l complaints, except as documented Integumentary Integumentary: Reports systems reviewed and no addt'l complaints, except as documented Neurologic Neurologic: Reports systems reviewed and no addt'l complaints, except as documented Psychiatric Psychiatric: Reports systems reviewed and no addt'l complaints, except as documented Endocrine Endocrinology: Reports systems reviewed and no addt'l complaints, except as documented Hematologic/Lymphatic Hematologic/Lymphatic: Reports systems reviewed and no addt'l complaints, except as documented Allergic/Immunologic Allergic/Immunologic: Reports systems reviewed and no addt'l complaints, except as documented Vital Signs Vital Signs Vital Signs: Weight Weight: 85 lb Body Mass Index (BMI) 13.3 Physical Exam Const alert, oriented x3 and no apparent distress Constitutional Narrative: thin and dishelved General Appearance: cooperative and ill appearing Positive for chronically Exam Limitations: no limitations HEENT normocephalic Head and Scalp: normal to inspection Mouth: oral and palatal mucosa normal Eyes General Eye: normal appearance of both eyes Resp normal respiratory effort, normal air movement and no use of accessory muscles Effort and Inspection: able to speak in complete sentences Auscultation: clear to auscultation bilaterally Cardio regular rate, regular rhythm, S1 normal heart sound, S2 normal heart sound, no murmurs and peripheral pulses 2+ throughout Palpation: normal PMI Rate: regular rate Heart Sounds: S1 normal and S2 normal GI normal to inspection, nondistended, normoactive bowel sounds, soft to palpation, non-tender and non-distended Palpation: soft Extremity normal to inspection and full ROM General Extremity: normal exam except as noted Skin Skin Narrative: Stage I pressure injury of left buttock, no open skin but there is an area of redness that is nonblanchable over the left buttock bony prominence, no streaking, fluctuance, or odor Neuro oriented x3 and moves all extremities Sensorium / Orientation: awake, alert, oriented to person, oriented to place and oriented to time Psych mental status grossly normal, thought process normal and denies hallucinations Appearance: grossly normal Attitude: calm Activity / Motor Behavior: appropriate eye contact Speech: normal speech Thought Process: normal thought process Thought Content: normal thought content Attention / Concentration: attention grossly intact Insight: insight good Judgement: judgement good Charges/Coding Visit Charges Office Visits / Consults: 11832 OV L3 Est Assessment/Plan Assessment/Plan (1) Pressure injury of left buttock, stage 1: CODE(S): L89.321 - Pressure ulcer of left buttock, stage 1 (2) COLD (chronic obstructive lung disease): CODE(S): J44.9 - Chronic obstructive pulmonary disease, unspecified (3) Chronic respiratory failure: CODE(S): J96.10 - Chronic respiratory failure, unspecified whether with hypoxia or hypercapnia QUALIFIERS: Respiratory failure complication: hypoxia and hypercapnia Qualified Code(s): J96.11 - Chronic respiratory failure with hypoxia; J96.12 - Chronic respiratory failure with hypercapnia (4) GERD (gastroesophageal reflux disease): CODE(S): K21.9 - Gastro-esophageal reflux disease without esophagitis (5) Malnutrition: CODE(S): E46 - Unspecified protein-calorie malnutrition PLAN: Debridement not indicated today as there is no open wound, [place] foam dressing with border applied. At home wound-care instructions: [place] foam dressing change daily and every other day, Change dressing once daily or more frequently as needed due to contamination. Wash wounds daily with antibacterial soap and water, rinse and dry thoroughly before each dressing change. Compression: not indicated Off-loading: The patient was instructed to avoid pressure and friction on the affected areas. Reposition every 2 hours at minimum. Avoid prolonged standing and/or dangling of legs. When seated, feet should be elevated at chest level. Frequent ambulation is encouraged. Diet: Patient encouraged to increase protein intake while taking caution to avoid high carbohydrate and/or sugar intake. Smoking: The risks of smoking and benefits of smoking cessation were discussed with the patient today. The patient is encouraged to quit smoking. If smoking cessation aids are desired, the patient should contact their primary care provider to discuss appropriate options. Labs/cultures/imaging: Deferred, no active open wounds Follow-up: Discharge today, will follow up if wound becomes open. Return sooner or report to the emergency room should symptoms worsen, or new symptoms arise. This note was generated with [employer] dictation software. It may contain incorrect words, spelling, and punctuation that were not noted in checking the note before signing. I have spent 25 minutes today reviewing labs, records, and history. Time includes coordinating care, interpretation of tests, and counseling the patient/family. This also includes time I spent with the patient for exam, treatment plan, and education as well as documenting clinical information in the electronic health record.
== END 2020-12-05 15:12 | disposition home or self-care (01) ==
LOC: WC 13:56
PROVIDERS: Visit Provider Internal Medicine
DX: L89.321 Pressure ulcer of left buttock, stage 1 (principal); J44.9 Chronic obstructive pulmonary disease, unspecified; J96.11 Chronic respiratory failure with hypoxia; J96.12 Chronic respiratory failure with hypercapnia; K21.9 Gastro-esophageal reflux disease without esophagitis; E46 Unspecified protein-calorie malnutrition; F17.200 Nicotine dependence, unspecified, uncomplicated; Z99.81 Dependence on supplemental oxygen; Z68.1 Body mass index [BMI] 19.9 or less, adult
CPT/HCPCS: 99213; G0463

== ENCOUNTER 2021-01-18 19:21 | Observation (INO) | payer OTHER, MEDICARE, SELFPAY ==
[2021-01-18 19:22] VITALS: BP 134/109; PULSE 98; RESP 19; TEMP 37.1; O2SAT 99; BMI 14.6
[2021-01-18 19:30] VITALS: O2SAT 98
[2021-01-18 19:46] VITALS: O2SAT 96
--- NOTE | 2021-01-18 19:46 | EKG12_ITS ---
Test Reason : SOB Blood Pressure : / mmHG Vent. Rate : 092 BPM Atrial Rate : 092 BPM P-R Int : 158 ms QRS Dur : 126 ms QT Int : 376 ms P-R-T Axes : 093 070 075 degrees QTc Int : 464 ms Sinus rhythm with Premature atrial complexes Right bundle branch block Abnormal ECG Confirmed by DOT GIBBS, AMELIA ([id number]), copy editor ALYSSA CORTEZ ([id number]) on 01/22/2021 8:59:42 AM Referred By: MARIE Confirmed By:AMELIA CHRIS MD
[2021-01-18] MEDS: Ipratropium/Albuterol Sulfate 3 ML AMPUL.NEB INHALATION (19:52)
[2021-01-18 19:53] VITALS: PULSE 87; RESP 22
[2021-01-18 19:53] LABS: Absolute Lymphocyte Count 1.03 X10^3/uL (0.83-4.51); Absolute Neutrophil Count 5.2 X10^3/uL (2.0-7.7); Basophil# 0.06 X10^3/uL; Basophil% 0.9 % (0-1); Eosinophil# 0.08 X10^3/uL; Eosinophils% 1.1 % (0-5); Hematocrit 48.9 % (40-54); Hemoglobin 15.2 g/dL (13.0-16.5); Lymphocyte # 1.03 X10^3/ul (0.83-4.51); Lymphocyte % 14.7 % (19-41); Mean Corp Hgb Conc 31.1 g/dL (32-36); Mean Corpuscular Hgb 30.1 pg (27.0-32.0); Mean Corpuscular Volume 96.8 fL (80-94); Mean Platelet Vol. 10.2 fl (6.2-12.0); Monocyte% 8.5 % (0-10); NRBC Flagged by Analyzer 0 % (0-5); Neutrophil # 5.22 X10^3/uL (2.7-7.7); Neutrophil % 74.4 % (47-70); Platelet Count 233 K/mm3 (150-450); RBC Distribution Width CV 12.4 % (11.6-14.6); RBC Distribution Width SD 43.8 fl (35.1-43.9); Red Blood Count 5.05 M/mm3 (4.6-6.2)
[2021-01-18 20:11] LABS: Allen Test Positive; Base Excess 13 mmol/L (-2 to +2); Bicarbonate 37.6 mmol/L (22-26); Blood Gas Specimen Type ART; O2 Delivery Device Cannula; PO2 84 mmHG (75-100); SITE L Radial; SO2 96 % (95-99); Total Carbon Dioxide 40 mmol/L; pCO2 63.7 mmHg (35-45); pH 7.38 (7.35-7.45)
[2021-01-18 20:11] LABS: ALB/GLOB Ratio 1.1 RATIO (0.9-2.4); AST(SGOT) 16 U/L (15-37); Alanine Aminotransfer ALT/SGPT 23 U/L (16-61); Albumin, Serum 4.1 g/dL (3.2-5.0); Alkaline Phosphatase 65 U/L (45-117); Anion Gap 3 (5-15); BUN 12 mg/dL (7-18); BUN/Creat Ratio 16.7 RATIO (10-20); Calcium,Total 9.7 mg/dL (8.5-10.1); Chloride 97 mmol/L (98-107); Creatinine, Serum 0.72 mg/dL (0.70-1.30); EST Glomerular Filtration Rate 114 mL/min (>60); Est Glom Filt Rate - Afr Amer 138 mL/min (>60); Estimated Creatinine Clearance 39.46 ml/min; Globulin 3.6 g/dL (2.2-4.2); Glucose 107 mg/dL (74-106); Potassium 4.1 mmol/L (3.5-5.1); Protein, Total 7.7 g/dL (6.4-8.2); Sodium Level 141 mmol/L (136-145)
--- NOTE | 2021-01-18 20:18 | RAD_ITS ---
INDICATION: Dyspnea EXAMINATION/TECHNIQUE: X-RAY - XR Chest 1 View COMPARISON: None. FINDINGS: LINES/DEVICES: Overlying heart monitoring wires. LUNGS: Significant hyperinflation abnormal increased lucency lung apices with large areas of lucency left upper lobe likely representing large bulla. Scarlike linear opacities in the lung bases. No nodule or mass. No pneumothorax. There is a tiny, 2 mm calcific density projecting over the right upper lobe. MEDIASTINUM AND CARDIOVASCULAR STRUCTURES: Cardiac silhouette not enlarged. Central airways and mediastinal contour are unremarkable. Thoracic aortic arch intimal calcifications are noted. BONES AND SOFT TISSUES: Appearance suggesting decreased bone mineral density. No appreciable fracture. RAD/Chest 1 View (Portable) IMPRESSION: Advanced emphysematous disease cannot appreciably changed compared to prior exam. Electronically Signed: Nadeem Bustos DO at 21:05 EDT Tel , Service support ,
--- NOTE | 2021-01-18 20:22 | ED.VIS.DYS ---
HPI History of Present Illness Chief Complaint: Shortness of Breath Informant: patient Onset/Context/Timing Onset: Days Context: gradual Timing: Continuous Quality: Positive for Dyspnea on exertion Worsened by: Exertion Relieved by: Oxygen Associated Symptoms Negative for cough, rhinorrhea, post nasal drip, ear pain, fever, sore throat or chills Chest Pain: Positive for Sharp Narrative Narrative: Patient presents with shortness of breath that has been getting worse over the past 2 to 3 days. Patient states his breathing is worse with any exertion. Patient states he only takes a couple steps when he is out of breath. Patient admits to some subjective chills. Patient denies any fevers. Patient admits to some pain in his left upper chest. Patient describes it as sharp. Patient admits to nausea but denies any vomiting. Patient also admits to a headache. Patient denies any PE or cardiac risk factors. [facility] Medical History Anxiety COPD (chronic obstructive pulmonary disease) Depression Former smoker GERD (gastroesophageal reflux disease) Hypertension On home oxygen therapy Pressure injury of left buttock, stage 1 Home Medications budesonide-formoterol 2 puff INHALATION BID 05/15/20 [History Last Taken 05/15/20] ergocalciferol (vitamin D2) 50,000 unit PO QMONTH 05/15/20 [History Last Taken Unknown] food supplemt, lactose-reduced 120 ml PO 4X/DAY 05/15/20 [History Last Taken 10/06/20] guaifenesin 800 mg PO TID 05/15/20 [History Last Taken 10/06/20] hydrocortisone-pramoxine 1 applic TP BID PRN 05/15/20 [History Last Taken 10/06/20] omeprazole 40 mg PO BID 05/15/20 [History Last Taken 10/06/20] pravastatin 20 mg PO QHS 05/15/20 [History Last Taken 10/05/20] ropinirole 1 mg PO QHS PRN PRN 05/15/20 [History Last Taken Unknown] tamsulosin 0.8 mg PO DAILY 05/15/20 [History Last Taken 10/06/20] theophylline 300 mg PO BID 05/15/20 [History Last Taken 10/06/20] tiotropium bromide 18 mcg IH DAILY 05/15/20 [History Last Taken 10/06/20] Ammonium Lactate 1 applic TOPICAL DAILY 08/16/20 [History Last Taken Unknown] alprazolam 0.5 mg PO TID PRN PRN 08/16/20 [History Last Taken 10/05/20] aspirin 81 mg PO DAILY@0800 08/16/20 [History Last Taken 10/05/20] fluticasone propionate 2 spray NASAL DAILY 08/16/20 [History Last Taken 10/06/20] loratadine 10 mg PO DAILY 08/16/20 [History Last Taken 10/06/20] albuterol sulfate 2 puff INHALATION Q6H PRN 10/06/20 [History Last Taken Unknown] sennosides-docusate sodium [Senna with Docusate Sodium] 2 tab PO BID 10/06/20 [History Last Taken 10/06/20] docusate sodium 100 mg PO BID PRN 01/18/21 [History Last Taken Unknown] lactulose 20 g PO BID 01/18/21 [History Last Taken Unknown] plecanatide 3 mg PO DAILY 01/18/21 [History Last Taken Unknown] polyethylene glycol 3350 [Miralax] 17 g PO DAILY 01/18/21 [History Last Taken Unknown] Allergy/AdvReac Type Severity Reaction Status Date / Time clonazepam Allergy Shortness Verified 01/18/21 19:28 of breath Tetanus Vaccines and Toxoid Allergy Swelling Verified 01/18/21 19:28 Surgical History History of appendectomy Social History Smoking Status: Former smoker ROS ROS ED Constitutional Constitutional ED: Denies chills or fever(s) Eyes Eyes: Denies blurry vision or change in vision ENT ENT ED: Denies rhinorrhea or sore throat Cardiovascular Cardiovascular: Reports chest pain; Denies palpitations Respiratory/Chest Respiratory/Chest: Reports cough and dyspnea Gastrointestinal Gastrointestinal: Reports nausea; Denies vomiting Genitourinary Genitourinary ED: Denies dysuria or hematuria Musculoskeletal Musculoskeletal: Denies back pain or neck pain Integumentary Denies abscess or rash Neurologic Neurologic: Reports headache(s); Denies weakness Allergic/Immunologic Allergic/Immunologic ED: Denies mouth swelling or urticaria EXAM Physical Exam Const Vital Signs: 01/18/21 19:22 01/18/21 19:30 01/18/21 19:46 Temperature 98.7 F Temperature Source Temporal Pulse Rate 98 Respiratory Rate 19 H Respiratory Effort Short of Breath Respiratory Depth Normal Respiratory Pattern Normal Blood Pressure 134/109 H Blood Pressure Mean 117 Pulse Ox 99 96 Oxygen Delivery Method Nasal Cannula Nasal Cannula Nasal Cannula Oxygen Flow Rate (L/min) 3 3 3 01/18/21 19:53 01/18/21 22:28 Temperature Temperature Source Pulse Rate 87 99 Respiratory Rate 22 H 19 H Respiratory Effort Respiratory Depth Respiratory Pattern Blood Pressure 113/96 H Blood Pressure Mean 101 Pulse Ox 92 Oxygen Delivery Method Nasal Cannula Oxygen Flow Rate (L/min) 3 Positive well nourished, well developed and cachectic General Appearance ED: well developed and cachectic Nutritional Appearance: cachectic HEENT Reports moist mucous membranes Neck no lymphadenopathy and supple Resp Auscultation: diminished lung sounds diffuse Cardio regular rate and regular rhythm GI non-tender and non-distended Auscultation: normoactive bowel sounds Palpation: soft Neuro oriented x3, CN's II-XII intact bilaterally and no sensory deficits noted Sensorium / Orientation: alert Motor Exam: strength 5/5 throughout and strength abnormal Psych mental status grossly normal MDM MDM MDM Narrative Medical decision making narrative: Patient was given a DuoNeb aerosol. Patient was given a dose of Solu-Medrol. EKG was obtained. On my interpretation, it showed a normal sinus rhythm with a rate of 92. MA interval and QTc intervals were normal. There is a right bundle branch block pattern. QRS interval slightly prolonged at 126. [place] was normal. There are no acute ST or T wave changes. CBC and comprehensive metabolic profile were obtained and were essentially within normal limits. Initial high-sensitivity troponin was ordered and was normal. Arterial blood gas showed a pH of 7.37 with a PCO2 of 63.7, PO2 of 83.8, bicarb of 37.6, base excess of 12.5, and oxygen saturation of 95.6% on 3 L nasal cannula. Portable chest x-ray was obtained. There is 1 view. On my interpretation, there is COPD changes. There is no acute infiltrate. There is no cardiomegaly. Bony thorax is normal. Radiologist also interpreted the x-ray and agrees. Urinalysis was obtained. There is no sign of urinary tract infection. Patient states he is feeling better on reevaluation. Due to the hypercarbia and dyspnea with only taking a few steps, I am recommending admission to the hospital. Case was discussed with the hospitalist. He will admit the patient to his service. Patient understood and was agreeable with the plan. All questions were answered. Lab Data Attestation: I reviewed the patient's lab results. Labs: Laboratory Results - last 24 hr 01/18/21 01/18/21 01/18/21 19:12 19:12 19:12 WBC 7.0 RBC 5.05 Hgb 15.2 Hct 48.9 MCV 96.8 H MCH 30.1 MCHC 31.1 L RDW Std Deviation 43.8 RDW Coeff of Christy 12.4 Plt Count 233 MPV 10.2 Immature Gran % (Auto) 0.400 Neut % (Auto) 74.4 H Lymph % (Auto) 14.7 L [place] % (Auto) 8.5 Eos % (Auto) 1.1 Baso % (Auto) 0.9 Absolute Neuts (auto) 5.2 Absolute Lymphs (auto) 1.03 Nucleated RBC % 0 Sodium 141 Potassium 4.1 Chloride 97 L Carbon Dioxide 41.0 H Anion Gap 3 L BUN 12 Creatinine 0.72 Estim Creat Clear Calc 39.46 Est GFR (MDRD) Af Amer 138 Est GFR (MDRD) Non-Af 114 BUN/Creatinine Ratio 16.7 Glucose 107 H Calcium 9.7 Total Bilirubin 0.70 AST 16 ALT 23 Alkaline Phosphatase 65 Troponin I High Sens 12 Total Protein 7.7 Albumin 4.1 Globulin 3.6 Albumin/Globulin Ratio 1.1 Urine Color Urine Clarity Urine pH Ur Specific [place] Urine Protein Urine Glucose (UA) Urine Ketones Urine Occult Blood Urine Nitrite Urine Bilirubin Urine Urobilinogen Ur Leukocyte Esterase Urine RBC Urine WBC Ur Squamous Epith Cells Urine Bacteria Urine Mucus 01/18/21 20:40 WBC RBC Hgb Hct MCV MCH MCHC RDW Std Deviation RDW Coeff of Christy Plt Count MPV Immature Gran % (Auto) Neut % (Auto) Lymph % (Auto) [place] % (Auto) Eos % (Auto) Baso % (Auto) Absolute Neuts (auto) Absolute Lymphs (auto) Nucleated RBC % Sodium Potassium Chloride Carbon Dioxide Anion Gap BUN Creatinine Estim Creat Clear Calc Est GFR (MDRD) Af Amer Est GFR (MDRD) Non-Af BUN/Creatinine Ratio Glucose Calcium Total Bilirubin AST ALT Alkaline Phosphatase Troponin I High Sens Total Protein Albumin Globulin Albumin/Globulin Ratio Urine Color Yellow Urine Clarity Clear Urine pH 8.0 Ur Specific [place] 1.015 Urine Protein 15 H Urine Glucose (UA) Normal Urine Ketones Negative Urine Occult Blood Negative Urine Nitrite Negative Urine Bilirubin Negative Urine Urobilinogen Normal Ur Leukocyte Esterase Negative Urine RBC 0 SEEN Urine WBC 0 SEEN Ur Squamous Epith Cells 0 SEEN Urine Bacteria 0 SEEN Urine Mucus 0 SEEN ABG Data ABG results: ABG 01/18/21 20:06 Specimen Type ART Sample Site L Radial pH 7.38 Bicarbonate Actual 37.6 H Total CO2 40 Base Excess 13 H O2 Saturation 96 ABG pCO2 63.7 H ABG pO2 84 Marcel Test Positive O2 Delivery Device Cannula Liter Flow 3.0 Radiography Chest X-Ray - ED: 1 View, Read by ED Physician, Read by Radiologist and Chronic Changes Diagnostic Testing: Radiology Impression Chest X-Ray 01/18/21 20:18 IMPRESSION: Advanced emphysematous disease cannot appreciably changed compared to prior exam. Electronically Signed: Nadeem Bustos DO at 21:05 EDT Tel , Service support , EKG Initial EKG: Attestation: I personally reviewed and interpreted this EKG as follows: Interpretation: Sinus Rhythm (With occasional PACs with a rate of 92), No Acute Injury Pattern and RBBB Prior EKG tracings: available for review Prior: Unchanged (10/06/2020) Discharge Plan Triage Chief Complaint: Shortness of Breath ED Provider: Gregory Kaye Dx/Rx/DC Orders Clinical Impression: COPD exacerbation, Hypercarbia Prescriptions: No Action tamsulosin 0.4 MG capsule 0.8 mg PO DAILY RF: 0 ropinirole 1 MG tablet 1 mg PO QHS PRN PRN (Reason: Restless Leg(S)) RF: 0 theophylline 300 MG tablet 300 mg PO BID RF: 0 pravastatin 20 MG tablet 20 mg PO QHS RF: 0 ergocalciferol (vitamin D2) 50,000 UNIT capsule 50,000 unit PO QMONTH RF: 0 tiotropium bromide 18 MCG capsule, w/inhalation device 18 mcg IH DAILY RF: 0 budesonide-formoterol 1 INHALER inhaler 2 puff INHALATION BID RF: 0 hydrocortisone-pramoxine 10 GM foam 1 applic TP BID PRN (Reason: Pain) RF: 0 omeprazole 20 MG capsule,delayed release(DR/EC) 40 mg PO BID RF: 0 food supplemt, lactose-reduced 120 ML liquid 120 ml PO 4X/DAY RF: 0 guaifenesin 400 MG tablet 800 mg PO TID RF: 0 Ammonium Lactate 1 applic TOPICAL DAILY RF: 0 aspirin 81 MG tablet,chewable 81 mg PO DAILY@0800 RF: 0 fluticasone propionate 1 SPRAY spray,suspension 2 spray NASAL DAILY RF: 0 loratadine 10 MG tablet 10 mg PO DAILY RF: 0 alprazolam 0.25 MG tablet 0.5 mg PO TID PRN PRN (Reason: Anxiety) RF: 0 sennosides-docusate sodium [Senna with Docusate Sodium] 8.6-50 mg Tablet 2 tab PO BID RF: 0 albuterol sulfate 90 mcg/actuation Hfa Aerosol Inhaler 2 puff INHALATION Q6H PRN (Reason: Shortness Of Breath Or Wheezing) RF: 0 docusate sodium 50 mg Tablet 100 mg PO BID PRN (Reason: Constipation) RF: 0 lactulose 20 gram Packet 20 g PO BID RF: 0 polyethylene glycol 3350 [Miralax] 17 gram Powder In Packet 17 g PO DAILY RF: 0 plecanatide 3 mg Tablet 3 mg PO DAILY RF: 0 [facility] [Primary Care Provider] - Disposition Disposition: Acute Care Hospital [facility]
[2021-01-18 20:45] LABS: Bacteria 0 SEEN /hpf (None Seen); Mucous, Urine 0 SEEN /hpf (<or=2+); Red Blood Cells-Urine 0 SEEN /hpf (0-5); Squamous Epithelial Cells - UA 0 SEEN /hpf (0-5); White Blood Cells 0 SEEN /hpf (0-5)
[2021-01-18 21:02] LABS: Color, Urine Yellow (Yellow); Glucose, Dipstick Normal (Normal); Ketone-Dipstick Negative (Negative); Leukocyte Esterase-Dipstick Negative /ul (Negative); Nitrite-Dipstick Negative (Negative); Occult Blood-Urine Negative /ul (Negative); Protein-Dipstick 15 mg/dl (Negative); Specific Gravity, Urine 1.015 (1.002-1.030); Urine Bilirubin Dipstick Negative (Negative); Urine Clarity Clear (Clear); Urine Urobilinogen Normal (Normal)
[2021-01-18 21:24] LABS: Troponin-I HS 12 pg/mL (3.0-78.0)
[2021-01-18 22:28] VITALS: BP 113/96; PULSE 99; RESP 19; O2SAT 92
--- NOTE | 2021-01-18 22:35 | HP.PCM.HOS_ITS ---
[facility] - [facility] General Date of Service: 01/18/21 Chief Complaint: Shortness of breath HPI Narrative RAFAEL ARGUELLO, is a 75 M with a significant history of COPD on home oxygen who presents to the emergency department with shortness of breath. At baseline he has shortness of breath. He reported his shortness of breath has increased but he is unable to provide a duration of the increase. He denies fever. He reports chronic chills that has not changed. He denies cough except to clear his throat. He denies wheezes. Patient is much more concerned about a possible CO2 retention for which he tried taking off his home oxygen repeatedly. [facility] Medical History Anxiety COPD (chronic obstructive pulmonary disease) Depression Former smoker GERD (gastroesophageal reflux disease) Hypertension On home oxygen therapy Pressure injury of left buttock, stage 1 Home Medications budesonide-formoterol 2 puff INHALATION BID 05/15/20 [History Last Taken 05/15/20] ergocalciferol (vitamin D2) 50,000 unit PO QMONTH 05/15/20 [History Last Taken Unknown] food supplemt, lactose-reduced 120 ml PO 4X/DAY 05/15/20 [History Last Taken 10/06/20] guaifenesin 800 mg PO TID 05/15/20 [History Last Taken 10/06/20] hydrocortisone-pramoxine 1 applic TP BID PRN 05/15/20 [History Last Taken 10/06/20] omeprazole 40 mg PO BID 05/15/20 [History Last Taken 10/06/20] pravastatin 20 mg PO QHS 05/15/20 [History Last Taken 10/05/20] ropinirole 1 mg PO QHS PRN PRN 05/15/20 [History Last Taken Unknown] tamsulosin 0.8 mg PO DAILY 05/15/20 [History Last Taken 10/06/20] theophylline 300 mg PO BID 05/15/20 [History Last Taken 10/06/20] tiotropium bromide 18 mcg IH DAILY 05/15/20 [History Last Taken 10/06/20] Ammonium Lactate 1 applic TOPICAL DAILY 08/16/20 [History Last Taken Unknown] alprazolam 0.5 mg PO TID PRN PRN 08/16/20 [History Last Taken 10/05/20] aspirin 81 mg PO DAILY@0800 08/16/20 [History Last Taken 10/05/20] fluticasone propionate 2 spray NASAL DAILY 08/16/20 [History Last Taken 10/06/20] loratadine 10 mg PO DAILY 08/16/20 [History Last Taken 10/06/20] albuterol sulfate 2 puff INHALATION Q6H PRN 10/06/20 [History Last Taken Unknown] sennosides-docusate sodium [Senna with Docusate Sodium] 2 tab PO BID 10/06/20 [History Last Taken 10/06/20] docusate sodium 100 mg PO BID PRN 01/18/21 [History Last Taken Unknown] lactulose 20 g PO BID 01/18/21 [History Last Taken Unknown] plecanatide 3 mg PO DAILY 01/18/21 [History Last Taken Unknown] polyethylene glycol 3350 [Miralax] 17 g PO DAILY 01/18/21 [History Last Taken Unknown] Allergy/AdvReac Type Severity Reaction Status Date / Time clonazepam Allergy Shortness Verified 01/18/21 19:28 of breath Tetanus Vaccines and Toxoid Allergy Swelling Verified 01/18/21 19:28 Family History Other COPD (chronic obstructive pulmonary disease) Heart disease Surgical History History of appendectomy Social History Smoking Status: Former smoker ROS ROS Narrative Constitutional: Denies anorexia and change in weight. Reports chills Eyes: Denies blurry vision, change in eye color, change in vision, discharge from eye(s), double vision, erythema, eye pain, loss of vision or other HEENT: Denies abnormal hearing, dysphagia, ear pain, epistaxis, headache(s), hearing loss, nasal congestion, nasal discharge, post nasal drip, sinus pressure, sore throat or other Cardiovascular: Denies chest pain. Respiratory/Chest: Reports shortness of breath. Denies wheezes. Gastrointestinal: Denies abdominal pain, coffee ground emesis, constipation, diarrhea, dyspepsia, hematemesis, hematochezia, loose stools, melena, nausea, vomiting or other Genitourinary: Denies burning urination, difficulty urinating, dysuria, hem aturia, nocturia, urinary frequency, urinary hesitancy, urinary incontinence, urinary urgency or other Musculoskeletal: Denies arthralgias, back pain, joint pain, joint stiffness, joint swelling, myalgias, neck pain or other Neurologic: Denies abnormal gait, abnormal speech, confusion, disequilibrium, dizziness, focal weakness, headache(s), numbness, paresthesias, seizure-like activity, seizures, syncope, tingling, tremor(s) or other Psychiatric: Denies anxiety, depression, homicidal ideation, suicidal ideation or other Endocrinology: Denies change in body appearance, cold intolerance, excessive sweating, heat intolerance, polydipsia, polyuria or other Hematologic/Lymphatic: Denies anemia, easy bleeding, easy bruising, lymphadenopathy or other Integumentary: Denies ulcer on buttocks. Allergic/Immunologic: Denies rhinitis, hives, eczema, asthma or other Vital Signs Vital Signs Vital Signs: 01/18/21 19:22 01/18/21 19:30 01/18/21 19:46 Temperature 98.7 F Temperature Source Temporal Pulse Rate 98 Respiratory Rate 19 H Respiratory Effort Short of Breath Respiratory Depth Normal Respiratory Pattern Normal Blood Pressure 134/109 H Blood Pressure Mean 117 Pulse Ox 99 96 Oxygen Delivery Method Nasal Cannula Nasal Cannula Nasal Cannula Oxygen Flow Rate (L/min) 3 3 3 01/18/21 19:53 01/18/21 22:28 Temperature Temperature Source Pulse Rate 87 99 Respiratory Rate 22 H 19 H Respiratory Effort Respiratory Depth Respiratory Pattern Blood Pressure 113/96 H Blood Pressure Mean 101 Pulse Ox 92 Oxygen Delivery Method Nasal Cannula Oxygen Flow Rate (L/min) 3 Weight Weight: 42.4 kg Body Mass Index (BMI) 14.6 Physical Exam Narrative Physical exam: General: Well-nourished, well-developed, no acute distress Head: Normocephalic, atraumatic, no tenderness Eyes: PERRLA, EOMI ENT, no trauma, moist mucous membranes, no rhinorrhea Neck: Nontender, full range of motion, no spinal tenderness, deformities, step- off CVS: Regular rate and rhythm Respiratory: Barrel chest. Lung sounds diminished. Chest nontender. No wheezes. Abdomen: Soft, nontender, nondistended, normal bowel sounds, no masses : Deferred Back: Nontender, no CVA tenderness, no midline spinal tenderness, deformities, step-offs Extremities: Cachectic with muscle wasting. Nontender full range of motion, no trauma Skin: Normal color, no trauma, abrasions Neuro: Alert, oriented, cranial nerves II through XII grossly intact. Psychiatry: Normal mood. Normal affect. Not depressed. Not anxious. Results Lab / Micro Data Result Diagrams: 01/18/21 19:12 01/18/21 19:12 Labs: Laboratory Results - last 24 hr 01/18/21 19:12: WBC 7.0, RBC 5.05, Hgb 15.2, Hct 48.9, MCV 96.8 H, MCH 30.1, MCHC 31.1 L, RDW Std Deviation 43.8, RDW Coeff of Christy 12.4, Plt Count 233, MPV 10.2, Immature Gran % (Auto) 0.400, Neut % (Auto) 74.4 H, Lymph % (Auto) 14.7 L, [place] % (Auto) 8.5, Eos % (Auto) 1.1, Baso % (Auto) 0.9, Absolute Neuts (auto) 5.2, Absolute Lymphs (auto) 1.03, Nucleated RBC % 0 01/18/21 19:12: Sodium 141, Potassium 4.1, Chloride 97 L, Carbon Dioxide 41.0 H, Anion Gap 3 L, BUN 12, Creatinine 0.72, Estim Creat Clear Calc 39.46, Est GFR (MDRD) Af Amer 138, Est GFR (MDRD) Non-Af 114, BUN/Creatinine Ratio 16.7, Glucose 107 H, Calcium 9.7, Total Bilirubin 0.70, AST 16, ALT 23, Alkaline Phosphatase 65, Total Protein 7.7, Albumin 4.1, Globulin 3.6, Albumin/Globulin Ratio 1.1 01/18/21 19:12: Troponin I High Sens 12 01/18/21 20:40: Urine Color Yellow, Urine Clarity Clear, Urine pH 8.0, Ur Specific [place] 1.015, Urine Protein 15 H, Urine Glucose (UA) Normal, Urine Ketones Negative, Urine Occult Blood Negative, Urine Nitrite Negative, Urine Bilirubin Negative, Urine Urobilinogen Normal, Ur Leukocyte Esterase Negative, Urine RBC 0 SEEN, Urine WBC 0 SEEN, Ur Squamous Epith Cells 0 SEEN, Urine Bacteria 0 SEEN, Urine Mucus 0 SEEN Micro: Microbiology 01/18/21 20:12 Mucosa - Nose SARS-CoV-2 Antigen (Rapid) - Final ABG Data ABG results: ABG 01/18/21 20:06 Specimen Type ART Sample Site L Radial pH 7.38 Bicarbonate Actual 37.6 H Total CO2 40 Base Excess 13 H O2 Saturation 96 ABG pCO2 63.7 H ABG pO2 84 Marcel Test Positive O2 Delivery Device Cannula Liter Flow 3.0 Radiology Impression Chest X-Ray 01/18/21 20:18 IMPRESSION: Advanced emphysematous disease cannot appreciably changed compared to prior exam. Electronically Signed: Nadeem Juli, DO at 21:05 EDT Tel , Service support , Assessment & Plan Assessment/Plan (1) COPD (chronic obstructive pulmonary disease): QUALIFIERS: COPD type: chronic bronchitis Chronic bronchitis type: simple Qualified Code(s): J41.0 - Simple chronic bronchitis PLAN: COPD Patient received Solu-Medrol and breathing treatment emergency department. At this point I am not convinced the patient has COPD exacerbation. Okay to monitor patient overnight. If patient has wheezes or symptoms of COPD exacerbation consider resuming steroids. Will place on [id number] breathi ng treatments and as needed. Zofran continued. His pH is 7.38. PCO2 is 63.7. PO2 is 84. His bicarb is 41. Previous ABGs were reviewed. He has had hypercapnia but this is even lower than previous. His pH is in the normal range. Tessalon pearls ordered as needed for cough. Incentive parameter and Acapella ordered. Supplemental oxygen continued. Protein calorie malnutrition BMI of 14.6 kg/m?. Ensure Enlive ordered. Dietitian consult. Anxiety and depression Xanax continued. IBS Plecanatide; and stool softeners continued. MiraLAX continued. DVT prophylaxis: Subcutaneous Lovenox ordered. Charges/Coding Visit Charges OBSV E&M: 52181 Initial observation care L2
[2021-01-18 23:00] VITALS: BP 131/84; PULSE 97; RESP 22; TEMP 36.6; O2SAT 94
[2021-01-18 23:42] VITALS: BMI 16.5
[2021-01-19 00:17] VITALS: BP 120/88; PULSE 91; RESP 18; TEMP 37; O2SAT 99
[2021-01-19 00:28] LABS: Troponin-I HS 12 pg/mL (3.0-78.0)
[2021-01-19] MEDS: MELATONIN 3 MG TABLET PO (00:30)
[2021-01-19] MEDS: Pramipexole Di-HCl 0.5 MG Tablet PO (00:30)
--- NOTE | 2021-01-19 01:22 | PCS.PANDOC ---
PANDEMIC DOCUMENTATION INITIATED: Date: 01/18/2021 Time: 6993
--- NOTE | 2021-01-19 03:46 | NURSING ---
2350 late entry pt stating he is anxious and wanting to take his xanax prescribed from home. pt has bag full of his home meds at bedside, this RN stated that all his home meds were continued here and the hospital can provide his xanax PRN if needed. pt refused to give over his bottle of xanax and stated that he was going to take his own because you guys take too long to get in here. This RN stated that if pt does take his own, then this RN will not bring around PRN dose ordered d/t risk of double dosing him. pt acknowledged and is still refusing to hand over his home med bottles at this time. VSS. fire extinguisher charger, Rolando weaver
[2021-01-19 04:53] VITALS: BP 103/76; PULSE 85; RESP 18; TEMP 36.6; O2SAT 97
[2021-01-19 05:27] LABS: Absolute Lymphocyte Count 0.92 X10^3/uL (0.83-4.51); Absolute Neutrophil Count 4.9 X10^3/uL (2.0-7.7); Basophil# 0.04 X10^3/uL; Basophil% 0.6 % (0-1); Eosinophil# 0.12 X10^3/uL; Eosinophils% 1.8 % (0-5); Hematocrit 39.9 % (40-54); Hemoglobin 12.4 g/dL (13.0-16.5); Lymphocyte # 0.92 X10^3/ul (0.83-4.51); Lymphocyte % 13.6 % (19-41); Mean Corp Hgb Conc 31.1 g/dL (32-36); Mean Corpuscular Hgb 30.1 pg (27.0-32.0); Mean Corpuscular Volume 96.8 fL (80-94); Mean Platelet Vol. 9.4 fl (6.2-12.0); Monocyte# 0.79 X10^3/uL; Monocyte% 11.7 % (0-10); NRBC Flagged by Analyzer 0 % (0-5); Neutrophil # 4.87 X10^3/uL (2.7-7.7); Neutrophil % 72.2 % (47-70); Platelet Count 197 K/mm3 (150-450); RBC Distribution Width CV 12.3 % (11.6-14.6); Red Blood Count 4.12 M/mm3 (4.6-6.2); White Blood Count 6.8 K/mm3 (4.4-11.0)
[2021-01-19 05:52] LABS: Anion Gap 2 (5-15); BUN 16 mg/dL (7-18); BUN/Creat Ratio 21.2 RATIO (10-20); Calcium,Total 8.9 mg/dL (8.5-10.1); Chloride 100 mmol/L (98-107); Creatinine, Serum 0.76 mg/dL (0.70-1.30); EST Glomerular Filtration Rate 108 mL/min (>60); Est Glom Filt Rate - Afr Amer 130 mL/min (>60); Estimated Creatinine Clearance 44.62 ml/min; Glucose 114 mg/dL (74-106); Potassium 3.5 mmol/L (3.5-5.1); Sodium Level 142 mmol/L (136-145)
[2021-01-19 07:04] VITALS: PULSE 85; RESP 18; O2SAT 99
[2021-01-19] MEDS: Ipratropium/Albuterol Sulfate 3 ML AMPUL.NEB INHALATION (07:04)
[2021-01-19] MEDS: Budesonide Respules 0.5 MG/2 ML AMPUL.NEB. INHALATION (07:04)
[2021-01-19] MEDS: Aspirin 81 MG TAB.CHEW PO (08:10)
--- NOTE | 2021-01-19 09:25 | DS.PCM_ITS ---
Providers Date of Admission: 01/18/21 Primary Care Physician: [facility] Reason For Visit: COPD EXACERBATION Diagnosis Discharge Diagnosis (1) COPD (chronic obstructive pulmonary disease): Status: Chronic Code(s): J44.9 - Chronic obstructive pulmonary disease, unspecified Qualifiers: COPD type: chronic bronchitis Chronic bronchitis type: simple Qualified Code(s): J41.0 - Simple chronic bronchitis Medications at Discharge Home Medications budesonide-formoterol 2 puff INHALATION BID 05/15/20 ergocalciferol (vitamin D2) 50,000 unit PO QMONTH 05/15/20 food supplemt, lactose-reduced 120 ml PO 4X/DAY 05/15/20 guaifenesin 800 mg PO TID 05/15/20 hydrocortisone-pramoxine 1 applic TP BID PRN 05/15/20 omeprazole 40 mg PO BID 05/15/20 pravastatin 20 mg PO QHS 05/15/20 ropinirole 1 mg PO QHS PRN PRN 05/15/20 tamsulosin 0.8 mg PO DAILY 05/15/20 theophylline 300 mg PO BID 05/15/20 tiotropium bromide 18 mcg IH DAILY 05/15/20 Ammonium Lactate 1 applic TOPICAL DAILY 08/16/20 alprazolam 0.5 mg PO TID PRN PRN 08/16/20 aspirin 81 mg PO DAILY@0800 08/16/20 fluticasone propionate 2 spray NASAL DAILY 08/16/20 loratadine 10 mg PO DAILY 08/16/20 albuterol sulfate 2 puff INHALATION Q6H PRN 10/06/20 sennosides-docusate sodium [Senna with Docusate Sodium] 2 tab PO BID 10/06/20 docusate sodium 100 mg PO BID PRN 01/18/21 lactulose 20 g PO BID 01/18/21 plecanatide 3 mg PO DAILY 01/18/21 polyethylene glycol 3350 [Miralax] 17 g PO DAILY 01/18/21 prednisone 10 mg PO DAILY #40 tab 01/19/21 Hospital Course Operations None Procedures None Summary of Care Provided Minutes Spent on Discharge: 25 Hospital Course: Mr. Saenz is a 75-year-old white male who presented to the emergency department [facility] on 01/18/2021 with shortness of breath. The patient has a marked history of COPD and is oxygen dependent at baseline with 3 L. He has shortness of breath at baseline although he reported that on the day of admission his symptoms dramatically worsened and he was not able to reconcile them with aerosols or his Xanax. He states that when he gets short of breath he gets anxious and that his anxiety worsens his shortness of breath. He states he did try to take a Xanax yesterday and waited 20 to 30 minutes before deciding to come in given his continued shortness of breath. He was worried about CO2 retention which has been a problem for him in the past so he intermittently was taking off his oxygen at home. His vital signs in the emergency department were stable and he was able to be maintained on his 3 L nasal cannula throughout the hospitalization, which is his baseline. An ABG done in the emergency department and appeared to be at his baseline given the normal pH of 7.38, PCO2 was 63.7 and PO2 was 84 with a sat of 96% on his baseline 3 L nasal cannula. His labs were otherwise unremarkable. A chest x- ray showed marked hyperinflation but no acute processes. In the emergency department he was given Solu-Medrol and breathing treatments. The patient was reevaluated on the morning of 01/19/2021 and he states he really did not want to be admitted but his felt that he needed to be. At the time of reevaluation he was being maintained on his 3 L nasal cannula without any issues and desired to go home. I do not feel that there is any need for systemic antibiotics at this time. We will order prednisone 40 mg x 4 days, 30 mg x 4 days, 20 mg x 4 days, and 10 mg x 4 days and discharge him home. I have instructed him to follow-up closely with his primary care physician at the [place] and get a pulmonology follow-up as soon as he is able. He would likely benefit from home noninvasive ventilation with a trilogy given his chronic hypercapnia and this may reduce his hospitalizations for COPD. Continue home inhalers. Continue home oxygen use. 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 Depression Anxiety IBS GERD Hypertension Physical Exam Const alert, oriented x3 and no apparent distress Constitutional Narrative: Older white male sitting up in bed, appears older than stated age, appears comfortable, on baseline 3 L nasal cannula, no dyspnea with conversation, thin General Appearance: cooperative and comfortable Nutritional Appearance: cachectic HEENT normocephalic and head/scalp atraumatic Resp Resp Narrative: Markedly diminished diffusely, no wheeze rales or rhonchi Cardio regular rate, regular rhythm, S1 normal heart sound, S2 normal heart sound, no murmurs, no rub, no gallops, no clicks and no JVD GI normal to inspection, nondistended, normoactive bowel sounds, soft to palpation, non-tender and non-distended Extremity no clubbing, cyanosis or edema Skin no rashes or lesions noted, no wounds, skin turgor normal and no jaundice Neuro oriented x3, CN's II-XII intact bilaterally, moves all extremities and no focal motor deficits Sensorium / Orientation: awake, alert, oriented to person, oriented to place and oriented to time Speech: speech normal Psych affect normal Psych Narrative: Very pleasant and talkative Weight / BMI Weight Weight: 47.945 kg Body Mass Index (BMI) 16.5 ABG / Lab / Microbiology Data Result Diagrams: 01/19/21 05:15 01/19/21 05:15 Laboratory: Laboratory Results - last 24 hr 01/18/21 19:12: WBC 7.0, RBC 5.05, Hgb 15.2, Hct 48.9, MCV 96.8 H, MCH 30.1, MCHC 31.1 L, RDW Std Deviation 43.8, RDW Coeff of Christy 12.4, Plt Count 233, MPV 10.2, Immature Gran % (Auto) 0.400, Neut % (Auto) 74.4 H, Lymph % (Auto) 14.7 L, [place] % (Auto) 8.5, Eos % (Auto) 1.1, Baso % (Auto) 0.9, Absolute Neuts (auto) 5.2, Absolute Lymphs (auto) 1.03, Nucleated RBC % 0 01/18/21 19:12: Sodium 141, Potassium 4.1, Chloride 97 L, Carbon Dioxide 41.0 H, Anion Gap 3 L, BUN 12, Creatinine 0.72, Estim Creat Clear Calc 39.46, Est GFR (MDRD) Af Amer 138, Est GFR (MDRD) Non-Af 114, BUN/Creatinine Ratio 16.7, Glucose 107 H, Calcium 9.7, Total Bilirubin 0.70, AST 16, ALT 23, Alkaline Phosphatase 65, Total Protein 7.7, Albumin 4.1, Globulin 3.6, Albumin/Globulin Ratio 1.1 01/18/21 19:12: Troponin I High Sens 12 01/18/21 20:40: Urine Color Yellow, Urine Clarity Clear, Urine pH 8.0, Ur Specific [place] 1.015, Urine Protein 15 H, Urine Glucose (UA) Normal, Urine Ketones Negative, Urine Occult Blood Negative, Urine Nitrite Negative, Urine Bilirubin Negative, Urine Urobilinogen Normal, Ur Leukocyte Esterase Negative, Urine RBC 0 SEEN, Urine WBC 0 SEEN, Ur Squamous Epith Cells 0 SEEN, Urine Bacteria 0 SEEN, Urine Mucus 0 SEEN 01/18/21 23:59: Troponin I High Sens 12 01/19/21 05:15: WBC 6.8, RBC 4.12 L, Hgb 12.4 L, Hct 39.9 L, MCV 96.8 H, MCH 30.1, MCHC 31.1 L, RDW Std Deviation 44.0 H, RDW Coeff of Christy 12.3, Plt Count 197, MPV 9.4, Immature Gran % (Auto) 0.100, Neut % (Auto) 72.2 H, Lymph % (Auto) 13.6 L, [place] % (Auto) 11.7 H, Eos % (Auto) 1.8, Baso % (Auto) 0.6, Absolute Neuts (auto) 4.9, Absolute Lymphs (auto) 0.92, Nucleated RBC % 0 01/19/21 05:15: Sodium 142, Potassium 3.5, Chloride 100, Carbon Dioxide 40.0 H, Anion Gap 2 L, BUN 16, Creatinine 0.76, Estim Creat Clear Calc 44.62, Est GFR (MDRD) Af Amer 130, Est GFR (MDRD) Non-Af 108, BUN/Creatinine Ratio 21.2 H, Glucose 114 H, Calcium 8.9 Microbiology: Microbiology 01/18/21 20:12 Mucosa - Nose SARS-CoV-2 Antigen (Rapid) - Final ABG: ABG 01/18/21 20:06 Specimen Type ART Sample Site L Radial pH 7.38 Bicarbonate Actual 37.6 H Total CO2 40 Base Excess 13 H O2 Saturation 96 ABG pCO2 63.7 H ABG pO2 84 Marcel Test Positive O2 Delivery Device Cannula Liter Flow 3.0 Radiography Diagnostic Testing: Radiology Impression Chest X-Ray 01/18/21 20:18 IMPRESSION: Advanced emphysematous disease cannot appreciably changed compared to prior exam. Electronically Signed: Nadeem BordenDO emery at 21:05 EDT Tel , Service support , D/C Instructions Discharge Diet: No restrictions Meaningful Use Info Meaningful Use Diagnoses (Choose all that apply): None applicable Discharge Plan Admission Admit Date/Time: 01/18/21 23:39 Primary Reason for Your Visit: AECOPD Attending Provider: Alanis Linder Primary Care Provider: [facility] Discharge Orders/Prescriptions Prescriptions: New prednisone 10 mg tablet 10 mg PO DAILY Qty: 40 RF: 0 Continued tamsulosin 0.4 MG capsule 0.8 mg PO DAILY RF: 0 ropinirole 1 MG tablet 1 mg PO QHS PRN PRN (Reason: Restless Leg(S)) RF: 0 theophylline 300 MG tablet 300 mg PO BID RF: 0 pravastatin 20 MG tablet 20 mg PO QHS RF: 0 ergocalciferol (vitamin D2) 50,000 UNIT capsule 50,000 unit PO QMONTH RF: 0 tiotropium bromide 18 MCG capsule, w/inhalation device 18 mcg IH DAILY RF: 0 budesonide-formoterol 1 INHALER inhaler 2 puff INHALATION BID RF: 0 hydrocortisone-pramoxine 10 GM foam 1 applic TP BID PRN (Reason: Pain) RF: 0 omeprazole 20 MG capsule,delayed release(DR/EC) 40 mg PO BID RF: 0 food supplemt, lactose-reduced 120 ML liquid 120 ml PO 4X/DAY RF: 0 guaifenesin 400 MG tablet 800 mg PO TID RF: 0 Ammonium Lactate 1 applic TOPICAL DAILY RF: 0 aspirin 81 MG tablet,chewable 81 mg PO DAILY@0800 RF: 0 fluticasone propionate 1 SPRAY spray,suspension 2 spray NASAL DAILY RF: 0 loratadine 10 MG tablet 10 mg PO DAILY RF: 0 alprazolam 0.25 MG tablet 0.5 mg PO TID PRN PRN (Reason: Anxiety) RF: 0 sennosides-docusate sodium [Senna with Docusate Sodium] 8.6-50 mg Tablet 2 tab PO BID RF: 0 albuterol sulfate 90 mcg/actuation Hfa Aerosol Inhaler 2 puff INHALATION Q6H PRN (Reason: Shortness Of Breath Or Wheezing) RF: 0 docusate sodium 50 mg Tablet 100 mg PO BID PRN (Reason: Constipation) RF: 0 lactulose 20 gram Packet 20 g PO BID RF: 0 polyethylene glycol 3350 [Miralax] 17 gram Powder In Packet 17 g PO DAILY RF: 0 plecanatide 3 mg Tablet 3 mg PO DAILY RF: 0 Referrals / Follow Up: [facility] [Primary Care Provider] - Within 1 Week (follow up with pulmonary as soon as possible as well) Disposition Disposition (needs filled in before D/C Order can be placed): Home, Self Care Charges/Coding Visit Charges Inpatient E&M: 70527 Disch Hosp
--- NOTE | 2021-01-19 09:50 | PCM.DC ---
Discharge Instructions Diet Discharge Diet: No restrictions Follow Up Care Test Results: Test results from this visit will be discussed in further detail at your follow-up appointment, if applicable. Discharge Plan Admission Admit Date/Time: 01/18/21 23:39 Primary Reason for Your Visit: AECOPD Attending Provider: Alanis Linder Primary Care Provider: [facility] Discharge Orders/Prescriptions Prescriptions: New prednisone 10 mg tablet 10 mg PO DAILY Qty: 40 RF: 0 Continued tamsulosin 0.4 MG capsule 0.8 mg PO DAILY RF: 0 ropinirole 1 MG tablet 1 mg PO QHS PRN PRN (Reason: Restless Leg(S)) RF: 0 theophylline 300 MG tablet 300 mg PO BID RF: 0 pravastatin 20 MG tablet 20 mg PO QHS RF: 0 ergocalciferol (vitamin D2) 50,000 UNIT capsule 50,000 unit PO QMONTH RF: 0 tiotropium bromide 18 MCG capsule, w/inhalation device 18 mcg IH DAILY RF: 0 budesonide-formoterol 1 INHALER inhaler 2 puff INHALATION BID RF: 0 hydrocortisone-pramoxine 10 GM foam 1 applic TP BID PRN (Reason: Pain) RF: 0 omeprazole 20 MG capsule,delayed release(DR/EC) 40 mg PO BID RF: 0 food supplemt, lactose-reduced 120 ML liquid 120 ml PO 4X/DAY RF: 0 guaifenesin 400 MG tablet 800 mg PO TID RF: 0 Ammonium Lactate 1 applic TOPICAL DAILY RF: 0 aspirin 81 MG tablet,chewable 81 mg PO DAILY@0800 RF: 0 fluticasone propionate 1 SPRAY spray,suspension 2 spray NASAL DAILY RF: 0 loratadine 10 MG tablet 10 mg PO DAILY RF: 0 alprazolam 0.25 MG tablet 0.5 mg PO TID PRN PRN (Reason: Anxiety) RF: 0 sennosides-docusate sodium [Senna with Docusate Sodium] 8.6-50 mg Tablet 2 tab PO BID RF: 0 albuterol sulfate 90 mcg/actuation Hfa Aerosol Inhaler 2 puff INHALATION Q6H PRN (Reason: Shortness Of Breath Or Wheezing) RF: 0 docusate sodium 50 mg Tablet 100 mg PO BID PRN (Reason: Constipation) RF: 0 lactulose 20 gram Packet 20 g PO BID RF: 0 polyethylene glycol 3350 [Miralax] 17 gram Powder In Packet 17 g PO DAILY RF: 0 plecanatide 3 mg Tablet 3 mg PO DAILY RF: 0 Referrals / Follow Up: [facility] [Primary Care Provider] - Within 1 Week (follow up with pulmonary as soon as possible as well) Disposition Disposition (needs filled in before D/C Order can be placed): Home, Self Care
[2021-01-19 10:55] VITALS: BP 123/77; PULSE 85; RESP 20; TEMP 36.6; O2SAT 98
[2021-01-19 11:00] VITALS: PULSE 85; RESP 20; O2SAT 98
--- NOTE | 2021-01-19 11:20 | CPS ---
PT REFUSED PEP AT THIS TIME.
[2021-01-19] MEDS: Lactulose 20 GM/30 ML UDC PO (11:37)
[2021-01-19] MEDS: Tamsulosin HCl 0.4 MG Capsule 0.8 MG PO (11:38)
[2021-01-19] MEDS: Pantoprazole Sodium 40 MG Tablet PO (11:39)
[2021-01-19] MEDS: Fluticasone 0.05% 1 SPRAY NASAL.SRY 2 SPRAY NASAL (11:40)
[2021-01-19] MEDS: Loratadine 10 MG Tablet PO (11:40)
[2021-01-19 11:57] VITALS: BP 123/77; PULSE 85; RESP 20; TEMP 36.6; O2SAT 98
== END 2021-01-19 12:04 | disposition home or self-care (01) ==
LOC: ED 22:50 → MS3 01-19 04:46
PROVIDERS: Admitting Provider Hospitalist; Emergency Provider Emergency Medicine; Visit Provider Internal Medicine
DX: J44.1 Chronic obstructive pulmonary disease with (acute) exacerbation (principal); F41.9 Anxiety disorder, unspecified; K21.9 Gastro-esophageal reflux disease without esophagitis; I10 Essential (primary) hypertension; F32.9 Major depressive disorder, single episode, unspecified; E43 Unspecified severe protein-calorie malnutrition; R64 Cachexia; K58.9 Irritable bowel syndrome, unspecified; Z99.81 Dependence on supplemental oxygen; Z87.891 Personal history of nicotine dependence; Z79.899 Other long term (current) drug therapy; Z79.51 Long term (current) use of inhaled steroids; Z79.82 Long term (current) use of aspirin; Z68.1 Body mass index [BMI] 19.9 or less, adult
CPT/HCPCS: 36415; 36600; 71045; 80048; 80053; 81001; 82803; 84484; 85025; 87426; 93005; 94640; 99218; 99251; 99285; A4216; G0378; G0463

== ENCOUNTER → 2021-03-03 13:32 | Outpatient (CLI) | payer OTHER, MEDICARE, SELFPAY | PROVIDERS: Referring Provider Physician Assistant; Visit Provider Physician Assistant | DX: Z11.52 Encounter for screening for COVID-19 (principal) | CPT/HCPCS: 87635; U0005; U0003 ==

== ENCOUNTER 2021-04-25 13:12 | Emergency (ER) | payer OTHER, SELFPAY ==
[2021-04-25 13:13] VITALS: BP 182/116; PULSE 95; RESP 26; TEMP 35.9; O2SAT 100; BMI 14.1
--- NOTE | 2021-04-25 14:41 | CT_ITS ---
STUDY: CT ABDOMEN AND PELVIS WITH CONTRAST REASON FOR EXAM: Male, 75 years old. Abdominal Pain, constipation RADIATION DOSAGE (If Supplied By Facility): CTDIvol = ( 10.73 ) mGy, DLP = ( 227.32 ) mGycm TECHNIQUE: Transaxial images were obtained from the dome of the diaphragm to the symphysis pubis without oral contrast. IV 75mL Isovue-300 was administered. Sagittal and coronal images were reconstructed. Individualized dose optimization techniques were used for this CT. COMPARISON: 05/10/2020. FINDINGS: The visualized lung bases are hyperaerated with emphysematous changes. The visualized portions of the heart are within normal limits. Subcentimeter cysts in the liver. Partially contracted gallbladder. No significant dilatation of the extrahepatic biliary system. Normal spleen. Normal pancreas. Normal bilateral adrenal glands. Bilateral renal cysts. Normal visualized stomach. Normal small intestine. Fecal retention distending the rectosigmoid colon. The appendix is visualized and appears normal. Calcified abdominal aorta. Normal inferior vena cava. Normal retroperitoneum. Normal urinary bladder. Normal abdominal wall. Mild degenerative vertebral changes and scoliosis at the lumbar level. CT/Abdomen/Pelvis W IV Cont ONLY IMPRESSION: Hepatic and renal cysts. Fecal retention distending the rectosigmoid colon. 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 Electronically Signed: Alfred Stevens DO at 17:46 EST Tel [phone], Service support ,
--- NOTE | 2021-04-25 14:46 | ED.VIS.GI ---
HPI HPI - GI History of Present Illness Chief Complaint: Constipation Narrative Narrative: 75-year-old male presenting with diffuse generalized abdominal pain. He states he is not had a meaningful bowel movement in 3 weeks. He states he is taking stool softeners and laxatives 4 times a day and still not having improvement. He does have small hard, round stools. He denies black or bloody stool. He denies diarrhea. Patient also complaining of difficulty urinating due to his prostate enlargement. He states he last voided a couple of hours ago. He denies any dysuria. He has mild nausea but does not have any vomiting. Has been able to eat and drink. No fever or chills. PFSH [facility] Medical History Anxiety Chest pain COPD (chronic obstructive pulmonary disease) COPD (chronic obstructive pulmonary disease) Depression Depression Former smoker Former smoker GERD (gastroesophageal reflux disease) GERD (gastroesophageal reflux disease) Hypercarbia Hypertension On home oxygen therapy On home oxygen therapy Pressure injury of left buttock, stage 1 Home Medications budesonide-formoterol 2 puff INHALATION BID 05/15/20 [History Last Taken 05/15/20] ergocalciferol (vitamin D2) 50,000 unit PO QMONTH 05/15/20 [History Last Taken Unknown] food supplemt, lactose-reduced 120 ml PO 4X/DAY 05/15/20 [History Last Taken 10/06/20] guaifenesin 800 mg PO TID 05/15/20 [History Last Taken 10/06/20] hydrocortisone-pramoxine 1 applic TP BID PRN 05/15/20 [History Last Taken 10/06/20] omeprazole 40 mg PO BID 05/15/20 [History Last Taken 10/06/20] pravastatin 20 mg PO QHS 05/15/20 [History Last Taken 10/05/20] ropinirole 1 mg PO QHS PRN PRN 05/15/20 [History Last Taken Unknown] tamsulosin 0.8 mg PO DAILY 05/15/20 [History Last Taken 10/06/20] theophylline 300 mg PO BID 05/15/20 [History Last Taken 10/06/20] tiotropium bromide 18 mcg IH DAILY 05/15/20 [History Last Taken 10/06/20] Ammonium Lactate 1 applic TOPICAL DAILY 08/16/20 [History Last Taken Unknown] alprazolam 0.5 mg PO TID PRN PRN 08/16/20 [History Last Taken 10/05/20] aspirin 81 mg PO DAILY@0800 08/16/20 [History Last Taken 10/05/20] fluticasone propionate 2 spray NASAL DAILY 08/16/20 [History Last Taken 10/06/20] loratadine 10 mg PO DAILY 08/16/20 [History Last Taken 10/06/20] albuterol sulfate 2 puff INHALATION Q6H PRN 10/06/20 [History Last Taken Unknown] sennosides-docusate sodium [Senna with Docusate Sodium] 2 tab PO BID 10/06/20 [History Last Taken 10/06/20] docusate sodium 100 mg PO BID PRN 01/18/21 [History Last Taken Unknown] lactulose 20 g PO BID 01/18/21 [History Last Taken Unknown] plecanatide 3 mg PO DAILY 01/18/21 [History Last Taken Unknown] polyethylene glycol 3350 [Miralax] 17 g PO DAILY 01/18/21 [History Last Taken Unknown] prednisone 10 mg PO DAILY #40 tab 01/19/21 [Rx Last Taken Unknown] mineral oil 100 ea MISCELLANEOUS .once #100 ml 04/25/21 [Rx Last Taken Unknown] Allergy/AdvReac Type Severity Reaction Status Date / Time clonazepam Allergy Shortness Verified 04/25/21 13:12 of breath Tetanus Vaccines and Toxoid Allergy Swelling Verified 04/25/21 13:12 Family History Other COPD (chronic obstructive pulmonary disease) Heart disease Surgical History History of appendectomy History of appendectomy Social History Smoking Status: Former smoker ROS ROS ED Constitutional Constitutional ED: Denies chills or fever(s) ENT ENT ED: Denies rhinorrhea or sore throat Cardiovascular Cardiovascular: Denies chest pain or palpitations Respiratory/Chest Respiratory/Chest: Denies cough or dyspnea Gastrointestinal Gastrointestinal: Reports abdominal pain, constipation and nausea; Denies diarrhea or vomiting Genitourinary Genitourinary ED: Denies dysuria or hematuria Musculoskeletal Musculoskeletal: Denies arthralgias or myalgias Integumentary Denies abscess or rash Neurologic Neurologic: Denies headache(s) or paresthesias Psychiatric Psychiatric: Denies anxiety or depression EXAM Physical Exam Const Vital Signs: 04/25/21 13:13 04/25/21 19:07 Temperature 96.7 F L Temperature Source Temporal Pulse Rate 95 74 Respiratory Rate 26 H 18 Blood Pressure 182/116 H 128/68 H Blood Pressure Mean 138 Pulse Ox 100 95 Oxygen Delivery Method Nasal Cannula Oxygen Flow Rate (L/min) 3 Positive well nourished General Appearance ED: NAD; Negative for pallor HEENT normocephalic and atraumatic Eyes PERRL and EOMs intact bilaterally Resp normal respiratory effort and clear to auscultation bilaterally Cardio regular rate and regular rhythm GI GI Narrative: Abdomen slightly distended. Abdomen nonperitoneal. No CVA tenderness. Back/Spine no CVA tenderness Neuro CN's II-XII intact bilaterally Sensorium / Orientation: alert and oriented to person Psych mental status grossly normal Skin General Skin Exam: Negative for jaundice or pallor MDM MDM MDM Narrative Medical decision making narrative: Patient presenting with constipation and states that he is only able to get hard small balls out. He is tried mineral oil enemas, soapsuds enemas, fleets enemas, MiraLAX, magnesium citrate, Dulcolax. Patient not having much success. I did obtain blood work today and his CBC and BMP are within normal limits with exception of elevated CO2 at 39 which is lower than his previous. Patient does have a history of COPD and does wear oxygen at baseline. He is not complaining of any respiratory complaints. He did complain of some urinary difficulty and his urinalysis is negative for infection. This is likely due to BPH. CT abdomen pelvis shows fecal retention impacting the rectosigmoid colon. I did go back and perform a digital rectal exam and I am unable to reach any stool in the rectal vault. Patient offered oral laxatives and an enema. He declines this. He states I want answers. I spoke with Dr. Alvarado and reviewed the case with him. He states at this point the patient is going to have to drink 100 mL of warm mineral oil. He was happy to see him in follow-up next week. This was discussed with the patient he is amenable to this. A prescription was written for him. Patient discharged stable condition. Impression: 1. constipation 2. Fecal impaction Lab Data Labs: Laboratory Results - last 24 hr 04/25/21 04/25/21 04/25/21 14:51 15:55 15:55 WBC 7.5 RBC 4.75 Hgb 14.8 Hct 45.4 MCV 95.6 H MCH 31.2 MCHC 32.6 RDW Std Deviation 43.4 RDW Coeff of Christy 12.4 Plt Count 203 MPV 8.9 Immature Gran % (Auto) 0.300 Neut % (Auto) 77.5 H Lymph % (Auto) 11.4 L [place] % (Auto) 8.6 Eos % (Auto) 1.5 Baso % (Auto) 0.7 Absolute Neuts (auto) 5.8 Absolute Lymphs (auto) 0.85 Nucleated RBC % 0 Sodium 143 Potassium 3.9 Chloride 102 Carbon Dioxide 39.0 H Anion Gap 2 L BUN 10 Creatinine 0.71 Estim Creat Clear Calc 37.99 Est GFR (MDRD) Af Amer 140 Est GFR (MDRD) Non-Af 115 BUN/Creatinine Ratio 14.1 Glucose 104 Calcium 9.9 Total Bilirubin 0.40 AST 13 L ALT 17 Alkaline Phosphatase 61 Total Protein 7.0 Albumin 3.6 Globulin 3.4 Albumin/Globulin Ratio 1.1 Lipase 49 L Urine Color Yellow Urine Clarity Clear Urine pH 5.0 Ur Specific [place] 1.025 Urine Protein 15 H Urine Glucose (UA) Normal Urine Ketones Negative Urine Occult Blood Negative Urine Nitrite Negative Urine Bilirubin Negative Urine Urobilinogen Normal Ur Leukocyte Esterase 25 H Urine RBC 0 SEEN Urine WBC 0-5 SEEN Ur Squamous Epith Cells 0 SEEN Calcium Oxalate Crystal 2+ Urine Bacteria 0 SEEN Urine Mucus 0 SEEN Radiography Diagnostic Testing: Clinical Impression(s) from Imaging Studies Abdomen/Pelvis CT 04/25/21 14:41 IMPRESSION: Hepatic and renal cysts. Fecal retention distending the rectosigmoid colon. 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 Electronically Signed: Alfred Stevens DO at 17:46 EST Tel [phone], Service support , Discharge Plan Triage Chief Complaint: Constipation ED Provider: Aleksandr Wu Dx/Rx/DC Orders Instructions: ED Constipation (Adult) Prescriptions: New mineral oil Oil 100 ea miscellaneous .once Qty: 100 RF: 0 No Action tamsulosin 0.4 MG capsule 0.8 mg PO DAILY RF: 0 ropinirole 1 MG tablet 1 mg PO QHS PRN PRN (Reason: Restless Leg(S)) RF: 0 theophylline 300 MG tablet 300 mg PO BID RF: 0 pravastatin 20 MG tablet 20 mg PO QHS RF: 0 ergocalciferol (vitamin D2) 50,000 UNIT capsule 50,000 unit PO QMONTH RF: 0 tiotropium bromide 18 MCG capsule, w/inhalation device 18 mcg IH DAILY RF: 0 budesonide-formoterol 1 INHALER inhaler 2 puff INHALATION BID RF: 0 hydrocortisone-pramoxine 10 GM foam 1 applic TP BID PRN (Reason: Pain) RF: 0 omeprazole 20 MG capsule,delayed release(DR/EC) 40 mg PO BID RF: 0 food supplemt, lactose-reduced 120 ML liquid 120 ml PO 4X/DAY RF: 0 guaifenesin 400 MG tablet 800 mg PO TID RF: 0 Ammonium Lactate 1 applic TOPICAL DAILY RF: 0 aspirin 81 MG tablet,chewable 81 mg PO DAILY@0800 RF: 0 fluticasone propionate 1 SPRAY spray,suspension 2 spray NASAL DAILY RF: 0 loratadine 10 MG tablet 10 mg PO DAILY RF: 0 alprazolam 0.25 MG tablet 0.5 mg PO TID PRN PRN (Reason: Anxiety) RF: 0 sennosides-docusate sodium [Senna with Docusate Sodium] 8.6-50 mg Tablet 2 tab PO BID RF: 0 albuterol sulfate 90 mcg/actuation Hfa Aerosol Inhaler 2 puff INHALATION Q6H PRN (Reason: Shortness Of Breath Or Wheezing) RF: 0 docusate sodium 50 mg Tablet 100 mg PO BID PRN (Reason: Constipation) RF: 0 lactulose 20 gram Packet 20 g PO BID RF: 0 polyethylene glycol 3350 [Miralax] 17 gram Powder In Packet 17 g PO DAILY RF: 0 plecanatide 3 mg Tablet 3 mg PO DAILY RF: 0 prednisone 10 mg tablet 10 mg PO DAILY Qty: 40 RF: 0 [facility] Care Provider: [facility] Referrals: Friend,DO [place] [STAFF PHYSICIAN] - [facility] [Primary Care Provider] - Disposition Disposition: Home, Self Care Discharge Date/Time: 04/25/21 19:43
[2021-04-25 16:04] LABS: Bacteria 0 SEEN /hpf (None Seen); Mucous, Urine 0 SEEN /hpf (<or=2+); Red Blood Cells-Urine 0 SEEN /hpf (0-5); Squamous Epithelial Cells - UA 0 SEEN /hpf (0-5)
[2021-04-25 16:06] LABS: Absolute Lymphocyte Count 0.85 X10^3/uL (0.83-4.51); Absolute Neutrophil Count 5.8 X10^3/uL (2.0-7.7); Basophil# 0.05 X10^3/uL; Basophil% 0.7 % (0-1); Eosinophil# 0.11 X10^3/uL; Eosinophils% 1.5 % (0-5); Hematocrit 45.4 % (40-54); Hemoglobin 14.8 g/dL (13.0-16.5); Lymphocyte # 0.85 X10^3/ul (0.83-4.51); Lymphocyte % 11.4 % (19-41); Mean Corp Hgb Conc 32.6 g/dL (32-36); Mean Corpuscular Hgb 31.2 pg (27.0-32.0); Mean Corpuscular Volume 95.6 fL (80-94); Mean Platelet Vol. 8.9 fl (6.2-12.0); Monocyte# 0.64 X10^3/uL; Monocyte% 8.6 % (0-10); NRBC Flagged by Analyzer 0 % (0-5); Neutrophil # 5.81 X10^3/uL (2.7-7.7); Neutrophil % 77.5 % (47-70); Platelet Count 203 K/mm3 (150-450); RBC Distribution Width CV 12.4 % (11.6-14.6); RBC Distribution Width SD 43.4 fl (35.1-43.9); Red Blood Count 4.75 M/mm3 (4.6-6.2); White Blood Count 7.5 K/mm3 (4.4-11.0)
[2021-04-25 16:19] LABS: Color, Urine Yellow (Yellow); Glucose, Dipstick Normal (Normal); Ketone-Dipstick Negative (Negative); Leukocyte Esterase-Dipstick 25 /ul (Negative); Nitrite-Dipstick Negative (Negative); Occult Blood-Urine Negative /ul (Negative); Protein-Dipstick 15 mg/dl (Negative); Specific Gravity, Urine 1.025 (1.002-1.030); Urine Bilirubin Dipstick Negative (Negative); Urine Clarity Clear (Clear); Urine Urobilinogen Normal (Normal)
[2021-04-25 16:25] LABS: ALB/GLOB Ratio 1.1 RATIO (0.9-2.4); AST(SGOT) 13 U/L (15-37); Alanine Aminotransfer ALT/SGPT 17 U/L (16-61); Albumin, Serum 3.6 g/dL (3.2-5.0); Alkaline Phosphatase 61 U/L (45-117); Anion Gap 2 (5-15); BUN 10 mg/dL (7-18); BUN/Creat Ratio 14.1 RATIO (10-20); Calcium,Total 9.9 mg/dL (8.5-10.1); Chloride 102 mmol/L (98-107); Creatinine, Serum 0.71 mg/dL (0.70-1.30); EST Glomerular Filtration Rate 115 mL/min (>60); Est Glom Filt Rate - Afr Amer 140 mL/min (>60); Estimated Creatinine Clearance 37.99 ml/min; Globulin 3.4 g/dL (2.2-4.2); Glucose 104 mg/dL (74-106); Lipase 49 U/L (73-393); Potassium 3.9 mmol/L (3.5-5.1); Sodium Level 143 mmol/L (136-145)
[2021-04-25 16:29] LABS: Calcium Oxalate Crystals Ur 2+ /hpf (<or=2+); White Blood Cells 0-5 SEEN /hpf (0-5)
--- NOTE | 2021-04-25 17:47 | ED.RN ---
PT REQUESTING TO SEE A SPECIALIST IN THE ED. THIS RN TALKED WITH PT REGARDING ARE AND HOW REFERRALS WORK. PT UNHAPPY WITH CURRENT TREATMENT PLAN.
[2021-04-25 19:07] VITALS: BP 128/68; PULSE 74; RESP 18; O2SAT 95
== END 2021-04-25 19:43 | disposition home or self-care (01) ==
PROVIDERS: Emergency Provider Student in an Organized Health Care Education/Training Program
DX: K56.41 Fecal impaction (principal); F41.9 Anxiety disorder, unspecified; J44.9 Chronic obstructive pulmonary disease, unspecified; F32.A Depression, unspecified; K21.9 Gastro-esophageal reflux disease without esophagitis; I10 Essential (primary) hypertension; Z99.81 Dependence on supplemental oxygen; Z79.51 Long term (current) use of inhaled steroids; Z79.899 Other long term (current) drug therapy; Z87.891 Personal history of nicotine dependence
CPT/HCPCS: 74177; 80053; 81001; 83690; 85025; 99283; Q9967; A4216

== ENCOUNTER → 2021-11-13 | Outpatient (CLI) | payer OTHER, MEDICARE, SELFPAY | END | disposition home or self-care (01) | PROVIDERS: Visit Provider Internal Medicine Critical Care Medicine | DX: J44.9 Chronic obstructive pulmonary disease, unspecified (principal) ==

== ENCOUNTER 2022-01-26 06:42 | Emergency (ER) | payer OTHER, SELFPAY ==
[2022-01-26] VITALS (14 sets, daily range): BP systolic 83–97; BP diastolic 42–79; PULSE 69–175; RESP 12–35; TEMP 36.2–36.4; O2SAT 74–98; BMI 15.4
[2022-01-26] MEDS: Ipratropium/Albuterol Sulfate 3 ML AMPUL.NEB INHALATION (07:06)
--- NOTE | 2022-01-26 07:12 | EKG12_ITS ---
Test Reason : SOB Blood Pressure : / mmHG Vent. Rate : 171 BPM Atrial Rate : 159 BPM P-R Int : 000 ms QRS Dur : 128 ms QT Int : 298 ms P-R-T Axes : 000 029 206 degrees QTc Int : 502 ms Somatic/Motion Artifact Atrial fibrillation Non-specific intra-ventricular conduction block Marked T wave abnormality, consider anterolateral ischemia Abnormal ECG Confirmed by DOT GIBBS, AMELIA ([id number]), photo editor ALYSSA CORTEZ ([id number]) on 01/27/2022 7:43:52 AM Referred By: CARLOS Confirmed By:AMELIA CHRIS MD
--- NOTE | 2022-01-26 07:12 | RAD_ITS ---
STUDY: X-RAY CHEST REASON FOR EXAM: Male, 76 years old. Dyspnea TECHNIQUE: Single AP portable view of the chest. COMPARISON: Comparison is made with prior study dated 01/18/2021. FINDINGS: There is hyperinflation of the lungs consistent with chronic obstructive lung disease (COPD). The increased bronchovascular markings in both lungs more prominent in the upper lobes suggestive of a bullous formation. Stable increased linear markings at the lung bases suggestive of scarring. There is no demonstrated pleural abnormality. Normal size heart. Normal mediastinum and chip. Normal visualized pulmonary arteries. There is atherosclerotic calcification of the aortic arch with tortuosity. Normal visualized thoracic spine. Normal visualized ribs, clavicles, and shoulders. There is no demonstrated abnormality of the visualized soft tissue structures of the upper abdomen. RAD/Chest 1 View (Portable) IMPRESSION: Hyperinflation and changes compatible with COPD. There has been no change since prior study. Electronically Signed: Kian Guevara MD at 8:21 EDT ,
--- NOTE | 2022-01-26 07:14 | EDS_ITS ---
HPI History of Present Illness Chief Complaint: Shortness of Breath Informant: family Onset/Context/Timing Onset: Days Context: gradual Timing: Continuous Quality: Positive for Orthopnea Worsened by: Nothing Relieved by: Nothing Associated Symptoms Negative for cough, rhinorrhea, fever, sore throat or chills Narrative Narrative: Patient presents with dyspnea that has been getting worse over the past couple days. Family states it is gradually getting worse. Family states the patient has been complaining of some abdominal pain as well. Family denies any cough. Family states patient has been spitting up some mucus. Family denies any fevers or chills. Patient is a poor informant. [facility] Medical History Anxiety Chest pain COPD (chronic obstructive pulmonary disease) COPD (chronic obstructive pulmonary disease) Depression Depression Former smoker Former smoker GERD (gastroesophageal reflux disease) GERD (gastroesophageal reflux disease) Hypercarbia Hypertension On home oxygen therapy On home oxygen therapy Pressure injury of left buttock, stage 1 Home Medications ergocalciferol (vitamin D2) 1,250 mcg (50,000 unit) capsule 50,000 unit PO QMONTH supplement 05/15/20 [History Last Taken Unknown] food supplemt, lactose-reduced 120 ml PO 4X/DAY SUPPLEMENT 05/15/20 [History Last Taken 10/06/20] guaifenesin 400 mg tablet 800 mg PO TID PRN Cough 05/15/20 [History Last Taken 10/06/20] omeprazole 20 mg capsule,delayed release 40 mg PO BID GERD 05/15/20 [History Last Taken 10/06/20] pravastatin 20 mg tablet 20 mg PO QHS cholesterol 05/15/20 [History Last Taken 10/05/20] ropinirole 1 mg tablet 1 mg PO QHS PRN PRN Restless Leg(S) 05/15/20 [History Last Taken Unknown] tamsulosin 0.4 mg capsule 0.8 mg PO DAILY prostate 05/15/20 [History Last Taken 10/06/20] theophylline 300 mg tablet,extended release,12 hr 300 mg PO BID supplement 05/15/20 [History Last Taken 10/06/20] alprazolam 0.25 mg tablet 0.5 mg PO TID PRN PRN Anxiety 08/16/20 [History Last Taken 10/05/20] aspirin 81 mg chewable tablet 81 mg PO DAILY@0800 heart health 08/16/20 [History Last Taken 10/05/20] fluticasone propionate 50 mcg/actuation nasal spray,suspension 2 spray NASAL DAILY stuffy nose 08/16/20 [History Last Taken 10/06/20] loratadine 10 mg tablet 10 mg PO DAILY PRN ALLERGIES 08/16/20 [History Last Taken 10/06/20] albuterol sulfate 90 mcg/actuation aerosol inhaler 2 puff inhalation Q6H PRN Shortness Of Breath Or Wheezing 10/06/20 [History Last Taken Unknown] sennosides 8.6 mg-docusate sodium 50 mg tablet (Senna with Docusate Sodium) 2 tab PO BID constipation 10/06/20 [History Last Taken 10/06/20] polyethylene glycol 3350 17 gram oral powder packet (Miralax) 17 g PO DAILY 01/18/21 [History Last Taken Unknown] mineral oil 100 ea miscellaneous .once Constipation #100 mL 04/25/21 [Rx Last Taken Unknown] acetaminophen 325 mg capsule 650 mg PO Q6H PRN Pain 10/21/21 [History Last Taken Unknown] acetylcysteine 100 mg/mL (10 %) solution 4 ml inhalation BID 10/21/21 [History Last Taken Unknown] albuterol sulfate 2.5 mg/3 mL (0.083 %) solution for nebulization 2.5 mg inhalation Q4H PRN SOB 10/21/21 [History Last Taken Unknown] ammonium lactate 12 % lotion 1 applic topical DAILY PRN dry skin 10/21/21 [History Last Taken Unknown] bisacodyl 10 mg rectal suppository 10 mg VA BID PRN constipation 10/21/21 [History Last Taken Unknown] budesonide 160 mcg-glycopyr 9 mcg-formot 4.8 mcg/actuation HFA inhaler (Breztri Aerosphere) 2 inh inhalation BID #10.7 grams 10/21/21 [Rx Last Taken Unknown] cyclobenzaprine 10 mg tablet 10 mg PO TID PRN pain 10/21/21 [History Last Taken Unknown] lactulose 10 gram/15 mL oral solution 30 ml PO BID 10/21/21 [History Last Taken Unknown] sodium chloride 0.65 % nasal spray aerosol 2 spray intranasal 5X/DAY PRN NASAL STUFFINESS 10/21/21 [History Last Taken Unknown] tiotropium 2.5 mcg-olodaterol 2.5 mcg/actuation mist for inhalation 2 puff inhalation DAILY 10/21/21 [History Last Taken Unknown] triamcinolone acetonide 0.1 % topical cream 1 applic topical TID PRN hemorrhoids 10/21/21 [History Last Taken Unknown] hydrophilic 1 applic topical DAILY 01/26/22 [History Last Taken Unknown] mometasone 110 mcg/actuation (7 doses) breath activated powder inhaler 200 mcg inhalation BID 01/26/22 [History Last Taken Unknown] olodaterol 2.5 mcg/actuation mist for inhalation 2 inh inhalation DAILY 01/26/22 [History Last Taken Unknown] plecanatide 3 mg tablet 3 mg PO DAILY 01/26/22 [History Last Taken Unknown] prednisone 10 mg tablet 10 mg PO UD 01/26/22 [History Last Taken Unknown] Allergy/AdvReac Type Severity Reaction Status Date / Time clonazepam Allergy Shortness Verified 01/26/22 06:51 of breath Tetanus Vaccines and Toxoid Allergy Swelling Verified 01/26/22 06:51 Family History Other COPD (chronic obstructive pulmonary disease) Heart disease Surgical History History of appendectomy History of appendectomy Social History Smoking Status: Former smoker alcohol intake: never substance use type: does not use ROS ROS ED Review of Systems ROS Unobtainable: due to mental status EXAM Physical Exam Const Vital Signs: 01/26/22 06:44 01/26/22 07:10 01/26/22 07:06 Temperature 97.2 F L Temperature Source Temporal Pulse Rate 168 H 175 H Respiratory Rate 35 H 27 H Respiratory Effort Short of Breath Labored Accessory Muscle Use Respiratory Depth Shallow Respiratory Pattern Tachypnea Blood Pressure 83/68 L Blood Pressure Mean 73 Pulse Ox 97 Oxygen Delivery Method Non-Rebreather Nasal Cannula Oxygen Flow Rate (L/min) 100 4 Fraction of Inspired Oxygen (FIO2) 01/26/22 07:06 01/26/22 08:01 01/26/22 08:01 Temperature Temperature Source Pulse Rate 106 H Respiratory Rate 29 H Respiratory Effort Respiratory Depth Respiratory Pattern Blood Pressure 85/67 L Blood Pressure Mean 73 Pulse Ox 94 97 Oxygen Delivery Method Nasal Cannula Nasal Cannula Nasal Cannula Oxygen Flow Rate (L/min) 4 4 Fraction of Inspired Oxygen (FIO2) 01/26/22 09:07 01/26/22 09:10 01/26/22 10:10 Temperature Temperature Source Pulse Rate 103 H 99 98 Respiratory Rate 28 H 29 H 26 H Respiratory Effort Respiratory Depth Respiratory Pattern Blood Pressure 94/79 Blood Pressure Mean 84 Pulse Ox 74 86 97 Oxygen Delivery Method Nasal Cannula Oxygen Flow Rate (L/min) 4 Fraction of Inspired Oxygen (FIO2) 30 37 01/26/22 10:14 01/26/22 10:47 01/26/22 11:06 Temperature Temperature Source Pulse Rate 102 H 83 Respiratory Rate 27 H 21 H Respiratory Effort Respiratory Depth Respiratory Pattern Blood Pressure 92/42 L Blood Pressure Mean 58 Pulse Ox 93 89 93 Oxygen Delivery Method Bi-pap Oxygen Flow Rate (L/min) Fraction of Inspired Oxygen (FIO2) 34 34 01/26/22 12:09 Temperature Temperature Source Pulse Rate Respiratory Rate Respiratory Effort Respiratory Depth Respiratory Pattern Blood Pressure 90/78 Blood Pressure Mean 82 Pulse Ox 88 Oxygen Delivery Method Nasal Cannula Oxygen Flow Rate (L/min) 4 Fraction of Inspired Oxygen (FIO2) Positive cachectic General Appearance ED: cachectic Nutritional Appearance: cachectic HEENT Reports dry mucous membranes Mouth ED: Yes dry mucous membranes Mouth: dry mucous membranes Neck supple and no meningeal signs Resp Auscultation: diminished lung sounds diffuse Cardio Rate: tachycardic Rhythm: abnormal rhythm irregularly irregular GI Auscultation: hypoactive bowel sounds Palpation: tender epigastric, LLQ, RLQ, LUQ, RUQ, periumbilical and suprapubic; Negative for guarding or rebound tenderness present Neuro CN's II-XII intact bilaterally and no sensory deficits noted Sensorium / Orientation: alert Motor Exam: general weakness Psych mental status grossly normal MDM MDM MDM Narrative Medical decision making narrative: EKG was obtained. On my interpretation, it shows atrial fibrillation with a rate of 171. There are nonspecific ST-T wave changes noted. There is a right b undle branch block pattern noted. The rate is increased compared to previous EKG dated 01/18/2021. The atrial fibrillation and right bundle branch block are unchanged. DC shows a leukocytosis of 34.3. Basic metabolic profile shows a BUN of 50 and creatinine of 1.51. Lactate was elevated at 3.3. High- sensitivity troponin was normal at 28. Portable 1 view chest x-ray was obtained. On my interpretation, lung robertson show evidence of COPD and hyperinflation. There is normal cardiac silhouette. Bony thorax is normal. There is no acute process noted. Radiologist also interpreted the x-ray and agrees. Arterial blood gas was obtained and showed a pH of 7.29, PCO2 of 81.8, PO2 of 100, bicarbonate of 39.5, and O2 saturation of 96% on 4 L nasal cannula. Patient was started on BiPAP. CT scan of the abdomen and pelvis was obtained. There is no evidence of bowel obstruction or perforation. There is evidence of colitis. Patient was started on Cipro and Flagyl for this. Family requested that hospice be consulted. Hospice was in to evaluate the patient and patient will be admitted to the hospice facility. Patient and family understand and are agreeable with the plan. All questions were answered. Lab Data Attestation: I reviewed the patient's lab results. Labs: Laboratory Results - last 24 hr 01/26/22 01/26/22 01/26/22 07:45 07:45 07:45 WBC 34.3 H* RBC 5.03 Hgb 15.6 Hct 48.7 MCV 96.8 H MCH 31.0 MCHC 32.0 RDW Std Deviation 45.5 H RDW Coeff of Christy 12.8 Plt Count 222 MPV 10.9 Immature Gran % (Auto) WELDING MACHINE OPERATOR FRICTION Neut % (Auto) WELDING MACHINE OPERATOR FRICTION Lymph % (Auto) WELDING MACHINE OPERATOR FRICTION [place] % (Auto) WELDING MACHINE OPERATOR FRICTION Eos % (Auto) WELDING MACHINE OPERATOR FRICTION Baso % (Auto) WELDING MACHINE OPERATOR FRICTION Absolute Neuts (auto) 32.6 H Absolute Lymphs (auto) 0.34 L Total Counted 100 Neutrophils % (Manual) 62 Band Neutrophils % 33 H Lymphocytes % (Manual) 1 L Monocytes % (Manual) 3 Metamyelocytes % 1 Nucleated RBC % WELDING MACHINE OPERATOR FRICTION Diff Path Review May foll Platelet Estimate ADEQUATE RBC Morphology NORM C+C Sodium 133 L Potassium 4.9 Chloride 91 L Carbon Dioxide 35.0 H Anion Gap 7 BUN 50 H Creatinine 1.51 H Estim Creat Clear Calc 27.14 Est GFR (MDRD) Af Amer 58 L Est GFR (MDRD) Non-Af 48 L BUN/Creatinine Ratio 33.1 H Glucose 148 H Lactic Acid 2.2 H* Calcium 9.2 Troponin I High Sens 28 ABG Data ABG results: ABG 01/26/22 07:57 Specimen Type ART Sample Site L Radial pH 7.29 L Bicarbonate Actual 39.5 H Total CO2 42 Base Excess 13 H O2 Saturation 96 ABG pCO2 81.8 H* ABG pO2 100 Marcel Test Positive O2 Delivery Device Cannula Liter Flow 4.0 Crit Call To/Read Back Yes Radiography Diagnostic Testing: Clinical Impression(s) from Imaging Studies Chest X-Ray 01/26/22 07:12 IMPRESSION: Hyperinflation and changes compatible with COPD. There has been no change since prior study. Electronically Signed: Kian Guevara MD at 8:21 EDT , Abdomen/Pelvis CT 01/26/22 07:19 IMPRESSION: Findings suggestive of colitis. Diffuse urinary bladder wall thickening and prostatic enlargement with indentation of the bladder base. Questionable small gallstones or sludge along the dependent portion of the gallbladder lumen. Electronically Signed: Kian Guevara MD at 8:20 EDT , EKG Initial EKG: Attestation: I personally reviewed and interpreted this EKG as follows: Interpretation: Atrial Fibrillation (171) and RBBB Prior EKG tracings: available for review Prior: Unchanged (01/18/2021) Critical Care Time Critical Care Time: Yes Critical care time (excluding procedures): 30-74 minutes (47), Including time spent:, Discussing w/Patient &/or Family/Nutritional Assistant, Discussing w/Consultants, Arranging Admission or Transfer and Performing Direct Patient Care at Bedside Discharge Plan Triage Chief Complaint: Shortness of Breath ED Provider: Gregory Kaye Dx/Rx/DC Orders Clinical Impression: COPD with acute exacerbation, Pressure injury of left buttock, stage 1, Acute respiratory failure, Hypercarbia, Colitis Prescriptions: No Action tiotropium-olodaterol 2.5-2.5 mcg/actuation mist 2 puff inhalation DAILY albuterol sulfate 2.5 mg /3 mL (0.083 %) solution for nebulization 2.5 mg inhalation Q4H PRN (Reason: SOB) lactulose 10 gram/15 mL solution 30 ml PO BID bisacodyl 10 mg suppository 10 mg VA BID PRN (Reason: constipation) acetylcysteine 100 mg/mL (10 %) solution 4 ml inhalation BID sodium chloride 0.65 % aerosol,spray 2 spray intranasal 5X/DAY PRN (Reason: NASAL STUFFINESS) acetaminophen 325 mg capsule 650 mg PO Q6H PRN (Reason: Pain) triamcinolone acetonide 0.1 % cream 1 applic topical TID PRN (Reason: hemorrhoids) ammonium lactate 12 % lotion 1 applic topical DAILY PRN (Reason: dry skin) cyclobenzaprine 10 mg tablet 10 mg PO TID PRN (Reason: pain) Breztri Aerosphere 160-9-4.8 mcg/actuation HFA aerosol inhaler 2 inh inhalation BID Qty: 10.7 6RF tamsulosin 0.4 MG capsule 0.8 mg PO DAILY ropinirole 1 MG tablet 1 mg PO QHS PRN PRN (Reason: Restless Leg(S)) theophylline 300 MG tablet 300 mg PO BID pravastatin 20 MG tablet 20 mg PO QHS ergocalciferol (vitamin D2) 50,000 UNIT capsule 50,000 unit PO QMONTH omeprazole 20 MG capsule,delayed release(DR/EC) 40 mg PO BID food supplemt, lactose-reduced 120 ML liquid 120 ml PO 4X/DAY guaifenesin 400 MG tablet 800 mg PO TID PRN (Reason: Cough) aspirin 81 MG tablet,chewable 81 mg PO DAILY@0800 fluticasone propionate 1 SPRAY spray,suspension 2 spray NASAL DAILY Rx Instructions: bilateral loratadine 10 MG tablet 10 mg PO DAILY PRN (Reason: ALLERGIES) alprazolam 0.25 MG tablet 0.5 mg PO TID PRN PRN (Reason: Anxiety) sennosides-docusate sodium [Senna with Docusate Sodium] 8.6-50 mg Tablet 2 tab PO BID albuterol sulfate 90 mcg/actuation Hfa Aerosol Inhaler 2 puff INHALATION Q6H PRN (Reason: Shortness Of Breath Or Wheezing) polyethylene glycol 3350 [Miralax] 17 gram Powder In Packet 17 g PO DAILY mineral oil Oil 100 ea miscellaneous .once Qty: 100 0RF hydrophilic Ointment 1 applic TOPICAL DAILY mometasone 110 mcg/ actuation (7) Aerosol Powdr Breath Activated 200 mcg INHALATION BID olodaterol 2.5 mcg/actuation Mist 2 inh INHALATION DAILY plecanatide 3 mg Tablet 3 mg PO DAILY prednisone 10 mg tablet 10 mg PO UD Rx Instructions: take 4 tabs for three days, then 3 tabs for three days, then 2 tabs for three days, then 1 tab for 3 days [facility] [Primary Care Provider] - Disposition Disposition: Hospice in Medical Facility Discharge Location: [facility]
--- NOTE | 2022-01-26 07:19 | CT_ITS ---
STUDY: CT ABDOMEN AND PELVIS WITHOUT CONTRAST REASON FOR EXAM: Male, 76 years old. Abdominal pain. Prior appendectomy. RADIATION DOSAGE (If Supplied By Facility): CTDIvol = ( 6.04 ) mGy, DLP = ( 271.8 ) mGycm TECHNIQUE: Transaxial images were obtained from the dome of the diaphragm to the symphysis pubis without oral contrast, and without intravenous contrast. Sagittal and coronal images were reconstructed. Individualized dose optimization techniques were used for this CT. COMPARISON: Comparison is made with prior study 04/25/2021. FINDINGS: Emphysematous changes. Stable scarring at the lung bases more prominent on the left side. Small pericardial effusion. Normal liver. Questionable small gallstones along the dependent portion of the gallbladder lumen versus sludge. Normal spleen. Normal pancreas. Normal bilateral adrenal glands. Normal right kidney. Normal left kidney. There is a small hiatal hernia. Normal small intestine. There is evidence of a thickening of the colon more prominent in the right hemicolon. This may represent colitis. A repeat scan with oral contrast is recommended for further evaluation. The patient is status post appendectomy There is diffuse atherosclerotic calcification of the abdominal aorta, without a demonstrated aneurysm. Normal inferior vena cava. Normal retroperitoneum. Diffuse bladder wall thickening. There is enlargement of the prostate gland. The prostate measures 3.8 cm x 5.1 cm. This causes indentation of the bladder base. Central prostatic calcification. Normal abdominal wall. There are diffuse degenerative changes of the visualized lumbar spine. Levo scoliosis. CT/Abdomen/Pelvis without Cont IMPRESSION: Findings suggestive of colitis. Diffuse urinary bladder wall thickening and prostatic enlargement with indentation of the bladder base. Questionable small gallstones or sludge along the dependent portion of the gallbladder lumen. Electronically Signed: Kian Guevara MD at 8:20 EDT ,
--- NOTE | 2022-01-26 07:56 | NURSING ---
PAGED AND TALKED TO HOSPICE
--- NOTE | 2022-01-26 08:01 | CPS ---
Critical blood gas results handed to Dr Kaye.
[2022-01-26 08:05] LABS: Allen Test Positive; Base Excess 13 mmol/L (-2 to +2); Bicarbonate 39.5 mmol/L (22-26); Blood Gas Specimen Type ART; O2 Delivery Device Cannula; PO2 100 mmHG (75-100); SITE L Radial; SO2 96 % (95-99); Total Carbon Dioxide 42 mmol/L; pCO2 81.8 mmHg (35-45); pH 7.29 (7.35-7.45)
[2022-01-26 08:15] LABS: Anion Gap 7 (5-15); BUN 50 mg/dL (7-18); BUN/Creat Ratio 33.1 RATIO (10-20); Calcium,Total 9.2 mg/dL (8.5-10.1); Chloride 91 mmol/L (98-107); Creatinine, Serum 1.51 mg/dL (0.70-1.30); EST Glomerular Filtration Rate 48 mL/min (>60); Est Glom Filt Rate - Afr Amer 58 mL/min (>60); Estimated Creatinine Clearance 27.14 ml/min; Glucose 148 mg/dL (74-106); Potassium 4.9 mmol/L (3.5-5.1); Sodium Level 133 mmol/L (136-145); Troponin-I HS 28 pg/mL (3.0-78.0)
--- NOTE | 2022-01-26 08:20 | CPS ---
Asked patient if he felt nauseated and patient stated he had been 'throwing up.' BiPAP not started but at bedside. RN and DR weaver.
[2022-01-26 08:23] LABS: Hematocrit 48.7 % (40-54); Hemoglobin 15.6 g/dL (13.0-16.5); Mean Corpuscular Volume 96.8 fL (80-94); Mean Platelet Vol. 10.9 fl (6.2-12.0); POSITIVE COUNT YES; POSITIVE DIFFERENTIAL YES; POSITIVE MORPHOLOGY YES; Platelet Count 222 K/mm3 (150-450); RBC Distribution Width CV 12.8 % (11.6-14.6); RBC Distribution Width SD 45.5 fl (35.1-43.9); Red Blood Count 5.03 M/mm3 (4.6-6.2)
[2022-01-26 08:28] LABS: Lactic Acid 2.2 mmol/L (0.4-1.9)
[2022-01-26] MEDS: Ondansetron 4 MG/2 ML Vial IV (08:47)
[2022-01-26 08:48] LABS: White Blood Count 34.3 K/mm3 (4.4-11.0)
[2022-01-26 09:01] LABS: Differential Indicated MANUAL DIFF; Scan Smear per Review Criteria MANUAL DIFF
[2022-01-26 09:06] LABS: Lymphocyte 1 % (19-41); Metamyelocyte 1 % (0-1); Monocyte 3 % (0-10); Neutrophil-Band 33 % (0-5); Neutrophil-Segmented 62 % (47-70); Platelet Estimate ADEQUATE (ADEQ); Red Cell Morphology NORM C+C NORMAL (NORM C&C); Total Cells Counted 100 (MANUAL DIFF)
[2022-01-26 09:08] LABS: Absolute Lymphocyte Count 0.34 X10^3/uL (0.83-4.51); Absolute Neutrophil Count 32.6 X10^3/uL (2.0-7.7)
--- NOTE | 2022-01-26 09:24 | NURSING ---
CALLED HOSPICE, TALKED TO [facility]. THEY WILL TALK TO FAMILY, THEN COME SEE THE PATIENT
[2022-01-26] MEDS: 0.9% Normal Saline 1,000 ML 1000 ML IV (10:46)
[2022-01-26] MEDS: Ciprofloxacin 400 MG/200 ML BAG 200 MG IV (11:34)
[2022-01-26 11:53] LABS: Reflex Lactate? Y
--- NOTE | 2022-01-26 12:33 | CM.ED ---
Addendum entered by Annabel Barr 01/26/22 12:50: DARA followed up with [employer] [place]. Annabel Barr PROFESSOR OF MECHANICAL ENGINEERING [employer] Original Note: DARA was advised by Sanjana Kam, family liaison from [facility] that patient will be accepted in the [facility]. She requested discharge instructions and DNRCC be faxed to inpatient unit at [phone]. DARA left note for [place], mechanical unit repairer regarding this request. DARA will follow up with secretary [employer] also.
[2022-01-26] MEDS: metroNIDAZOLE 500 MG/100 ML BAG 100 MG IV (13:23)
--- NOTE | 2022-01-26 14:23 | ED.RN ---
THIS RN CALLED REPORT TO [facility]. REPORT GIVEN TO KWABENA GUPTA. REPORT GIVEN TO TRANSPORT TEAM. PT MOVED TO EMS COT AND TRANSPORTED TO HOSPICE WITH HOSPICE CARE TEAM.
[2022-01-27 13:19] LABS: Pathologist Review Reviewed
== END 2022-01-26 14:24 | disposition hospice, inpatient (51) ==
PROVIDERS: Emergency Provider Emergency Medicine; Visit Provider Emergency Medicine
DX: J44.1 Chronic obstructive pulmonary disease with (acute) exacerbation (principal); J96.02 Acute respiratory failure with hypercapnia; I48.91 Unspecified atrial fibrillation; K52.9 Noninfective gastroenteritis and colitis, unspecified; L89.321 Pressure ulcer of left buttock, stage 1; I45.10 Unspecified right bundle-branch block; I10 Essential (primary) hypertension; Z79.82 Long term (current) use of aspirin; Z79.899 Other long term (current) drug therapy; Z79.51 Long term (current) use of inhaled steroids; Z79.52 Long term (current) use of systemic steroids; Z87.891 Personal history of nicotine dependence
CPT/HCPCS: 36415; 36600; 51702; 71045; 74176; 80048; 82803; 83605; 84484; 85025; 87040; 87428; 93005; 94002; 94640; 96361; 96365; 96366; 96367; 96375; 99285; J7030; J7040; J7050; A4216; J0744; J2405